=== PATIENT | male | born 2000 | race Caucasian/White ===

== ENCOUNTER 2020-10-18 03:56 | Emergency (ER) | payer MEDICAID, SELFPAY ==
[2020-10-18 04:04] VITALS: BP 142/85; PULSE 93; RESP 16; TEMP 36.4; O2SAT 100
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
--- NOTE | 2020-10-18 04:29 | PC.NURSE ---
Pt seen leaving ED lobby and ambulating unassisted across parking lot.
--- NOTE | 2020-10-18 04:45 | PC.NURSE ---
patient left without receiving d/c instructions or being registered. patient access called patient to register him.
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
== END 2020-10-18 04:48 | disposition home or self-care (01) ==
PROVIDERS: Emergency Provider Emergency Medicine; PCP Family Medicine
DX: L55.0 Sunburn of first degree (principal)
CPT/HCPCS: 99281

== ENCOUNTER 2022-07-18 16:22 | Emergency (ER) | payer OTHER, SELFPAY ==
[2022-07-18 16:41] VITALS: BP 145/82; PULSE 92; RESP 16; TEMP 36.9; O2SAT 99
--- NOTE | 2022-07-18 16:46 | ED.URI ---
HPI - URI/Sore Throat General Chief Complaint: Upper Respiratory Infection Stated Complaint: Cough/Diarrhea/Sinus Time Seen by Provider: 07/18/22 16:46 Source: patient Mode of arrival: ambulatory Limitations: no limitations History of Present Illness HPI Narrative: 22-year-old male presents complaint hoarse voice, nasal congestion, sore throat, cough for approximately 5days. Reports body aches, chills. Today started having diarrhea. Does not seem to be feeling any better. Denies chest pain shortness of breath. Afebrile. Left work early due to feeling sick. all systems reviewed and negative except as noted above. Related Data Allergies Allergy/AdvReac Type Severity Reaction Status Date / Time No Known Allergies Allergy Unverified 07/18/22 16:24 Review of Systems Review of Systems: CONSTITUTIONAL: Denies fever . Reports chills, or sweats. EYES: Denies visual changes, redness, or discharge. ENT: reports rhinorrhea, congestion, sore throat. Denies otalgia. CARDIOVASCULAR: Denies chest pain, palpitations, or edema. RESPIRATORY: reports cough. Denies dyspnea. GASTROINTESTINAL: Denies abdominal pain, nausea, vomiting. Reports diarrhea. GENITOURINARY: Denies dysuria or hematuria. SKIN: Denies rash or itching. MUSCULOSKELETAL: Denies back pain, joint pain, or myalgia. NEUROLOGIC: Denies headache, numbness, or weakness. PSYCHIATRIC: Denies anxiety or depression. All other systems reviewed are negative, except as documented in HPI. PMFSH Social History Social History Gender identity (if verbalized by the patient): Male Comments At time of signature, agree with nursing past medical, surgical, social and family history. There is no relevant family history pertinent to the presenting complaint. Exam Narrative: GENERAL: This is a well-nourished, well-developed patient, in no apparent distress. HEAD: normocephalic, atraumatic. EYES: PERRL. Sclera clear/white. Vision is grossly intact. EARS: External ears normal, auditory canals clear and without drainage, TMs normal without perforation. Hearing grossly intact. NOSE: External nose normal with clear nasal drainage, erythema to throat noted. THROAT: Mucous membranes moist, Erythema to posterior pharynx without swelling or exudates. NECK: Neck supple, non-tender without lymphadenopathy, masses or thyromegaly. CARDIOVASCULAR: Regular rate and rhythm without murmurs, gallops, or rubs. RESPIRATORY: Clear to auscultation. Breath sounds equal bilaterally. No wheezes, rales, or rhonchi. SKIN: warm, Dry, intact with no suspicious lesions or rash, good texture and turgor. NEURO: awake, alert, and oriented to person, place and time. There were no obvious focal neurologic abnormalities. EXTREMITIES: No joint tenderness, effusion, or edema noted. Course Course Level of Care: Express Care Visit Vital Signs Vital signs: Vital Signs Temperature 36.9 C 07/18/22 16:41 Pulse Rate 92 07/18/22 16:41 Respiratory Rate 16 07/18/22 16:41 Blood Pressure 145/82 H 07/18/22 16:41 Pulse Oximetry 99 07/18/22 16:41 Oxygen Delivery Room Air 07/18/22 16:41 Temperature 36.9 C 07/18/22 16:41 Pulse Rate 92 07/18/22 16:41 Respiratory Rate 16 07/18/22 16:41 Blood Pressure 145/82 H 07/18/22 16:41 Pulse Oximetry 99 07/18/22 16:41 Oxygen Delivery Room Air 07/18/22 16:41 Reviewed MDM - URI/Sore Throat MDM Narrative Medical decision making narrative: Patient is aware of diagnosis, understands and agrees to treatment plan. Anticipatory guidance given. Patient agrees to follow-up as directed and is aware of reasons to seek care at the emergency department. Portions of this record may have been created with voice recognition software Differential Diagnosis Differential diagnosis: Likely upper respiratory infection, sinusitis, viral infection and influenza Lab Data Labs: Lab Results 07/18/22 Range/Units 16:54 POC SARS CoV-2 Ag Negative
== END 2022-07-18 17:30 | disposition home or self-care (01) ==
PROVIDERS: Emergency Provider Nurse Practitioner Family; PCP Family Medicine
DX: J06.9 Acute upper respiratory infection, unspecified (principal); Z20.822 Contact with and (suspected) exposure to COVID-19
CPT/HCPCS: 87426; 87804; 99213; C9803; G0463

== ENCOUNTER 2023-06-11 13:37 | Emergency (ER) | payer OTHER, SELFPAY ==
[2023-06-11] VITALS (31 sets, daily range): BP systolic 125–199; BP diastolic 73–96; PULSE 97–138; RESP 11–32; TEMP 37.4; O2SAT 96–100
--- NOTE | ~2023-06-11 | XR_ITS ---
Clinical Indication: Chest pain PA and lateral views of the chest: Comparison: 03/07/2016 Findings: The lungs are clear, without evidence of focal consolidation or pleural effusion. Cardiome diastinal silhouette is within normal limits. Bones and soft tissues are unremarkable. Impression: Normal chest. Reviewed, dictated and finalized at location . MONIA PRINT OPERATOR Impression: Normal chest.
--- NOTE | 2023-06-11 13:39 | ECG_ITS ---
Measurements Intervals [place] Rate: 137 P: 74 PA: 164 QRS: 42 QRSD: 93 T: 46 QT: 330 QTc: 499 Interpretive Statements SINUS TACHYCARDIA POSSIBLE RIGHT VENTRICULAR CONDUCTION DELAY [RSR (QR) IN V1/V2] NONSPECIFIC ST & T-WAVE ABNORMALITY ABNORMAL RHYTHM ECG NO PREVIOUS ECG AVAILABLE FOR COMPARISON Electronically Signed On 06-11-2023 15:51:13 GRIPPER MACHINE OPERATOR by Kalpana Nguyen M.D.
[2023-06-11 14:03] LABS: Basophils Percent Auto 0.1 % (0.2-1.2); Eosinophils Absolute Auto 0.2 K/mm3 (0-0.3); Eosinophils Percent Auto 1.4 % (0-4.4); Hematocrit 43.4 % (42.0-52.0); Hemoglobin 14.7 g/dL (14.0-18.0); Immature Granulocyte Absolute 0.05 K/mm3 (0.00-0.031); Immature Granulocyte Percent A 0.4 % (0-0.5); Lymphocytes Absolute Auto 1.62 K/mm3 (0.9-3.2); Lymphocytes Percent Auto 14.3 % (18.3-44.2); Mean Corpuscular HGB Conc 33.9 g/dl (32-36); Mean Corpuscular Hemoglobin 29.3 pg (26-34); Mean Corpuscular Volume 86.5 fl (80-100); Mean Platelet Volume 9.9 fl (7.4-10.4); Monocytes Absolute Auto 0.8 K/mm3 (0.1-0.6); Monocytes Percent Auto 7.1 % (2.6-8.5); Neutrophils Absolute Auto 8.7 K/mm3 (1.3-6.7); Neutrophils Percent Auto 76.7 % (45.5-73.1); Platelet Count Result 241 k/mm3 (150-375); Red Blood Count 5.02 M/mm3 (4.6-6.20); White Blood Count 11.3 K/mm3 (4.5-10.0)
[2023-06-11 14:14] LABS: Prothrombin Time 13.7 Seconds (11.1-14.7)
[2023-06-11 14:15] LABS: Alanine Aminotransferase 30 U/L (6-50); Albumin Level 4.9 g/dL (3.5-5.1); Alkaline Phosphatase 72 U/L (38-126); Anion Gap 11 mmol/L (8-16); Aspartate Amino Transferase 48 U/L (17-59); Bilirubin,Total 0.5 mg/dL (0.2-1.3); Blood Urea Nitrogen 23 mg/dL (9-20); Calcium 9.6 mg/dL (8.4-10.2); Carbon Dioxide 26 mmol/L (22-30); Chloride 102 mmol/L (98-107); Estimated CRCL calculation 164 ml/min; Estimated Glomerular Filt Rate > 60; Glucose 134 mg/dL (65-110); Lipase 56 U/L (23-300); Partial Thromboplastin Time 24.8 SECONDS (22.3-36.8); Potassium 3.2 mmol/L (3.4-5.0); Sodium 139 mmol/L (137-145)
[2023-06-11 14:29] LABS: Troponin I < 0.012 ng/mL (0.000-0.034)
--- NOTE | 2023-06-11 15:25 | ED.CHESTPAIN ---
HPI - Chest Pain General Chief Complaint: Chest Pain Stated Complaint: chest discomfort x 40 mins Time Seen by Provider: 06/11/23 15:16 Source: patient and family ( [place]) Mode of arrival: EMS Limitations: no limitations History of Present Illness HPI narrative: 23-year-old male presents with chest pain that started approximately 40 minutes prior to EMS arrival. He notes he was at work and started feeling heaviness his chest that was radiating to his left arm which also felt numb. This has been occurring intermittently since. he called his who recommended he go to the emergency department and he did start to drive himself but he began to feel more anxious and felt his symptoms were getting worse so he pulled off to the side of the road and called 911 and EMS transported him. He notes that he did have some relief with the aspirin that they provided but he is still having some symptoms. This has never happened before and he has no cardiac history/does not follow with a spiral winder. He did have a large cup/to go mug of coffee and then a C4 energy drink. He does state that at baseline he drinks several energy drinks a day so caffeine intake is not unusual but doesn't always have coffee. He called his who recommended he come to the ED. Started to drive himself but felt he was getting more anxious and symptoms were getting worse so pulled off to side of road and called 911 to be transported by EMS. EMS gave him aspirin which provided some relief but symptoms still present. He does perform a lot of heavy lifting at work but had not started that part of his job yet today. No shortness of breath. He does feel hyper-aware of his heart beat/rate. Had been in baseline state of health before this. No preceding cough, fevers. PCP through [facility] in [facility]. Related Data Allergies Allergy/AdvReac Type Severity Reaction Status Date / Time No Known Allergies Allergy Verified 06/11/23 14:22 [facility] Social History Social History Other substance usage details: Caffeine (multiple energy drinks daily, occasional coffee) Living arrangements: with family Additional living arrangements comments: [place] Occupation/Education: occupation Gender identity (if verbalized by the patient): Male Exam Narrative: GENERAL: Well-appearing, well-nourished, and in no acute distress. HEAD: Normocephalic, atraumatic. EYES: Non injected, non icteric ENT: Nares clear, no rhinorrhea or epistaxis. NECK: Supple. CHEST: Clear to auscultation. No respiratory distress. speaking complete sentences. No rhonchi, wheezes, stridor, rales. HEART: Tachycardic rate and rhythm. . ABDOMEN: Soft, nondistended. EXTREMITIES: Normal range of motion. No edema. SKIN: Warm, dry, no rash. NEURO: No focal deficits. Alert and oriented x3. PSYCH: Normal mood and affect. Course Vital Signs Vital signs: Vital Signs Temperature 99.3 F 06/11/23 13:49 Pulse Rate 138 H 06/11/23 13:49 Respiratory Rate 16 06/11/23 13:49 Blood Pressure 199/93 H 06/11/23 13:49 Pulse Oximetry 100 06/11/23 13:49 Temperature 99.3 F 06/11/23 13:49 Pulse Rate 104 H 06/11/23 18:01 Respiratory Rate 18 06/11/23 18:01 Blood Pressure 166/78 H 06/11/23 18:01 Pulse Oximetry 98 06/11/23 18:01 Oxygen Delivery Room Air 06/11/23 14:20 MDM - Chest Pain MDM Narrative Medical decision making narrative: patient presents with report of acute onset chest heaviness with radiation to left while at work. No associated shortness of breath. Patient presented an elevated heart rate in the 130s has persistently been tachycardic in the 120s and 130s throughout the initiated with his workup and even upon my examination of him the as well thus will add TSH and D-dimer and give IV fluids. Workup shows mild hypokalemia which is repleted. HEART SCORE History 2 highly suspicious 1
[2023-06-11] MEDS: SODIUM CHLORIDE 0.9% IV 1,000 ML 999 ML IV CONT (15:34)
[2023-06-11 15:44] LABS: D Dimer < 0.27 ug/mL (<0.48)
--- NOTE | 2023-06-11 16:36 | ECG_ITS ---
Measurements Intervals [place] Rate: 114 P: FL: 0 QRS: 46 QRSD: 94 T: 29 QT: 321 QTc: 443 Interpretive Statements SINUS TACHYCARDIA POSSIBLE RIGHT VENTRICULAR CONDUCTION DELAY [RSR (QR) IN V1/V2] SEPTAL MYOCARDIAL INFARCTION , PROBABLY OLD [40+ ms Q WAVE IN V1/V2] NONSPECIFIC ST AND T WAVE ABNORMALITY COMPARED TO ECG 06/11/2023 13:46:54 NO SIGNIFICANT CHANGES Electronically Signed On 06-12-2023 15:56:59 SCOOP FILLER by Kalpana Nguyen M.D.
[2023-06-11 17:15] LABS: Troponin I < 0.012 ng/mL (0.000-0.034)
[2023-06-11] MEDS: ACETAMINOPHEN 500 MG TABLET 1000 MG PO (18:10)
[2023-06-11] MEDS: POTASSIUM PHOS/SODIUM PHOS 250 MG TABLET PO (18:10)
== END 2023-06-11 18:22 | disposition home or self-care (01) ==
PROVIDERS: Family Medicine; Emergency Provider Student in an Organized Health Care Education/Training Program; PCP Family Medicine
DX: R07.9 Chest pain, unspecified (principal); E87.6 Hypokalemia; R79.89 Other specified abnormal findings of blood chemistry; R00.0 Tachycardia, unspecified; I10 Essential (primary) hypertension; R94.31 Abnormal electrocardiogram [ECG] [EKG]
CPT/HCPCS: 36415; 71046; 80053; 83690; 84443; 84484; 85025; 85380; 85610; 85730; 93005; 96360; 99284; A9270; J7030

== ENCOUNTER 2023-07-11 09:10 | Emergency (ER) | payer OTHER, SELFPAY ==
--- NOTE | 2023-07-11 09:24 | ECG_ITS ---
Measurements Intervals [place] Rate: 108 P: 73 NM: 160 QRS: 60 QRSD: 94 T: 20 QT: 320 QTc: 430 Interpretive Statements SINUS TACHYCARDIA POSSIBLE LEFT ATRIAL ENLARGEMENT INCOMPLETE RIGHT BUNDLE BRANCH BLOCK NONSPECIFIC ST-T WAVE ABNORMALITY- ANTEROLAT/INF LEADS BASELINE ARTIFACT- AVL ABNORMAL ECG ABNORMAL RHYTHM ECG COMPARED TO ECG 06/11/2023 16:41:15 NO SIGNIFICANT CHANGES Electronically Signed On 07-11-2023 9:58:15 CDT by Ajith Vasquez D.O.
--- NOTE | 2023-07-11 09:24 | ED.GENADULT ---
HPI - General Adult General Chief complaint: Chest Pain Stated complaint: chest discomfort Time Seen by Provider: 07/11/23 09:24 Source: patient, RN notes reviewed and old records reviewed Mode of arrival: ambulatory Limitations: no limitations History of Present Illness HPI narrative: 23-year-old male to express care for complaints of intermittent chest discomfort since June 11. Patient endorses that he saw his primary care provider yesterday and was diagnosed with anxiety and given a new prescription that he started yesterday. patient states that his discomfort that became acutely worse overnight and into this morning. Patient states that yesterday his primary care provider discussed hypertension due to recent high blood pressure readings. Medications not started by PCP yesterday wants to follow up in 1 month patient. Patient also hypertensive in clinic today. Patient anxious upon arrival. Respirations even and nonlabored. No signs of acute distress. Related Data Home Medications Medication Instructions Recorded Confirmed escitalopram oxalate 10 mg tablet mg 07/11/23 07/11/23 Allergies Allergy/AdvReac Type Severity Reaction Status Date / Time No Known Allergies Allergy Verified 07/11/23 09:30 Review of Systems Review of Systems: All systems reviewed & are unremarkable except as noted in HPI and below Constitutional: Constitutional: Reports no additional constitutional complaints Eyes: Eyes: Reports no additional eye complaints ENT: Reports system reviewed and no additional complaints, except as documented Cardiovascular: Cardiovascular: Reports as per HPI, Reports chest pain, Reports chest pain at rest, Reports chest pain with activity, Reports rapid heart rate and Denies dyspnea Respiratory: Respiratory: Reports no additional respiratory complaints, Denies cough and Denies dyspnea Musculoskeletal: Musculoskeletal: Reports no additional musculoskeletal complaints Neurologic: Reports system reviewed and no additional complaints, except as documented Psychiatric: Psychiatric: Reports no additional psychiatric complaints PMFSH Social History Social History Other substance usage details: Caffeine (multiple energy drinks daily, occasional coffee) Living arrangements: with family Additional living arrangements comments: , [place] Occupation/Education: occupation Gender identity (if verbalized by the patient): Male Comments At the time of my signature, I reviewed and agree with the nursing past medical, surgical, social, and family history. There is no relevant family history pertinent to the patient complaint. Exam Const: General: cooperative, healthy appearing, comfortable, no acute distress, alert and well nourished Nutritional Appearance: well nourished Orientation/consciousness: patient oriented x3 Limitations: no limitations HENMT: Head: normal to inspection Ears: external ears normal Face/Nose/Sinus: Normal external nose present, Normal nares present, normal facial exam, No erythema and No edema Face and sinus: normal facial exam, no erythema and no edema Mouth: Yes Normal oral and palatal mucosa present Eyes: General: appearance normal, both eyes and all related structures Neck: Neck: normal visual inspection, full ROM and no meningeal signs Lymphatic: no lymphadenopathy noted and no lymphedema noted Chest: Chest palpation & inspection: normal inspection of the chest Resp: Effort & Inspection: normal respiratory effort and able to speak in complete sentences Auscultation: clear to auscultation bilaterally Cardio: Jugular venous distension: no JVD Rate: regular rate and tachycardic Rhythm: regular rhythm Back/Spine/Pelvis: Cervical Spine: cervical ROM normal Skin: General skin exam: normal color, no rashes or lesions noted and turgor normal Neuro: General: patient oriented x3, gait normal, moves all extrem
[2023-07-11 09:25] VITALS: BP 172/89; PULSE 84; RESP 18; TEMP 37; O2SAT 100
[2023-07-11 10:06] VITALS: BP 142/70; PULSE 97; RESP 16; O2SAT 100
== END 2023-07-11 10:19 | disposition home or self-care (01) ==
PROVIDERS: Emergency Provider Nurse Practitioner Family
DX: F41.9 Anxiety disorder, unspecified (principal); I20.9 Angina pectoris, unspecified; R03.0 Elevated blood-pressure reading, without diagnosis of hypertension; I45.10 Unspecified right bundle-branch block
CPT/HCPCS: 93005; 99213; G0463

== ENCOUNTER 2023-07-29 08:33 | Outpatient (CLI) | payer OTHER, SELFPAY ==
--- NOTE | 2023-08-01 14:24 | WPDHOLTEREM ---
Holter/Event Monitor Holter/Event Monitor Date of procedure: 08/01/23 Holter/Event Procedure: 48 Hr Holter Monitor Diagnosis: Palpitations Indications: Palpitations Image/Tracing Quality: Adequate. Findin. Predominant rhythm is sinus rhythm. The average heart rate is 81 beats per minute. The minimum heart rate is 52 beats per minute. The maximum heart rate is 125 beats per minute. 2. No evidence of atrial fibrillation, SVT, pauses, heart block, or ventricular tachycardia. 3. PAC burden of <0.01%. 4. PVC burden of <0.01%. 5. No patient reported symptoms. Conclusion: Unremarkable Holter monitor
== END 2023-07-29 08:34 | disposition home or self-care (01) ==
LOC: ANHCARD 08:35
PROVIDERS: PCP Nurse Practitioner Family; Visit Provider Nurse Practitioner Family
DX: R00.2 Palpitations (principal)
CPT/HCPCS: 93225; 93226

== ENCOUNTER 2023-08-01 10:11 | Emergency (ER) | payer OTHER, SELFPAY ==
[2023-08-01 10:20] VITALS: BP 156/100; PULSE 114; RESP 18; TEMP 37.1; O2SAT 100
--- NOTE | 2023-08-01 10:25 | ED.ARRPALP ---
HPI - Arrhythmia/Palpitations General Chief Complaint: Arrhythmia/Palpitations Stated Complaint: Fast Heartbeat Time Seen by Provider: 08/01/23 10:25 Source: patient Mode of arrival: ambulatory Limitations: no limitations History of Present Illness HPI narrative: Jabari is a 23-year-old male patient presenting to the clinic today with complaints of fast heartbeat. He reports that he feels as though his heart was beating fast while at work. States he has cut out caffeine. Had a protein shake and apples this morning. Had a Holter monitor removed yesterday and is scheduled to see Cardiology on Saturday. He denies any chest pain or shortness of breath associated with the fast his heart rate. Heart rate at the time of evaluation was 114. EKG heart rate shows 105 sinus tachycardia. Blood pressure is elevated 156/100-patient took his lisinopril this morning. Reports to nurse that his job is very stressful and causes him panic attacks. Patient has discontinued cigarettes but is now vaping. Has tried cutting out all caffeine. Related Data Home Medications Medication Instructions Recorded Confirmed escitalopram oxalate 10 mg tablet 10 mg PO AC 07/11/23 08/01/23 lisinopril 10 mg tablet 20 mg PO AC 08/01/23 08/01/23 Allergies Allergy/AdvReac Type Severity Reaction Status Date / Time No Known Allergies Allergy Verified 08/01/23 10:40 Review of Systems Review of Systems: Pertinent positives per HPI. Patient denies any fever, chills, rash, headache, visual changes, dizziness, cough, runny nose, sore throat, shortness of breath, chest pain, palpitations, nausea, vomiting, diarrhea, constipation, abdominal pain, or any urinary issues. PMFSH Social History Social History Other substance usage details: Caffeine (multiple energy drinks daily, occasional coffee) Living arrangements: with family Additional living arrangements comments: , [place] Occupation/Education: occupation Gender identity (if verbalized by the patient): Male Comments At the time of my signature, I reviewed and agree with the nursing past medical, surgical, social, and family history. There is no relevant family history pertinent to the patient complaint. Exam Narrative: General: Well-developed, well nourished, in no apparent distress Head: Normocephalic, atraumatic. Cardio: Sinus tach-Regular rate and rhythm, s1 and s2 normal, no murmur appreciated. Resp: Clear to auscultation bilaterally, no rhonchi, rales, wheezing or rubs. Extremities: No deformity, no edema, no cyanosis, capillary refill less than 2 seconds, peripheral pulses palpable and strong. Integumentary: [place], warm, and dry, intact without lesion, no rashes. Course Course Emergency Course: Portions of this record may have been created with voice recognition software. Level of Care: Express Care Visit Vital Signs Vital signs: Vital signs reviewed MDM - Arrhythmia/Palpitations MDM Narrative Medical decision making narrative: At the time of visit patient is resting comfortably on the exam table. Patient appears to be nontoxic. EKG: Shows sinus tachycardia with heart rate of 107 beats per minute. Possible atrial enlargement with incomplete right bundle-branch block. No ST elevation or depression noted-no changes from previous EKG on 07/10 Plan: Patient's heart rate down to 95 and blood pressure was rechecked and is 148/68. Patient reports his symptoms have improved since he has been in the clinic. 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 Will give him a work note for today. Supportive measures were discussed with the patient and they voiced understanding discharge instructions and agrees to treatment plan. Return precautions reviewed Differential Diagnosis Differential diagnosis: Likely palpitations, anxiety, sinus tachycardia, artial fibrillation, artial flutter, ventricular premature be
--- NOTE | 2023-08-01 10:26 | ECG_ITS ---
Measurements Intervals [place] Rate: 107 P: 77 [place]: 146 QRS: 58 QRSD: 97 T: 40 QT: 304 QTc: 367 Interpretive Statements SINUS TACHYCARDIA LEFT ATRIAL ENLARGEMENT [-0.15mV P WAVE IN V1/V2] POSSIBLE RIGHT VENTRICULAR CONDUCTION DELAY [RSR (QR) IN V1/V2] NONSPECIFIC T-WAVE ABNORMALITY ABNORMAL ECG SEE SCANNED COPY FOR SIGNATURE MTDD
[2023-08-01 10:42] VITALS: BP 148/68; PULSE 95
[2023-08-01 10:48] VITALS: PULSE 90
--- NOTE | 2023-08-01 14:17 | WPDHOLTEREM ---
Holter/Event Monitor Holter/Event Monitor Date of procedure: 08/01/23 Holter/Event Procedure: 48 Hr Holter Monitor Diagnosis: Palpitations Indications: Palpitations Image/Tracing Quality: Adequate. Total analysis time of 47 hours and 59 minutes. Findin. Predominant rhythm is sinus rhythm. The average heart rate is 81 beats per minute. The minimum heart rate is 52 beats per minute. The maximum heart rate is 125 beats per minute. 2. No evidence of atrial fibrillation, SVT, pauses, heart block, or ventricular tachycardia. 3. PAC burden of <0.01%. 4. PVC burden of <0.01%. 5. No patient reported symptoms. Conclusion: Unremarkable Holter monitor.
== END 2023-08-01 10:48 | disposition home or self-care (01) ==
PROVIDERS: Emergency Provider Nurse Practitioner Family; PCP Nurse Practitioner Family
DX: R00.2 Palpitations (principal); I10 Essential (primary) hypertension; F17.290 Nicotine dependence, other tobacco product, uncomplicated; F41.9 Anxiety disorder, unspecified
CPT/HCPCS: 93005; 99213; G0463

== ENCOUNTER 2023-12-21 19:51 | Emergency (ER) | payer OTHER, SELFPAY ==
--- NOTE | ~2023-12-21 | XR_ITS ---
EXAMINATION: XR chest 1V portable DATE: 12/21/2023 20:25 INDICATION: Palpitations TECHNIQUE: frontal view of the chest was obtained. COMPARISON: Chest radiograph dated 06/11/2023 FINDINGS: The lungs remain clear with no focal airspace opacities, pulmonary edema, pleural effusion or pneumot horax. The cardiomediastinal silhouette is normal. Mild lower thoracic levocurvature. IMPRESSION: 1. No acute cardiopulmonary disease. Reviewed, dictated and finalized at location A.
--- NOTE | 2023-12-21 19:57 | ECG_ITS ---
Test Date: 2023-12-21 19:59:50 Measurements Intervals [place] Rate: 133 P: 64 [place]: 160 QRS: 49 QRSD: 96 T: 46 QT: 379 QTc: 564 Interpretive Statements SINUS TACHYCARDIA NONSPECIFIC ST & T-WAVE ABNORMALITY- ANTEROLAT/INF LEADS BASELINE WANDER- I, II, III, AVL, AVF ABNORMAL ECG No previous ECG available for comparison Electronically Signed On 12-22-2023 07:25:44 CDT by Ajith Vasquez D.O.
[2023-12-21 19:58] VITALS: BP 140/75; PULSE 148; RESP 13; TEMP 36.7; O2SAT 100
[2023-12-21 20:10] VITALS: PULSE 140
[2023-12-21] MEDS: diazePAM INJ (*CRX) 10 MG/2 ML SYRINGE 5 MG IV PUSH (20:20)
[2023-12-21 20:27] LABS: Basophils Percent Auto 0.5 % (0.2-1.2); Eosinophils Absolute Auto 0.2 K/mm3 (0-0.3); Eosinophils Percent Auto 3.2 % (0-4.4); Hematocrit 39.3 % (42.0-52.0); Hemoglobin 13.7 g/dL (14.0-18.0); Immature Granulocyte Absolute 0.02 K/mm3 (0.00-0.031); Immature Granulocyte Percent A 0.4 % (0-0.5); Lymphocytes Absolute Auto 1.71 K/mm3 (0.9-3.2); Lymphocytes Percent Auto 30.1 % (18.3-44.2); Mean Corpuscular HGB Conc 34.9 g/dl (32-36); Mean Corpuscular Hemoglobin 30.2 pg (26-34); Mean Corpuscular Volume 86.6 fl (80-100); Mean Platelet Volume 9.6 fl (7.4-10.4); Monocytes Absolute Auto 0.7 K/mm3 (0.1-0.6); Monocytes Percent Auto 11.4 % (2.6-8.5); Neutrophils Absolute Auto 3.1 K/mm3 (1.3-6.7); Neutrophils Percent Auto 54.4 % (45.5-73.1); Platelet Count Result 204 k/mm3 (150-375); Red Blood Count 4.54 M/mm3 (4.6-6.20); Red Cell Distribution Width 12.7 % (11.5-14.5); White Blood Count 5.7 K/mm3 (4.5-10.0)
--- NOTE | 2023-12-21 20:29 | ED.GENADULT ---
HPI - General Adult General Chief complaint: Arrhythmia/Palpitations Stated complaint: palpitations Time Seen by Provider: 12/21/23 20:05 History of Present Illness HPI narrative: This is a 23-year-old male with a history of anxiety and palpitations presenting with palpitations. Patient has been started on hydroxyzine as well as lisinopril. Patient had a drink any saw there was potassium in the drink and he was concerned that that would interact with his lisinopril. His heart then started to race, he got a very dry mouth had the sensation that something was seriously wrong. This is associated with some chest heaviness. Patient has a history of panic attacks. Patient has worn a Holter monitor in the past several months that was unremarkable. Patient follows with a basket maker. Patient had been on escitalopram in the past but did not like how it him feel. Related Data Home Medications Medication Instructions Recorded Confirmed escitalopram oxalate 10 mg tablet 10 mg PO AC 07/11/23 08/01/23 lisinopril 10 mg tablet 20 mg PO AC 08/01/23 08/01/23 Allergies Allergy/AdvReac Type Severity Reaction Status Date / Time No Known Allergies Allergy Verified 08/01/23 10:40 [facility] Social History Social History Other substance usage details: Caffeine (multiple energy drinks daily, occasional coffee) Living arrangements: with family Additional living arrangements comments: , [place] Occupation/Education: occupation Gender identity (if verbalized by the patient): Male Exam Narrative: APPEARANCE: anxious appearing Head: atraumatic. EYES: EOMI, NOSE: Atraumatic NECK: Trachea midline RESPIRATORY: No increased rate of breathing clear to auscultation CARDIOVASCULAR: RRR, no peripheral edema. ABDOMINAL: Non-distended soft nontender MUSCULOSKELETAl: No obvious deformities NEURO: Alert. Moving 4/4 extremities SKIN:: Warm, dry. Normal color PSYCHIATRIC: Normal affect Course Vital Signs Vital signs: Vital Signs Temperature 98.1 F 12/21/23 19:58 Pulse Rate 148 H 12/21/23 19:58 Respiratory Rate 13 12/21/23 19:58 Blood Pressure 140/75 12/21/23 19:58 Pulse Oximetry 100 12/21/23 19:58 Oxygen Delivery Room Air 12/21/23 19:58 Temperature 98.1 F 12/21/23 19:58 Pulse Rate 140 H 12/21/23 20:10 Respiratory Rate 13 12/21/23 19:58 Blood Pressure 140/75 12/21/23 19:58 Pulse Oximetry 100 12/21/23 19:58 Oxygen Delivery Room Air 12/21/23 19:58 Medical Decision Making MDM Narrative Medical decision making narrative: -Course: 23-year-old male with history of anxiety and panic attacks presenting with anxiety. EKG showed sinus tach nonspecific ST changes. Chest x-ray unremarkable. Patient was treated with Valium with significant improvements in his symptoms. I discussed the patient's anxiety and panic attacks with him at length. Patient follow-up primary care -DDX includes but is not limited to: Panic disorder, anxiety, ACS, pneumothorax, caffeine overdose -Co-morbidities complicating care: Anxiety with panic attacks -External Chart Review: Review of 3 previous ER and urgent care visits for similar presentation/ Review of Holter monitor report. -Hx from independent Sources: bedside -Independent interpretation of studies: Chest x-ray normal. Independent EKG interpretation: Rhythm [sinus], Rate [133], [place] -[normal], [place] -[normal], QRS [narrow], QTC [normal], ST Segments - [Negative for concerning elevations] Final interpretations: Sinus tach with nonspecific T-wave inversions -unchanged from previous -Interventions:Valium -Shared decision making / Disposition: Discharged Vital Signs Vital Signs: Vital Signs Temperature 98.1 F 12/21/23 19:58 Pulse Rate 148 H 12/21/23 19:58 Respiratory Rate 13 12/21/23 19:58 Blood Pressure 140/75 12/21/23 19:58 Pulse Oximetry 100 12/21/23 19:58 Oxygen De
[2023-12-21 20:37] LABS: Alanine Aminotransferase 32 U/L (6-50); Albumin Level 4.5 g/dL (3.5-5.1); Alkaline Phosphatase 69 U/L (38-126); Anion Gap 9 mmol/L (4-12); Aspartate Amino Transferase 38 U/L (17-59); Bilirubin,Total 0.2 mg/dL (0.2-1.3); Blood Urea Nitrogen 19 mg/dL (9-20); Calcium 8.9 mg/dL (8.4-10.2); Carbon Dioxide 28 mmol/L (22-30); Chloride 98 mmol/L (98-107); Estimated CRCL calculation 141 ml/min; Estimated Glomerular Filt Rate > 60; Glucose 109 mg/dL (65-110); Potassium 3.7 mmol/L (3.4-5.0); Sodium 135 mmol/L (137-145)
== END 2023-12-21 21:16 | disposition home or self-care (01) ==
LOC: ANHED 21:13
PROVIDERS: Emergency Provider Emergency Medicine; PCP Nurse Practitioner Family
DX: R00.2 Palpitations (principal); F41.9 Anxiety disorder, unspecified
CPT/HCPCS: 36415; 71045; 80053; 85025; 93005; 96374; 99284; J3360

== ENCOUNTER 2024-02-18 10:09 | Emergency (ER) | payer OTHER, SELFPAY ==
[2024-02-18 10:24] VITALS: BP 141/69; PULSE 87; RESP 16; TEMP 36.8; O2SAT 100
--- NOTE | 2024-02-18 10:36 | ED.ANXIETY ---
HPI - Anxiety General Chief Complaint: Anxiety Stated Complaint: panic attack and chest pain Time Seen by Provider: 02/18/24 11:11 Source: patient Mode of arrival: ambulatory Limitations: no limitations History of Present Illness HPI narrative: 23-year-old male presents with concern for anxiety. Reports history of anxiety and panic attacks. Reports today at work he felt a pain in his chest that felt tight and left arm soreness. He reports a feeling of fear. He is requesting an EKG. He does see a aeronautical test engineer based on prior panic attack symptoms. He has recently seen his aeronautical test engineer. He takes hydroxyzine daily. MD complaint: anxiety Related Data Home Medications Medication Instructions Recorded Confirmed lisinopril 10 mg tablet 30 mg PO AC 08/01/23 02/18/24 hydroxyzine HCl 25 mg tablet 25 mg PO TID PRN Anxiety 02/18/24 02/18/24 Allergies Allergy/AdvReac Type Severity Reaction Status Date / Time No Known Allergies Allergy Verified 02/18/24 10:39 Review of Systems Review of Systems: CONSTITUTIONAL: Denies malaise, chills, sweats, or fever. CARDIOVASCULAR: Reports chest pain tightness. Denies palpitations or edema. RESPIRATORY: Denies cough or dyspnea. MUSCULOSKELETAL: Reports left arm soreness PSYCHIATRIC: Reports anxiety All systems reviewed & are unremarkable except as noted in HPI and below PMFSH Social History Social History Other substance usage details: Caffeine (multiple energy drinks daily, occasional coffee) Living arrangements: with family Additional living arrangements comments: , [place] Occupation/Education: occupation Gender identity (if verbalized by the patient): Male Comments At time of signature, agree with nursing past medical, surgical, social and family history. There is no relevant family history pertinent to the presenting complaint Exam Narrative: GENERAL: Well-appearing, well-nourished, and in no acute distress. HEAD: Normocephalic, atraumatic. EYES: PERRLA, sclera clear, and EOMI ENT: Nares clear. Mucous membranes moist. NECK: Supple. CHEST: No respiratory distress. Clear to auscultation. No bony deformities, no asymmetry. Speaks in full sentences. HEART: Regular rate and rhythm. No murmur heard. Normal peripheral pulses. EXTREMITIES: Normal range of motion. No edema. Normal strength and sensation. SKIN: Warm, dry, no visible rash. NEURO: Alert and oriented x3. PSYCH: Normal mood and affect Course Course Emergency Course: Patient is aware of diagnosis, understands and agrees to treatment plan. Anticipatory guidance given. Patient agrees to follow-up as directed and is aware of reasons to seek care at the emergency department. Portions of this record may have been created with voice recognition software Level of Care: [facility] Visit Vital Signs Vital signs: Vital Signs Temperature 98.3 F 02/18/24 10:24 Pulse Rate 87 02/18/24 10:24 Respiratory Rate 16 02/18/24 10:24 Blood Pressure 141/69 H 02/18/24 10:24 Pulse Oximetry 100 02/18/24 10:24 Oxygen Delivery Room Air 02/18/24 10:24 Temperature 98.3 F 02/18/24 10:24 Pulse Rate 87 02/18/24 10:24 Respiratory Rate 16 02/18/24 10:24 Blood Pressure 141/69 H 02/18/24 10:24 Pulse Oximetry 100 02/18/24 10:24 Oxygen Delivery Room Air 02/18/24 10:24 Reviewed. MDM - Anxiety MDM Narrative Medical decision making narrative: I evaluated this patient in the [facility]. History is obtained from patient who is an independent historian and physical exam was performed.? Available medical records were reviewed. ? Exam findings and relevant testing show no acute concerns or changes; patient is non-toxic appearing and is in no distress. ? Differential diagnosis and treatment plan were discussed with the patient. Patient agrees with discussion and after shared medical decision making agrees with plan of care. All questions were answered to the patient's satisfaction. Patient is appropriate for outpatient treatment and follow-up. ECG Data EKG #1: Attestation: I personally reviewed and interpreted this ECG as follows: ECG completion date: 02/18/24 ECG completion time: 11:20 Prior ECG tracings: available for review Interpretation: Rate 99, KS interval 130, QRS duration 90. Possible left atrial enlargement, nonspecific ST T and T-wave abnormality, unchanged from previous EKGs EKG Interpretation: normal rate and sinus rhythm Critical Care Time Critical Care Time Critical Care Time: No Discharge Plan Discharge Clinical Impression: Acute anxiety Patient Disposition: Home, Self-Care Condition: Stable Instructions: Anxiety (ED) Additional Instructions: 1) Please follow-up with your primary care doctor in the next 1-2 days. 2) If you have any worsening of symptoms or any other urgent concerns please go to the ER. 3) Please continue taking your home medications as usual. 4) Please read and follow information included in discharge instructions. Prescriptions: No Action lisinopril 10 mg tablet 30 mg PO AC hydroxyzine HCl 25 mg tablet 25 mg PO TID PRN (Reason: Anxiety) Follow-up/Referrals: UNKNOWN,DOCTOR [Primary Care Provider] - Time of Disposition: 11:18
--- NOTE | 2024-02-18 10:53 | ECG_ITS ---
Test Date: 2024-02-18 11:06:17 Measurements Intervals [place] Rate: 99 P: 67 VT: 130 QRS: 75 QRSD: 90 T: 62 QT: 288 QTc: 371 Interpretive Statements SINUS RHYTHM POSSIBLE LEFT ATRIAL ENLARGEMENT [-0.1mV P WAVE IN V1/V2] NONSPECIFIC ST & T-WAVE ABNORMALITY Compared to ECG 12/21/2023 19:59:50 Sinus tachycardia no longer present Electronically Signed On 02-18-2024 13:58:55 CDT by Kalpana Nguyen M.D.
== END 2024-02-18 11:20 | disposition home or self-care (01) ==
PROVIDERS: Emergency Provider Nurse Practitioner
DX: F41.9 Anxiety disorder, unspecified (principal); I10 Essential (primary) hypertension
CPT/HCPCS: 93005; 99213; G0463

== ENCOUNTER 2024-02-18 12:10 | Emergency (ER) | payer OTHER, SELFPAY ==
--- NOTE | ~2024-02-18 | XR_ITS ---
EXAMINATION: XR chest 2V DATE: 02/18/2024 15:45 INDICATION: Chest pain. TECHNIQUE: Frontal and lateral views of the chest were obtained. COMPARISON: Chest single view 12/21/2023 FINDINGS: There is no pneumonia, pleural effusion, or pneumothorax. The heart size is normal. IMPRESSION: 1. No acute cardiopulmonary disease. Reviewed, dictated and finalized at location B.
[2024-02-18 12:22] VITALS: BP 135/90; PULSE 99; RESP 18; TEMP 36.7; O2SAT 100
--- NOTE | 2024-02-18 14:52 | ECG_ITS ---
Test Date: 2024-02-18 15:11:45 Measurements Intervals [place] Rate: 83 P: 68 MD: 144 QRS: 60 QRSD: 89 T: 38 QT: 349 QTc: 411 Interpretive Statements SINUS RHYTHM NONSPECIFIC ST & T-WAVE ABNORMALITY Compared to ECG 02/18/2024 11:06:17 No significant changes Electronically Signed On 02-19-2024 14:23:58 CDT by Kalpana Nguyen M.D.
--- NOTE | 2024-02-18 14:53 | ED.ANXIETY ---
HPI - Anxiety General Chief Complaint: Anxiety <Kanchan Dupont APRN - Last Filed: 02/18/24 14:55> Stated Complaint: panic attack <Kanchan Dupont APRN - Last Filed: 02/18/24 14:55> Time Seen by Provider: 02/18/24 14:40 <Kanchan Dupont APRN - Last Filed: 02/18/24 14:55> Focused HPI: Patient is a 23-year-old male who presents to the ER with chest pressure. He reports he went to urgent care earlier today and has an abnormal EKG. Patient reports he was at work this morning started having a panic attack. He reports no medical history pertinent to this ER visit. Patient does endorse increased stress lately. He denies any signs/symptoms of illness or urinary symptoms. GENERAL: Well-appearing, well-nourished, and in no acute distress. HEAD: Normocephalic, atraumatic. CHEST: Clear to auscultation. ?No respiratory distress. HEART: Regular rate and rhythm.? NEURO: ?Alert and oriented x3. Patient screened in triage and initial orders placed.? ?Additional care and disposition to be based upon?diagnostic testing and treatment. <Kanchan Dupont APRN - Last Filed: 02/18/24 14:55> Related Data Home Medications: Home Medications Medication Instructions Recorded Confirmed lisinopril 10 mg tablet 30 mg PO AC 08/01/23 02/18/24 hydroxyzine HCl 25 mg tablet 25 mg PO TID PRN Anxiety 02/18/24 02/18/24 <Kanchan Dupont APRN - Last Filed: 02/18/24 14:55> Allergies/Adverse Reactions: Allergies Allergy/AdvReac Type Severity Reaction Status Date / Time No Known Allergies Allergy Verified 02/18/24 10:39 <Kanchan Dupont APRN - Last Filed: 02/18/24 14:55> Review of Systems Review of Systems: CONSTITUTIONAL: Denies fever CARDIOVASCULAR: Reports chest pain RESPIRATORY: Denies dyspnea. PSYCHIATRIC: Reports anxiety <Vicky Perez PA-C - Last Filed: 02/18/24 18:37> All systems reviewed & are unremarkable except as noted in HPI and below <Vicky Perez PA-C - Last Filed: 02/18/24 18:37> PMFSH Past Medical History Medical History: Medical History (Updated 02/18/24 @ 18:34 by Vicky Perez PA-C) History of anxiety <Kanchan Dupont APRN - Last Filed: 02/18/24 14:55> Social History Social History: Social History Other substance usage details: Caffeine (multiple energy drinks daily, occasional coffee) Living arrangements: with family Additional living arrangements comments: , [place] Occupation/Education: occupation Gender identity (if verbalized by the patient): Male <Kanchan Dupont APRN - Last Filed: 02/18/24 14:55> Exam Narrative: GENERAL: Well-appearing, well-nourished, and in no acute distress. HEAD: Normocephalic, atraumatic. EYES: EOMI. CHEST: Clear to auscultation. No respiratory distress. No wheezes rales or rhonchi HEART: Regular rate and rhythm. No murmur heard. Normal peripheral pulses. EXTREMITIES: Normal range of motion. No edema. SKIN: Warm, dry, no rash. NEURO: No focal deficits. Alert and oriented x3. PSYCH: Normal mood and affect <Vicky Perez PA-C - Last Filed: 02/18/24 18:37> Course Course Emergency Course: Patient updated on his workup and agrees with plan of care. Chest pain resolved after Xanax <Vicky Perez PA-C - Last Filed: 02/18/24 18:37> Vital Signs Vital signs: Vital Signs Temperature 98.0 F 02/18/24 12:22 Pulse Rate 99 02/18/24 12:22 Respiratory Rate 18 02/18/24 12:22 Blood Pressure 135/90 02/18/24 12:22 Pulse Oximetry 100 02/18/24 12:22 Oxygen Delivery Room Air 02/18/24 12:22 Temperature 98.0 F 02/18/24 12:22 Pulse Rate 84 02/18/24 17:45 Respiratory Rate 18 02/18/24 17:45 Blood Pressure 139/71 02/18/24 17:45 Pulse Oximetry 100 02/18/24 17:45 Oxygen Delivery Room Air 02/18/24 12:22 <Kanchan Dupont APRN - Last Filed: 02/18/24 14:55> Vital Signs Temperature 98.0 F 02/18/24 12:22 Pulse Rate 99 02/18/24 12:22 Respiratory Rate 18 02/18/24 12:22 Blood Pressure 135/90 02/18/24 12:22 Pulse Oximetry 100 02/18/24 12:22 Oxygen Delivery Room Air 02/18/24 12:22 Temperature 98.0 F 02/18/24 12:22 Pulse Rate 84 02/18/24 17:45 Respiratory Rate 18 02/18/24 17:45 Blood Pressure 139/71 02/18/24 17:45 Pulse Oximetry 100 02/18/24 17:45 Oxygen Delivery Room Air 02/18/24 12:22 <Vicky Perez PA-C - Last Filed: 02/18/24 18:37> MDM - Anxiety MDM Narrative Medical decision making narrative: Patient presents to the ER for panic attack. Reporting chest discomfort. His vitals are stable. CBC and metabolic panel without concerning findings. Urine without evidence of infection. Chest x-ray without acute cardiopulmonary abnormality. EKG without acute ST changes compared to his previous EKG and his baseline troponin is negative. D-dimer is not elevated. Patient updated on his workup and agrees with plan of care. Reports relief in his discomfort after Xanax. He is to follow up with his primary provider. He was given warnings to return to the ER <Vicky Perez PA-C - Last Filed: 02/18/24 18:37> Differential Diagnosis Differential diagnosis: Likely acute anxiety and other (pneumonia, pneumothorax, PE) <Vicky Perez PA-C - Last Filed: 02/18/24 18:37> Lab Data Attestation: I reviewed the patient's lab results. <Vicky Perez PA-C - Last Filed: 02/18/24 18:37> Result diagrams: 02/18/24 15:20 02/18/24 15:20 <Kanchan Dupont APRN - Last Filed: 02/18/24 14:55> Labs: Lab Results 02/18/24 02/18/24 Range/Units 15:20 15:29 WBC 7.1 (4.5-10.0) K/mm3 RBC 5.26 (4.6-6.20) M/mm3 Hgb 15.3 (14.0-18.0) g/dL Hct 44.5 (42.0-52.0) % MCV 84.6 (80-100) fl MCH 29.1 (26-34) pg MCHC 34.4 (32-36) g/dl RDW 12.2 (11.5-14.5) % Plt Count 232 (150-375) k/mm3 MPV 9.3 (7.4-10.4) fl Immature Gran % (Auto) 0.1 (0-0.5) % Neut % (Auto) 80.0 H (45.5-73.1) % Lymph % (Auto) 12.9 L (18.3-44.2) % [place]ie % (Auto) 6.6 (2.6-8.5) % Eos % (Auto) 0.1 (0-4.4) % Baso % (Auto) 0.3 (0.2-1.2) % Lymph # (Auto) 0.92 (0.9-3.2) K/mm3 [place] # (Auto) 0.5 (0.1-0.6) K/mm3 Eos # (Auto) 0.0 (0-0.3) K/mm3 Baso # (Auto) 0.0 (0.0-0.1) K/mm3 Abs Immat Gran (auto) 0.01 (0.00-0.031) K/mm3 Absolute Neuts (auto) 5.7 (1.3-6.7) K/mm3 Absolute Nucleated RBC 0.000 (0.0-0.012) K/mm3 Nucleated RBC % 0.0 (0.0-0.2) % PT 14.6 (11.1-14.7) Seconds INR 1.1 APTT 32.9 (22.3-36.8) Seconds D-Dimer 0.34 (<0.48) ug/mL Sodium 140 (137-145) mmol/L Potassium 4.2 (3.4-5.0) mmol/L Chloride 99 (98-107) mmol/L Carbon Dioxide 27 (22-30) mmol/L Anion Gap 14 H (4-12) mmol/L BUN 13 D (9-20) mg/dL Creatinine 0.80 (0.7-1.3) mg/dL Estim Creat Clear Calc 145 ml/min Estimated GFR > 60 (59 - ) Glucose 96 (65-110) mg/dL Calcium 9.8 (8.4-10.2) mg/dL Total Bilirubin 0.7 (0.2-1.3) mg/dL AST 28 (17-59) U/L ALT 20 (6-50) U/L Alkaline Phosphatase 72 (38-126) U/L Troponin I < 0.012 (0.000-0.034) ng/mL Total Protein 9.0 H (6.3-8.2) g/dL Albumin 5.2 H (3.5-5.1) g/dL Urine Color Yellow (Yellow) Urine Appearance Clear (Clear) Urine pH 6.5 (5.0-9.0) Ur Specific [place] 1.018 (1.001-1.035) Urine Protein Negative (Negative) mg/dL Urine Glucose (UA) Negative (Negative) mg/dL Urine Ketones Negative (Negative) mg/dL Ur Blood (Man) Negative (Negative) Urine Nitrate Negative (Negative) Urine Bilirubin Negative (Negative) Urine Urobilinogen 1.0 (<2.0) mg/dL Leukocyte Esterase Rfl Negative (Negative) NATALI/UL <Kanchan Dupont, PROCESS SAFETY MANAGEMENT ENGINEER - Last Filed: 02/18/24 14:55> Lab Results 02/18/24 02/18/24 Range/Units 15:20 15:29 WBC 7.1 (4.5-10.0) K/mm3 RBC 5.26 (4.6-6.20) M/mm3 Hgb 15.3 (14.0-18.0) g/dL Hct 44.5 (42.0-52.0) % MCV 84.6 (80-100) fl MCH 29.1 (26-34) pg MCHC 34.4 (32-36) g/dl RDW 12.2 (11.5-14.5) % Plt Count 232 (150-375) k/mm3 MPV 9.3 (7.4-10.4) fl Immature Gran % (Auto) 0.1 (0-0.5) % Neut % (Auto) 80.0 H (45.5-73.1) % Lymph % (Auto) 12.9 L (18.3-44.2) % [place] % (Auto) 6.6 (2.6-8.5) % Eos % (Auto) 0.1 (0-4.4) % Baso % (Auto) 0.3 (0.2-1.2) % Lymph # (Auto) 0.92 (0.9-3.2) K/mm3 [place] # (Auto) 0.5 (0.1-0.6) K/mm3 Eos # (Auto) 0.0 (0-0.3) K/mm3 Baso # (Auto) 0.0 (0.0-0.1) K/mm3 Abs Immat Gran (auto) 0.01 (0.00-0.031) K/mm3 Absolute Neuts (auto) 5.7 (1.3-6.7) K/mm3 Absolute Nucleated RBC 0.000 (0.0-0.012) K/mm3 Nucleated RBC % 0.0 (0.0-0.2) % PT 14.6 (11.1-14.7) Seconds INR 1.1 APTT 32.9 (22.3-36.8) Seconds D-Dimer 0.34 (<0.48) ug/mL Sodium 140 (137-145) mmol/L Potassium 4.2 (3.4-5.0) mmol/L Chloride 99 (98-107) mmol/L Carbon Dioxide 27 (22-30) mmol/L Anion Gap 14 H (4-12) mmol/L BUN 13 D (9-20) mg/dL Creatinine 0.80 (0.7-1.3) mg/dL Estim Creat Clear Calc 145 ml/min Estimated GFR > 60 (59 - ) Glucose 96 (65-110) mg/dL Calcium 9.8 (8.4-10.2) mg/dL Total Bilirubin 0.7 (0.2-1.3) mg/dL AST 28 (17-59) U/L ALT 20 (6-50) U/L Alkaline Phosphatase 72 (38-126) U/L Troponin I < 0.012 (0.000-0.034) ng/mL Total Protein 9.0 H (6.3-8.2) g/dL Albumin 5.2 H (3.5-5.1) g/dL Urine Color Yellow (Yellow) Urine Appearance Clear (Clear) Urine pH 6.5 (5.0-9.0) Ur Specific [place] 1.018 (1.001-1.035) Urine Protein Negative (Negative) mg/dL Urine Glucose (UA) Negative (Negative) mg/dL Urine Ketones Negative (Negative) mg/dL Ur Blood (Man) Negative (Negative) Urine Nitrate Negative (Negative) Urine Bilirubin Negative (Negative) Urine Urobilinogen 1.0 (<2.0) mg/dL Leukocyte Esterase Rfl Negative (Negative) NATALI/UL <Vicky Perez PA-C - Last Filed: 02/18/24 18:37> Imaging Data Radiologist's impression: ITS Impressions Chest X-Ray 02/18/24 15:48 IMPRESSION: 1. No acute cardiopulmonary disease. <Vicky Perez PA-C - Last Filed: 02/18/24 18:37> ECG Data EKG #1: ECG completion date: 02/18/24 <FAROOQ Chiu Last Filed: 02/18/24 18:37> EKG Interpretation: normal rate, sinus rhythm, no ST changes and normal QT <FAROOQ Chiu Last Filed: 02/18/24 18:37> Critical Care Time Critical Care Time Critical Care Time: No <FAROOQ Chiu Last Filed: 02/18/24 18:37> Discharge Plan Discharge Clinical Impression: Acute anxiety <Kanchan Dupont APRN - Last Filed: 02/18/24 14:55> Patient Disposition: Home, Self-Care <Kanchan Dupont APRN - Last Filed: 02/18/24 14:55> Condition: Improved <Kanchan Dupont APRN - Last Filed: 02/18/24 14:55> Instructions: Chest Pain (ED), Anxiety (ED) <aKnchan Dupont APRN - Last Filed: 02/18/24 14:55> Additional Instructions: Return to the emergency department if you experience fever, chest pain, shortness of breath, abdominal pain with nausea and vomiting, weakness, numbness, or any other symptoms that are concerning to you. Take your home medications as prescribed Follow up with your primary care doctor <Kanchan Dupont APRN - Last Filed: 02/18/24 14:55> Prescriptions: No Action lisinopril 10 mg tablet 30 mg PO AC hydroxyzine HCl 25 mg tablet 25 mg PO TID PRN (Reason: Anxiety) <Kanchan Dupont APRN - Last Filed: 02/18/24 14:55> Follow-up/Referrals: UNKNOWN,DOCTOR [Primary Care Provider] - <Kanchan Dupont APRN - Last Filed: 02/18/24 14:55> Quality HEART score for chest pain patients History: slightly suspicious <Vicky Perez PA-C - Last Filed: 02/18/24 18:37> ECG: non specific repolarization disturbance/LBTB/PM <Vicky Perez PA-C - Last Filed: 02/18/24 18:37> Age: < or = to 45 years <Vicky Perez PA-C - Last Filed: 02/18/24 18:37> Risk factors: 1 or 2 risk factors <Vicky Perez PA-C - Last Filed: 02/18/24 18:37> Troponin: < or = to 1x normal limit <Vicky Perez PA-C - Last Filed: 02/18/24 18:37> Heart score: 2 <Vicky Perez PA-C - Last Filed: 02/18/24 18:37>
[2024-02-18 15:15] VITALS: BP 124/77; PULSE 86; RESP 15; O2SAT 98
[2024-02-18 15:30] LABS: Basophils Percent Auto 0.3 % (0.2-1.2); Eosinophils Percent Auto 0.1 % (0-4.4); Hematocrit 44.5 % (42.0-52.0); Hemoglobin 15.3 g/dL (14.0-18.0); Immature Granulocyte Absolute 0.01 K/mm3 (0.00-0.031); Immature Granulocyte Percent A 0.1 % (0-0.5); Lymphocytes Absolute Auto 0.92 K/mm3 (0.9-3.2); Lymphocytes Percent Auto 12.9 % (18.3-44.2); Mean Corpuscular HGB Conc 34.4 g/dl (32-36); Mean Corpuscular Hemoglobin 29.1 pg (26-34); Mean Corpuscular Volume 84.6 fl (80-100); Mean Platelet Volume 9.3 fl (7.4-10.4); Monocytes Absolute Auto 0.5 K/mm3 (0.1-0.6); Monocytes Percent Auto 6.6 % (2.6-8.5); Neutrophils Absolute Auto 5.7 K/mm3 (1.3-6.7); Platelet Count Result 232 k/mm3 (150-375); Red Blood Count 5.26 M/mm3 (4.6-6.20); Red Cell Distribution Width 12.2 % (11.5-14.5); White Blood Count 7.1 K/mm3 (4.5-10.0)
[2024-02-18 15:39] LABS: Add Urine Microscopic? NO; Appearance Urine Clear (Clear); Bilirubin Urine Negative (Negative); Blood Urine Negative (Negative); Color Urine Yellow (Yellow); Glucose Urine UA Negative (Negative); Ketones Urine Negative (Negative); Leukocyte Esterase Ur Negative LEU/UL (Negative); Nitrate Urine Negative (Negative); Protein Urine Negative (Negative); Specific Grav Ur 1.018 (1.001-1.035); pH Urine 6.5 (5.0-9.0)
[2024-02-18 15:51] LABS: Alanine Aminotransferase 20 U/L (6-50); Albumin Level 5.2 g/dL (3.5-5.1); Alkaline Phosphatase 72 U/L (38-126); Anion Gap 14 mmol/L (4-12); Aspartate Amino Transferase 28 U/L (17-59); Bilirubin,Total 0.7 mg/dL (0.2-1.3); Blood Urea Nitrogen 13 mg/dL (9-20); Calcium 9.8 mg/dL (8.4-10.2); Carbon Dioxide 27 mmol/L (22-30); Chloride 99 mmol/L (98-107); Estimated CRCL calculation 145 ml/min; Estimated Glomerular Filt Rate > 60; Glucose 96 mg/dL (65-110); Potassium 4.2 mmol/L (3.4-5.0); Sodium 140 mmol/L (137-145)
[2024-02-18 16:01] LABS: Troponin I < 0.012 ng/mL (0.000-0.034)
[2024-02-18 16:09] LABS: INR 1.1; Prothrombin Time 14.6 Seconds (11.1-14.7)
[2024-02-18 16:10] LABS: Partial Thromboplastin Time 32.9 Seconds (22.3-36.8)
[2024-02-18 16:16] LABS: D Dimer 0.34 ug/mL (<0.48)
[2024-02-18] MEDS: ASPIRIN 81 MG CHEWABLE TABLET 324 MG PO (17:38)
[2024-02-18] MEDS: ALPRAZolam (*CRX) 0.5 MG TABLET PO (17:38)
[2024-02-18 17:45] VITALS: BP 139/71; PULSE 84; RESP 18; O2SAT 100
[2024-02-18 18:35] VITALS: BP 111/60; PULSE 79; RESP 16; TEMP 36.6; O2SAT 98
== END 2024-02-18 18:35 | disposition home or self-care (01) ==
PROVIDERS: Registered Nurse; Emergency Provider Physician Assistant
DX: F41.9 Anxiety disorder, unspecified (principal); R94.31 Abnormal electrocardiogram [ECG] [EKG]
CPT/HCPCS: 36415; 71046; 80053; 81003; 84484; 85025; 85380; 85610; 85730; 93005; 99284; A9270

== ENCOUNTER 2024-03-15 12:56 | Emergency (ER) | payer OTHER, SELFPAY ==
[2024-03-15 12:59] VITALS: BP 132/96; PULSE 89; RESP 18; TEMP 37; O2SAT 100
--- NOTE | 2024-03-15 13:17 | ED.GENADULT ---
HPI - General Adult General Chief complaint: Anxiety Stated complaint: anxiety Time Seen by Provider: 03/15/24 13:01 History of Present Illness HPI narrative: Patient is a 24-year-old male who presents ER with concerns of allergic reaction to medication. Recently started on propanolol for anxiety. Has been taking it for 1 week. 45 minutes after he takes a medication he begins to feel swollen in the under part of his neck and has discomfort with swallowing but no difficulty breathing. He is able to tolerate oral secretions. He symptoms last for 3 hours and go away. No known aggravating factors outside of medication. Related Data Home Medications Medication Instructions Recorded Confirmed lisinopril 10 mg tablet 30 mg PO AC 08/01/23 02/18/24 hydroxyzine HCl 25 mg tablet 25 mg PO TID PRN Anxiety 02/18/24 02/18/24 Allergies Allergy/AdvReac Type Severity Reaction Status Date / Time No Known Allergies Allergy Verified 02/18/24 10:39 Review of Systems Review of Systems: All systems reviewed & are unremarkable except as noted in HPI and below Constitutional: Constitutional: Reports no additional constitutional complaints ENT: Reports system reviewed and no additional complaints, except as documented Cardiovascular: Cardiovascular: Reports no additional cardiovascular complaints Respiratory: Respiratory: Reports no additional respiratory complaints Allergic/Immunologic: Allergic/Immunologic: Denies lip swelling, Reports throat swelling and Denies tongue swelling PMFSH Past Medical History Medical History (Updated 03/15/24 @ 14:05 by Estiven Mendez MD) History of anxiety Social History Social History Substance use type: does not use Other substance usage details: Caffeine (multiple energy drinks daily, occasional coffee) Living arrangements: with family Additional living arrangements comments: , [place] Occupation/Education: occupation Gender identity (if verbalized by the patient): Male Exam Narrative: GENERAL: Well-appearing, well-nourished, and in no acute distress. HEAD: Normocephalic, atraumatic. ENT: Mucous membranes moist. Normal appearing posterior oropharynx. NECK: Supple. CHEST: Clear to auscultation. No respiratory distress. HEART: Regular rate and rhythm. Normal peripheral pulses. EXTREMITIES: Normal range of motion. No edema. SKIN: Warm, dry, no rash. NEURO: Alert and oriented x3. PSYCH: Normal mood and affect. Course Course Emergency Course: Labs unremarkable. Recommend discontinuation of propanolol. Vital Signs Vital signs: Vital Signs Temperature 98.6 F 03/15/24 12:59 Pulse Rate 89 03/15/24 12:59 Respiratory Rate 18 03/15/24 12:59 Blood Pressure 132/96 H 03/15/24 12:59 Pulse Oximetry 100 03/15/24 12:59 Oxygen Delivery Room Air 03/15/24 12:59 Temperature 98.6 F 03/15/24 12:59 Pulse Rate 89 03/15/24 12:59 Respiratory Rate 18 03/15/24 12:59 Blood Pressure 132/96 H 03/15/24 12:59 Pulse Oximetry 100 03/15/24 12:59 Oxygen Delivery Room Air 03/15/24 12:59 Medical Decision Making Vital Signs Vital Signs: Vital Signs Temperature 98.6 F 03/15/24 12:59 Pulse Rate 89 03/15/24 12:59 Respiratory Rate 18 03/15/24 12:59 Blood Pressure 132/96 H 03/15/24 12:59 Pulse Oximetry 100 03/15/24 12:59 Oxygen Delivery Room Air 03/15/24 12:59 Temperature 98.6 F 03/15/24 12:59 Pulse Rate 89 03/15/24 12:59 Respiratory Rate 18 03/15/24 12:59 Blood Pressure 132/96 H 03/15/24 12:59 Pulse Oximetry 100 03/15/24 12:59 Oxygen Delivery Room Air 03/15/24 12:59 Lab Data 03/15/24 13:34 03/15/24 13:34 Labs: Lab Results 03/15/24 Range/Units 13:34 WBC 8.3 (4.5-10.0) K/mm3 RBC 4.63 (4.6-6.20) M/mm3 Hgb 13.8 L (14.0-18.0) g/dL Hct 39.5 L (42.0-52.0) % MCV 85.3 (80-100) fl MCH 29.8 (26-34) pg MCHC 34.9 (32-36) g/dl RDW 13.2 (11.5-14.5) % Plt Count 184 (150-375) k/mm3 MPV 9.2 (7.4-10.4) fl Immature Gran % (Auto) 0.2 (0-0.5) % Neut % (Auto) 81.3 H (45.5-73.1) % Lymph % (Auto) 9.2 L (18.3-44.2) % [place] % (Auto) 8.2 (2.6-8.5) % Eos % (Auto) 1.0 (0-4.4) % Baso % (Auto) 0.1 L (0.2-1.2) % Lymph # (Auto) 0.76 L (0.9-3.2) K/mm3 [place] # (Auto) 0.7 H (0.1-0.6) K/mm3 Eos # (Auto) 0.1 (0-0.3) K/mm3 Baso # (Auto) 0.0 (0.0-0.1) K/mm3 Abs Immat Gran (auto) 0.02 (0.00-0.031) K/mm3 Absolute Neuts (auto) 6.7 (1.3-6.7) K/mm3 Absolute Nucleated RBC 0.000 (0.0-0.012) K/mm3 Nucleated RBC % 0.0 (0.0-0.2) % Sodium 139 (137-145) mmol/L Potassium 4.1 (3.4-5.0) mmol/L Chloride 102 (98-107) mmol/L Carbon Dioxide 29 (22-30) mmol/L Anion Gap 8 (4-12) mmol/L BUN 13 (9-20) mg/dL Creatinine 0.70 (0.7-1.3) mg/dL Estim Creat Clear Calc 163 ml/min Estimated GFR > 60 (59 - ) Glucose 97 (65-110) mg/dL Calcium 9.5 (8.4-10.2) mg/dL Total Bilirubin 0.7 (0.2-1.3) mg/dL AST 24 (17-59) U/L ALT 20 (6-50) U/L Alkaline Phosphatase 62 (38-126) U/L Total Protein 8.0 (6.3-8.2) g/dL Albumin 4.5 (3.5-5.1) g/dL Discharge Plan Discharge Clinical Impression: Drug allergy Patient Disposition: Home, Self-Care Condition: Stable Instructions: General Allergic Reaction (ED) Additional Instructions: Discontinue use of your propanolol and follow-up with your primary care doctor. Return the ER if you cannot breathe, you cannot swallow, have additional concerns. Prescriptions: No Action lisinopril 10 mg tablet 30 mg PO AC hydroxyzine HCl 25 mg tablet 25 mg PO TID PRN (Reason: Anxiety) Follow-up/Referrals: UNKNOWN,DOCTOR [Non-Staff] - 1 Week
[2024-03-15 13:40] LABS: Basophils Percent Auto 0.1 % (0.2-1.2); Eosinophils Absolute Auto 0.1 K/mm3 (0-0.3); Hematocrit 39.5 % (42.0-52.0); Hemoglobin 13.8 g/dL (14.0-18.0); Immature Granulocyte Absolute 0.02 K/mm3 (0.00-0.031); Immature Granulocyte Percent A 0.2 % (0-0.5); Lymphocytes Absolute Auto 0.76 K/mm3 (0.9-3.2); Lymphocytes Percent Auto 9.2 % (18.3-44.2); Mean Corpuscular HGB Conc 34.9 g/dl (32-36); Mean Corpuscular Hemoglobin 29.8 pg (26-34); Mean Corpuscular Volume 85.3 fl (80-100); Mean Platelet Volume 9.2 fl (7.4-10.4); Monocytes Absolute Auto 0.7 K/mm3 (0.1-0.6); Monocytes Percent Auto 8.2 % (2.6-8.5); Neutrophils Absolute Auto 6.7 K/mm3 (1.3-6.7); Neutrophils Percent Auto 81.3 % (45.5-73.1); Platelet Count Result 184 k/mm3 (150-375); Red Blood Count 4.63 M/mm3 (4.6-6.20); Red Cell Distribution Width 13.2 % (11.5-14.5); White Blood Count 8.3 K/mm3 (4.5-10.0)
[2024-03-15 13:54] LABS: Alanine Aminotransferase 20 U/L (6-50); Albumin Level 4.5 g/dL (3.5-5.1); Alkaline Phosphatase 62 U/L (38-126); Anion Gap 8 mmol/L (4-12); Aspartate Amino Transferase 24 U/L (17-59); Bilirubin,Total 0.7 mg/dL (0.2-1.3); Blood Urea Nitrogen 13 mg/dL (9-20); Calcium 9.5 mg/dL (8.4-10.2); Carbon Dioxide 29 mmol/L (22-30); Chloride 102 mmol/L (98-107); Estimated CRCL calculation 163 ml/min; Estimated Glomerular Filt Rate > 60; Glucose 97 mg/dL (65-110); Potassium 4.1 mmol/L (3.4-5.0); Sodium 139 mmol/L (137-145)
[2024-03-15 14:14] VITALS: BP 112/64; PULSE 67; RESP 18; TEMP 37; O2SAT 98
== END 2024-03-15 14:16 | disposition home or self-care (01) ==
PROVIDERS: Emergency Provider Emergency Medicine; PCP Nurse Practitioner Family
DX: R22.1 Localized swelling, mass and lump, neck (principal); T44.7X5A Adverse effect of beta-adrenoreceptor antagonists, initial encounter; I10 Essential (primary) hypertension; F41.9 Anxiety disorder, unspecified; Z79.899 Other long term (current) drug therapy
CPT/HCPCS: 36415; 80053; 85025; 99283

== ENCOUNTER 2024-03-17 17:29 | Emergency (ER) | payer OTHER, SELFPAY ==
[2024-03-17 17:37] VITALS: BP 157/98; PULSE 105; RESP 16; TEMP 36.7; O2SAT 100
[2024-03-17 18:40] VITALS: BP 138/77; PULSE 98; RESP 18; TEMP 36.6; O2SAT 98
--- NOTE | 2024-03-17 20:58 | ECG_ITS ---
Test Date: 2024-03-17 21:30:55 Measurements Intervals [place] Rate: 73 P: 42 AR: 149 QRS: 43 QRSD: 96 T: 15 QT: 355 QTc: 392 Interpretive Statements SINUS RHYTHM NONSPECIFIC ST-T WAVE ABNORMALITY- INF/LAT LEADS BASELINE ARTIFACT- I, II, III, AVR, AVL, V3-V6 BORDERLINE ECG Compared to ECG 02/18/2024 15:11:45 No significant changes Electronically Signed On 03-18-2024 06:11:33 BRASS CHASER by Ajith Vasquez D.O.
--- NOTE | 2024-03-17 21:32 | ED_ITS ---
HPI - General Adult General Chief complaint: Recheck/Abnormal Lab/Rx Stated complaint: bilateral arm numbness, HTN Time Seen by Provider: 03/17/24 20:41 History of Present Illness HPI narrative: patient is a 24-year-old male who presents ER with concerns for elevated blood pressure. Reports that he became anxious and then developed chest pressure and fast breathing. He then developed tingling and numbness in his hands and arms. He got home he took his blood pressure is elevated in the 160 systolic so he opted to come here. Patient recently discontinued his propanolol after having concern for allergic reaction. He states he quit for several days but then started taking it again it was not having the side effects. He has not been taking the hydroxyzine. He thinks occasionally he will have his heart skip a beat. He has follow-up with his psychiatrist on 03/30/2024. Related Data Home Medications Medication Instructions Recorded Confirmed lisinopril 10 mg tablet 30 mg PO AC 08/01/23 02/18/24 hydroxyzine HCl 25 mg tablet 25 mg PO TID PRN Anxiety 02/18/24 02/18/24 Allergies Allergy/AdvReac Type Severity Reaction Status Date / Time No Known Allergies Allergy Verified 02/18/24 10:39 Review of Systems Review of Systems: All systems reviewed & are unremarkable except as noted in HPI and below Constitutional: Constitutional: Reports no additional constitutional complaints Cardiovascular: Cardiovascular: Denies chest pain, Denies rapid heart rate and Denies radiating jaw, neck or arm pain Comments: Palpitations Respiratory: Respiratory: Reports no additional respiratory complaints and Reports dyspnea Psychiatric: Psychiatric: Reports anxiety, Denies homicidal ideation and Denies suicidal ideation [facility] Past Medical History Medical History (Updated 03/17/24 @ 21:37 by Estiven Mendez MD) History of anxiety Social History Social History Substance use type: does not use Other substance usage details: Caffeine (multiple energy drinks daily, occasional coffee) Living arrangements: with family Additional living arrangements comments: , [place] Occupation/Education: occupation Gender identity (if verbalized by the patient): Male Exam Narrative: GENERAL: Well-appearing, well-nourished, and in no acute distress. HEAD: Normocephalic, atraumatic. ENT: Mucous membranes moist. CHEST: Clear to auscultation. No respiratory distress. HEART: Regular rate and rhythm. Normal peripheral pulses. EXTREMITIES: Normal range of motion. No edema. NEURO: Alert and oriented x3. PSYCH: Normal mood and affect. Course Course Emergency Course: EKG normal. Patient given reassurance. Discharge. Vital Signs Vital signs: Vital Signs Temperature 98.1 F 03/17/24 17:37 Pulse Rate 105 H 03/17/24 17:37 Respiratory Rate 16 03/17/24 17:37 Blood Pressure 157/98 H 03/17/24 17:37 Pulse Oximetry 100 03/17/24 17:37 Temperature 97.9 F 03/17/24 18:40 Pulse Rate 98 03/17/24 18:40 Respiratory Rate 18 03/17/24 18:40 Blood Pressure 138/77 03/17/24 18:40 Pulse Oximetry 98 03/17/24 18:40 Medical Decision Making Vital Signs Vital Signs: Vital Signs Temperature 98.1 F 03/17/24 17:37 Pulse Rate 105 H 03/17/24 17:37 Respiratory Rate 16 03/17/24 17:37 Blood Pressure 157/98 H 03/17/24 17:37 Pulse Oximetry 100 03/17/24 17:37 Temperature 97.9 F 03/17/24 18:40 Pulse Rate 98 03/17/24 18:40 Respiratory Rate 18 03/17/24 18:40 Blood Pressure 138/77 03/17/24 18:40 Pulse Oximetry 98 03/17/24 18:40 ECG Data EKG #1: ECG completion date: 03/17/24 ECG completion time: 21:30 EKG Interpretation: normal rate (73), sinus rhythm, non-specific ST changes, normal QRS, normal QT and NL axis Discharge Plan Discharge Clinical Impression: Anxiety Patient Disposition: Home, Self-Care Condition: Stable Instructions: Anxiety (ED) Additional Instructions: Return ER if you have chest pain with shortness of breath, you cannot keep down food water, you lose consciousness, or have additional concerns. Prescriptions: No Action lisinopril 10 mg tablet 30 mg PO AC hydroxyzine HCl 25 mg tablet 25 mg PO TID PRN (Reason: Anxiety) Follow-up/Referrals: Damien,Traci Weber NP [Primary Care Provider] - 1 Week
[2024-03-17 21:46] VITALS: BP 137/65; PULSE 91; RESP 18; O2SAT 97
== END 2024-03-17 21:47 | disposition home or self-care (01) ==
PROVIDERS: Emergency Provider Emergency Medicine; PCP Nurse Practitioner Family
DX: F41.9 Anxiety disorder, unspecified (principal); I10 Essential (primary) hypertension; Z79.899 Other long term (current) drug therapy; R94.31 Abnormal electrocardiogram [ECG] [EKG]
CPT/HCPCS: 93005; 99283

== ENCOUNTER 2024-03-22 17:45 | Emergency (ER) | payer OTHER, SELFPAY ==
[2024-03-22] VITALS (15 sets, daily range): BP systolic 133–186; BP diastolic 58–99; PULSE 98–158; RESP 10–20; TEMP 36.3; O2SAT 97–100
--- NOTE | ~2024-03-22 | XR_ITS ---
EXAMINATION: XR chest 1V portable Exam Date/Time: 03/22/2024 18:45 JIGGER MACHINE OPERATOR HISTORY: CP WITH TACHYCARDIA Comparison: 02/18/2024. RESULT: Lines, tubes, and devices: None. Lungs and pleura: Clear. Cardiomediastinal silhouette: Stable. Other: No acute osseous or upper abdominal finding. IMPRESSION: No acute cardiopulmonary process. Reviewed, dictated and finalized at location K. ER MACHINE OPERATOR
--- NOTE | 2024-03-22 17:49 | ECG_ITS ---
Test Date: 2024-03-22 18:01:08 Measurements Intervals [place] Rate: 145 P: 0 CT: 0 QRS: 52 QRSD: 100 T: 49 QT: 341 QTc: 531 Interpretive Statements ATRIAL FLUTTER/TACHYCARDIA WITH RAPID VENTRICULAR RESPONSE POSSIBLE RIGHT VENTRICULAR CONDUCTION DELAY [RSR (QR) IN V1/V2] ST DEVIATION AND MODERATE T-WAVE ABNORMALITY, CONSIDER INFERIOR ISCHEMIA [-0.1+ mV T WAVE IN II/aVF] ABNORMAL ECG Electronically Signed On 03-23-2024 08:59:34 WAX BALL MOLDER by Eros Alejandra M.D.
[2024-03-22 18:20] LABS: Basophils Percent Auto 0.1 % (0.2-1.2); Eosinophils Absolute Auto 0.2 K/mm3 (0-0.3); Eosinophils Percent Auto 1.6 % (0-4.4); Hematocrit 41.8 % (42.0-52.0); Hemoglobin 14.5 g/dL (14.0-18.0); Immature Granulocyte Absolute 0.01 K/mm3 (0.00-0.031); Immature Granulocyte Percent A 0.1 % (0-0.5); Lymphocytes Absolute Auto 1.86 K/mm3 (0.9-3.2); Lymphocytes Percent Auto 20.4 % (18.3-44.2); Mean Corpuscular HGB Conc 34.7 g/dl (32-36); Mean Corpuscular Hemoglobin 29.8 pg (26-34); Mean Platelet Volume 9.7 fl (7.4-10.4); Monocytes Absolute Auto 0.9 K/mm3 (0.1-0.6); Monocytes Percent Auto 10.1 % (2.6-8.5); Neutrophils Absolute Auto 6.2 K/mm3 (1.3-6.7); Neutrophils Percent Auto 67.7 % (45.5-73.1); Platelet Count Result 221 k/mm3 (150-375); Red Blood Count 4.86 M/mm3 (4.6-6.20); Red Cell Distribution Width 13.2 % (11.5-14.5); White Blood Count 9.1 K/mm3 (4.5-10.0)
[2024-03-22] MEDS: ASPIRIN 81 MG CHEWABLE TABLET 324 MG PO (18:28)
[2024-03-22 18:31] LABS: Alanine Aminotransferase 23 U/L (6-50); Albumin Level 4.9 g/dL (3.5-5.1); Alkaline Phosphatase 75 U/L (38-126); Anion Gap 10 mmol/L (4-12); Aspartate Amino Transferase 25 U/L (17-59); Bilirubin,Total 0.4 mg/dL (0.2-1.3); Blood Urea Nitrogen 17 mg/dL (9-20); Calcium 9.2 mg/dL (8.4-10.2); Carbon Dioxide 25 mmol/L (22-30); Chloride 107 mmol/L (98-107); Estimated CRCL calculation 129 ml/min; Estimated Glomerular Filt Rate > 60; Glucose 156 mg/dL (65-110); Lipase 79 U/L (23-300); Potassium 3.4 mmol/L (3.4-5.0); Sodium 142 mmol/L (137-145)
[2024-03-22 18:32] LABS: INR 1.1; Prothrombin Time 14.2 Seconds (11.1-14.7)
[2024-03-22 18:33] LABS: Partial Thromboplastin Time 24.3 Seconds (22.3-36.8)
--- NOTE | 2024-03-22 18:41 | ECG_ITS ---
Test Date: 2024-03-22 18:38:22 Measurements Intervals [place] Rate: 134 P: 73 SC: 174 QRS: 55 QRSD: 82 T: 44 QT: 331 QTc: 496 Interpretive Statements SINUS TACHYCARDIA NONSPECIFIC ST & T-WAVE ABNORMALITY ABNORMAL ECG Electronically Signed On 03-23-2024 09:00:03 KEY OPERATOR by Eros Alejandra M.D.
[2024-03-22 18:43] LABS: Troponin I < 0.012 ng/mL (0.000-0.034)
[2024-03-22 18:53] LABS: Ethanol < 10 mg/dL (<10)
[2024-03-22] MEDS: diazePAM INJ (*CRX) 10 MG/2 ML SYRINGE 5 MG IV PUSH ×2 (18:55→21:09)
[2024-03-22] MEDS: SODIUM CHLORIDE 0.9% IV 1,000 ML 999 ML IV CONT ×2 (19:08→21:09)
--- NOTE | 2024-03-22 19:24 | ED.GENADULT ---
HPI - General Adult General Chief complaint: Arrhythmia/Palpitations Stated complaint: palpitations Time Seen by Provider: 03/22/24 18:46 History of Present Illness HPI narrative: This is a 24-year-old male with severe anxiety and panic attacks presenting with palpitations. Patient says that he was having sex with his when he noticed his heart rate was racing. He then checked it and it was 120 and this caused him to have a panic attack. He then called an ambulance and was brought to the hospital for evaluation. Patient had been on propanolol for his panic attacks, however he stopped taking it on because it made him tired and lightheaded made it difficult for him to work. He is taking Wellbutrin but he is unsure house useful it is. At the moment the patient says he feels slightly lightheaded. He denies chest pain difficulty breathing abdominal pain nausea vomiting. Denies use of any drugs or alcohol. Related Data Home Medications Medication Instructions Recorded Confirmed lisinopril 10 mg tablet 30 mg PO AC 08/01/23 02/18/24 hydroxyzine HCl 25 mg tablet 25 mg PO TID PRN Anxiety 02/18/24 02/18/24 Allergies Allergy/AdvReac Type Severity Reaction Status Date / Time No Known Allergies Allergy Verified 02/18/24 10:39 [facility] Past Medical History Medical History History of anxiety Social History Social History Substance use type: does not use Other substance usage details: Caffeine (multiple energy drinks daily, occasional coffee) Living arrangements: with family Additional living arrangements comments: [place] Occupation/Education: occupation Gender identity (if verbalized by the patient): Male Exam Narrative: APPEARANCE: Anxious appearing Head: atraumatic. EYES: EOMI, NOSE: Atraumatic NECK: Trachea midline RESPIRATORY: No increased rate of breathing clear to auscultation CARDIOVASCULAR: Tachycardic, no peripheral edema ABDOMINAL: Non-distended soft nontender MUSCULOSKELETAl: No obvious deformities NEURO: Alert. Moving 4/4 extremities SKIN:: Warm, dry. Normal color PSYCHIATRIC: Anxious Course Vital Signs Vital signs: Vital Signs Temperature 97.4 F L 03/22/24 17:46 Pulse Rate 140 H 03/22/24 17:46 Respiratory Rate 20 03/22/24 17:46 Blood Pressure 175/99 H 03/22/24 17:46 Pulse Oximetry 100 03/22/24 17:46 Oxygen Delivery Room Air 03/22/24 17:46 Temperature 97.4 F L 03/22/24 17:46 Pulse Rate 121 H 03/22/24 18:57 Respiratory Rate 15 03/22/24 18:57 Blood Pressure 151/93 H 03/22/24 18:57 Pulse Oximetry 98 03/22/24 18:57 Oxygen Delivery Room Air 03/22/24 18:12 Medical Decision Making MDM Narrative Medical decision making narrative: -Course: This is a 24-year-old male with severe anxiety panic attacks presenting with palpitations. Heart rate was in the 140s on arrival. He received Valium and normal saline with improvement. He is now feeling more relaxed but is still slightly tachycardic. Patient be given another L of fluids and 5 more mg of Valium. Laboratory studies, EKG and chest x-ray were unremarkable. Patient be discharged. He has psychiatry follow-up on March 30 and has been encouraged to attend to help treat his anxiety with panic disorder. Given return precautions. -DDX includes but is not limited to: Anxiety, SVT, AFib with RVR -Co-morbidities complicating care: Anxiety with panic attacks -Independent interpretation of studies: Labs and imaging reviewed Independent EKG interpretation: Rhythm [sinus], Rate [145], [place] -[normal], [place] -[normal], QRS [narrow], QTC [normal], T waves -[negative for concerning inversions], ST Segments - [Negative for concerning elevations] Final interpretations: Atrial tachycardia -Interventions:5 mg vailum x2, 2L ns -Shared decision making / Disposition: discharged Vital Signs Vital Signs: Vital Signs Temperature 97.4 F L 03/22/24 17:46 Pulse Rate 140 H 03/22/24 17:46 Respiratory Rate 20 03/22/24 17:46 Blood Pressure 175/99 H 03/22/24 17:46 Pulse Oximetry 100 03/22/24 17:46 Oxygen Delivery Room Air 03/22/24 17:46 Temperature 97.4 F L 03/22/24 17:46 Pulse Rate 121 H 03/22/24 18:57 Respiratory Rate 15 03/22/24 18:57 Blood Pressure 151/93 H 03/22/24 18:57 Pulse Oximetry 98 03/22/24 18:57 Oxygen Delivery Room Air 03/22/24 18:12 Lab Data 03/22/24 18:14 03/22/24 18:14 Labs: Lab Results 03/22/24 Range/Units 18:14 WBC 9.1 (4.5-10.0) K/mm3 RBC 4.86 (4.6-6.20) M/mm3 Hgb 14.5 (14.0-18.0) g/dL Hct 41.8 L (42.0-52.0) % MCV 86.0 (80-100) fl MCH 29.8 (26-34) pg MCHC 34.7 (32-36) g/dl RDW 13.2 (11.5-14.5) % Plt Count 221 (150-375) k/mm3 MPV 9.7 (7.4-10.4) fl Immature Gran % (Auto) 0.1 (0-0.5) % Neut % (Auto) 67.7 (45.5-73.1) % Lymph % (Auto) 20.4 (18.3-44.2) % [place] % (Auto) 10.1 H (2.6-8.5) % Eos % (Auto) 1.6 (0-4.4) % Baso % (Auto) 0.1 L (0.2-1.2) % Lymph # (Auto) 1.86 (0.9-3.2) K/mm3 [place] # (Auto) 0.9 H (0.1-0.6) K/mm3 Eos # (Auto) 0.2 (0-0.3) K/mm3 Baso # (Auto) 0.0 (0.0-0.1) K/mm3 Abs Immat Gran (auto) 0.01 (0.00-0.031) K/mm3 Absolute Neuts (auto) 6.2 (1.3-6.7) K/mm3 Absolute Nucleated RBC 0.000 (0.0-0.012) K/mm3 Nucleated RBC % 0.0 (0.0-0.2) % PT 14.2 (11.1-14.7) Seconds INR 1.1 APTT 24.3 (22.3-36.8) Seconds Sodium 142 (137-145) mmol/L Potassium 3.4 (3.4-5.0) mmol/L Chloride 107 (98-107) mmol/L Carbon Dioxide 25 (22-30) mmol/L Anion Gap 10 (4-12) mmol/L BUN 17 (9-20) mg/dL Creatinine 0.90 (0.7-1.3) mg/dL Estim Creat Clear Calc 129 ml/min Estimated GFR > 60 (59 - ) Glucose 156 H (65-110) mg/dL Calcium 9.2 (8.4-10.2) mg/dL Total Bilirubin 0.4 (0.2-1.3) mg/dL AST 25 (17-59) U/L ALT 23 (6-50) U/L Alkaline Phosphatase 75 (38-126) U/L Troponin I < 0.012 (0.000-0.034) ng/mL Total Protein 8.0 (6.3-8.2) g/dL Albumin 4.9 (3.5-5.1) g/dL Lipase 79 (23-300) U/L Ethyl Alcohol < 10 (<10) mg/dL Discharge Plan Discharge Clinical Impression: Anxiety, Tachycardia Patient Disposition: Home, Self-Care Condition: Stable Instructions: Antibiotic Form, Anxiety (ED) Additional Instructions: Please continue taking your anti-anxiety medication. Please follow-up with her psychiatrist. You can return to the ED at any time if you develop panic attacks, chest pain, tachycardia or would like re-evaluation. Prescriptions: No Action lisinopril 10 mg tablet 30 mg PO AC hydroxyzine HCl 25 mg tablet 25 mg PO TID PRN (Reason: Anxiety) Follow-up/Referrals: Shreyas,Traci Weber NP [Primary Care Provider] -
--- NOTE | 2024-03-22 19:58 | PC.NURSE ---
this rn assumed care of patient. this rn took patient report from ZANE Mejía.
[2024-03-22 20:30] LABS: Amphetamine Screen Urine Negative (Negative); Barbiturate Screen Urine Negative (Negative); Benzodiazepines Screen Urine Negative (Negative); Cannabinoid Screen Urine Negative (Negative); Cocaine Screen Urine Negative (Negative); Methadone Screen Urine Negative (Negative); Opiate Screen Urine Negative (Negative); Phencyclidine Screen Urine Negative (Negative)
== END 2024-03-22 22:22 | disposition home or self-care (01) ==
PROVIDERS: Emergency Provider Emergency Medicine; PCP Nurse Practitioner Family
DX: F41.0 Panic disorder [episodic paroxysmal anxiety] (principal); R00.0 Tachycardia, unspecified; Z79.899 Other long term (current) drug therapy; R94.31 Abnormal electrocardiogram [ECG] [EKG]
CPT/HCPCS: 36415; 71045; 80053; 80307; 82077; 83690; 84484; 85025; 85610; 85730; 93005; 96361; 96374; 96375; 99284; A9270; J0153; J3360; J7030

== ENCOUNTER 2024-03-23 22:46 | Emergency (ER) | payer OTHER, SELFPAY ==
[2024-03-23 22:47] VITALS: BP 152/91; PULSE 115; RESP 13; TEMP 36.6; O2SAT 100
--- NOTE | 2024-03-23 22:49 | ECG_ITS ---
Test Date: 2024-03-23 22:54:02 Measurements Intervals [place] Rate: 92 P: 66 [place]: 159 QRS: 30 QRSD: 109 T: 13 QT: 329 QTc: 409 Interpretive Statements SINUS RHYTHM WITH SINUS ARRHYTHMIA NONSPECIFIC ST AND T-WAVE ABNORMALITY Compared to ECG 03/22/2024 18:38:22 Sinus tachycardia no longer present Electronically Signed On 03-24-2024 15:14:16 ANIMAL CARETAKER SUPERVISOR by Kalpana Nguyen M.D.
--- NOTE | 2024-03-23 23:28 | PC.NURSE ---
Pt's came to desk and stated pt is feeling lightheaded. Pt brought back to triage bay in a wheelchair and vitals were retaken, all WNL.
[2024-03-23 23:29] VITALS: BP 143/84; PULSE 97; RESP 15; O2SAT 100
[2024-03-24 00:34] VITALS: PULSE 86
[2024-03-24 00:35] VITALS: BP 126/76; PULSE 84; RESP 19; TEMP 36.6; O2SAT 100
[2024-03-24 01:10] VITALS: BP 117/70; PULSE 85; RESP 13; TEMP 36.6; O2SAT 100
[2024-03-24 01:31] LABS: Basophils Percent Auto 0.2 % (0.2-1.2); Eosinophils Absolute Auto 0.1 K/mm3 (0-0.3); Eosinophils Percent Auto 0.8 % (0-4.4); Hematocrit 38.1 % (42.0-52.0); Immature Granulocyte Absolute 0.01 K/mm3 (0.00-0.031); Immature Granulocyte Percent A 0.2 % (0-0.5); Lymphocytes Absolute Auto 0.61 K/mm3 (0.9-3.2); Lymphocytes Percent Auto 9.4 % (18.3-44.2); Mean Corpuscular HGB Conc 34.1 g/dl (32-36); Mean Corpuscular Hemoglobin 29.5 pg (26-34); Mean Corpuscular Volume 86.6 fl (80-100); Mean Platelet Volume 9.8 fl (7.4-10.4); Monocytes Absolute Auto 0.7 K/mm3 (0.1-0.6); Neutrophils Absolute Auto 5.2 K/mm3 (1.3-6.7); Neutrophils Percent Auto 79.4 % (45.5-73.1); Platelet Count Result 149 k/mm3 (150-375); Red Cell Distribution Width 13.2 % (11.5-14.5); White Blood Count 6.5 K/mm3 (4.5-10.0)
[2024-03-24 01:47] LABS: Alanine Aminotransferase 20 U/L (6-50); Albumin Level 4.3 g/dL (3.5-5.1); Alkaline Phosphatase 70 U/L (38-126); Anion Gap 5 mmol/L (4-12); Aspartate Amino Transferase 21 U/L (17-59); Bilirubin,Total 0.4 mg/dL (0.2-1.3); Blood Urea Nitrogen 14 mg/dL (9-20); Carbon Dioxide 27 mmol/L (22-30); Chloride 106 mmol/L (98-107); Estimated CRCL calculation 163 ml/min; Estimated Glomerular Filt Rate > 60; Glucose 94 mg/dL (65-110); Magnesium 1.8 mg/dL (1.6-2.3); Sodium 138 mmol/L (137-145)
--- NOTE | 2024-03-24 01:54 | ED_ITS ---
HPI - General Adult General Chief complaint: Arrhythmia/Palpitations Stated complaint: Irregular HR; heart racing; skipping a beat Time Seen by Provider: 03/24/24 01:03 History of Present Illness HPI narrative: patient 24-year-old gentleman presents emergency department chief complaint palpitations. Patient reports that he had an episode of SVT yesterday and was seen in the emergency department. The patient reports that today he felt some palpitations as though his heart was skipping a beat. Patient reports that he has had no chest pain reports no syncope Related Data Home Medications Medication Instructions Recorded Confirmed lisinopril 10 mg tablet 30 mg PO AC 08/01/23 02/18/24 hydroxyzine HCl 25 mg tablet 25 mg PO TID PRN Anxiety 02/18/24 02/18/24 Allergies Allergy/AdvReac Type Severity Reaction Status Date / Time No Known Allergies Allergy Verified 03/23/24 22:56 Review of Systems Review of Systems: A 10 system review of systems was completed on the patient and is negative except for what is stated in the HPI. Nursing and ancillary documentation was reviewed. [facility] Past Medical History Medical History History of anxiety Social History Social History Substance use type: does not use Other substance usage details: Caffeine (multiple energy drinks daily, occasional coffee) Living arrangements: with family Additional living arrangements comments: , [place] Occupation/Education: occupation Gender identity (if verbalized by the patient): Male Exam Narrative: GENERAL: Well-appearing, well-nourished, and in no acute distress. HEAD: Normocephalic, atraumatic. EYES: PERRLA and EOMI. ENT: Nares clear, no rhinorrhea or epistaxis. Mucous membranes moist. NECK: Supple. CHEST: Clear to auscultation. No respiratory distress. HEART: Regular rate and rhythm. No murmur heard. Normal peripheral pulses. ABDOMEN: Soft, nontender, nondistended, normal active bowel sounds. EXTREMITIES: Normal range of motion. No edema. SKIN: Warm, dry, no rash. NEURO: No focal deficits. Alert and oriented x3. PSYCH: Normal mood and affect. Course Vital Signs Vital signs: Vital Signs Temperature 36.6 C 03/23/24 22:47 Pulse Rate 115 H 03/23/24 22:47 Respiratory Rate 13 03/23/24 22:47 Blood Pressure 152/91 H 03/23/24 22:47 Pulse Oximetry 100 03/23/24 22:47 Oxygen Delivery Room Air 03/23/24 22:47 Temperature 36.6 C 03/24/24 01:10 Pulse Rate 85 03/24/24 01:10 Respiratory Rate 13 03/24/24 01:10 Blood Pressure 117/70 03/24/24 01:10 Pulse Oximetry 100 03/24/24 01:10 Oxygen Delivery Room Air 03/24/24 00:35 Medical Decision Making MDM Narrative Medical decision making narrative: differential diagnosis includes dysrhythmia, electrolyte abnormality EKG showed no acute ischemic changes and no dysrhythmia the patient is observed on the monitor without significant dysrhythmia electrolytes showed a potassium of 4.0 magnesium was 1.8 Vital Signs Vital Signs: Vital Signs Temperature 36.6 C 03/23/24 22:47 Pulse Rate 115 H 03/23/24 22:47 Respiratory Rate 13 03/23/24 22:47 Blood Pressure 152/91 H 03/23/24 22:47 Pulse Oximetry 100 03/23/24 22:47 Oxygen Delivery Room Air 03/23/24 22:47 Temperature 36.6 C 03/24/24 01:10 Pulse Rate 85 03/24/24 01:10 Respiratory Rate 13 03/24/24 01:10 Blood Pressure 117/70 03/24/24 01:10 Pulse Oximetry 100 03/24/24 01:10 Oxygen Delivery Room Air 03/24/24 00:35 Lab Data 03/24/24 01:25 03/24/24 01:25 Labs: Lab Results 03/24/24 Range/Units 01:25 WBC 6.5 (4.5-10.0) K/mm3 RBC 4.40 L (4.6-6.20) M/mm3 Hgb 13.0 L (14.0-18.0) g/dL Hct 38.1 L (42.0-52.0) % MCV 86.6 (80-100) fl MCH 29.5 (26-34) pg MCHC 34.1 (32-36) g/dl RDW 13.2 (11.5-14.5) % Plt Count 149 L (150-375) k/mm3 MPV 9.8 (7.4-10.4) fl Immature Gran % (Auto) 0.2 (0-0.5) % Neut % (Auto) 79.4 H (45.5-73.1) % Lymph % (Auto) 9.4 L (18.3-44.2) % [place] % (Auto) 10.0 H (2.6-8.5) % Eos % (Auto) 0.8 (0-4.4) % Baso % (Auto) 0.2 (0.2-1.2) % Lymph # (Auto) 0.61 L (0.9-3.2) K/mm3 [place] # (Auto) 0.7 H (0.1-0.6) K/mm3 Eos # (Auto) 0.1 (0-0.3) K/mm3 Baso # (Auto) 0.0 (0.0-0.1) K/mm3 Abs Immat Gran (auto) 0.01 (0.00-0.031) K/mm3 Absolute Neuts (auto) 5.2 (1.3-6.7) K/mm3 Absolute Nucleated RBC 0.000 (0.0-0.012) K/mm3 Nucleated RBC % 0.0 (0.0-0.2) % Sodium 138 (137-145) mmol/L Potassium 4.0 (3.4-5.0) mmol/L Chloride 106 (98-107) mmol/L Carbon Dioxide 27 (22-30) mmol/L Anion Gap 5 (4-12) mmol/L BUN 14 (9-20) mg/dL Creatinine 0.70 (0.7-1.3) mg/dL Estim Creat Clear Calc 163 ml/min Estimated GFR > 60 (59 - ) Glucose 94 (65-110) mg/dL Calcium 9.0 (8.4-10.2) mg/dL Magnesium 1.8 (1.6-2.3) mg/dL Total Bilirubin 0.4 (0.2-1.3) mg/dL AST 21 (17-59) U/L ALT 20 (6-50) U/L Alkaline Phosphatase 70 (38-126) U/L Total Protein 7.0 (6.3-8.2) g/dL Albumin 4.3 (3.5-5.1) g/dL Discharge Plan Discharge Clinical Impression: Palpitations Patient Disposition: Home, Self-Care Condition: Stable Instructions: Antibiotic Form, Heart Palpitations (ED) Prescriptions: No Action lisinopril 10 mg tablet 30 mg PO AC hydroxyzine HCl 25 mg tablet 25 mg PO TID PRN (Reason: Anxiety) Follow-up/Referrals: Shreyas,Traci Weber NP [Primary Care Provider] - Time of Disposition: 01:55
== END 2024-03-24 02:10 | disposition home or self-care (01) ==
PROVIDERS: Emergency Provider Emergency Medicine; PCP Nurse Practitioner Family
DX: R00.2 Palpitations (principal); F41.9 Anxiety disorder, unspecified
CPT/HCPCS: 36415; 80053; 83735; 85025; 93005; 99284

== ENCOUNTER 2024-04-01 15:59 | Emergency (ER) | payer OTHER, SELFPAY ==
--- NOTE | ~2024-04-01 | XR_ITS ---
EXAMINATION: XR chest 2V DATE: 04/01/2024 17:56 INDICATION: Palpitations. TECHNIQUE: Frontal and lateral views of the chest were obtained. COMPARISON: Chest single view 03/22/2024 FINDINGS: There is no pneumonia, pleural effusion, or pneumothorax. The heart size is normal. IMPRESSION: 1. No acute cardiopulmonary disease. Reviewed, dictated and finalized at location [facility]. [facility]
[2024-04-01 16:00] VITALS: BP 144/88; PULSE 108; RESP 14; O2SAT 98
[2024-04-01 16:04] VITALS: BP 154/83; PULSE 116; RESP 16; TEMP 36.8; O2SAT 98
--- NOTE | 2024-04-01 16:40 | ECG_ITS ---
Test Date: 2024-04-01 16:50:52 Measurements Intervals [place] Rate: 96 P: 60 [place]: 164 QRS: 30 QRSD: 94 T: 28 QT: 328 QTc: 415 Interpretive Statements SINUS RHYTHM Compared to ECG 03/23/2024 22:54:02 Sinus arrhythmia no longer present T-wave abnormality no longer present Electronically Signed On 04-01-2024 19:03:17 BARREL BUILDER by Dorothy Quiñones
[2024-04-01 17:00] VITALS: BP 134/79; PULSE 104; RESP 16; O2SAT 100
[2024-04-01 18:00] VITALS: BP 153/85; PULSE 100; RESP 16; O2SAT 100
[2024-04-01] MEDS: SODIUM CHLORIDE 0.9% IV 1,000 ML 999 ML IV CONT (18:11)
[2024-04-01 18:24] LABS: Basophils Percent Auto 0.1 % (0.2-1.2); Eosinophils Percent Auto 0.3 % (0-4.4); Hematocrit 41.6 % (42.0-52.0); Hemoglobin 14.5 g/dL (14.0-18.0); Immature Granulocyte Absolute 0.06 K/mm3 (0.00-0.031); Immature Granulocyte Percent A 0.6 % (0-0.5); Lymphocytes Absolute Auto 1.24 K/mm3 (0.9-3.2); Lymphocytes Percent Auto 13.1 % (18.3-44.2); Mean Corpuscular HGB Conc 34.9 g/dl (32-36); Mean Corpuscular Hemoglobin 29.7 pg (26-34); Mean Corpuscular Volume 85.1 fl (80-100); Mean Platelet Volume 9.9 fl (7.4-10.4); Monocytes Absolute Auto 0.5 K/mm3 (0.1-0.6); Monocytes Percent Auto 5.7 % (2.6-8.5); Neutrophils Absolute Auto 7.6 K/mm3 (1.3-6.7); Neutrophils Percent Auto 80.2 % (45.5-73.1); Platelet Count Result 202 k/mm3 (150-375); Red Blood Count 4.89 M/mm3 (4.6-6.20); Red Cell Distribution Width 12.8 % (11.5-14.5); White Blood Count 9.5 K/mm3 (4.5-10.0)
[2024-04-01 18:33] LABS: Alanine Aminotransferase 32 U/L (6-50); Albumin Level 4.8 g/dL (3.5-5.1); Alkaline Phosphatase 81 U/L (38-126); Anion Gap 4 mmol/L (4-12); Aspartate Amino Transferase 29 U/L (17-59); Bilirubin,Total 0.5 mg/dL (0.2-1.3); Blood Urea Nitrogen 17 mg/dL (9-20); Calcium 9.6 mg/dL (8.4-10.2); Carbon Dioxide 30 mmol/L (22-30); Chloride 103 mmol/L (98-107); Estimated CRCL calculation 154 ml/min; Estimated Glomerular Filt Rate > 60; Glucose 92 mg/dL (65-110); Magnesium 1.7 mg/dL (1.6-2.3); Potassium 4.3 mmol/L (3.4-5.0); Sodium 137 mmol/L (137-145)
[2024-04-01 18:40] LABS: Prothrombin Time 13.9 Seconds (11.1-14.7)
[2024-04-01 18:44] LABS: D Dimer < 0.27 ug/mL (<0.48); Troponin I < 0.012 ng/mL (0.000-0.034)
--- NOTE | 2024-04-01 19:17 | ECG_ITS ---
Test Date: 2024-04-01 19:37:04 Measurements Intervals [place] Rate: 86 P: 57 MI: 167 QRS: 25 QRSD: 93 T: 20 QT: 353 QTc: 424 Interpretive Statements SINUS RHYTHM WITH MARKED SINUS ARRHYTHMIA Compared to ECG 04/01/2024 16:50:52 No significant changes Electronically Signed On 04-02-2024 15:35:44 HIM CLERK by Dorothy Quiñones
--- NOTE | 2024-04-01 19:48 | ED_ITS ---
HPI - Arrhythmia/Palpitations General Chief Complaint: Arrhythmia/Palpitations Stated Complaint: tachycardia Time Seen by Provider: 04/01/24 17:03 History of Present Illness HPI narrative: 24-year-old male with history of anxiety presents to the emergency department for palpitations. Patient states today around noon he was on a treadmill for about 5 minutes running when he fell his heart rate was beating very quickly. He went to [place] emergency department and had an evaluation and was told he had ?tachycardia?. States he performed a Valsalva maneuver while in the ED with improvement in his symptoms and discharged home. He presents with paperwork today which confirms a diagnosis of sinus tachycardia, no diagnosis of SVT. He was driving home when he felt like his heart was beating quickly again so came to our emergency department. Upon my evaluation his only complaint is some lightheadedness. He denies chest pain, shortness of breath lower extremity edema, cough, hemoptysis, history of VTE. He has a cardiology appointment scheduled tomorrow and believes they are working on providing a Holter monitor for the patient for further evaluation of his frequent palpitations. He also notes that his palpitations increased after he discontinued his propranolol on . Stop his propranolol because he felt like it was making him lightheaded. He was taking propanolol for anxiety. Related Data Home Medications ?Medication ?Instructions ?Recorded ?Confirmed ?Last Taken ?Type lisinopril 10 mg tablet 30 mg PO AC 08/01/23 02/18/24 02/18/24 History hydroxyzine HCl 25 mg tablet 25 mg PO TID PRN Anxiety 02/18/24 02/18/24 02/18/24 History Allergies Allergy/AdvReac Type Severity Reaction Status Date / Time No Known Allergies Allergy Verified 03/23/24 22:56 Review of Systems 2 Review of Systems: All systems reviewed & are unremarkable except as noted in HPI and below PMFSH Past Medical History Medical History History of anxiety Social History Social History Substance use type: does not use Other substance usage details: Caffeine (multiple energy drinks daily, occasional coffee) Living arrangements: with family Additional living arrangements comments: , [place] Occupation/Education: occupation Gender identity (if verbalized by the patient): Male Exam 2 Narrative: GENERAL: Well-appearing, well-nourished, and in no acute distress. HEAD: Normocephalic, atraumatic. EYES: PERRLA and EOMI. ENT: Nares clear, no rhinorrhea or epistaxis. Mucous membranes moist. NECK: Supple. CHEST: Clear to auscultation. No respiratory distress. HEART: Regular rate and rhythm. No murmur heard. Normal peripheral pulses. ABDOMEN: Soft, nontender, nondistended, normal active bowel sounds. EXTREMITIES: Normal range of motion. No edema. Negative Homans bilaterally SKIN: Warm, dry, no rash. NEURO: No focal deficits. Alert and oriented x3 Course Vital Signs Vital signs: Vital Signs Pulse Rate 108 H 04/01/24 16:00 Respiratory Rate 14 04/01/24 16:00 Blood Pressure 144/88 H 04/01/24 16:00 Pulse Oximetry 98 04/01/24 16:00 Temperature 98.2 F 04/01/24 16:04 Pulse Rate 100 04/01/24 18:00 Respiratory Rate 16 04/01/24 18:00 Blood Pressure 153/85 H 04/01/24 18:00 Pulse Oximetry 100 04/01/24 18:00 MDM - Arrhythmia/Palpitations MDM Narrative Medical decision making narrative: 24-year-old male with history of anxiety and palpitations presents to emergency department for palpitations. See HPI for further history. Vitals are stable. Patient's heart rate has ranged from these to 120 on the monitor. Upon my evaluation his heart rate was 90 ppm normal sinus rhythm. He is resting comfortably in exam bed. EKG shows sinus rhythm with a rate of 96, normal [place] interval, normal QRS duration, normal QTC, no ischemic changes, no delta wave. Troponin is undetectable. Lab work shows no leukocytosis, no electrolyte derangements. Normal magnesium. TSH is normal. D-dimer within normal limits, wells score is low risk. Chest x-ray shows no acute cardiopulmonary findings. He was updated on workup. Patient did have some sporadic PACs on the shelter monitor which may be contributing to his sense of palpitations. He received IV fluids in his rate is no 80s bpm. Overall I feel he is safe to be discharged. He has an appointment with his pharmaceutical representative tomorrow morning which I strongly encouraged him to attend. Discussed possible need for outpatient holter monitor. I discussed strict ED return precautions. He is agreeable with the plan verbalized understanding. Discharged in stable condition. Lab Data 04/01/24 18:15 04/01/24 18:15 Labs: Lab Results 04/01/24 04/01/24 04/01/24 Range/Units 18:13 18:14 18:15 WBC 9.5 (4.5-10.0) K/mm3 RBC 4.89 (4.6-6.20) M/mm3 Hgb 14.5 (14.0-18.0) g/dL Hct 41.6 L (42.0-52.0) % MCV 85.1 (80-100) fl MCH 29.7 (26-34) pg MCHC 34.9 (32-36) g/dl RDW 12.8 (11.5-14.5) % Plt Count 202 (150-375) k/mm3 MPV 9.9 (7.4-10.4) fl Immature Gran % (Auto) 0.6 H (0-0.5) % Neut % (Auto) 80.2 H (45.5-73.1) % Lymph % (Auto) 13.1 L (18.3-44.2) % [place] % (Auto) 5.7 (2.6-8.5) % Eos % (Auto) 0.3 (0-4.4) % Baso % (Auto) 0.1 L (0.2-1.2) % Lymph # (Auto) 1.24 (0.9-3.2) K/mm3 [place] # (Auto) 0.5 (0.1-0.6) K/mm3 Eos # (Auto) 0.0 (0-0.3) K/mm3 Baso # (Auto) 0.0 (0.0-0.1) K/mm3 Abs Immat Gran (auto) 0.06 H (0.00-0.031) K/mm3 Absolute Neuts (auto) 7.6 H (1.3-6.7) K/mm3 Absolute Nucleated RBC 0.000 (0.0-0.012) K/mm3 Nucleated RBC % 0.0 (0.0-0.2) % PT Cancelled 13.9 INR Cancelled 1.0 APTT Cancelled 25.0 D-Dimer < 0.27 (<0.48) ug/mL Sodium 137 (137-145) mmol/L Potassium 4.3 (3.4-5.0) mmol/L Chloride 103 (98-107) mmol/L Carbon Dioxide 30 (22-30) mmol/L Anion Gap 4 (4-12) mmol/L BUN 17 (9-20) mg/dL Creatinine 0.70 (0.7-1.3) mg/dL Estim Creat Clear Calc 154 ml/min Estimated GFR > 60 (59 - ) Glucose 92 (65-110) mg/dL Calcium 9.6 (8.4-10.2) mg/dL Magnesium 1.7 (1.6-2.3) mg/dL Total Bilirubin 0.5 (0.2-1.3) mg/dL AST 29 (17-59) U/L ALT 32 (6-50) U/L Alkaline Phosphatase 81 (38-126) U/L Troponin I < 0.012 (0.000-0.034) ng/mL Total Protein 7.0 (6.3-8.2) g/dL Albumin 4.8 (3.5-5.1) g/dL TSH (Reflex) 1.970 (0.465-4.68) uIU/mL Discharge Plan Discharge Clinical Impression: Palpitations, PAC (premature atrial contraction) Patient Disposition: Home, Self-Care Condition: Stable Instructions: Antibiotic Form, Heart Palpitations (DC), Premature Atrial Contractions (ED) Additional Instructions: Your evaluated in the emergency department for palpitations. Your workup here is reassuring. Does shows some spontaneous premature contractions as discussed. This is a normal variant. Please follow-up with the pharmaceutical representative I your appointment tomorrow. Return to the emergency department if you develop chest pain, shortness of breath, LOC or other concerning symptoms. Patient Language: Malay Prescriptions: No Action lisinopril 10 mg tablet 30 mg PO AC hydroxyzine HCl 25 mg tablet 25 mg PO TID PRN (Reason: Anxiety) Follow-up/Referrals: Shreyas,Traci Weber NP [Primary Care Provider] -
[2024-04-01 20:00] VITALS: BP 146/77; PULSE 98; RESP 20; TEMP 36.8; O2SAT 98
== END 2024-04-01 20:09 | disposition home or self-care (01) ==
PROVIDERS: Emergency Provider Physician Assistant; PCP Nurse Practitioner Family
DX: R00.2 Palpitations (principal); I49.1 Atrial premature depolarization; F41.9 Anxiety disorder, unspecified; Z79.899 Other long term (current) drug therapy
CPT/HCPCS: 36415; 71046; 80053; 83735; 84443; 84484; 85025; 85380; 85610; 85730; 93005; 96360; 99284; J7030

== ENCOUNTER 2024-04-07 14:43 | Emergency (ER) | payer OTHER, SELFPAY ==
[2024-04-07 15:05] VITALS: BP 148/87; PULSE 74; RESP 17; TEMP 36.9; O2SAT 99
--- NOTE | 2024-04-07 15:11 | ED_ITS ---
HPI - Ear Problem General Chief complaint: Upper Respiratory Infection Stated complaint: Dizzy /congestion / LT Ear Pain Source: patient Mode of arrival: ambulatory Limitations: no limitations History of Present Illness HPI Narrative: 24-year-old male presented for complaint of left ear pain, onset today. Reports dizziness x2 days. Also reports nasal congestion and sinus pressure for about 3 weeks. Pt started taking propranolol about 3 weeks ago for anxiety, and is concerned the dizziness is related to the medication. 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 Dizziness is described as room spinning. Denies cough, sob, palpitations, n/v/d/f/c. Not taking anything for nasal congestion. MD Complaint: ear pain Related Data Home Medications ?Medication ?Instructions ?Recorded ?Confirmed ?Last Taken ?Type fluoxetine 20 mg capsule mg 04/07/24 Unknown History propranolol 10 mg tablet mg 04/07/24 Unknown History Allergies Allergy/AdvReac Type Severity Reaction Status Date / Time No Known Allergies Allergy Verified 04/07/24 15:07 Review of Systems Review of Systems: CONSTITUTIONAL: Denies malaise, chills, or fever. EYES: Denies visual changes, redness, or discharge. ENT: Reports ear pain rhinorrhea, congestion, sinus pain CARDIOVASCULAR: Denies chest pain, palpitations, or edema. RESPIRATORY: Denies cough or dyspnea. GASTROINTESTINAL: Denies abdominal pain, nausea, vomiting, diarrhea MUSCULOSKELETAL: Denies myalgia. NEUROLOGIC: Denies headache. All systems reviewed & are unremarkable except as noted in HPI and below PMFSH Past Medical History Medical History History of anxiety Social History Social History Substance use type: does not use Other substance usage details: Caffeine (multiple energy drinks daily, occasional coffee) Living arrangements: with family Additional living arrangements comments: , [place] Occupation/Education: occupation Gender identity (if verbalized by the patient): Male Comments At time of signature, agree with nursing past medical, surgical, social and family history. There is no relevant family history pertinent to the presenting complaint Exam Narrative: GENERAL: Well-appearing EYES: PERRLA, EOMI conjunctivae clear ENT: Nares clear. Mucous membranes moist. Nasal congestion. TMs pearly freedman with dull light reflex bilaterally; no tragal tenderness. no drooling, no hoarseness, no trismus, uvula midline. NECK: Supple. No lymphadenopathy CHEST: Clear to auscultation, breath sounds equal. No wheezing, rhonchi, rales, or stridor. No respiratory distress, speaks in full sentences. HEART: Regular rate and rhythm. No murmur heard. SKIN: Warm, dry NEURO: Alert and oriented x3. PSYCH: Normal mood and affect Course Course Emergency Course: Patient is aware of diagnosis, understands and agrees to treatment plan. Anticipatory guidance given. Patient agrees to follow-up as directed and is aware of reasons to seek care at the emergency department. Portions of this record may have been created with voice recognition software Level of Care: Express Care Visit Vital Signs Vital signs: Vital Signs Temperature 98.5 F 04/07/24 15:05 Pulse Rate 74 04/07/24 15:05 Respiratory Rate 17 04/07/24 15:05 Blood Pressure 148/87 H 04/07/24 15:05 Pulse Oximetry 99 04/07/24 15:05 Oxygen Delivery Room Air 04/07/24 15:05 Temperature 98.5 F 04/07/24 15:05 Pulse Rate 74 04/07/24 15:05 Respiratory Rate 17 04/07/24 15:05 Blood Pressure 148/87 H 04/07/24 15:05 Pulse Oximetry 99 04/07/24 15:05 Oxygen Delivery Room Air 04/07/24 15:05 Reviewed Medical Decision Making MDM Narrative Medical decision making narrative: Discussed physical exam findings consistent with sinusitis. He will follow-up with cardiology regarding possible medication side effects. Advised supportive measures and signs/symptoms to go to the ER. Patient is appropriate for outpatient treatment and follow-up. Differential Diagnosis Differential Diagnosis: Coronavirus, strep pharyngitis, allergic rhinitis, upper respiratory tract infection, sinusitis, rhinosinusitis, nasopharyngitis, viral pharyngitis, otitis media, otitis externa, eustachian tube dysfunction, foreign body, cerumen impaction. Vital Signs Vital Signs: Vital Signs Temperature 98.5 F 04/07/24 15:05 Pulse Rate 74 04/07/24 15:05 Respiratory Rate 17 04/07/24 15:05 Blood Pressure 148/87 H 04/07/24 15:05 Pulse Oximetry 99 04/07/24 15:05 Oxygen Delivery Room Air 04/07/24 15:05 Temperature 98.5 F 04/07/24 15:05 Pulse Rate 74 04/07/24 15:05 Respiratory Rate 17 04/07/24 15:05 Blood Pressure 148/87 H 04/07/24 15:05 Pulse Oximetry 99 04/07/24 15:05 Oxygen Delivery Room Air 04/07/24 15:05 Discharge Plan Discharge Clinical Impression: Sinusitis, Dizziness Patient Disposition: Home, Self-Care Condition: Stable Instructions: Antibiotic Form, Sinusitis (ED), Dizziness (ED) Additional Instructions: Sinus: Take antibiotic as directed Recommendations: Flonase spray and Zyrtec (or Claritin/Joanne) Tylenol 1000mg every 8 hours as needed for pain Symptomatic treatment includes: rest, fluids, and increase humidity of the air at home. Dizzy: Change positions slowly Sit down immediately if you feel dizzy or lightheaded Increase water intake, stay hydrated No stairs/ladders/climbing etc if you are dizzy. Watch for worsening symptoms (headache, vision changes, dizziness that does not go away, chest pain, heart racing, sweating) Go to the ER for these symptoms or any other concerns. 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
== END 2024-04-07 15:29 | disposition home or self-care (01) ==
PROVIDERS: Emergency Provider Nurse Practitioner Family; PCP Nurse Practitioner Family
DX: J32.9 Chronic sinusitis, unspecified (principal); R42 Dizziness and giddiness; F41.9 Anxiety disorder, unspecified
CPT/HCPCS: 99213; G0463

== ENCOUNTER 2024-04-18 13:15 | Emergency (ER) | payer OTHER, SELFPAY ==
--- NOTE | ~2024-04-18 | CT_ITS ---
CT brain wo con Ordering provider: Rambo Pool PA-C History: 24 years Male with . new onset headache, vision changes . Comparison: None. Technique: CT of the head without contrast. Radiation reduction technique utilized. The dose-length product was 605.33 mGy-cm. FINDINGS: BRAIN PARENCHYMA AND CSF SPACES: No midline shift, mass effect or hemorrhage. The brain parenchyma a nd CSF spaces are otherwise normal. VISUALIZED PARANASAL SINUSES: Well aerated. MASTOIDS: Well aerated. BONES: The bones appear intact. SOFT TISSUES: Visualized nasopharynx is normal. Superficial soft tissues are normal. IMPRESSION: No acute intracranial findings. Reviewed, dictated and finalized at location A. SCHOOL SUSPENSION COORDINATOR
[2024-04-18 13:15] VITALS: BP 147/92; PULSE 73; RESP 16; TEMP 36.6; O2SAT 100
[2024-04-18 14:53] VITALS: BP 138/90; PULSE 75; RESP 15; TEMP 36.4; O2SAT 100
--- NOTE | 2024-04-18 16:11 | ED_ITS ---
HPI - Eye Problem General Chief complaint: Eye Problems Stated complaint: blurry vision Time Seen by Provider: 04/18/24 15:45 Source: patient Mode of arrival: ambulatory Limitations: no limitations History of Present Illness HPI Narrative: This is a 24-year-old male with PMH of GERD, anxiety disorder, panic disorder who presents to the ED for chief complaint of intermittent episodes of dizziness and blurred vision over the past several weeks. Reports these episodes are associated with a bilateral frontal headache. States that has been difficult to focus and he is having these episodes while he is at work. States that over the course of the last year he has been having increasing anxiety attacks and has just started seeing Psychiatry. He has been on propranolol for anxiety and was recently started on Prozac as well. States Tylenol is not helping the headaches. Endorses diffuse extremity tingling with these episodes happen. Denies focal numbness, weakness, neck pain or stiffness, fevers, chills, coagulopathy history. Related Data Home Medications ?Medication ?Instructions ?Recorded ?Confirmed ?Last Taken ?Type fluoxetine 20 mg capsule mg 04/07/24 04/16/24 Unknown History propranolol 10 mg tablet mg PO PRN 04/16/24 04/16/24 Unknown History Allergies Allergy/AdvReac Type Severity Reaction Status Date / Time No Known Allergies Allergy Verified 04/16/24 09:14 Review of Systems Review of Systems: All systems as dictated in [facility] Past Medical History Medical History (Updated 04/18/24 @ 16:30 by Rambo Pool PA-C) GERD (gastroesophageal reflux disease) History of anxiety Family History Family History (Updated 04/16/24 @ 09:21 by Merly Ramirez CMA) Mother Depression Heart problem Colon cancer Asthma Father Hypertension Depression Anxiety Sibling Depression Anxiety Grandparent Depression Anxiety Grandparent Liver cancer Grandparent Lung cancer Grandparent Hypertension Social History Social History (Updated 04/16/24 @ 09:22 by Merly Ramirez CMA) Smoking status: Former smoker Substance use type: does not use Other substance usage details: Caffeine (multiple energy drinks daily, occ asional coffee) Do You Feel Safe in your Home?: Yes Lack of Transportation: No Lack of Food: Never True Current Housing: I Have Housing Concerned About Future Housing: No Difficulty Paying Gas/Electric Bills: No Difficulty Paying for Meds: No Currently Unemployed: No Education: High School Diploma/GED Difficulty w/ Childcare or Family Care: No Living arrangements: with family Additional living arrangements comments: , [place] Occupation/Education: occupation Gender identity (if verbalized by the patient): Male Exam Narrative: GENERAL: Well-appearing, well-nourished, and in no acute distress. HEAD: Normocephalic, atraumatic. EYES: PERRLA and EOMI. ENT: Nares clear, no rhinorrhea or epistaxis. Mucous membranes moist. Oropharynx without tonsillar hypertrophy exudate or other lesions. NECK: Supple. No adenopathy or masses. CHEST: No respiratory distress. Clear to auscultation. No wheezes rales or rhonchi HEART: Regular rate and rhythm. No murmur heard. Normal peripheral pulses. ABDOMEN: Soft, nontender, nondistended, normal active bowel sounds. MSK: Normal range of motion. No edema. SKIN: Warm, dry, no rash. NEURO: Alert and oriented x4. No focal deficits. PSYCH: Normal mood and affect. Course Vital Signs Vital signs: Vital Signs Temperature 97.8 F 04/18/24 13:15 Pulse Rate 73 04/18/24 13:15 Respiratory Rate 16 04/18/24 13:15 Blood Pressure 147/92 H 04/18/24 13:15 Pulse Oximetry 100 04/18/24 13:15 Temperature 98.0 F 04/18/24 18:19 Pulse Rate 76 04/18/24 18:19 Respiratory Rate 16 04/18/24 18:19 Blood Pressure 118/68 04/18/24 18:19 Pulse Oximetry 98 04/18/24 18:19 MDM - Eye Problem MDM Narrative Medical decision making narrative: This is a 24-year-old male who presents to the ED for acute on chronic anxiety. Vitals are normal. Exam is benign. No neurologic deficits with complaint of headache. CT brain is negative for any acute findings. Patient was given headache cocktail with good relief symptoms. Patient will be discharged in stable condition. Supportive measures discussed and return precautions given. Patient is understanding and agreeable with plan for discharge with PCP follow-up. Discharge Plan Discharge Clinical Impression: Headache, Acute anxiety Patient Disposition: Home, Self-Care Condition: Stable Instructions: Antibiotic Form Additional Instructions: Your your exam and imaging today are reassuring. Please continue following up with your regular doctors on this issue. This is probably a manifestation of anxiety which should be managed with psychiatry. Take both ibuprofen and Tylenol whenever you feel a headache come on. If you have any new or worsening symptoms please return to the ER for further evaluation. Patient Language: Citizen [place] Prescriptions: No Action fluoxetine 20 mg capsule propranolol 10 mg tablet PO PRN meclizine 12.5 mg tablet 12.5 mg PO TID PRN (Reason: dizziness) Qty: 20 0RF Follow-up/Referrals: Bebeto Yusuf DO [Primary Care Provider] - Time of Disposition: 17:53
[2024-04-18] MEDS: diphenhydrAMINE HCl INJ 50 MG/ML VIAL 25 MG IV PUSH (16:51)
[2024-04-18] MEDS: KETOROLAC 15 MG/ML VIAL (*BKC) IV PUSH (16:51)
[2024-04-18] MEDS: PROCHLORPERAZINE EDISYLATE 10 MG/2 ML VIAL IV PUSH (16:51)
[2024-04-18] MEDS: SODIUM CHLORIDE 0.9% IV 1,000 ML 999 ML IV CONT (16:51)
[2024-04-18 16:52] VITALS: BP 135/82; PULSE 80; RESP 16; TEMP 36.6; O2SAT 100
[2024-04-18 18:19] VITALS: BP 118/68; PULSE 76; RESP 16; TEMP 36.7; O2SAT 98
--- OUTSIDE RECORDS SUMMARY | 2024-04-25 20:54 | XMS_ITS | Clinical Summary ---
Author Organization [facility] Address [address] [place] [address] Care Team Providers Care Manager Fraud Name Role Phone Triny Randhawa MD Primary Care Provider [phone] Source Comments [facility],non-owned Affiliates and Associated Physician Practices is amultiple site organization consisting of ambulatory clinics and hospital sitesin [place], [place], [place] and [place]. This disclosure is being madepursuant to the Care Everywhere program and may not contain all information available regarding this patient. Last updated 18.[facility] Allergies No known active allergies Medications Be aware that medications may not be up to date on this document. Always verify current medications with the patient. No known medications Active Problems Problem Noted Date Diagnosed Date Right clavicle fracture 11/27/2013 Immunizations Name Administration Dates Next Due DTaP VACCINE IM (6wk-6yrs) 11/26/2005,,2000,2000,05/09 HEP B VACCINE, PED/ADOL 2000,2000, HIB BOOSTER 07/09/2001,2000,2000 ,2000 Influenza Nasal 03/13/2010 MMR 11/26/2005,03/18/2001 PNEUMOCOCCAL CONJ, PEDS 2000,2000, POLIO IPV 11/26/2005, 2,2000,2000,05/09 VARICELLA 03/18/2001 Family History Medical History Relation Name Comments Thyroid Disease Maternal Grandmother Asthma Mother Relation Name Status Comments Maternal Grandmother Mother Social History Tobacco Use Types Packs/Day Years Used Date Smoking Tobacco: Passive Smo ke Exposure - Never Smoker Comments:Mom smokes outside Alcohol Use Standard Drinks/Week Comments Not Asked 0 (1 standard drink = 0.6 oz pur e alcohol) Sex and Gender Information Value Date Recorded Sex Assigned at Not on file Gender Identity Not on file Sexual Orientation Not on file Last Filed Vital Signs Vital Sign Reading Time Taken Comments Blood Pressure 114/60 03/13/2010 4:06 PM BILLING CONTROL CLERK Pulse 84 03/13/2010 4:06 PM BILLING CONTROL CLERK Temperature 36.6 ??C (97.8 ??F) 01/21/2014 1:32 PM CD T Respiratory Rate - - Oxygen Saturation - - Inhaled Oxygen Concentration - - Weight 73.1 kg (161 lb 4 oz) 01/21/2014 1:32 PM CDT Height 174 cm (5' 8.5 ) 01/21/2014 1:32 PM CDT Body Mass Index 24.16 01/21/2014 1:32 PM CDT Plan of Treatment Health Maintenance Due Date Last Done Comments DTAP/TDAP/TD VACCINES (6 - Tdap) 2011 11/26/2005, 09/08/2001, 2000, Additional history exists HIV SCREENING 2015 HPV VACCINE (1 - Male 3-dose series) 2015 HEPATITIS C SCREENING 03/04/2018 DEPRESSION SCREENING 04/22/2023 COVID-19 VACCINE ( - season) 2023 INFLUENZA VACCINE (#1) 2023 03/13/2010 ZOSTER VACCINE (1 of 2) 2050 HEPATITIS B VACCINE Completed 2000, 2000, 2000 PNEUMOCOCCAL VACCINE Aged Out 2000, 2000, 2000 No longer eligible based on patient's age to complete this topic HIB VACCINE Completed 07/09/2001, 08/21, 2000, Additional history exists MENINGOCOCCAL VACCINE Aged Out No rickey yoly eligible based on patient's age to complete this topic Care Teams Manager Fraud Relationship Specialty Start Date End Date Triny Randhawa MD [address] [place] [address] [place] [id number] PCP - General Family Medicine 10/26/13
--- OUTSIDE RECORDS SUMMARY | 2024-04-25 20:54 | XMS_ITS | CONTINUITY OF CARE DOCUMENT ---
Author Name larry juarez Address Unknown Organization [facility] Address [address] [place] [address] [address] [place] [address] Phone [phone] Care Team Providers Care Undraped Artist Model Name Role Phone Max FOUNTAIN, Marlene Unavailable [phone] Marlene Santana MD Unavailable [phone] INSURANCE PROVIDERS Payer name Policy type / Coverage type Sejal red constitution party ID [facility] Indexing [id number]
--- OUTSIDE RECORDS SUMMARY | 2024-04-25 20:54 | XMS_ITS | Referral Summary ---
Author Organization [facility] [employer] [facility] [employer] Address [address] [place] [address] Care Team Providers Care Order Filler Name Role Phone Triny Randhawa MD Primary Care Provider Source Comments [facility] [employer],non-owned Affiliates and Associated Physician Practices is amultiple site organization consisting of ambulatory clinics and hospital sitesin [place], [place], [place] and [place]. This disclosure is being madepursuant to the Care Everywhere program and may not contain all information available regarding this patient. Last updated 18.[facility] [employer] [facility] [employer] Allergies No known active allergies Medications Be [...] 2000,2000, POLIO IPV 11/26/2005, 2,2000,2000,05/09 VARICELLA 03/18/2001 Social History Tobacco Use Types Packs/Day Years [...] Comments Blood Pressure 114/60 03/13/2010 4:06 PM DATE PITTER Pulse 84 03/13/2010 4:06 PM DATE PITTER Temperature 36.6 ??C (97.8 ??F) 01/21/2014 1:32 PM CD T Respiratory Rate - - Oxygen Saturation - - Inhaled Oxygen Concentration - - Weight 73.1 kg (161 lb 4 oz) 01/21/2014 1:32 PM CDT Height 174 cm (5' 8.5 ) 01/21/2014 1:32 PM CDT Body Mass Index 24.16 01/21/2014 1:32 PM CDT Plan of Treatment Not on file Care Teams Order Filler Relationship Specialty Start Date End Date Triny Randhawa MD [address] [place] [address] [place] [id number] PCP - General Family Medicine 10/26/13
--- OUTSIDE RECORDS SUMMARY | 2024-04-25 20:54 | XMS_ITS | Encounter Summary ---
Author Organization [facility] Address [address] [place] [address] Care Team Providers Care Magnetometer Operator Name Role Phone Triny Randhawa MD Primary Care Provider [phone] Reason for Visit * Reason Comments Follow-up right clavicle fx Encounter Details Date Type Department Care Team (Latest Contact Info) Description 01/21/2014 1:15 PM CDT - 01/21/2014 11:59 PM CDT Hospital Encounter [facility] Pediatrics - Orthopedics [address] [place] [address] Roseanne العلي MD [address] [place] [address] Discharge Disposition: Home or Self Care Social History Tobacco Use Types Packs/Day Years Used Date Smoking Tobacco: Passive Smo ke Exposure - Never Smoker Comments:Mom smokes outside Alcohol Use Standard Drinks/Week Comments Not Asked 0 (1 standard drink = 0.6 oz pur e alcohol) Sex and Gender Information Value Date Recorded Sex Assigned at Not on file Gender Identity Not on file Sexual Orientation Not on file documented as of this encounter Last Filed Vital Signs Vital Sign Reading Time Taken Comments Blood Pressure - - Pulse - - Temperature 36.6 ??C (97.8 ??F) 01/21/2014 1:32 PM CD T Respiratory Rate - - Oxygen Saturation - - Inhaled Oxygen Concentration - - Weight 73.1 kg (161 lb 4 oz) 01/21/2014 1:32 PM CDT Height 174 cm (5' 8.5 ) 01/21/2014 1:32 PM CDT Body Mass Index 24.16 01/21/2014 1:32 PM CDT Body Mass Index Percentile 91.39% 01/21/2014 1:3 2 PM CDT Growth Chart: [facility] (Boys, 2-2 0 Years) documented in this encounter Discharge Instructions * Patient Instructions* Roseanne العلي MD - 01/21/2014 1:22 PM CDT ORTHOPAEDIC CLINIC DISCHARGE INSTRUCTIONS SHEET DIAGNOSIS: Right clavicle fracture, with routine healing, subsequent encounter Follow Up: No return appointment is needed, but call for return appointment if you have concerns oryour child has new symptoms or problems.. If you cannot keep an appointment, please call and [phone] In [place] clinic - No X-Rays next visit- No - none Activity Restrictions/Excuses: none Excused from School on 01/21/2014 Medications prescribed: Over the counter medication may be used per instructions. Physicians orders: none. Physical therapy - No To make an appointment, please call . To schedule the surgery discussed with the doctor during your child's office visit, call Tish at [phone], ext. [phone]. If you have a question for the orthopaedic nurse, call [phone], ext. [phone]. After visit summary completed by Roseanne العلي MD. documented in this encounter Progress Notes * Roseanne العلي MD - 01/21/2014 1:20 PM CDT PEDIATRIC ORTHOPAEDIC CLINIC NOTE NAME: Oliverio Castaneda DATE OF SERVICE: (Not on file) DATE: 2000 PCP: Triny Randhawa No chief complaint on file. HISTORY: Oliverio Castaneda is a 13 y.o. 10 m.o. male who presents 3 month(s) status post a right clavicle fracture. Oliverio Castaneda has been treated with a sling and presents today for follow up evaluation. The patient rates his pain as a 0 out of 10. The patient denies new onset of numbness in his upper extremities. MEDICATIONS: No current outpatient prescriptions on file. ALLERGIES: Review of patient's allergies indicates no known allergies. REVIEW OF SYSTEMS: History obtained from mother and the patient. A 12 point ROS was obtained and all others were negative except what is listed in the HPI. PHYSICAL EXAMINATION: General appearance: alert, cooperative, no distress, oriented to person, place, and time, well appearing. He has good head control. No rashes or abnormal dyspigmentation Extremities: The uninjured left upper extremity was examined and demonstrated normal skin, normal range of motion and alignment of all joint, normal motor, sensory and vascular examination, and was without pain. It was used for comparison when examining the injured right upper extremity. General appearance: no acute distress, alert/oriented x3, appropriate mood and affect and looks stated age The examination was performed out of splint/cast Skin: normal Swelling: none Tenderness: none, located over the fracture site. Deformity: Yes, located over the fracture, still some bump present from remodeling ROM: normal, full and equal bilaterally Strength: normal and equal bilaterally Gait: normal Neurological Exam: normal Vascular Exam: normal RADIOLOGY: not taken ASSESSMENT: 1. Right clavicle fracture, with routine healing, subsequent encounter PLAN: We recommend the patient discontinue the sling at this time. The patient can resume weight bearing on the affected upper extremity. The patient may resume PE/sports as tolerated at this time. The patient will follow up on an as needed basis. They will call in the interim with questions or concerns. documented in this encounter Plan of Treatment Not on file documented as of this encounter Visit Diagnoses Diagnosis Right clavicle fracture, with routine healing, subsequent encounter- Primary documented in this encounter Care Teams Magnetometer Operator Relationship Specialty Start Date End Date Triny Randhawa MD [address] [place] [address] [place] [address] PCP - General Family Medicine 10/26/13 documented as of this encounter
--- OUTSIDE RECORDS SUMMARY | 2024-04-25 20:54 | XMS_ITS | Patient Health Summary ---
Author Organization [facility] Address [address] [place] [address] Care Team Providers Care Heating And Ventilating Drafter Name Role Phone Triny Randhawa MD Primary Care Provider [phone] Note from [facility],non-owned Affiliates and Associated Physician Practices is amultiple site organization consisting of ambulatory clinics and hospital sitesin [place], [place], [place] and [place]. This disclosure is being madepursuant to the Care Everywhere program and may not contain all information available regarding this patient. Last updated 18.[facility] Allergies No known active allergies Medications Be aware that medications may not be up to date on this document. Always verify current medications with the patient. No known medications Active Problems Problem Noted Date Diagnosed Date Right clavicle fracture 11/27/2013 Immunizations * DTaP VACCINE IM (6wk-6yrs)(Given 11/26/2005, 09/08/2001, 2000, 2000, 2000) * HEP B VACCINE, PED/ADOL(Given 2000, 2000, 2000) * HIB BOOSTER(Given 07/09/2001, 2000, 2000, 2000) * Influenza Nasal(Given 03/13/2010) * MMR(Given 11/26/2005, 03/18/2001) * PNEUMOCOCCAL CONJ, PEDS(Given 2000, 2000, 2000) * POLIO IPV(Given 11/26/2005, 09/08/2001, 2000, 2000, 2000) * VARICELLA(Given 03/18/2001) Social History Tobacco Use Types Packs/Day Years [...] Comments Blood Pressure 114/60 03/13/2010 4:06 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 Pulse 84 03/13/2010 4:06 PM FINISH 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 Temperature 36.6 ??C (97.8 ??F) 01/21/2014 1:32 PM CD T Respiratory Rate - - Oxygen Saturation - - Inhaled Oxygen Concentration - - Weight 73.1 kg (161 lb 4 oz) 01/21/2014 1:32 PM CDT Height 174 cm (5' 8.5 ) 01/21/2014 1:32 PM CDT Body Mass Index 24.16 01/21/2014 1:32 PM CDT Procedures * XR CLAVICLE RIGHT 2VW(Performed 11/27/2013) Performed for Right clavicle fracture, closed, initial encounter Results * XR CLAVICLE RIGHT 2 VIEWS (11/27/2013 3:36 PM CDT) Anatomical Region Laterality Modality Upper Extremity, Chest Radiograp hic Imaging 11/27/2013 3:56 PM CDT Impressions 11/27/2013 3:59 PM CDT Healing right mid clavicle fracture with foreshortening and inferior displacement of the distal fracture fragment. Narrative 11/27/2013 3:59 PM CDT EXAMINATION: ??Right clavicle 2 views HISTORY: Right clavicle fracture. COMPARISON: None available. FINDINGS: 2 view examination of the right clavicle is submitted for interpretation. A displaced fracture through the mid shaft of the right clavicle is present. There is callus formation about the fracture site. The distal fracture fragment is inferiorly displaced by one shaft width and the clavicle is foreshortened by 2.6 cm. Procedure Note Carolee Edouard MD - 11/27/2013 EXAMINATION: Right clavicle 2 views HISTORY: Right clavicle fracture. COMPARISON: None available. FINDINGS: 2 view examination of the right clavicle is submitted for interpretation. A displaced fracture through the mid shaft of the right clavicle is present. There is callus formation about the fracture site. The distal fracture fragment is inferiorly displaced by one shaft width and the clavicle is foreshortened by 2.6 cm. IMPRESSION Healing right mid clavicle fracture with foreshortening and inferior displacement of the distal fracture fragment. Maxwell Cobos PA-C DIAGNOSTIC IMAGING [facility] Care Teams Heating And Ventilating Drafter Relationship Specialty Start Date End Date Triny Randhawa MD [address] [place] [address] [place] [address] PCP - General Family Medicine 10/26/13
--- OUTSIDE RECORDS SUMMARY | 2024-04-25 20:55 | XMS_ITS | Data Portability ---
Author Organization MD - [facility] OFFICE Address [address] [place] [address] Care Team Providers Care Dairy Chemist Name Role Phone MARY ELLEN LAWRENCE Primary Care Provider Assessment Encounter Date Assessment Date Assessment LastModified by Organization Details LastModified Time 09/17/2023 09/17/2023 Patient Examined by NÉSTOR [place], Also Documentation reviewed and approved by supervising physician leticia Not available 09/17/2023 10:01:40 Plan of Treatment Reminders Order Date Submit Date Provider Last Modified By Organization Details Last Modified Time Details Appointments ESTABLISH ED PATIENT DETAILED 2024 04:00P M Prosper Fernandez i, MD Not available Not available Not available Lab None recorded. Referral None recorded. Procedures None recorded. Surgeries None recorded. Imaging electroca rdiogram 2023 024 [email or web address] Not available 08/22/2023 09:26:53 Medication Orders None recorded. Patient TargetsNo targets recorded. Patient Instructions Encounter Date Encounter Id Patient Instructions Last Modified By Organization Details Last Modified Time 09/17/2023 [id number] Low cholesterol diet advised Low sodium diet advised. [email or web address] Not available 09/17/2023 10:03:29 Reason for Referral None Reported. Results Created Date Observation Date Name Description Value Unit Range Abnormal Flag Note LastModifiedBy Organization Detail LastModifiedTime 08/07/1908/06/2023 elect nerissa vickersgr am No observ ation record ed. [email or web address] Not Available 2023 13:55:18 09/25/19 24 09/10/2023 exerc istiara friedman s echoc ardio gram No observ ation record ed. [email or web address] Not Available 2023 12:52:33 02/22/2002/18/2024 elect rocar diogr am No observ ation record ed. [email or web address] Not Available 2023 09:25:46 02/22/2002/20/2024 elect rocar diogr am No observ ation record ed. [email or web address] Not Available 2023 09:28:04 04/02/20 24 03/22/2024 elect rocar diogr am No observ ation record ed. [email or web address] Not Available 2023 13:09:18 04/02/20 24 03/22/2024 elect rocar diogr am No observ ation record ed. [email or web address] Not Available 2023 13:11:44 04/02/20 24 03/22/2024 elect rocar diogr am No observ ation record ed. [email or web address] Not Available 2023 13:16:11 04/02/20 24 03/22/2024 elect rocar diogr am No observ ation record ed. [email or web address] Not Available 2023 13:16:43 04/02/20 24 03/22/2024 XR, chest , 1 view No observ ation record ed. [email or web address] Not Available 2023 13:19:42 04/02/20 24 03/23/2024 elect rocar diogr am No observ ation record ed. [email or web address] Not Available 2023 13:22:51 04/04/20 24 04/02/2024 [facility] rocar diogr am No observ ation record ed. [email or web address] Not Available 2023 11:06:37 Result Notes Documentation Provider Name and Address Organization Details Recorded Time Lipid Panel, Blood : 08/13/23:Na 139,K 4.2,CL 103,CO2 30,GLU 95,BUN 15,Cr 0.70. 08/13/23:TC 155,TG 44,HDL 53,LDL 93. Say waggoner, [place] - [facility] 09/27/2023 06:44:53 Problems Name Problem SNOMED Code Status Onset Date Resolution Date Notes Provider Name and Address Organization Details Recorded Time Essential hypertension 69296363 Active 2023 Say Doan [place], [place] - [facility] 17:11:50 Palpitations 15752909 Active 2023 Say Wesleyto [place], [place] - [facility] 17:12:03 Atypical chest pain 187283207 Active 2023 Dealalvin Doan [place], [place] - [facility] 17:12:12 Mitral valve prolapse 205951787 Active 2023 Say Wesleyto [place] - [facility] 17:12:22 Dyslipidemia 268565775 Active 2023 Deal Mesto null, [place] - [facility] 17:12:32 Problem Notes None recorded. Procedures Surgical History Date Name Laterality Status Provider Name and Address Organization Details Recorded Time 04/23/19 13 tonsillectomy and adenoidectomy completed Melyssa Burrows [facility] 08/06/2023 15:50:53 Imaging Results Imaging Date Name Status LastModified by Organization Details LastModified Time 08/06/2023 electrocardiogram completed Informa tion not available 08/07/2023 13:55:18 09/10/2023 exercise stress echocardiogram completed Information not available 09/25/2023 12:52:33 02/18/2024 electrocardiogram completed Informa tion not available 02/22/2024 09:25:46 02/20/2024 electrocardiogram completed Informa tion not available 02/22/2024 09:28:04 03/22/2024 electrocardiogram completed Informa tion not available 04/02/2024 13:09:18 03/22/2024 electrocardiogram completed Informa tion not available 04/02/2024 13:11:44 03/22/2024 electrocardiogram completed Informa tion not available 04/02/2024 13:16:11 03/22/2024 electrocardiogram completed Informa tion not available 04/02/2024 13:16:43 03/22/2024 XR, chest, 1 view completed Informa tion not available 04/02/2024 13:19:42 03/23/2024 electrocardiogram completed Informa tion not available 04/02/2024 13:22:51 04/02/2024 electrocardiogram completed Informa tion not available 04/04/2024 11:06:37 Procedure Notes None recorded. Medical Equipment None Reported. Allergies No known drug allergies Medications Name Sig Start Date Stop Date Status Note LastModified by Organization Details LastModified Time bupropion HCl SR 150 mg tablet,12 hr sustained-r elease TAKE 1 TABLET BY MOUTH TWICE DAILY DIRECTED active Not Available Not Available No t Available nicotine 14 mg/24 hr daily transdermal patch 08/05 completed Not Available Not Available Not Available hydroxyzine pamoate 50 mg capsule TAKE 1 CAPSULE BY MOUTH THREE TIMES DAILY NEEDED active Not Available Not Available No t Available propranolol 10 mg tablet TAKE 2 TABLETS BY MOUTH THREE TIMES DAILY NEEDED FOR PANIC ATTACKS active Not Available Not Available No t Available lisinopril 10 mg tablet TAKE 3 TABLETS BY MOUTH EVERY DAY active Not Available Not Available No t Available hydroxyzine HCl 25 mg tablet TAKE 1 TABLET BY MOUTH THREE TIMES DAILY NEEDED active Not Available Not Available No t Available fluoxetine 20 mg capsule TAKE 1 CAPSULE BY MOUTH EVERY DAY DIRECTED active Not Available Not Available No t Available sertraline 50 mg tablet TAKE 1 TABLET BY MOUTH EVERY DAY DIRECTED active Not Available Not Available No t Available amoxicillin 875 mg-potassiu m clavulanate 125 mg tablet TAKE 1 TABLET BY MOUTH EVERY 12 HOURS FOR 7 DAYS active Not Available Not Available No t Available escitalopra m 10 mg tablet TAKE 1 TABLET BY MOUTH EVERY DAY 02/19 completed Not Available Not Available Not Available Vitals Date Recorded Body height Body mass index (BMI) Body weight Heart rate Oxygen saturation Oxygen saturation in Arterial blood by Pulse oximetry Systolic blood pressure Diastolic blood pressure Provider Name and Address Organization Details Last Updated DateTime 4 187.96 cm 26.7 kg/m2 75491.2 1 g 85 /min 98 % 98 % 132 mm[Hg] 72 mm[Hg] Melyssa Burrows [facility] 4 15:57:06 Date Recorded Body height Body mass index (BMI) Body weight Heart rate Oxygen saturation Oxygen saturation in Arterial blood by Pulse oximetry Systolic blood pressure Diastolic blood pressure Provider Name and Address Organization Details Last Updated DateTime 4 187.96 cm 28 kg/m2 69352.4 2 g 99 /min 100 % 100 % 112 mm[Hg] 72 mm[Hg] Melyssa Burrows [facility] 4 09:48:00 Date Recorded Body height Body mass index (BMI) Body weight Heart rate Oxygen saturation Oxygen saturation in Arterial blood by Pulse oximetry Systolic blood pressure Diastolic blood pressure Provider Name and Address Organization Details Last Updated DateTime 4 187.96 cm 28 kg/m2 61163.1 4 g 111 /min 98 % 98 % 152 mm[Hg] 80 mm[Hg] Laura Dillon [facility] 4 19:50:24 Date Recorded Body height Body mass index (BMI) Body weight Heart rate Respiratory rate Oxygen saturation Oxygen saturation in Arterial blood by Pulse oximetry Systolic blood pressure Diastolic blood pressure Provider Name and Address Organization Details Last Updated DateTime 4 187.96 cm 27.1 kg/m2 87464.9 9 g 90 /min 18 /min 99 % 99 % 124 mm[Hg] 82 mm[Hg] Iman Rios [facility] 4 19:51:49 Social History Question Answer Notes LastModified by Organizat ion Details LastModified Time What Is Your Level Of Alcohol Consumption? Occasional [email or web address] Information not available 08/06/2023 What Is Your Level Of Caffeine Consumption? None Information not available 08/06/2023 How Many Children Do You Have? 1 [email or web address] Information not available 08/06/2023 What Is Your Relationship Status? Information not available 08/06/2023 Sex: Unknown Functional Status None recorded. Mental Status None recorded. Family History Relationship Description Onset Age of this Age Resolved Age Notes LastModified by Organization Details LastModified Time Father Hypertensive disorder [email or web address] Not available 2023 15:48:02 Medical History Condition Response Hypertension Y Past Encounters Encounter ID Performer Location Encounter Start Date Encounter Closed Date Diagnosis/Indication Diagnosis SNOMED-CT Code Diagnosis ICD10 Code [id number] Prosper Keane MD [address] [address] 08/06/2023 15:30:06 08/06/2023 16:16:57 Essential hypertension 93129059 I10 Palpitations 85843166 R0 0.2 Atypical chest pain 1025 58791 R07.89 Mitral valve prolapse 40 0141177 I34.1 Dyslipidemia 259976626 E 78.5 [id number] BYRON CARVAJALSHAYLA [facility] [address] [place] [address] 09/17/2023 09:32:22 09/17/2023 10:04:50 Essential hypertension 72974241 I10 Palpitations 89115949 R0 0.2 Atypical chest pain 1025 91449 R07.89 Mitral valve prolapse 40 5793051 I34.1 Dyslipidemia 983580085 E 78.5 [id number] Prosper Keane MD [facility] [address] [place] [address] 02/20/2024 19:47:19 02/20/2024 20:08:52 Essential hypertension 84315564 I10 Palpitations 47296336 R0 0.2 Atypical chest pain 1025 83385 R07.89 Mitral valve prolapse 40 2237157 I34.1 Dyslipidemia 073008045 E 78.5 [id number] Prosper Keaen MD [facility] [place] [address] 04/02/2024 19:09:15 04/02/2024 20:46:11 Essential hypertension 26718082 I10 Palpitations 99926075 R0 0.2 Atypical chest pain 1025 78219 R07.89 Mitral valve prolapse 40 4374337 I34.1 Dyslipidemia 489294284 E 78.5 Health Concerns Section Related Observation LastModified by Organization Detai ls LastModified Time None Recorded Concern Status LastModified by Organization Details LastModified Time None Recorded Advance Directives Directive None Recorded Payers Encounter Date Sequence Insurance Name Policy Number Policy Dewitt Covered Member ID Dewitt Member ID Guarantor Name 08/06/2023 1 [place] - [place] PRIOR TO 2024 - [employer] - [employer] ( - PPO) Oliverio Wood [id number] Oliverio Wood 09/17/2023 1 [place] - [place] PRIOR TO 2024 - [employer] - [place] ( - PPO) Oliverio Wood [id number] Oliverio Wood 02/20/2024 1 [place] - [place] PRIOR TO 2024 - [employer] - [place] ( - PPO) Oliverio Wood [id number] Oliverio Wood 04/02/2024 1 [place] - [place] PRIOR TO 2024 - [employer] - [employer] ( - PPO) Oliverio Wood [id number] Oliverio Wood Notes Date Note Type Note Provider Name and Address Organization Details Recorded Time 08/06/2023 text/html 08/06/23CC: carol naomy WOOD is a 23 years-old Male with h/o was referred for cardiac evaluation, he was in ER Today reports: CC: pt states concerns with having more anxiety episodes.Denies chest pain. pt admits occasional heaviness in chestDenies shortness of breath at rest. Has mild dyspnea on exertion.No orthopnea. No PNDs.pt admits occasional heart palpitations.Denies dizziness. Denies syncope or near syncope.No ankle or leg edema.No major bleeding events.pt states having headaches (hx) as a side effects from medications. Taking medications as prescribed with no missed doses.Denies snoring, daytime somnolence and AM headache.*Last LDL was done on .Pt takes. Prosper Keane MD [address] [place], [address], [facility] 08/06/2023 16:06:50 09/17/2023 text/html 09/17/23CC : Car dia follow up chest pain.Oliverio WOOD is a 23 years-old Male with h/o Hypertension , Hyperlipidemia and anxiety is here for follow up with labs results. He was last seen in the clinic on 08/06/23, since then he is doing well . He denied chest pain or dyspnea on exertion. *Last LDL was 93 done on 08/12/23.Pt dose not takes any satins. He denies ER visits and hospitalizations since he was last seen. Today reports: CC: pt states no concerns at this timeDenies chest pain.Denies shortness of breath at rest. Has mild dyspnea on exertion.No orthopnea. No PNDs.Denies heart palpitations.Denies dizziness. Denies syncope or near syncope.No ankle or leg edema.No major bleeding events.No reported side effects from medications. Taking medications as prescribed with no missed doses.Denies snoring, daytime somnolence and AM headache.*Last LDL was 93 done on 08/12/23.Pt dose not takes any satins. 08/13/23:Na 139,K 4.2,CL 103,CO2 30,GLU 95,BUN 15,Cr 0.70.08/13/23:TC 155,TG 44,HDL 53,LDL 93. BYRON waggoner, [facility] 09/17/2023 10:03:33 02/20/2024 text/html 09/17/23CC : Cardiac follow up.Oliverio WOOD is a 23 years-old Male with h/o Hypertension , Hyperlipidemia and anxiety is here for follow up. He was last seen in the clinic on 09/17/23, since then he has Palpitation, and had anxiety attackHe denies ER visits and hospitalizations since he was last seen. Today reports:Denies chest pain.Denies shortness of breath at rest. Has mild dyspnea on exertion.No orthopnea. No PNDs.Denies heart palpitations.Denies dizziness. Denies syncope or near syncope.No ankle or leg edema.No major bleeding events.No reported side effects from medications. Taking medications as prescribed with no missed doses.Denies snoring, daytime somnolence and AM headache.*Last LDL was 93 done on 08/12/23.Pt dose not takes any statins. Previously:08/13/23:Na 139,K 4.2,CL 103,CO2 30,GLU 95,BUN 15,Cr 0.70.08/13/23:TC 155,TG 44,HDL 53,LDL 93. Prosper Keane MD [address] [place], [address], [facility] 02/20/2024 20:03:37 04/02/2024 text/html *fasting /12/24CC : Hospital follow up.Oliverio WOOD is a 24 years-old Male with h/o Hypertension , Hyperlipidemia and anxiety is here for hospital follow up. He was last seen in the clinic on 02/20/24, since then he was in the [facility] because of palpitation and Tachycardia. Denies chest pain.Denies shortness of breath at rest. Has mild dyspnea on exertion.No orthopnea. No PNDs.Denies heart palpitations.Denies dizziness. Denies syncope or near syncope.No ankle or leg edema.No major bleeding events.No reported side effects from medications. Taking medications as prescribed with no missed doses.Denies snoring, daytime somnolence and AM headache.*Last LDL was 93 done on 08/12/23.Pt dose not takes any statins. Previously:EKG 02/20/24: Sinus bradycardia, P; normal, QRS; normal, ST-T; mid and left-precordial changes, consider ischemia or LV overload, negative T in V4 V5 V6, with small negative T in V3, inferior ST-T changes, consider ischemia or LV overload, negative T in aVF, with negative T in ll lll. conclusion: abnormal ECG. 08/13/23:Na 139,K 4.2,CL 103,CO2 30,GLU 95,BUN 15,Cr 0.70.08/13/23:TC 155,TG 44,HDL 53,LDL 93. Prosper Keane MD [address] [place], [address], [facility] - [facility] 04/02/2024 20:41:30
--- OUTSIDE RECORDS SUMMARY | 2024-04-25 20:55 | XMS_ITS | Encounter Summary ---
Author Organization [facility] Address [facility] [place] [address] Care Team Providers Care Production Coordinator Name Role Phone Triny Randhawa MD Primary Care Provider [phone] Reason for Visit * Reason Comments Follow-up Encounter Details Date Type Department Care Team (Latest Contact Info) Description 11/27/2013 3:15 PM CDT - 11/27/2013 3:32 PM CDT Hospital Encounter [facility] - Orthopedics [address] [place] [id number] Vicky Rai PA [facility] [place] [address] Discharge Disposition: Home or Self Care Social [...] on file documented as of this encounter Discharge Instructions * Patient Instructions* Vicky Rai PA - 11/27/2013 3:51 PM CDT ORTHOPAEDIC CLINIC DISCHARGE INSTRUCTIONS SHEET Follow Up: Please make a return appointment for 1.5- 2 month(s) - if follow up at [facility], have x-rays done at [facility]. Limit strenuous activity--no running, jumping, playground equipment, physical education activities,sports activities until released. May discontinue sling. Tylenol (over the counter medication) may be used per instructions. If you have any questions or concerns in the interim, or if you need to schedule surgery for your child, you may contact our orthopedic office at . If you need to make a clinic appointment, please call . documented in this encounter Progress Notes * Vicky Rai PA - 11/27/2013 3:59 PM CDT PEDIATRIC ORTHOPAEDIC CLINIC NOTE NAME: Oliverio Castaneda DATE OF SERVICE: 11/27/2013 DATE: 2000 PCP: Triny Randhawa Chief Complaint Patient presents with ??? Follow-up HISTORY: Oliverio Castaneda is a 13 y.o. 8 m.o. male who presents 1 month(s) status post a right clavicle fracture. Oliverio Castaneda has been treated with a sling and presents today for follow up evaluation. The patient rates his pain as a 0 out of 10. The patient denies new onset of numbness in his upper extremities. MEDICATIONS: none. ALLERGIES: Allergies as of 11/27/2013 ??? (No Known Allergies) IMMUNIZATIONS: Immunization status: stated as current, but no records available. PHYSICAL EXAMINATION: General appearance: alert, cooperative, no distress. He has good head control. No rashes or abnormal dyspigmentation Extremities: The uninjured left upper extremity was examined and demonstrated normal skin, normal range of motion and alignment of all joint, normal motor, sensory and vascular examination, and was without pain. It was used for comparison when examining the injured right upper extremity. General appearance: no acute distress The examination was performed out of splint/cast Skin: normal Swelling: none Tenderness: mild, located mid clavicle. Deformity: visible deformity present at mid clavicle ROM: normal Strength: normal Gait: normal Neurological Exam: normal Vascular Exam: normal RADIOGRAPHS: AP and lateral xrays of the right clavicle were taken and assessed today. -Radiographic Assessment: They show healing mid clavicle fracture. ASSESSMENT: 1. Right clavicle fracture, with routine healing, subsequent encounter PLAN: We recommend the patient discontinue the sling at this time. The patient can resume weight bearing on the affected upper extremity. The patient should refrain from PE/sports until further notice. The patient will follow up in 2 month(s) and get two views of the right clavicle. We anticipate releasing him for activities at that time. They will call in the interim with questions or concerns. documented in this encounter Plan of Treatment Not on file documented as of this encounter Visit Diagnoses Diagnosis Right clavicle fracture, with routine healing, subsequent encounter- Primary documented in this encounter Care Teams Production Coordinator Relationship Specialty Start Date End Date Triny Randhawa MD [address] [place] [address] [place] [address] PCP - General Family Medicine 10/26/13 documented as of this encounter
--- OUTSIDE RECORDS SUMMARY | 2024-04-25 20:55 | XMS_ITS | Clinical Summary ---
Author Organization [facility] Address [address] [place] [address]. 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 Gender Identity Not on file Sexual Orientation Not on file Plan of Treatment Upcoming Encounters Date Type Department Care Team (Late st Contact Info) Description 05/18/2024 11:45 AM GRAIN INSPECTOR Office Visit [facility] [address] [place] [address] Charles Anderson MD [facility] [address] [place], [place] [id number] Health Maintenance Due Date Last Done Comments Annual Physical 2003 HPV Vaccines (1 - Male 3-dos e series) 2015 Hepatitis C 2018 DTaP, Tdap and Td Vaccines ( 1 - Tdap) 2019 Hepatitis B Vaccines (1 of 3 - 19+ 3-dose series) 2019 COVID-19 Vaccine ( - 2023-2 5 season) 2023 Influenza Adult (#1) 2024 Meningococcal Vaccine Aged Out No rickey yoly eligible based on patient's age to complete this topic Pneumococcal Vaccine: Pediat rics (0 to 5 Years) and At-Risk Patients (6 to 64 Years) Aged Out No longer eligible b ased on patient's age to complete this topic RSV Immunizations Under 20 Months Aged Out No longer eligible based on patient's age to complete this topic Insurance
--- OUTSIDE RECORDS SUMMARY | 2024-04-25 20:55 | XMS_ITS | Encounter Summary ---
Author Organization [facility] Address [facility] [facility] [place] [address] Care Team Providers Care Direct Marketing Specialist Name Role Phone Unavailable Primary Care Provider Unavailabl e Reason for Visit * Reason Comments URI stuffy nose, cough x 1 week Encounter Details Date Type Department Care Team (Late st Contact Info) Description 03/13/2010 3:40 PM HAND [employer]OVEN [employer] M[employer]ER Office Visit [facility] Medical [facility] - Pediatrics [address] [place] [address] [address] [place] [address] Eliza Pruett MD [address] [place] [address] URI (upper respiratory infection) (Primary Dx); Need for prophylactic vaccination and inoculation against influenza Social History Tobacco Use Types Packs/Day Years [...] Comments Blood Pressure 114/60 03/13/2010 4:06 PM HAND [employer] Pulse 84 03/13/2010 4:06 PM HAND [employer] M[employer] Temperature 37.1 ??C (98.8 ??F) 03/13/2010 4:06 PM CS T Respiratory Rate - - Oxygen Saturation - - Inhaled Oxygen Concentration - - Weight 45.9 kg (101 lb 3.2 oz) 03/13/2010 4:06 P M HAND [employer] Height 144.1 cm (4' 8.75 ) 03/13/2010 4:06 PM CS T Body Mass Index 22.09 03/13/2010 4:06 PM HAND [employer]ER Body Mass Index Percentile 94.94% 03/13/2010 4:0 6 PM HAND W[employer]EN [employer] M[employer]ER Growth Chart: [facility] (Boys, 2-2 0 Years) documented in this encounter Progress Notes * Eliza Pruett MD - 03/13/2010 4:46 PM CSTAddended by: ELIZA PRUETT on: 03/13/2010 Modules accepted: Level of Service WOVEN [employer] M[employer]ER * Eliza Pruett MD - 03/13/2010 4:15 PM CST SUBJECTIVE: Chance X White is a 10 y.o. male brought by mother with complaints of congestion and dry cough for 7 days . Mom feels that sx are improved. Sore Throat :No Fever: No normal activity, mood and playfulness, normal appetite and normal fluid intake. OBJECTIVE: BP 114/60 Pulse 84 Temp(Src) 98.8 ??F (Temporal artery) Wt 101 lb 3.2 oz (45.904 kg) General appearance: alert, well appearing, and in no distress. Ears: bilateral TM's and external ear canals normal Nose: normal and patent, no erythema, discharge or polyps Oropharynx: mucous membranes moist, pharynx normal without lesions Neck: supple, no significant adenopathy Lungs: clear to auscultation, no wheezes, rales or rhonchi, symmetric air entry Heart - regular rate and rhythm, normal S1 and S2, no murmurs ASSESSMENT: viral upper respiratory illness PLAN: See orders for this visit as documented in the electronic medical record Symptomatic therapy suggested: push fluids, rest and return office visit prn if symptoms persist orworsen. W[employer]EN [employer]ER documented in this encounter Plan of Treatment Not on file documented as of this encounter Visit Diagnoses Diagnosis URI (upper respiratory infection)- Primary Acute upper respiratory infections of unspecified site Need for prophylactic vaccination and inoculation against influenza documented in this encounter
--- OUTSIDE RECORDS SUMMARY | 2024-04-25 20:55 | XMS_ITS | Continuity of Care Document ---
Author Organization [place] - [facility] OFFICE Address [address] [place] [address] Care Team Providers Care Mosaic Technician Name Role Phone HOWARD MARY ELLEN Primary Care Provider Assessment No assessment recorded. Plan of Treatment Reminders Order Date Submit Date Provider Last Modified By Organization Details Last Modified Time Details Appointments ESTABLISH ED PATIENT DETAILED 2024 04:00P M Prosper Fernandez i, MD Not available Not available Not available Lab None recorded. Referral None recorded. Procedures None recorded. Surgeries None recorded. Imaging None recorded. Medication Orders None recorded. Patient TargetsNo targets recorded. Patient InstructionsNo instructions recorded. Reason for Referral None Reported. Results Created Date Observation Date Name Description Value Unit Range Abnormal Flag Note LastModifiedBy Organization Detail LastModifiedTime 04/02/20 24 03/22/2024 elect rocar diogr am [...] Not Available 2023 13:19:42 04/02/20 24 03/23/2024 perry gonzalez am No observ ation record ed. [email or web address] Not Available 2023 13:22:51 04/04/20 24 04/02/2024 perry gonzalez am No observ ation record ed. [email or web address] Not Available 2023 11:06:37 Result Notes None recorded. Problems Name Problem SNOMED Code Status Onset Date Resolution Date Notes Provider Name and Address Organization Details Recorded Time Essential hypertension 96326122 Active 2023 Deal Mesto null, [facility] 4 17:11:50 Palpitations 73282436 Active 2023 Deal Mesto null, [facility] 4 17:12:03 Atypical chest pain 696203509 Active 2023 Deal Mesto null, [facility] 4 17:12:12 Mitral valve prolapse 893332098 Active 2023 Deal Mesto null, [facility] 4 17:12:22 Dyslipidemia 963948795 Active 2023 Deal Mesto null, [facility] 4 17:12:32 Problem Notes None recorded. Procedures Surgical History Date Name Laterality Status Provider Name and Address Organization Details Recorded Time 04/23/19 13 tonsillectomy and adenoidectomy completed Melyssa Burrows [facility] 08/06/2023 15:50:53 Imaging Results None recorded. Procedure Notes None recorded. Medical Equipment None [...] Updated DateTime 4 187.96 cm 27.1 kg/m2 73728.9 9 g 90 /min 18 /min 99 % 99 % 124 mm[Hg] 82 mm[Hg] Iman Rios [place] - [facility] 4 19:51:49 Social History Question Answer Notes LastModified by [employer] ion Details LastModified Time What Is Your Level Of Alcohol Consumption? Occasional [email or web address] Information not available 08/06/2023 What Is Your Level Of Caffeine Consumption? None [email or web address] Information not available 08/06/2023 How Many Children Do You Have? 1 [email or web address] Information not available 08/06/2023 What Is Your Relationship Status? [email or web address] Information not available 08/06/2023 Sex: Unknown Functional Status None recorded. Mental Status None recorded. Family History Relationship Description Onset Age of this Age Resolved Age Notes LastModified by Organization Details LastModified Time Father Hypertensive disorder [email or web address] Not available 2023 15:48:02 Medical History Condition Response Hypertension Y Past Encounters Encounter ID Performer Location Encounter Start Date Encounter Closed Date Diagnosis/Indication Diagnosis SNOMED-CT Code Diagnosis ICD10 Code [id number] Prosper Keane MD [place] OFFICE [address] [place] [address] 04/02/2024 19:09:15 04/02/2024 20:46:11 Essential hypertension 60767193 I10 Palpitations 97415581 R0 0.2 Atypical chest pain 1025 67974 R07.89 Mitral valve prolapse 40 5254399 I34.1 Dyslipidemia 076897114 E 78.5 Health Concerns Section Related Observation LastModified by Organization Detai ls LastModified Time None Recorded Concern Status LastModified by Organization Details LastModified Time None Recorded Payers Encounter Date Sequence Insurance Name Policy Number Policy Dewitt Covered Member ID Dewitt Member ID Guarantor Name 04/02/2024 1 [employer] - DOS PRIOR TO 2024 - [employer] - SELECT ( - PPO) Oliverio Wood [id number] Oliverio Wood Notes Date Note Type Note Provider Name and Address Organization Details Recorded Time 04/02/2024 text/html *fasting /12/24CC : Hospital follow up.Oliverio WOOD is a 24 years-old Male with h/o Hypertension , Hyperlipidemia and anxiety is here for hospital follow up. He was last seen in the clinic on 02/20/24, since then he was in the [facility] because of palpitation and Tachycardia. Denies chest [...] 155,TG 44,HDL 53,LDL 93. Prosper Keane MD [address] [place], [address], [facility] - [facility] 04/02/2024 20:41:30
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
--- OUTSIDE RECORDS SUMMARY | 2024-04-25 20:55 | XMS_ITS | Encounter Summary ---
Author Organization [facility] Address [address] [place] [address] [place] [address] Care Team Providers Care Farmworkers Name Role Phone Unavailable Primary Care Provider Unavailabl e Reason for Visit * Reason Comments Eye Problem Encounter Details Date Type Department Care Team (Latest Contact Info) Description 07/24/2010 11:00 AM CDT Office Visit [facility] - Pediatrics [address] [place] [address] Eliza Stevens MD [address] [place] [phone] Allergic Conjunctivitis (Primary Dx); Allergic rhinitis Social History Tobacco Use Types Packs/Day Years [...] Pressure - - Pulse - - Temperature - - Respiratory Rate - - Oxygen Saturation - - Inhaled Oxygen Concentration - - Weight 52.3 kg (115 lb 6.4 oz) 07/24/2010 11:37 AM CDT Height - - Body Mass Index - - documented in this encounter Progress Notes * Eliza [place] MD - 07/24/2010 11:37 AM CDT SUBJECTIVE:Oliverio Castaneda is a 10 y.o. male Bilateral eyes crusty. Sclerae pink Watery drainage. No itching. Pt woke up today with crusty eyes.They have continued to drain a clear drainage. There is no c/o pain, itching, photophobia or headaches. Pt has history of seasonal allergies. OBJECTIVE: There were no vitals taken for this visit. General appearance: alert, well appearing, and in no distress. Ears: bilateral TM's and external ear canals normal Nose: normal and patent, no erythema, discharge or polyps Oropharynx: mucous membranes moist, Enlarged tonsils. Neck: supple, no significant adenopathy Lungs: clear to auscultation, no wheezes, rales or rhonchi, symmetric air entry Heart - regular rate and rhythm, normal S1 and S2, no murmurs ASSESSMENT: Allergic rhinitis and Allergic conjunctivitis. PLAN: See orders for this visit as documented in the electronic medical record Symptomatic therapy suggested: push fluids and return office visit prn if symptoms persist or worsen. documented in this encounter Plan of Treatment Not on file documented as of this encounter Visit Diagnoses Diagnosis Allergic Conjunctivitis- Primary Other chronic allergic conjunctivitis Allergic rhinitis Allergic rhinitis, cause unspecified documented in this encounter
--- OUTSIDE RECORDS SUMMARY | 2024-04-25 20:55 | XMS_ITS | Encounter Summary ---
Author Organization [facility] Address [address] [place] [address] Care Team Providers Care Radio Commentator Name Role Phone Triny Randhawa MD Primary Care Provider [phone] Encounter Details Date Type Department Care Team (Latest Contact Info) Description 11/27/2013 3:33 PM CDT - 11/27/2013 11:59 PM CDT Hospital Encounter [facility] Pediatrics - Radiology [address] [place] [address] Vicky Rai PA [address] [place] [phone] Discharge Disposition: Home or Self Care Social [...] on file documented as of this encounter Plan of Treatment Not on file documented as of this encounter Procedures Procedure Name Priority Date/Time Associated Diagnosis Comments XR CLAVICLE RIGHT 2VW Routine 11/27/2013 3:36 PM CDT Right clavicle fracture, closed, initial encounter documented in this encounter Results * XR CLAVICLE RIGHT [...] Diagnoses Diagnosis Right clavicle fracture, closed, initial encounter documented in this encounter Care Teams Radio Commentator Relationship Specialty Start Date End Date Triny Randhawa MD [address] [place] [address] [place] [phone] PCP - General Family Medicine 10/26/13 documented as of this encounter
--- OUTSIDE RECORDS SUMMARY | 2024-04-25 20:55 | XMS_ITS | Continuity of Care Document ---
Author Organization [place] - [facility] OFFICE Address [address] [place] [address] Care Team Providers Care Scientific Database Curator Name Role Phone NITISH LAWRENCEA Primary Care Provider Assessment No assessment recorded. [...] Abnormal Flag Note LastModifiedBy Organization Detail LastModifiedTime 02/22/2002/18/2024 elect rocar diogr am No observ ation record ed. [email or web address] Not Available 2023 09:25:46 02/22/20 24 02/20/2024 elect rocar diogr am No observ ation [...] Not Available 2023 13:22:51 04/04/20 24 04/02/2024 elect rocar diogr am No observ ation record ed. [email or web address] Not Available 2023 11:06:37 Result Notes None recorded. Problems Name Problem SNOMED Code Status Onset Date Resolution Date Notes Provider Name and Address Organization Details Recorded Time Essential hypertension 55784491 Active 2023 Deal [facility], [facility] 4 17:11:50 Palpitations 53315631 Active 2023 Say Wesleyto [facility], [facility] 4 17:12:03 Atypical chest pain 609588268 Active 2023 Deal Mesto [facility], [facility] 4 17:12:12 Mitral valve prolapse 257244991 Active [address] [facility], [facility] 4 17:12:22 Dyslipidemia 738789381 Active 2023 Deal [facility], [facility] 4 17:12:32 Problem Notes None recorded. Procedures Surgical History Date Name Laterality Status Provider Name and Address Organization Details Recorded Time 04/23/19 13 tonsillectomy and adenoidectomy completed Melyssa Burrows [facility] 08/06/2023 15:50:53 Imaging Results None recorded. Procedure [...] Updated DateTime 4 187.96 cm 28 kg/m2 71620.1 4 g 111 /min 98 % 98 % 152 mm[Hg] 80 mm[Hg] Laura Dillon [place] - [facility] 4 19:50:24 Social History Question Answer Notes LastModified by Organizat ion Details LastModified Time What Is Your Level Of Alcohol Consumption? Occasional [email or web address] Information not available 08/06/2023 What Is Your Level Of Caffeine Consumption? None [email or web address] Information not available 08/06/2023 How Many Children Do You Have? 1 [email or web address] Information not available 08/06/2023 What Is Your Relationship Status? [email or web address] Information not available 08/06/2023 Sex: Unknown Functional Status None recorded. Mental Status None recorded. Family History Relationship Description Onset Age of this Age Resolved Age Notes LastModified by Organization Details LastModified Time Father Hypertensive disorder Not available 2023 15:48:02 Medical History Condition Response Hypertension Y Past Encounters Encounter ID Performer Location Encounter Start Date Encounter Closed Date Diagnosis/Indication Diagnosis SNOMED-CT Code Diagnosis ICD10 Code [id number] Prosper Keane MD [place] OFFICE [address] [place] [address] 02/20/2024 19:47:19 02/20/2024 20:08:52 Essential hypertension 87356581 I10 Palpitations 24303982 R0 0.2 Atypical chest pain 1025 46234 R07.89 Mitral valve prolapse 40 9602795 I34.1 Dyslipidemia 015002765 E 78.5 Health Concerns Section Related Observation LastModified by Organization Detai ls LastModified Time None Recorded Concern Status LastModified by Organization Details LastModified Time None Recorded Payers Encounter Date Sequence Insurance Name Policy Number Policy Dewitt Covered Member ID Dewitt Member ID Guarantor Name 02/20/2024 1 [employer] - DOS PRIOR TO 2024 - [employer] - SELECT ( - PPO) Oliverio Wood [id number] Oliverio Wood Notes Date Note Type Note Provider Name and Address Organization Details Recorded Time 02/20/2024 text/html 09/17/23CC : Cardiac follow up.Oliverio [...] 155,TG 44,HDL 53,LDL 93. Prosper Keane MD [address] [place], [address], [facility] 02/20/2024 20:03:37
--- OUTSIDE RECORDS SUMMARY | 2024-04-25 20:55 | XMS_ITS | Continuity of Care Document ---
Author Organization [place] - [facility] [employer] [facility], [facility] [place] Address [address] [place] [address] Assessment No assessment recorded. Plan of Treatment Reminders Order Date Submit Date Provider Last Modified By Organization Details Last Modified Time Details Appointments Follow Up 20 2024 10:40A M Yissel Martins NP Not available Not available Not available Follow Up 15 2024 03:00P Mary Jane Atwood APRN Not available Not available Not available Lab CBC w/ auto diff [address] Out[facility] Lab, [address] [place], [address], 03/04/2024 09:59:22 CMP, serum or plasma [address] Out[facility] Lab, [address] [place], [address], 03/04/2024 09:59:41 lipid panel, serum [address] (Lab), [address] [place], [address], 03/04/2024 09:59:03 TSH + free T4, serum [address] Out[facility] Lab, [address] [place], [address], 03/04/2024 10:00:00 HbA1c (hemoglob in A1c), blood [address] - Outpatient Lab, [address] [place], [address], 03/04/2024 09:58:39 hepatitis C virus Ab, serum [address] (Lab), [address] [place], [address], 03/04/2024 09:58:02 Referral None recorded. Procedures None recorded. Surgeries None recorded. Imaging None recorded. Medication Orders sertralin e 50 mg tablet 2023 [id number], [address] [place], [place], [id number], 03/04/2024 09:35:02 propranol ol 10 mg tablet 2023 024 [facility][id number], [address] [place], [place], [id number], 03/04/2024 09:35:02 Patient TargetsNo targets recorded. Patient Instructions Encounter Date Encounter Id Patient Instructions Last Modified By Organization Details Last Modified Time 03/04/2024 [id number] Follow up in 3 month and as needed Prescriptions sent to pharmacy Obtain labs Tests: Referral: Recommend: [email or web address] Not available 03/04/2024 09:35:20 Reason for Referral None Reported. Results Created Date Observation Date Name Description Value Unit Range Abnormal Flag Note LastModifiedBy Organization Detail LastModifiedTime 03/23/2003/22/2024 XR, chest , 2 view No observ ation record ed. [email or web address] [facility] [address], [place], [address], 03/23/2024 10:03:20 04/02/20 24 04/01/2024 XR, chest , 2 view No observ ation record ed. [email or web address] [facility] [address] [facility] [address], [place], [address], 04/02/2024 10:01:37 Result Notes None recorded. Problems Name Problem SNOMED Code Status Onset Date Resolution Date Notes Provider Name and Address Organization Details Recorded Time Rib pain 798810748 Active Not Available [facility] 3 09:19:17 Fracture of clavicle 52872575 Active Not Available [facility] 3 09:19:17 Weight gain 9891770 Active 2022 LUIS Franklin [address], [place], [address] , [employer] 3 09:16:13 Nicotine dependence 01709975 Active 2022 Sandi Atwood APRN [address], [address], [place], [address] , [employer] 4 10:33:42 Cobalamin deficiency 221109536 Active 2022 Sandi Atwood APRN [address], [address], [place], [address] , [employer] 4 10:33:31 Vitamin D deficiency 97383589 Active 2022 Sandi Atwood APRN [address], [place], [address] , [employer] 4 10:33:51 Essential hypertensi on 18112365 Completed 202303/04/2024 Sandi Atwood APRN [address], [place], [address] , [employer] 4 09:20:19 Intermitte nt palpitatio ns 191978625 Active 2023 Sandi Atwood APRN [address], [place], [address] , [employer] 4 10:33:40 Anxiety 72477577 Active 2023 Sandi Atwood APRN [address], [place], [address] , [employer] 4 10:33:29 Panic attack 507108707 Active 2023 Sandi Atwood APRN [address] [place] [address], [place], [address] , [facility] [email or web address] [facility] 4 10:33:45 Gastroesop hageal reflux disease 420094282 Active 2023 Sandi Atwood APRN [address], [facility] [address], [place], [address] , [facility] [email or web address] [facility] 4 09:23:45 Problem Notes None recorded. Procedures Surgical History Date Name Laterality Status Provider Name and Address Organization Details Recorded Time Tonsillectomy completed Yamilet Hoover MA [facility] [email or web address] [facility] 03/04/2024 09:14:50 Imaging Results None recorded. Procedure Notes None recorded. Medical Equipment None Reported. Allergies No known drug allergies Medications Name Sig Start Date Stop Date Status Note LastModified by Organization Details LastModified Time amoxicill in 500 mg capsule TAKE 1 CAPSULE BY MOUTH EVERY 8 HOURS 11/17 completed Not Available Not Available Not Available bupropion HCl SR 150 mg tablet,12 hr sustained -release Take 1 tablet twice a day by oral route as directed . 2023 active Not Available Not Available Not Avai lable nicotine 14 mg/24 hr daily transderm al patch Apply 1 patch every day by transder mal route. 03/04 completed Not Available Not Available Not Available benzonata te 200 mg capsule TAKE 1 CAPSULE BY MOUTH THREE TIMES DAILY NEEDED FOR COUGH 07/09 completed Not Available Not Available Not Available hydroxyzi ne HCl 50 mg tablet 1 po qhs prn anxiety active Not Available Not Available No t Available propranol ol 10 mg tablet TAKE 2 TABLETS BY MOUTH THREE TIMES DAILY NEEDED FOR PANIC ATTACKS active Not Available Not Available No t Available buspirone 10 mg tablet Take 1 tablet twice a day by oral route as needed. active Not Available Not Available No t Available lisinopri l 10 mg tablet 1 tablet daily 03/04 completed Was on 30mg daily but BP was running 90/56 and he was having trouble with light headedne ss and feeling like he was gonna pass out. Not Available Not Available Not Available hydroxyzi ne HCl 25 mg tablet TAKE 1 TABLET BY MOUTH THREE TIMES DAILY NEEDED 03/10 completed Not Available Not Available Not Available methylpre dnisolone 4 mg tablets in a dose pack FOLLOW PACKAGE DIRECTIO NS 07/09 completed Not Available Not Available Not Available lisinopri l 40 mg tablet Take 1 tablet every day by oral route for 90 days. 08/26 completed Not Available Not Available Not Available sertralin e 50 mg tablet TAKE 1 TABLET BY MOUTH EVERY DAY DIRECTED active Not Available Not Available No t Available erythromy josiah with ethanol 2 % topical gel APPLY A THIN LAYER TO THE AFFECTED AREA(S) BY TOPICAL ROUTE 2 TIMES PER DAY IN THE MORNING AND EVENING 11/07 completed Not Available Not Available Not Available escitalop idania 10 mg tablet TAKE 1 TABLET BY MOUTH EVERY DAY 08/15 completed Not Available Not Available Not Available tadalafil 20 mg tablet 1/2 to 1 tab po qday prn active Not Available Not Available No t Available erythromy josiah with ethanol 2 % topical solution APPLY EXTERNAL LY TO THE AFFECTED AREA TWICE DAILY 11/16 completed Not Available Not Available Not Available ID NOW COVID-19 Test Kit TEST DIRECTED TODAY 11/17 completed Not Available Not Available Not Available Vitals Date Recorded Body height Body mass index (BMI) Body weight Body temperature Heart rate Oxygen saturation Oxygen saturation in Arterial blood by Pulse oximetry Systolic blood pressure Diastolic blood pressure Provider Name and Address Organization Details Last Updated DateTime 4 187.96 cm 27.5 kg/m2 08799.7 7 g 99.2 [degF] 106 /min 98 % 98 % 140 mm[Hg] 70 mm[Hg] Yamilet Hoover [place] [facility] [place] [employer] 4 09:08:51 Social History Question Answer Notes LastModified by Organizat ion Details LastModified Time Tobacco Smoking Status Former Smoker Not Available [employer] 06/20/2022 09:13:38 What Is Your Level Of Alcohol Consumption? Occasional [id number] Information not available 06/20/2022 What Is Your Level Of Caffeine Consumption? Heavy [id number].[id number] Information not available 06/20/2022 In The 14 Days Before Symptom Onset, Have You Had Close Contact With A Laboratory-confir med COVID-19 While That Case Was Ill? No [id number] Information not available 06/20/2022 In The 14 Days Before Symptom Onset, Have You Had Close Contact With A Person Who Is Under Investigation For COVID-19 While That Person Was Ill? No [id number].[id number] Information not available 06/20/2022 Are You Currently Employed? Yes Information not available 03/04/2024 What Type Of Diet Are You Following? REGULAR [id number].[id number] Information not available 06/20/2022 Do You Or Have You Ever Used E-cigarettes Or Vape? Current User Of Electronic Cigarettes Information not available 03/04/2024 What Is Your Occupation? [employer] Information not available 03/04/2024 Have There Been Any Changes To Your Family Or Social Situation? No Information no t available 03/04/2024 When Did You Quit Smoking? 1-5yearssincel astcigarette Information not available 03/04/2024 Do You Use Insect Repellent Routinely? No Information not available 03/04/2024 Where Do You Live? Condo Information not available 03/04/2024 What Was The Date Of Your Most Recent Tobacco Screening? 03/04/2024 Information not available 03/04/2024 How Many Children Do You Have? 1 Information not available 03/04/2024 Have You Ever Been Counseled For Unhealthy Alcohol Use? No [id number].[id number] Information not available 06/20/2022 Do You Have Any Pets? No Information not available 03/04/2024 What Is Your Relationship Status? Information not available 03/04/2024 Do You Use Your Seat Belt Or Car Seat Routinely? Yes Information not available 03/04/2024 Do You Have Smoke And Carbon Monoxide Detectors In Your Home? Yes Information not available 03/04/2024 At What Age Did You Start Smoking Tobacco? 17 Information not available 03/04/2024 Are You Passively Exposed To Smoke? No Information no t available 03/04/2024 Do You Or Have You Ever Used Smokeless Tobacco? Former Smokeless Tobacco User Information not available 03/04/2024 Are There Any Smokers In Your House? No Information not available 03/04/2024 How Much Tobacco Do You Smoke? 0.5 PPD Information not available 03/04/2024 Do You Feel Stressed (tense, Restless, Nervous, Or Anxious, Or Unable To Sleep At Night)? [id number] Information not available 03/04/2024 Do You Use Any Illicit Or Recreational Drugs? No MIGRATION.200440 1076 Information not available 06/20/2022 Do You Use Sunscreen Routinely? No Information not available 03/04/2024 Has Tobacco Cessation Counseling Been Provided? No MIGRATION.085643 4829 Information not available 06/20/2022 Have You Recently Traveled Abroad? No MIGRATION.202538 3143 Information not available 06/20/2022 Do You Have Any Dietary Restrictions? No MIGRATION.739333 3644 Information not available 06/20/2022 Do You Or Have You Ever Used Any Other Forms Of Tobacco Or Nicotine? Yes Vape MIGRATION.577863 0617 Information not available 06/20/2022 How Many Years Have You Used E-cigarettes Or Vape? 3 Information not available 03/04/2024 Sex: Male Functional Status Question Answer Note LastModified by Organizat ion Details LastModified Time What is your exercise level? Heavy [id number] Information not available 06/20/2022 Mental Status None recorded. Family History Nothing Reported Notes:unknown cancer on meredith rnal side heart disease paternal side Medical History No medical history recorded. Immunizations Vaccine Type Date Status Note Provider Nam e and Address Organization Details Recorded Time Hib, unspecified formulation 1 completed Sandi Atwood APRN [address], [place], [address], [employer] [facility] [employer] 02/29/2024 10:27:40 Hib, unspecified formulation 1 completed Sandi Atwood APRN [address], [place], [address], [facility] [employer] [facility] 02/29/2024 10:27:40 Hib, unspecified formulation 2 completed Sandi Atwood, [employer] [address], [place], [address], [place] [facility] 02/29/2024 10:27:40 Hib-Hep B 2 completed Sandi Atwood, [employer] [address], [place], [address], [place] [facility] 02/29/2024 10:27:40 Hib-Hep B 1 completed Sandi Atwood, [employer]RI[employer]GE[employer] [address], [place], [address], [place] [facility] 02/29/2024 10:27:40 IPV 1 completed Sandi Atwood APRN [address], [place], [address], [place] [facility] 02/29/2024 10:27:40 IPV 1 completed Sandi Atwood APRN [address], [place], [address], [place] [facility] 02/29/2024 10:27:40 IPV 2 completed Sandi Atwood APRN [address], [place], [address], [place] [facility] 02/29/2024 10:27:40 IPV 1 completed Sandi Atwood APRN [address], [place], [address], [place] [facility] 02/29/2024 10:27:40 IPV 6 completed Sandi Atwood APRN [address], [place], [address], [place] [facility] 02/29/2024 10:27:40 MMR 2 completed Sandi Atwood APRN [address], [place], [address], [place] [facility] 02/29/2024 10:27:40 MMR 6 completed Sandi Atwood APRN [address], [place], [address], [place] [facility] 02/29/2024 10:27:40 pneumococcal conjugate PCV 7 1 completed Sandi Atwood APRN [address], [place], [address], [place] [facility] 02/29/2024 10:27:40 pneumococcal conjugate PCV 7 1 completed Sandi Atwood APRN [address], [place], [address], [place] [facility] 02/29/2024 10:27:40 pneumococcal conjugate PCV 7 1 completed Sandi Atwood APRN [address], [place], [address], [place] [facility] 02/29/2024 10:27:40 influenza, unspecified formulation 2 completed Sandi Atwood APRN [address], [place], [address], [facility] 02/29/2024 10:27:40 Tdap 9 completed Sandi Atwood APRN [address], [place], [address], [place] [facility] 02/29/2024 10:27:40 Tdap 2 completed Sandi Atwood APRN [address], [place], [address], [facility] 02/29/2024 10:27:40 Tdap 3 completed Sandi Atwood APRN [address], [place], [address], [facility] 02/29/2024 10:27:40 varicella 1 completed Sandi Atwood APRN [address], [place], [address], [facility] 02/29/2024 10:27:40 influenza, split (incl. purified surface antigen) 0 completed Sandi Atwood APRN [address], [place], [address], [employer] [facility] [email or web address] [facility] 02/29/2024 10:27:40 Hep B, adolescent or pediatric [address] O[address], [place], [address], [employer] [facility] [email or web address] [facility] 02/29/2024 10:27:41 Hep B, adolescent or pediatric 1 completed CANDY Osorio [address], [place], [address], [employer] [facility] [email or web address] [facility] 02/29/2024 10:27:41 Hep B, adolescent or pediatric 0 completed CANDY Osorio [address], [place], [address], [employer] [facility] [email or web address] [facility] 02/29/2024 10:27:41 meningococcal MCV4P 8 completed C[address]Y Osorio [address], [place], [address], [employer] [facility] [email or web address] [facility] 02/29/2024 10:27:41 meningococcal MCV4P 9 completed CANDY Osorio [address], [place], [address], [employer] [facility] [email or web address] [facility] 02/29/2024 10:27:41 DTaP 1 completed CANDY Osorio [address], [place], [address], [employer] [facility] [email or web address] [facility] 02/29/2024 10:27:41 DTaP 1 completed CANDY Osorio [address], [place], [address], [employer] [facility] [email or web address] [facility] 02/29/2024 10:27:41 DTaP 2 completed Sandi Angelic, [employer] [address], [place], [address], [facility] [employer] [facility] 02/29/2024 10:27:41 DTaP 1 completed Sandi Atwood APRN [address], [place], [address], [facility] [employer] [facility] 02/29/2024 10:27:41 Influenza, split virus, quadrivalent, PF 2 completed Sandi Atwood APRN [address], [place], [address], [facility] [employer] [facility] 02/29/2024 10:27:41 Influenza, split virus, quadrivalent, PF 2 completed Sandi Atwood APRN [address], [place], [address], [facility] [employer] [facility] 02/29/2024 10:27:41 Influenza, MDCK, quadrivalent, PF 2 completed Sandi Atwood APRN [address], [place], [address], [facility] [email or web address] [facility] 02/29/2024 10:27:40 COVID-19, mRNA, LNP-S, PF, 30 mcg/0.3 mL dose 2 completed Sandi Atwood APRN [address], [place], [address], [facility] [employer] [facility] 02/29/2024 10:27:40 COVID-19, mRNA, LNP-S, PF, 30 mcg/0.3 mL dose 1 completed Sandi Atwood APRN [address], [place], [address], [facility] [email or web address] [facility] 02/29/2024 10:27:40 Influenza, split virus, quadrivalent, preservative 6 completed Not Available [employer] 06/20/2022 09:25:24 varicella 5 completed Not Available [employer] 06/20/2022 09:25:24 meningococcal MCV4P 5 completed Not Available [facility] 06/20/2022 09:25:24 HPV, quadrivalent 6 completed Sandi Atwood APRN [address] [facility] [address], [place], [address], [facility] [employer] [facility] [employer] [facility] 02/29/2024 10:27:40 HPV, quadrivalent 5 completed Sandi Atwood APRN [address], [facility] [address], [place], [address], [facility] [employer] [facility] 02/29/2024 10:27:41 HPV, quadrivalent 5 completed Sandi Atwood APRN [address], [facility] [address], [place], [address], [facility] [employer] [facility] [employer] [facility] 02/29/2024 10:27:41 Influenza, live, quadrivalent, intranasal 3 completed Not Available [facility] 06/20/2022 09:25:25 Past Encounters Encounter ID Performer Location Encounter Start Date Encounter Closed Date Diagnosis/Indication Diagnosis SNOMED-CT Code Diagnosis ICD10 Code [id number] Sandi Atwood APRN [facility] [address] [place] [address] 03/04/2024 09:00:42 03/04/2024 09:45:42 Anxiety 64113459 F41.9 Hepatitis C screening 41 1576818 Z11.59 Panic attack 701839477 F 41.0 Diabetes m ellitus screening 298693833 Z13.1 Hyperlipid emia screening 099009252 Z13.220 Screening for disorder 084773402 Z13.9 Thyroid di sorder screening 178369029 Z13.29 Health Concerns Section Related Observation LastModified by Organization Detai ls LastModified Time None Recorded Concern Status LastModified by Organization Details LastModified Time None Recorded Payers Encounter Date Sequence Insurance Name Policy Number Policy Dewitt Covered Member ID Dewitt Member ID Guarantor Name 03/04/2024 1 [employer] - DOS PRIOR TO 2024 - [employer] () Oliverio Castaneda [id number] Oliverio Castaneda Notes Date Note Type Note Provider Name and Address Organization Details Recorded Time 03/04/2024 text/html Oliverio presents today to establish care. He states that he is having panic attacks and would like to change his medications. He states that he was having low blood pressures and he decreased his lisinopril to 1 tablet daily. He has not had any elevated blood pressures and has actually had low blood pressures. Advised to stop lisinopril and monitor blood pressures. He also state that he is only on hydroxyzine for his anxiety and panic attacks. He states that it does not work when his anxiety increases. Sandi Atwood, [employer]RI[employer] SERGEANT [address] [facility], [facility] [address], [place], [address], [place] [facility] 03/04/2024 09:35:31
--- OUTSIDE RECORDS SUMMARY | 2024-04-25 20:55 | XMS_ITS | Data Portability ---
Author Organization [facility] [employer], Main Office Address [address] [place] [address] Assessment No assessment recorded. Plan of Treatment Reminders Order Date Submit Date Provider Last Modified By Organization Details Last Modified Time Details Appointments Follow Up 2024 10:40A Mary Jane Martins NP Not available Not available Not available Follow Up 2024 03:00P M Sandi Atwood APRN Not available Not available Not available Lab CBC w/ auto diff [address] Outpatient Lab, [address] [place], [address], 03/04/2024 09:59:22 CMP, serum or plasma [address] Outpatient Lab, [address] [place], [address], 03/04/2024 09:59:41 lipid panel, serum [address] (Lab), [address] [place], [address], 03/04/2024 09:59:03 TSH + free T4, serum [address] Outpatient Lab, [address] [place], [address], 03/04/2024 10:00:00 HbA1c (hemoglob in A1c), blood [address] Outpatient Lab, [address] [place], [address], 03/04/2024 09:58:39 hepatitis C virus Ab, serum 2023 024 [facility] (Lab), [address] [place], [address], 03/04/2024 09:58:02 Referral None recorded. Procedures None recorded. Surgeries None recorded. Imaging None recorded. Medication Orders hydroxyzi ne HCl 25 mg tablet [address] [facility]253, [address] [place], [place], [id number], 03/10/2024 11:11:04 lisinopri l 40 mg tablet 2023 024 [email or web address] [employer] [facility] #38187, [address] [place], [place], [id number], 08/27/2023 17:57:59 hydroxyzi ne HCl 25 mg tablet [address] Store [address]75602, [address] [place], [place], [id number], 03/10/2024 11:11:04 sertralin e 50 mg tablet 2023 024 [facility] [employer] Store #03167, [address] [place], [place], [id number], 03/04/2024 09:35:02 propranol ol 10 mg tablet 2023 024 [facility] [employer] Store #66916, [address] [place], [place], [id number], 03/04/2024 09:35:02 Patient TargetsNo targets recorded. Patient Instructions Encounter Date Encounter Id Patient Instructions Last Modified By Organization Details Last Modified Time 03/04/2024 [id number] Follow up in 3 month and as needed Prescriptions sent to pharmacy Obtain labs Tests: Referral: Recommend: [email or web address] Not available 03/04/2024 09:35:20 Reason for Referral None Reported. Results Created Date Observation Date Name Description Value Unit Range Abnormal Flag Note LastModifiedBy Organization Detail LastModifiedTime 08/08/19 24 07/29/2023 dragan r monit or No observ ation record ed. [email or web address] [facility] ([facility]) [address] [place] [address], [address], 08/16/2023 10:07:04 12/24/19 24 12/21/2023 XR, chest , 1 view No observ ation record ed. [address] [address], [place], [address], 01/02/2024 10:43:12 03/23/20 24 03/22/2024 XR, chest , 2 view No observ ation record ed. [email or web address] [address] [address], [place], [address], 03/23/2024 10:03:20 04/02/20 24 04/01/2024 XR, chest , 2 view No observ ation record ed. [address] [address], [place], [address], 04/02/2024 10:01:37 Result Notes None recorded. Problems Name Problem SNOMED Code Status Onset Date Resolution Date Notes Provider Name and Address Organization Details Recorded Time Rib pain 569952956 Active Not Available [facility] 3 09:19:17 Fracture of clavicle 28034376 Active Not Available [facility] 3 09:19:17 Weight gain 5739473 Active 2022 LUIS Franklin [address], [place], [address] , [facility] [employer] [facility] 3 09:16:13 Nicotine dependence 91594051 Active 2022 Sandi Atwood APRN [address], [place], [address] , [employer] [facility] [employer] [facility] 4 10:33:42 Cobalamin deficiency 402372534 Active 2022 Sandi Atwood APRN [address], [address] [address], [place], [address] , [facility] [employer] [facility] [employer] [facility] 4 10:33:31 Vitamin D deficiency 61681362 Active 2022 Sandi Atwood APRN [address], [address] [address], [place], [address] , [employer] [facility] [employer] 4 10:33:51 Essential hypertensi on 06251539 Completed 202303/04/2024 Sandi Atwood APRN [address], [address] [address], [place], [address] , [employer] [facility] [employer] [facility] 4 09:20:19 Intermitte nt palpitatio ns 313836606 Active 2023 Sandi Atwood APRN [address], [address] [address], [place], [address] , [facility] [employer] [facility] 4 10:33:40 Anxiety 39267554 Active 2023 Sandi Atwood APRN [address], [place] [address], [place], [address] , [facility] [employer] [facility] [employer] [facility] 4 10:33:29 Panic attack 264245405 Active 2023 Sandi Atwood APRN [address], [address] [address], [place], [address] , [employer] [facility] [employer] 4 10:33:45 Gastroesop hageal reflux disease 590907599 Active 2023 Sandi Atwood APRN [address], [address], [place], [address] , [facility] [employer] [facility] [employer] 4 09:23:45 Problem Notes None recorded. Procedures Surgical History Date Name Laterality Status Provider Name and Address Organization Details Recorded Time Tonsillectomy completed Yamilet Hoover MA [facility] 03/04/2024 09:14:50 Imaging Results Imaging Date Name Status LastModified by Organiz ation Details LastModified Time 07/29/2023 holter monitor completed [email or web address] [facility] ([facility]) [address] [place] [address] [place] [address], [address], 08/16/2023 10:07:04 12/21/2023 XR, chest, 1 view completed [address], [address], 01/02/2024 10:43:12 03/22/2024 XR, chest, 2 view completed [address], [address], 03/23/2024 10:03:20 04/01/2024 XR, chest, 2 view completed [address], [address], 04/02/2024 10:01:37 Procedure Notes None recorded. Medical Equipment None [...] Available Not Available Vitals Date Recorded Body weight Body mass index (BMI) Body height Body temperature Heart rate Oxygen saturation Oxygen saturation in Arterial blood by Pulse oximetry Systolic blood pressure Diastolic blood pressure Provider Name and Address Organization Details Last Updated DateTime 4 07117.8 1 g 26.8 kg/m2 187.96 cm 99.9 [degF] 69 /min 99 % 99 % 162 mm[Hg] 90 mm[Hg] Kenia Miller RN [place] [employer] 4 10:01:50 Date Recorded Body height Body mass index (BMI) Body weight Body temperature Heart rate Oxygen saturation Oxygen saturation in Arterial blood by Pulse oximetry Systolic blood pressure Diastolic blood pressure Provider Name and Address Organization Details Last Updated DateTime 4 187.96 cm 27.5 kg/m2 63502.7 7 g 98.7 [degF] 96 /min 97 % 97 % 146 mm[Hg] 88 mm[Hg] Kneia Miller RN [facility] [employer] [facility] 4 10:05:41 Date Recorded Body height Body mass index (BMI) Body weight Body temperature Heart rate Oxygen saturation Oxygen saturation in Arterial blood by Pulse oximetry Systolic blood pressure Diastolic blood pressure Provider Name and Address Organization Details Last Updated DateTime 4 187.96 cm 27.5 kg/m2 86970.7 7 g 99.2 [degF] 106 /min 98 % 98 % 140 mm[Hg] 70 mm[Hg] Yamilet Hoover MA [facility] [employer] [facility] 4 09:08:51 Date Recorded Systolic blood pressure Diastolic blood pressure Provider Name and Address Organization Details Last Updated DateTime 07/30/2023 150 mm[Hg] 96 mm[Hg] Emily Ureña RN [facility] [employer] [facility] 07/30/2023 10:17:57 Date Recorded Systolic blood pressure Diastolic blood pressure Provider Name and Address Organization Details Last Updated DateTime 08/13/2023 146 mm[Hg] 80 mm[Hg] Emily Ureña RN [facility] [employer] [facility] 08/13/2023 10:17:44 Social History Question Answer Notes LastModified by Organizat ion Details LastModified Time Tobacco Smoking Status Former Smoker Not Available [facility] 06/20/2022 09:13:38 What Is Your Level Of Alcohol Consumption? Occasional [id number] Information not available 06/20/2022 What Is Your Level Of Caffeine Consumption? Heavy MIGRATION.[id number] Information not available 06/20/2022 In The 14 Days Before Symptom Onset, Have You Had Close Contact With A Laboratory-confir med COVID-19 While That Case Was Ill? No [id number].[id number] Information not available 06/20/2022 In The 14 Days Before Symptom Onset, Have You Had Close Contact With A Person Who Is Under Investigation For COVID-19 While That Person Was Ill? 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 REGULAR MIGRATION.823015 4721 Information not available 06/20/2022 Do You Or [...] Been Counseled For Unhealthy Alcohol Use? No MIGRATION.320544 3387 Information not available 06/20/2022 Do You Have [...] Anxious, Or Unable To Sleep At Night)? [id number] Information not available 03/04/2024 Do You Use Any Illicit Or Recreational Drugs? No MIGRATION.396232 4656 Information not available 06/20/2022 Do You Use Sunscreen Routinely? No Information not available 03/04/2024 Has Tobacco Cessation Counseling Been Provided? No MIGRATION.520637 1032 Information not available 06/20/2022 Have You Recently Traveled Abroad? No MIGRATION.126949 6266 Information not available 06/20/2022 Do You Have Any Dietary Restrictions? No MIGRATION.011748 7848 Information not available 06/20/2022 Do You Or Have You Ever Used Any Other Forms Of Tobacco Or Nicotine? Yes Vape MIGRATION.163985 6438 Information not available 06/20/2022 How Many Years Have You Used E-cigarettes Or Vape? 3 Information not available 03/04/2024 Sex: Male Functional Status Question Answer Note LastModified by Organizat ion Details LastModified Time What is your exercise level? Heavy [id number].[id number] Information not available 06/20/2022 Mental Status None recorded. Family History Nothing Reported Notes:unknown cancer on meredith rnal side heart disease paternal side Medical History No medical history recorded. Immunizations Vaccine Type Date Status Note Provider Nam e and Address Organization Details Recorded Time Hib, unspecified formulation 1 completed Sandi Atwood APRN [address], [address], [address], [employer] [facility] [employer] 02/29/2024 10:27:40 Hib, unspecified formulation 1 completed Sandi Atwood APRN [address], [address], [place], [address], [employer] 02/29/2024 10:27:40 Hib, unspecified formulation 2 completed Sandi Atwood APRN [address], [address], [place], [address], [employer] [facility] [employer] 02/29/2024 10:27:40 Hib-Hep B 2 completed Sandi Atwood APRN [address], [address], [place], [address], [employer] [facility] 02/29/2024 10:27:40 Hib-Hep B 1 completed Sandi Atwood APRN [address], [address], [place], [address], [place] [facility] 02/29/2024 10:27:40 IPV 1 completed Sandi Atwood APRN [address], [address], [place], [address], [place] [facility] 02/29/2024 10:27:40 IPV 1 completed Sandi Atwood APRN [address], [address], [place], [address], [facility] 02/29/2024 10:27:40 IPV 2 completed Sandi Atwood APRN [address], [address], [place], [address], [facility] 02/29/2024 10:27:40 IPV 1 completed Sandi Atwood APRN [address], [address], [place], [address], [facility] 02/29/2024 10:27:40 IPV 6 completed Sandi Atwood APRN [address], [address], [place], [address], [facility] 02/29/2024 10:27:40 MMR 2 completed Sandi Atwood APRN [address], [address], [place], [address], [facility] 02/29/2024 10:27:40 MMR 6 completed Sandi Atwood APRN [address], [address], [place], [address], [facility] 02/29/2024 10:27:40 pneumococcal conjugate PCV 7 1 completed Sandi Atwood APRN [address], [address], [place], [address], [facility] 02/29/2024 10:27:40 pneumococcal conjugate PCV 7 [address], [place], [address], [employer] [facility] [employer] [facility] 02/29/2024 10:27:40 pneumococcal conjugate PCV 7 1 completed Sandi Atwood APRN [address], [address], [place], [address], [employer] [facility] [employer] [facility] 02/29/2024 10:27:40 influenza, unspecified formulation 2 completed Sandi Atwood APRN [address], [address], [place], [address], [employer] [facility] [employer] [facility] 02/29/2024 10:27:40 Tdap 9 completed [address], [place], [address], [employer] [facility] 02/29/2024 10:27:40 Tdap 2 completed [address], [place], [address], [employer] [facility] 02/29/2024 10:27:40 Tdap 3 completed C[address], [place], [address], [employer] [facility] [employer] [facility] 02/29/2024 10:27:40 varicella 1 completed CANDY O[address], [place], [address], [employer] [facility] [employer] [facility] 02/29/2024 10:27:40 influenza, split (incl. purified surface antigen) 0 completed Sandi Atwood APRN [address], [address], [place], [address], [employer] [facility] [employer] [facility] 02/29/2024 10:27:40 Hep B, adolescent or pediatric 1 completed Sandi Atwood APRN [address], [address], [place], [address], [facility] [employer] [facility] [employer] [facility] 02/29/2024 10:27:41 Hep B, adolescent or pediatric 1 completed Sandi Atwood APRN [address], [place], [address], [facility] [employer] [facility] [employer] [facility] 02/29/2024 10:27:41 Hep B, adolescent or pediatric 0 completed Sandi Atwood APRN [address], [address], [place], [address], [facility] [employer] [facility] [employer] [facility] 02/29/2024 10:27:41 meningococcal MCV4P 8 completed Sandi Atwood APRN [address], [address], [place], [address], [employer] [facility] 02/29/2024 10:27:41 meningococcal MCV4P 9 completed Sandi Atwood APRN [address], [place], [address], [employer] [facility] [employer] [facility] 02/29/2024 10:27:41 DTaP 1 moses Atwood APRN [address], [address], [place], [address], [employer] [facility] [employer] [facility] 02/29/2024 10:27:41 DTaP 1 moses Atwood APRN [address], [address], [place], [address], [employer] [facility] 02/29/2024 10:27:41 DTaP 2 completed Sandi Atwood APRN [address], [place], [address], [employer] [facility] [employer] [facility] 02/29/2024 10:27:41 DTaP 1 moses Atwood APRN [address], [address], [place], [address], [employer] [facility] [employer] [facility] 02/29/2024 10:27:41 Influenza, split virus, quadrivalent, PF 2 completed Sandi Atwood APRN [address], [address], [place], [address], [employer] [facility] [employer] [facility] 02/29/2024 10:27:41 Influenza, split virus, quadrivalent, PF 2 completed Sandi Atwood APRN [address], [address], [place], [address], [employer] [facility] 02/29/2024 10:27:41 Influenza, MDCK, quadrivalent, PF 2 completed Sandi Atwood APRN [address], [place], [address], [employer] [facility] [employer] [facility] 02/29/2024 10:27:40 COVID-19, mRNA, LNP-S, PF, 30 mcg/0.3 mL dose 2 completed Sandi Atwood APRN [address], [place], [address], [employer] [facility] [employer] [facility] 02/29/2024 10:27:40 COVID-19, mRNA, LNP-S, PF, 30 mcg/0.3 mL dose 1 completed Sandi Atwood APRN [address], [place], [address], [employer] [facility] [employer] [facility] 02/29/2024 10:27:40 Influenza, split virus, quadrivalent, preservative 6 completed Not Available [facility] 06/20/2022 09:25:24 varicella 5 completed Not Available [facility] 06/20/2022 09:25:24 meningococcal MCV4P 5 completed Not Available [facility] 06/20/2022 09:25:24 HPV, quadrivalent 6 completed Sandi Atwood APRN [address], [place], [address], [employer] [facility] [employer] [facility] 02/29/2024 10:27:40 HPV, quadrivalent 5 completed Sandi Atwood APRN [address], [address], [place], [address], [place] [facility] [employer] [facility] 02/29/2024 10:27:41 HPV, quadrivalent 5 completed Sandi CANDY Atwood [address], [address], [place], [address], [place] [facility] [employer] [facility] 02/29/2024 10:27:41 Influenza, live, quadrivalent, intranasal 3 completed Not Available [facility] 06/20/2022 09:25:25 Past Encounters Encounter ID Performer Location Encounter Start Date Encounter Closed Date Diagnosis/Indication Diagnosis SNOMED-CT Code Diagnosis ICD10 Code [id number] [facility] [address] [place] [address] 11/17/2021 00:00:00 11/17/2021 09:22:46 [id number] MAUREEN FranklinP-C [facility] [address] [place] [address] 01/18/2023 09:00:53 01/18/2023 14:28:02 Weight gain 8672434 R63.5 Adult heal th examination 756157927 Z00.00 Nicotine dependence 5629 4008 F17.200 Cobalamin deficiency 190 915794 E53.8 Vitamin D deficiency 347 01105 E55.9 [id number] Ivan Bryant TEACHER COUNSELOR-C [facility] [address] [place] [address] 07/10/2023 09:57:12 07/10/2023 10:38:12 Essential hypertension 18407572 I10 Intermitte nt palpitations 188765089 R00.2 Anxiety 58701355 F41.9 [id number] Ivan Bryant TEACHER COUNSELOR-C [facility] [address] [facility] [address] [place] [address] 07/16/2023 09:31:31 07/17/2023 04:12:38 [id number] Ivan Bryant TEACHER COUNSELOR-C [facility] [address] [place] [address] 07/23/2023 09:58:00 07/23/2023 10:29:23 [id number] REBEKA FranklinC [facility] [address] [place] [address] 07/30/2023 10:04:44 08/10/2023 04:02:30 [id number] REBEKA FranklinC [facility] Primary Care [address] [place] [address] 08/13/2023 09:50:51 08/13/2023 14:57:57 [id number] JAYME Franklin-C [facility] [address] [place] [address] 08/16/2023 09:51:09 08/16/2023 10:20:15 Essential hypertension 79483267 I10 Panic attack 709706003 F 41.0 [id number] LUIS Franklin [facility] [address] [place] [address] 08/30/2023 10:00:08 08/30/2023 10:20:45 Essential hypertension 46002185 I10 Panic attack 177862831 F 41.0 [id number] Sandi Atwood APRN [facility] [address] [place] [address] 03/04/2024 09:00:42 03/04/2024 09:45:42 Anxiety 68719025 F41.9 Hepatitis C screening 41 7646647 Z11.59 Panic attack 270030898 F 41.0 Diabetes m ellitus screening 346985050 Z13.1 Hyperlipid emia screening 122586598 Z13.220 Screening for disorder 775870240 Z13.9 Thyroid di sorder screening 454612826 Z13.29 [id number] Yissel Martins NP [facility] [address] [address] 03/30/2024 11:03:42 03/30/2024 15:47:25 Health Concerns Section Related Observation LastModified by Organization Detai ls LastModified Time None Recorded Concern Status LastModified by Organization Details LastModified Time None Recorded Advance Directives Directive None Recorded Payers Encounter Date Sequence Insurance Name Policy Number Policy Dewitt Covered Member ID Dewitt Member ID Guarantor Name 07/30/2023 1 EAST - DOS PRIOR TO 2024 - [employer] () Chance White [id number] Chance X White 08/13/2023 1 [place] - DOS PRIOR TO 2024 - [employer] () Chance White [id number] Chance X White 08/16/2023 1 [place]AST - DOS PRIOR TO 2024 - [employer] () Chance White [id number] Chance X White 08/30/2023 1 [place]AST - DOS PRIOR TO 2024 - [employer] () Chance White [id number] Chance X White 03/04/2024 1 EAST - DOS PRIOR TO 2024 - [employer] () Chance White [id number] Chance X White Notes Date Note Type Note Provider Name and Address Organization Details Recorded Time 08/16/2023 text/html pt is here for b p f/u LUIS Franklin [address], [place], [address], [employer] 08/16/2023 10:21:00 08/30/2023 text/html pt is here for f /u for elevated bp JAYME Franklin-[place] [address], [place], [address], [employer] 08/30/2023 10:19:04 03/04/2024 text/html Oliverio presents today to establish [...] not work when his anxiety increases. Sandi Atwood APRN [address] [facility], [address], [place], [address], [place] [facility] 03/04/2024 09:35:31
--- OUTSIDE RECORDS SUMMARY | 2024-04-25 20:55 | XMS_ITS | Encounter Summary ---
Author Organization [facility] Address [address] [place] [address]. [place] [address] [place] [address] Care Team Providers Care Facing Grinder Name Role Phone Unavailable Primary Care Provider Unavailabl e Reason for Visit * Reason Onset Date Comments Appointment Request 03/27/2024 Encounter Details Date Type Department Care Team (Late Contact Info) Description 03/27/2024 Telephone [facility], [place] [address] [place] [address] Charles Anderson MD [facility], [address] [place] [address] Appointment Request Social History Tobacco Use Types Packs/Day Years Used Date Smoking Tobacco: Never Assessed Sex and Gender Information Value Date Recorded Sex Assigned at Not on file Legal 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 Gender Identity Not on file Sexual Orientation Not on file documented as of this encounter Progress Notes * Hannah López - 03/27/2024 9:58 AM CST Patient called in to schedule New Patient apt- self ref - tachy/palps Scheduled for 05/18/[address] [facility] [place] [address] Anderson NSING SPECIALIST documented in this encounter Plan of Treatment Upcoming Encounters Date Type Department Care Team (Late Contact Info) Description 05/18/2024 11:45 AM LICENSING SPECIALIST Office Visit [facility] [address] [place] [address] Charles Anderson MD [facility], [address] [place] [address] documented as of this encounter Visit Diagnoses Not on filedocumented in this encounter
== END 2024-04-18 18:30 | disposition home or self-care (01) ==
PROVIDERS: Emergency Provider Physician Assistant; PCP Family Medicine
DX: R51.9 Headache, unspecified (principal); F41.9 Anxiety disorder, unspecified; K21.9 Gastro-esophageal reflux disease without esophagitis; Z87.891 Personal history of nicotine dependence
CPT/HCPCS: 70450; 96361; 96374; 96375; 99283; 99284; J0780; J1200; J1885; J7030

== ENCOUNTER 2024-04-20 10:36 | Emergency (ER) | payer OTHER, SELFPAY ==
[2024-04-20 11:20] VITALS: BP 151/93; PULSE 81; RESP 18; TEMP 36.6; O2SAT 100
--- NOTE | 2024-04-20 11:27 | ECG_ITS ---
Test Date: 2024-04-20 11:38:02 Measurements Intervals [place] Rate: 72 P: 42 [place]: 163 QRS: 15 QRSD: 94 T: 16 QT: 350 QTc: 383 Interpretive Statements SINUS RHYTHM Compared to ECG 04/01/2024 19:37:04 SINUS ARRHYTHMIA is no longer seen Electronically Signed On 04-20-2024 18:09:45 SALES EXECUTIVE by Natasha Ramirez M.D.
--- NOTE | 2024-04-20 11:28 | ED_ITS ---
HPI - Chest Pain General Chief Complaint: Dizziness Stated Complaint: chest pain/ dizziness Time Seen by Provider: 04/20/24 11:25 Source: patient Mode of arrival: ambulatory Limitations: no limitations History of Present Illness HPI narrative: Oliverio is a 24-year-old male patient presenting to the clinic today with complaints midsternal chest pain nonradiating and lightheadedness. He reports the chest discomfort is been going on for a few days now however he has had the lightheadedness/dizziness for over a month and a half. Thinks that his left leg may be swollen as well. Has been to the ER for his symptoms. Last ER visit was 2 days ago for LOU with blurry vision. CT scan of head negative at that time. He does see cork floor installer- Dr. Roberts in [place], [place] at [facility]. Has had normal cardiac workup per patient. States that they feel as though this may be anxiety related. He states he does suffer from anxiety and takes medications for this. He is taking propranolol, Prozac, and meclizine. Meclizine was prescribed for the dizziness by his PCP but states that this does not seem to be helping. He denies any headache, visual changes, or shortness of breath at this time. When looking in the primary care providers note says that he may also have anemia however his hemoglobin on 04/16 24 was normal at 16.2. Related Data Home Medications ?Medication ?Instructions ?Recorded ?Confirmed ?Last Taken ?Type fluoxetine 20 mg capsule mg 04/07/24 04/16/24 Unknown History propranolol 10 mg tablet mg PO PRN panic attack(s) 04/16/24 04/16/24 Unknown History Allergies Allergy/AdvReac Type Severity Reaction Status Date / Time No Known Allergies Allergy Verified 04/20/24 11:53 Review of Systems Review of Systems: Pertinent positives per HPI. Patient denies any fever, chills, rash, headache, cough, runny nose, sore throat, shortness of breath, palpitations, nausea, vomiting, diarrhea, constipation, abdominal pain, or any urinary issues. [facility] Past Medical History Medical History (Updated 04/20/24 @ 12:04 by Arturo Lee APRN) GERD (gastroesophageal reflux disease) History of anxiety Family History Family History Mother Depression Heart problem Colon cancer Asthma Father Hypertension Depression Anxiety Sibling Depression Anxiety Grandparent Depression Anxiety Grandparent Liver cancer Grandparent Lung cancer Grandparent Hypertension Social History Social History Smoking status: Former smoker Substance use type: does not use Other substance usage details: Caffeine (multiple energy drinks daily, occasional coffee) Do You Feel Safe in your Home?: Yes Lack of Transportation: No Lack of Food: Never True Current Housing: I Have Housing Concerned About Future Housing: No Difficulty Paying Gas/Electric Bills: No Difficulty Paying for Meds: No Currently Unemployed: No Education: High School Diploma/GED Difficulty w/ Childcare or Family Care: No Living arrangements: with family Additional living arrangements comments: , [place] Occupation/Education: occupation Gender identity (if verbalized by the patient): Male Comments At the time of my signature, I reviewed and agree with the nursing past medical, surgical, social, and family history. There is no relevant family history pertinent to the patient complaint. Exam Narrative: General: Well-developed, well nourished, in no apparent distress Head: Normocephalic, atraumatic. Cardio: Regular rate and rhythm, s1 and s2 normal, no murmur appreciated. Resp: Clear to auscultation bilaterally, no rhonchi, rales, wheezing or rubs. Extremities: No deformity, no edema, no cyanosis, capillary refill less than 2 seconds, peripheral pulses palpable and strong. Integumentary: D'[place], warm, and dry, intact without lesion, no rashes. Neuro: Alert and oriented x4 with normal speech, no focal deficits, cranial nerves I through XII intact, muscle strength 5 out of 5, sensation intact bilaterally. Course Course Emergency Course: Portions of this record may have been created with voice recognition software. Level of Care: Express Care Visit Vital Signs Vital signs: Vital Signs Temperature 36.6 C 04/20/24 11:20 Pulse Rate 81 04/20/24 11:20 Respiratory Rate 18 04/20/24 11:20 Blood Pressure 151/93 H 04/20/24 11:20 Pulse Oximetry 100 04/20/24 11:20 Oxygen Delivery Room Air 04/20/24 11:20 Temperature 36.6 C 04/20/24 11:20 Pulse Rate 81 04/20/24 11:20 Respiratory Rate 18 04/20/24 11:20 Blood Pressure 151/93 H 04/20/24 11:20 Pulse Oximetry 100 04/20/24 11:20 Oxygen Delivery Room Air 04/20/24 11:20 Vital signs reviewed MDM - Chest Pain MDM Narrative Medical decision making narrative: At the time of visit patient is resting comfortably on the exam table. Patient appears to be nontoxic. EKG: EKG shows sinus rhythm with a nonspecific T-wave abnormality. Heart rate 72 beats per minute without ST elevation or depression. No change from previous EKG Plan: I suspect patient's symptoms are likely due to anxiety as he has had a normal cardiac workup and normal labs within the last few days. Discussed patient's case with Dr. Mendez in the emergency room as Dr. Mendez has seen the patient multiple times for similar symptoms. I feel as though patient would be appropriate for outpatient follow-up with his cork floor installer, PCP, and Psychiatry. Vital signs are stable. Supportive measures were discussed with the patient and they voiced understanding discharge instructions and agrees to treatment plan. Return precautions reviewed Differential Diagnosis Differential diagnosis: Likely fracture of rib, pneumothorax, stable angina, unstable angina pectoris, atypical chest pain, st elevation myocardial infarction, costochondritis, chest pain, biliary colic and other (Anxiety) ECG Data EKG #1: Attestation: I personally reviewed and interpreted this ECG as follows: ECG completion date: 04/20/24 ECG completion time: 11:38 Prior ECG tracings: available for review Interpretation: EKG shows sinus rhythm with a nonspecific T-wave abnormality. Heart rate 72 beats per minute. No ST elevation or depression noted. FL interval is 163 milliseconds, QRS durations 94 milliseconds, QT-QTC is 350-374 milliseconds, P-R-T axis 42 15 16 Discharge Plan Discharge Clinical Impression: Chest pain, Anxiety, Lightheadedness Patient Disposition: Home, Self-Care Condition: Stable Instructions: Antibiotic Form, Chest Pain (ED), Lightheadedness (ED), Anxiety (ED) Additional Instructions: Review of recent labs, EKG, and diagnostic testing was performed and all appears within normal limits in the clinic today Increase fluids and stay well hydrated May take your hydroxyzine as needed for anxiousness May stop taking the meclizine if this is not improving your symptoms Follow-up with your cork floor installer as scheduled Follow-up with your primary care doctor as scheduled Patient Language: Greek Prescriptions: No Action fluoxetine 20 mg capsule propranolol 10 mg tablet PO PRN (Reason: panic attack(s)) meclizine 12.5 mg tablet 12.5 mg PO TID PRN (Reason: dizziness) Qty: 20 0RF Follow-up/Referrals: UNKNOWN,DOCTOR [Primary Care Provider] - Time of Disposition: 12:02 Quality NIHSS Nursing Documentation ED NIHSS nursing documentation: reviewed/agree
[2024-04-20 12:11] VITALS: BP 142/85; PULSE 68
== END 2024-04-20 12:11 | disposition home or self-care (01) ==
PROVIDERS: Emergency Provider Nurse Practitioner Family
DX: R07.9 Chest pain, unspecified (principal); F41.9 Anxiety disorder, unspecified; R42 Dizziness and giddiness; Z87.891 Personal history of nicotine dependence; K21.9 Gastro-esophageal reflux disease without esophagitis
CPT/HCPCS: 93005; 99213; G0463

== ENCOUNTER 2024-05-27 13:30 | Emergency (ER) | payer OTHER, SELFPAY ==
[2024-05-27 13:49] VITALS: BP 154/76; PULSE 101; RESP 18; TEMP 36.7; O2SAT 98
--- OUTSIDE RECORDS SUMMARY | 2024-05-27 14:29 | XMS_ITS | CONTINUITY OF CARE DOCUMENT ---
Author Name larry juarez Address Unknown Organization [facility] Address [address] [place] [address] [address] [place] [address] Phone [phone] Care Team Providers Care Geospatial Information Scientist Name Role Phone Max FOUNTAIN, Marlene Unavailable Marlene Santana MD Unavailable INSURANCE PROVIDERS Payer name Policy type / Coverage type Sejal red green party ID [facility] [id number]
--- OUTSIDE RECORDS SUMMARY | 2024-05-27 14:29 | XMS_ITS | Patient Health Summary ---
Author Organization [facility] [employer] Address [address] [place] [address] Care Team Providers Care Clay Dry Press Mixer Operator Name Role Phone Triny Randhawa MD Primary Care Provider [phone] Note from [facility] [employer],non-owned Affiliates and Associated Physician Practices is amultiple site organization consisting of ambulatory clinics and hospital sitesin [place], [place], [place]. This disclosure is being madepursuant to the Care Everywhere program and may not contain all information available regarding this patient. Last updated 18.[facility] [employer] Allergies No known active allergies Medications Be [...] Comments Blood Pressure 114/60 03/13/2010 4:06 PM REPAIR WELDER Pulse 84 03/13/2010 4:06 PM REPAIR WELDER Temperature 36.6 C (97.8 F) 01/21/2014 1:32 PM CDT Respiratory Rate - - Oxygen Saturation - [...] fragment. Narrative 11/27/2013 3:59 PM CDT EXAMINATION: Right clavicle 2 views HISTORY: Right [...] displacement of the distal fracture fragment. [facility] Care Teams Clay Dry Press Mixer Operator Relationship Specialty Start Date End Date Triny Randhawa MD [address] [place] [address] [place] [address] PCP - General Family Medicine 10/26/13
--- OUTSIDE RECORDS SUMMARY | 2024-05-27 14:29 | XMS_ITS | Clinical Summary ---
Author Organization [facility] Address [address] [place] [address] Care Team Providers Care Forensic Photographer Name Role Phone Unavailable Primary Care Provider Unavailabl e Allergies No known active allergies Medications FLUoxetine (PROZAC) 40 MG capsule Take 1 capsule (40 mg total) by mouth daily. 04/23/2024 Active propranolol (INDERAL) 10 MG tablet TAKE 2 TABLETS BY MOUTH THREE TIMES DAILY NEEDED FOR PANIC ATTACKS 03/04/2024 Active Active Problems No known active problems Encounters Date Type Department Care Team Description 05/18/2024 11:45 AM SLIP FILLER Office Visit [facility] [address] [place] [address] Charles Hoang MD Tachycardia (CONSULT) 05/18/2024 Travel 03/27/2024 Telephone [facility] [address] Charles Hoang MD Appointment Request from Last 3 Months Family History Medical History Relation Comments No Known Problems Father No Known Problems Maternal Grandfather No Known Problems Maternal Grandmother No Known Problems Mother No Known Problems Paternal Grandfather No Known Problems Paternal Grandmother Relation Status Comments Father Maternal Grandfather Maternal Grandmother Mother Paternal Grandfather Paternal Grandmother Social History Tobacco Use Types Packs/Day Years Used Date Smoking Tobacco: Every Day Cigarettes 0.3 5.1 Started: 2019 Passive Smoke Exposure: Current Smokeless Tobacco: Never Tobacco Cessation:Ready to Q uit: Not Asked; Counseling Given: Not Answered Alcohol Use Standard Drinks/Week Comments Not Currently 0 (1 standard drink = 0.6 oz pur e alcohol) Sex and Gender Information Value Date Recorded Sex Assigned at Not on file Legal Sex Male 9:43 AM SLIP FILLER Gender Identity Not on file Sexual Orientation Not on file Last Filed Vital Signs Vital Sign Reading Time Taken Comments Blood Pressure 146/98 05/18/2024 11:46 AM SLIP FILLER Pulse 101 05/18/2024 11:46 AM SLIP FILLER Temperature - - Respiratory Rate - - Oxygen Saturation 98% 05/18/2024 11: 46 AM SLIP FILLER Inhaled Oxygen Concentration - - Weight 101.3 kg (223 lb 6.4 oz) 025 11:46 AM SLIP FILLER Height 188 cm (6' 2 ) 05/18/2024 11:46 AM SLIP FILLER Body Mass Index 28.68 05/18/2024 11:46 AM SLIP FILLER Plan of Treatment Health Maintenance Due Date Last Done Comments Annual Physical 2003 Pneumococcal Vaccine: Pediatrics (0 to 5 Years) and At-Risk Patients (6 to 64 Years) (1 of 2 - PCV) 2006 2000, 2000, 2000 Hepatitis C 2018 COVID-19 Vaccine ( season) 2023 04/27/2021, 04/06/2021 Influenza Adult (#1) 2024 01/29/2022, 05/27/2021, 03/07/2016, Additional history exists DTaP, Tdap and Td Vaccines (9 - Td or Tdap) 01/07/2033 01/07/2023, 11/11/2018, 11/30/2011, Additional history exists Hepatitis B Vaccines Completed 09/08/2001, 2000, 2000, Additional history exists HPV Vaccines Completed 05/11/2015, 11/20, 11/04/2014 Meningococcal Vaccine Completed 11/11/2018 , 10/14/2017, 11/04/2014 Meningococcal B Vaccine Aged Out No l onger eligible based on patient's age to complete this topic RSV Immunizations Under 20 Months Aged Out No longer eligible based on patient's age to complete this topic Procedures Procedure Name Priority Date/Time Associated Diagnosis Comments ELECTROCARDIOGRAM (NON MIDMARK ACQUIRED) Routine 05/18/2024 11:54 AM SLIP FILLER Tachycardia from Last 3 Months Results * ELECTROCARDIOGRAM (05/18/2024 11:54 AM SLIP FILLER) 05/18/2024 11:5 4 AM SLIP FILLER Narrative [facility] - 05/25/2024 4:52 PM SLIP FILLER [facility], [place] Test Date: 2024-05-18 Pat Name: OLIVERIO WOOD Department: 150 Room: Gender: M Supervisor Of Officials: : 2000 Requested By: CHARLES HOANG Order Number: [id number] Reading MD: Roel Allison Measurements Intervals [place] Rate: 84 P: 41 AL: 132 QRS: 39 QRSD: 94 T: 23 QT: 338 QTc: 400 Interpretive Statements SINUS RHYTHM FILLER Procedure Note Roel Allison MD - 05/25/2024 [facility] [place] Test Date: 2024-05-18 Pat Name: OLIVERIO WOOD Department: 150 Room: Gender: M Supervisor Of Officials: : 2000 Requested By: CHARLES HOANG Order Number: [id number] Reading MD: Roel Allison Measurements Intervals [place] Rate: 84 P: 41 AL: 132 QRS: 39 QRSD: 94 T: 23 QT: 338 QTc: 400 Interpretive Statements SINUS RHYTHM FILLER us Charles Hoang MD PROCEDURES-ORDERABLE NO C HARGE Final Result [facility] from Last 3 Months Insurance
--- OUTSIDE RECORDS SUMMARY | 2024-05-27 14:29 | XMS_ITS | Referral Summary ---
Author Organization [facility] [employer] Address [address] [facility] [place] [address] Care Team Providers Care Slots Manager Name Role Phone Triny Randhawa MD Primary Care Provider [phone] Source Comments [facility] [employer],non-owned Affiliates and Associated Physician Practices is amultiple site organization consisting of ambulatory clinics and hospital sitesin [place], [place], [place] and [place]. This disclosure is being madepursuant to the Care Everywhere program and may not contain all information available regarding this patient. Last updated 18.[facility] [employer] Allergies No known active allergies Medications Be [...] Comments Blood Pressure 114/60 03/13/2010 4:06 PM GIS ANALYST Pulse 84 03/13/2010 4:06 PM GIS ANALYST Temperature 36.6 C (97.8 F) 01/21/2014 1:32 PM CDT Respiratory Rate - - Oxygen Saturation - - Inhaled Oxygen Concentration - - Weight 73.1 kg (161 lb 4 oz) 01/21/2014 1:32 PM CDT Height 174 cm (5' 8.5 ) 01/21/2014 1:32 PM CDT Body Mass Index 24.16 01/21/2014 1:32 PM CDT Plan of Treatment Not on file Care Teams Slots Manager Relationship Specialty Start Date End Date Triny Randhawa MD [address] [place] [address] [place] [id number] PCP - General Family Medicine 10/26/13
--- OUTSIDE RECORDS SUMMARY | 2024-05-27 14:29 | XMS_ITS | Clinical Summary ---
Author Organization [facility] [employer] Address [address] [facility] [place] [address] Care Team Providers Care Senior Portfolio Manager Name Role Phone Triny Randhawa MD Primary Care Provider [phone] Source Comments [facility] [employer],non-owned Affiliates and Associated Physician Practices is amultiple site organization consisting of ambulatory clinics and hospital sitesin [place], [place], [place] and [place]. This disclosure is being madepursuant to the Care Everywhere program and may not contain all information available regarding this patient. Last updated 18.[employer] Allergies No known active allergies Medications Be [...] Comments Blood Pressure 114/60 03/13/2010 4:06 PM SERVICE UNIT OPERATOR OIL WELL Pulse 84 03/13/2010 4:06 PM SERVICE UNIT OPERATOR OIL WELL Temperature 36.6 C (97.8 F) 01/21/2014 1:32 [...] 3-dose series) 2015 HEPATITIS C SCREENING 03/04/2018 COVID-19 VACCINE (1 - 2023- season) 2023 INFLUENZA VACCINE (#1) 2023 03/13/2010 DEPRESSION SCREENING 04/22/2024 ZOSTER VACCINE (1 of 2) 2050 HEPATITIS B VACCINE Completed 2000, 2000, 2000 PNEUMOCOCCAL VACCINE Aged Out 2000, 2000, 2000 No longer eligible based on patient's age to complete this topic HIB VACCINE Completed 07/09/2001, 08/21, 2000, Additional history exists MENINGOCOCCAL (Group B) VACCINE Aged Out No longer eligible based on patient's age to complete this topic MENINGOCOCCAL VACCINE Aged Out No rickey yoly eligible based on patient's age to complete this topic Care Teams Senior Portfolio Manager Relationship Specialty Start Date End Date Triny Randhawa MD [address] [place] [address] [place] [phone] PCP - General Family Medicine 10/26/13
--- OUTSIDE RECORDS SUMMARY | 2024-05-27 14:31 | XMS_ITS | CONTINUITY OF CARE DOCUMENT ---
Author Name larry juarez Address Unknown Organization [facility] Address [id number] [place] [address] [address] [place] [address] Phone [phone] Care Team Providers Care Gypsum Calciner Name Role Phone Max FOUNTAIN, Marlene Unavailable [phone] Marlene Santana MD Unavailable INSURANCE PROVIDERS Payer name Policy type / Coverage type Sejal red constitution party ID [employer] [id number]
--- OUTSIDE RECORDS SUMMARY | 2024-05-27 14:32 | XMS_ITS | Data Portability ---
Author Organization [facility] [employer], Main Office Address [address] [place] [address] Assessment No assessment recorded. Plan of Treatment Reminders Order Date Submit Date Provider Last Modified By Organization Details Last Modified Time Details Appointments None recorded. Lab CBC w/ auto diff 2023 024 [email or web address] 4 [facility], [address] [place], [address], 09:59:22 CMP, serum or plasma 2023 024 [place] [id number] 4 [facility], [address] [place], [address], 09:59:41 lipid panel, serum 2023 024 [place] [address] 4 [facility] (Lab), [address] [place], [address], 09:59:03 TSH + free T4, serum 2023 024 [place] [address] 4 [facility], [address] [place], [address], 10:00:00 HbA1c (hemoglobin A1c), blood 2023 024 [place] [address] 4 [facility], [address] [place], [address], 09:58:39 hepatitis C virus Ab, serum 2023 024 [email or web address] 4 [facility] [address] [place], [address], 09:58:02 Referral None recorded. Procedures None recorded. Surgeries None recorded. Imaging None recorded. Medication Orders hydroxyzine HCl 25 mg tablet 2023 024 [facility]75221, [address], [place], [id number], 4 11:11:04 lisinopril 40 mg tablet 2023 024 [email or web address] [facility] #29130, [address], [place], [id number], 4 17:57:59 hydroxyzine HCl 25 mg tablet 2023 024 [facility] #88020, [address] [facility], [place], [place], [id number], 4 11:11:04 sertraline 50 mg tablet [address] [facility]25269, [address], [place], [id number], 5 09:37:10 propranolol 10 mg tablet [address] [facility]64150, [address], [place], [id number], 5 09:37:29 Patient TargetsNo targets recorded. Patient Instructions Encounter Date Encounter Id Patient Instructions Last Modified By Organization Details Last Modified Time 03/04/2024 [id number] Follow up in 3 month and as needed Prescriptions sent to pharmacy Obtain labs Tests: Referral: Recommend: pham Not available 03/04/2024 09:35:20 Reason for Referral None Reported. Results Created Date Observation Date Name Description Value Unit Range Abnormal Flag Note LastModifiedBy Organization Detail LastModifiedTime 08/08/19 24 07/29/2023 dragan r monit or No observ ation record ed. [email or web address] [facility] ([facility] [address] [place] [address], [place], [address], 08/16/2023 10:07:04 12/24/19 24 12/21/2023 XR, chest , 1 view No observ ation record ed. [place] [address], [place], [address], 01/02/2024 10:43:12 03/23/20 24 03/22/2024 XR, chest , 2 view No observ ation record ed. [email or web address] [address], [place], [address], 03/23/2024 10:03:20 04/02/20 24 04/01/2024 XR, chest , 2 view No observ ation record ed. [email or web address] [address], [place], [address], 04/02/2024 10:01:37 Result Notes None recorded. Problems Name Problem SNOMED Code Status Onset Date Resolution Date Notes Provider Name and Address Organization Details Recorded Time Rib pain 632186832 Active Not Available [facility] 3 09:19:17 Fracture of clavicle 83605963 Active Not Available [facility] 3 09:19:17 Weight gain 4530606 Active 2022 LUIS Franklin [address], [place], [address] , [employer] [place] [employer] 3 09:16:13 Nicotine dependence 98821865 Active 2022 Sandi Atwood APRN [address], [place], [address] , [employer] [facility] [employer] [place] [employer] 4 10:33:42 Cobalamin deficiency 878303618 Active 2022 Sandi Atwood APRN [address], [place], [address] , [employer] 4 10:33:31 Vitamin D deficiency 16278181 Active 2022 Sandi Atwood APRN [address], [place], [address] , [employer] 4 10:33:51 Essential hypertensi on 59866555 Completed 202303/04/2024 Sandi Atwood APRN [address], [place], [address] , [employer] 4 09:20:19 Intermitte nt palpitatio ns 690966659 Active 2023 Sandi Atwood APRN [address], [place] [address], [place], [address] , [employer] 4 10:33:40 Anxiety 64516631 Active 2023 Sandi Atwood APRN [address], [place] [address], [place], [address] , [employer] 4 10:33:29 Panic attack 615962714 Active 2023 Sandi Atwood APRN [address], [place], [address] , [employer] 4 10:33:45 Gastroesop hageal reflux disease 214857626 Active 2023 Sandi Atwood APRN [address], [place], [address] , [employer] 4 09:23:45 Tachycardi a 5623109 Active Sandi Atwood APRN [address], [place], [address] , [employer] 5 09:34:03 Problem Notes None recorded. Procedures Surgical History Date Name Laterality Status Provider Name and Address Organization Details Recorded Time Tonsillectomy completed Yamilet Hoover MA [employer] 03/04/2024 09:14:50 Imaging Results Imaging Date Name Status LastModified by Organiz ation Details LastModified Time 07/29/2023 holter monitor completed [email or web address] [facility] ([facility]) [address] [place] [address], [address], 08/16/2023 10:07:04 12/21/2023 XR, chest, 1 view completed [facility] [address], [address], 01/02/2024 10:43:12 03/22/2024 XR, chest, 2 view completed [address], [address], 03/23/2024 10:03:20 04/01/2024 XR, chest, 2 view completed [address], [address], 04/02/2024 10:01:37 Procedure Notes None recorded. Medical Equipment None Reported. Allergies Allergen ID Allergen Name Allergen Category Reaction Reaction Severity Criticality Documentation Date Start Date Code Code System Note Provider Name and Address Organization Details Recorded Time [address]165 No known allergy (situatio n) Not available Not available Not available Not available 04/30/2024 [id number] [facility] Sandi Atwood, [employer] [address] [facility], [facility] [address], [place], [address] [facility] [employer] 09:34:09 No known drug allergies Medications Name Sig Start Date Stop Date Status Note LastModified by Organization Details LastModified Time fluoxetine 40 mg capsule TAKE 1 CAPSULE BY MOUTH DAILY active Not Available Not Available No t Available amoxicillin 500 mg capsule TAKE 1 CAPSULE BY MOUTH EVERY 8 HOURS 11/17 completed Not Available Not Available Not Available bupropion HCl SR 150 mg tablet,12 hr sustained-r elease Take 1 tablet twice a day by oral route as directed. 04/30 completed Not Available Not Available Not Available metoclopram kaity 5 mg/mL injection solution 10 mg by injection route. 12/11/ 2024 12/11 /2024 completed Not Available Not Available Not Available nicotine 14 mg/24 hr daily transdermal patch Apply 1 patch every day by transderm al route. 03/04 completed Not Available Not Available Not Available benzonatate 200 mg capsule TAKE 1 CAPSULE BY MOUTH THREE TIMES DAILY NEEDED FOR COUGH 07/09 completed Not Available Not Available Not Available hydroxyzine pamoate 50 mg capsule TAKE 1 CAPSULE BY MOUTH THREE TIMES DAILY NEEDED active Not Available Not Available No t Available meclizine 12.5 mg tablet TAKE 1 TABLET BY MOUTH THREE TIMES DAILY NEEDED FOR DIZZINESS active Not Available Not Available No t Available hydroxyzine HCl 50 mg tablet 1 po qhs prn anxiety active Not Available Not Available No t Available propranolol 10 mg tablet Take 1 tablet by oral route. 04/30 completed Not Available Not Available Not Available buspirone 10 mg tablet Take 1 tablet twice a day by oral route as needed. active Not Available Not Available No t Available lisinopril 10 mg tablet Take 3 tablets by oral route. 04/30 completed Not Available Not Available Not Available hydroxyzine HCl 25 mg tablet TAKE 1 TABLET BY MOUTH THREE TIMES DAILY NEEDED 03/10 completed Not Available Not Available Not Available methylpredn isolone 4 mg tablets in a dose pack FOLLOW PACKAGE DIRECTION S 07/09 completed Not Available Not Available Not Available lisinopril 40 mg tablet Take 1 tablet every day by oral route for 90 days. 08/26 completed Not Available Not Available Not Available fluoxetine 20 mg capsule Take 1 capsule by oral route. 04/30 completed Not Available Not Available Not Available sertraline 50 mg tablet Take 1 tablet by oral route. 04/30 completed Not Available Not Available Not Available amoxicillin 875 mg-potassiu m clavulanate 125 mg tablet TAKE 1 TABLET BY MOUTH EVERY 12 HOURS FOR 7 DAYS active Not Available Not Available No t Available hydroxyzine pamoate 25 mg capsule Take 1 capsule by oral route. 04/30 completed Not Available Not Available Not Available erythromyci n with ethanol 2 % topical gel APPLY A THIN LAYER TO THE AFFECTED AREA(S) BY TOPICAL ROUTE 2 TIMES PER DAY IN THE MORNING AND EVENING 11/07 completed Not Available Not Available Not Available escitalopra m 10 mg tablet TAKE 1 TABLET BY MOUTH EVERY DAY 08/15 completed Not Available Not Available Not Available tadalafil 20 mg tablet 1/2 to 1 tab po qday prn active Not Available Not Available No t Available erythromyci n with ethanol 2 % topical solution APPLY EXTERNALL Y TO THE AFFECTED AREA TWICE DAILY 11/16 [...] Address Organization Details Last Updated DateTime 4 54603.8 1 g 26.8 kg/m2 187.96 cm 99.9 [degF] 69 /min 99 % 99 % 162 mm[Hg] 90 mm[Hg] Kenia Miller RN [facility] [employer] 4 10:01:50 Date Recorded Body height Body mass index (BMI) Body weight Body temperature Heart rate Oxygen saturation Oxygen saturation in Arterial blood by Pulse oximetry Systolic blood pressure Diastolic blood pressure Provider Name and Address Organization Details Last Updated DateTime 4 187.96 cm 27.5 kg/m2 30016.7 7 g 98.7 [degF] 96 /min 97 % 97 % 146 mm[Hg] 88 mm[Hg] Kenia Miller RN [facility] [employer] 4 10:05:41 Date Recorded Body height Body mass index (BMI) Body weight Body temperature Heart rate Oxygen saturation Oxygen saturation in Arterial blood by Pulse oximetry Pain severity - 0-10 verbal numeric rating [Score] - Reported Systolic blood pressure Diastolic blood pressure Provider Name and Address Organization Details Last Updated DateTime 4 187.96 cm 27.5 kg/m2 92857.7 7 g 99.2 [degF] 106 /min 98 % 98 % 0 140 mm[Hg] 70 mm[Hg] Yamilet Hoover MA [facility] [employer] [facility] 4 09:08:51 Date Recorded Systolic blood pressure Diastolic blood pressure Provider Name and Address Organization Details Last Updated DateTime 07/30/2023 150 mm[Hg] 96 mm[Hg] Emily Ureña RN [place] [facility] [employer] 07/30/2023 10:17:57 Date Recorded Systolic blood pressure Diastolic blood pressure Provider Name and Address Organization Details Last Updated DateTime 08/13/2023 146 mm[Hg] 80 mm[Hg] Emily Ureña RN [place] - [place] [employer] 08/13/2023 10:17:44 Social History Question Answer Notes LastModified by Organizat ion Details LastModified Time Tobacco Smoking Status Former Smoker Not Available [facility] 06/20/2022 09:13:38 What Is Your Level Of Alcohol Consumption? Occasional [id number] Information not available 06/20/2022 What Is Your Level Of Caffeine Consumption? Heavy [id number].[id number] Information not available 06/20/2022 In The 14 Days Before Symptom Onset, Have You Had Close Contact With A Laboratory-confir med COVID-19 While That Case Was Ill? No [id number] Information not available 06/20/2022 In The 14 Days Before Symptom Onset, Have You Had Close Contact With A Person Who Is Under Investigation For COVID-19 While That Person Was Ill? No [id number] Information not available 06/20/2022 Are You Currently Employed? Yes Information not available 03/04/2024 What Type Of Diet Are You Following? REGULAR [id number].[id number] 4002 Information not available 06/20/2022 Do You Or [...] Been Counseled For Unhealthy Alcohol Use? No MIGRATION.[id number] [id number] Information not available 06/20/2022 Do You Have [...] Anxious, Or Unable To Sleep At Night)? [id number] Information not available 03/04/2024 Do You Use Any Illicit Or Recreational Drugs? No MIGRATION.464826 1281 Information not available 06/20/2022 Do You Use Sunscreen Routinely? No Information not available 03/04/2024 Has Tobacco Cessation Counseling Been Provided? No MIGRATION.[id number] 8037 Information not available 06/20/2022 Have You Recently Traveled Abroad? No MIGRATION.291865 9188 Information not available 06/20/2022 Do You Have Any Dietary Restrictions? No MIGRATION.242444 3334 Information not available 06/20/2022 Do You Or Have You Ever Used Any Other Forms Of Tobacco Or Nicotine? Yes Vape MIGRATION.334687 4030 Information not available 06/20/2022 How Many Years Have You Used E-cigarettes Or Vape? 3 Information not available 03/04/2024 Sex: Male Functional Status Question Answer Note LastModified by Organizat ion Details LastModified Time What is your exercise level? Heavy [id number] Information not available 06/20/2022 Mental Status None recorded. Family History Nothing Reported Notes:unknown cancer on meredith rnal side heart disease paternal side Medical History No medical history recorded. Immunizations Vaccine Type Date Status Note Provider Nam e and Address Organization Details Recorded Time Hib, unspecified formulation 1 completed Sandi Atwood APRN [address], [place], [address], [employer] 02/29/2024 10:27:40 Hib, unspecified formulation 1 completed Sandi Atwood APRN [address], [place], [address], [employer] 02/29/2024 10:27:40 Hib, unspecified formulation 2 completed C[address]Y Osorio [address], [place], [address], [employer] 02/29/2024 10:27:40 Hib-Hep B 2 completed CANDY Osorio [address], [place], [address], [employer] 02/29/2024 10:27:40 Hib-Hep B 1 completed CANDY Osorio [address], [place], [address], [employer] 02/29/2024 10:27:40 IPV 1 completed Sandi Atwood APRN [address], [place], [address], [employer] 02/29/2024 10:27:40 IPV 1 completed CANDY O[address], [place], [address], [employer] 02/29/2024 10:27:40 IPV 2 completed CANDY Osor[address], [place], [address], [facility] [employer] [facility] 02/29/2024 10:27:40 IPV 1 completed Sandi Atwood APRN [address], [place], [address], [facility] [employer] [facility] 02/29/2024 10:27:40 IPV 6 completed Sandi Atwood APRN [address], [place], [address], [facility] [employer] [facility] 02/29/2024 10:27:40 MMR 2 completed Sandi Atwood APRN [address], [place], [address], [facility] [employer] [facility] 02/29/2024 10:27:40 MMR 6 completed Sandi Atwood APRN [address], [place], [address], [facility] [employer] [facility] 02/29/2024 10:27:40 pneumococcal conjugate PCV 7 1 completed Sandi Atwood APRN [address], [place], [address], [employer] [facility] [employer] [facility] 02/29/2024 10:27:40 pneumococcal conjugate PCV 7 1 completed Sandi Atwood APRN [address], [place], [address], [employer] [facility] 02/29/2024 10:27:40 pneumococcal conjugate PCV 7 1 completed Sandi Atwood APRN [address], [place], [address], [facility] [employer] [facility] [employer] [facility] 02/29/2024 10:27:40 influenza, unspecified formulation 2 completed Sandi Atwood APRN [address], [place], [address], [facility] [employer] [facility] [employer] [facility] 02/29/2024 10:27:40 Tdap 9 completed Sandi Atwood APRN [address], [place], [address], [facility] [employer] [facility] [employer] [facility] 02/29/2024 10:27:40 Tdap 2 completed Sandi Atwood APRN [address], [place], [address], [facility] [employer] [facility] [employer] [facility] 02/29/2024 10:27:40 Tdap 3 completed Sandi Atwood APRN [address], [place], [address], [employer] [facility] [employer] [facility] 02/29/2024 10:27:40 varicella 1 completed CANDY Osorio [address], [place], [address], [employer] [facility] [employer] [facility] 02/29/2024 10:27:40 influenza, split (incl. purified surface antigen) 0 completed CANDY Osorio [address], [place], [address], [employer] [facility] [employer] [facility] 02/29/2024 10:27:40 Hep B, adolescent or pediatric 1 completed CANDY Osorio [address], [place], [address], [employer] [facility] [employer] [facility] 02/29/2024 10:27:41 Hep B, adolescent or pediatric 1 completed CANDY Osorio [address], [place], [address], [employer] [facility] [employer] [facility] 02/29/2024 10:27:41 Hep B, adolescent or pediatric 0 completed CANDY Osorio [address], [place], [address], [employer] [facility] [employer] [facility] 02/29/2024 10:27:41 meningococcal MCV4P 8 completed CANDY Osorio [address], [place], [address], [employer] [facility] [employer] [facility] 02/29/2024 10:27:41 meningococcal MCV4P 9 completed Sandi Atwood APRN [address], [place], [address], [facility] 02/29/2024 10:27:41 DTaP 1 completed Sandi Atwood APRN [address], [place], [address], [facility] [employer] [facility] 02/29/2024 10:27:41 DTaP 1 completed Sandi Atwood APRN [address], [place], [address], [facility] 02/29/2024 10:27:41 DTaP 2 completed Sandi Atwood APRN [address], [place], [address], [facility] 02/29/2024 10:27:41 DTaP 1 completed Sandi Atwood APRN [address], [place], [address], [facility] [employer] [facility] 02/29/2024 10:27:41 Influenza, split virus, quadrivalent, PF 2 completed Sandi Atwood APRN [address], [place], [address], [facility] 02/29/2024 10:27:41 Influenza, split virus, quadrivalent, PF 2 completed Sandi Atwood APRN [address], [place], [address], [facility] 02/29/2024 10:27:41 Influenza, MDCK, quadrivalent, PF 2 completed Sandi Atwood APRN [address], [place], [address], [facility] 02/29/2024 10:27:40 COVID-19, mRNA, LNP-S, PF, 30 mcg/0.3 mL dose 2 completed Sandi Atwood APRN [address], [place], [address], [employer] [facility] [employer] [facility] 02/29/2024 10:27:40 COVID-19, mRNA, LNP-S, PF, 30 mcg/0.3 mL dose 1 completed Sandi Atwood APRN [address], [place], [address], [employer] [facility] [employer] [facility] 02/29/2024 10:27:40 Influenza, split virus, quadrivalent, preservative 6 completed Not Available [facility] 06/20/2022 09:25:24 varicella 5 completed Not Available [facility] 06/20/2022 09:25:24 meningococcal MCV4P 5 completed Not Available [facility] 06/20/2022 09:25:24 HPV, quadrivalent 6 completed Sandi Atwood APRN [address], [place], [address], [employer] [facility] [employer] [facility] 02/29/2024 10:27:40 HPV, quadrivalent 5 completed Sandi Atwood APRN [address], [place], [address], [employer] [facility] [employer] [facility] 02/29/2024 10:27:41 HPV, quadrivalent 5 completed Sandi Atwood APRN [address], [place], [address], [employer] [facility] [employer] [facility] 02/29/2024 10:27:41 Influenza, live, quadrivalent, intranasal 3 completed Not Available [facility] 06/20/2022 09:25:25 Past Encounters Encounter ID Performer Location Encounter Start Date Encounter Closed Date Diagnosis/Indication Diagnosis SNOMED-CT Code Diagnosis ICD10 Code Diagnosis Note [id number] [facility] Primary Care [address] [place] [address] 11/17/2021 00:00:00 11/17/2021 09:22:46 [id number] LUIS Franklin [facility] Primary Care [facility] [address] [facility] [address] [place] [address] 01/18/2023 09:00:53 01/18/2023 14:28:02 Weight gain 7801020 R63.5 weight 175 last year aroundt his timegained 50lbs then lost 28lbs all within a little over a years timehas been watching what he was eating now and has been working out consistent ly Adult heal th examination 916772976 Z00.00 Encouraged fresh fruits and veggies-re ports good intakeIncr ease daily water intake-gal rickey/dayEnc ourage 30 mins of daily exercisede clined flu shot Nicotine dependence 5629 4008 F17.200 vapes nicotine currentlyd iscussed use of nicotine patches-pt agreeswill trial nicotine 14mg patch Cobalamin deficiency 190 400890 E53.8 Vitamin D deficiency 347 25774 E55.9 [id number] LUIS Franklin [facility] Primary Care [facility] [address] [facility] [address] [place] [address] 07/10/2023 09:57:12 07/10/2023 10:38:12 Essential hypertension 36554494 I10 -new diagnosis, untreated- was recently seen in the ER, was given potassium- bp 190/110, 86, occ cp/tightne ss, occ headaches, -occ checks at home, has gotten 140-150's/ 90s-has cut out caffeine since being in the ER-recentl y quit smoking-yokasta johnson obtained-w ill add bp med after review of of bp/holter monitor-pt is in the [employer] and questions whether he can still participat e-leaves july 27. encouraged to f/u for bp on 07/15 (if still high, will start bp med and f/u with this office during the first week of july for a bp). If still high after starting med, will have him hold off on participat ing in his next leave Intermitte nt palpitations 188058123 R00.2 -occ notes palpitatio ns when his anxiety is elevated-h as noted some numbness/t ingling to left hand-dragan r monitor ordered Anxiety 28706429 F41.9 -new issue-pt c/o anxiety/pa estefany attacks, has led to the point of ER visit-he would like a daily med rather than prn-trial escitalopr am 10mg-f/u in 1 month [id number] REBEKA FranklinC [facility] Primary Care [place] [address] [place] [address] 07/16/2023 09:31:31 07/17/2023 04:12:38 [id number] LUIS Franklin [facility] [address] [address] [place] [address] 07/23/2023 09:58:00 07/23/2023 10:29:23 [id number] LUIS Franklin [facility] [address] [place] [address] 07/30/2023 10:04:44 08/10/2023 04:02:30 [id number] LUIS Franklin [facility] Primary Care [place] [address] [place] [address] 08/13/2023 09:50:51 08/13/2023 14:57:57 [id number] LUIS Franklin [facility] Primary Care [place] [address] [place] [address] 08/16/2023 09:51:09 08/16/2023 10:20:15 Essential hypertension [id number] I10 -ch ronic, stable with meds-curre ntly taking 20mg of lisinopril -bp 162/90 no solano cp sob, some solano yesterday- negative holter monitor-tr ial lisinopril 40mg-[place] the -07 of September-f/u with cardiology on 08/05, stress test ordered September 09 07-20-23-ne w diagnosis, untreated- was recently seen in the ER, was given potassium- bp 190/110, 86, occ cp/tightne ss, occ headaches, -occ checks at home, has gotten 140-150's/ 90s-has cut out caffeine since being in the ER-recentl y quit smoking-yokasta johnson obtained-w ill add bp med after review of of bp/holter monitor-pt is in the [employer] and questions whether he can still participat e-leaves july 27. encouraged to f/u for bp on 07/15 (if still high, will start bp med and f/u with this office during the first week of july for a bp). If still high after starting med, will have him hold off on participat ing in his next leave Panic attack [id number] F 41.0 -not able to tolerate maintenanc e medication -he would like an as needed-tri al hydroxyzin e given [id number] LUIS Franklin [facility] Primary Care [facility] [address] [place] [address] 08/30/2023 10:00:08 08/30/2023 10:20:45 Essential hypertension [id number] I10 08-30-23-bp 146/88, no solano/cp/sob- has been taking 30mg lisinopril -has been checking bp at home with electric cuff-refil l already sent -fabiana barnett, stable with meds-elsye ntly taking 20mg of lisinopril -bp 162/90 no solano cp sob, some solano yesterday- negative holter monitor-tr ial lisinopril 40mg-he leaves for the [place] the August-f/u with cardiology on 08/05, stress test ordered September 09 07-20-23-ne w diagnosis, untreated- was recently seen in the ER, was given potassium- bp 190/110, 86, occ cp/tightne ss, occ headaches, -occ checks at home, has gotten 140-150's/ 90s-has cut out caffeine since being in the ER-recentl y quit smoking-yokasta johnson obtained-w ill add bp med after review of of bp/holter monitor-pt is in the [employer] and questions whether he can still participat e-leaves july 27. encouraged to f/u for bp on 07/15 (if still high, will start bp med and f/u with this office during the first week of july for a bp). If still high after starting med, will have him hold off on participat ing in his next leave Panic attack [id number] F 41.0 08-30-23- es hydroxyzin e 3 times/day- declines med changes-re fill given 08-16-23-no t able to tolerate maintenanc e medication -he would like an as needed-tri al hydroxyzin e given [id number] Sandi Atwood APRN [facility] Primary Care [facility] [address] [place] [address] 03/04/2024 09:00:42 03/04/2024 09:45:42 Anxiety 88666470 F41.9 Hepatitis C screening 41 0989315 Z11.59 Panic attack [id number] F 41.0 Diabetes m ellitus screening 668044231 Z13.1 Hyperlipid emia screening 820237364 Z13.220 Screening for disorder 589187746 Z13.9 Thyroid di sorder screening [id number] Z13.29 [id number] Yissel Martins NP [facility] [address] [address] 03/30/2024 11:03:42 03/30/2024 15:47:25 Health Concerns [...] TO 2024 - [employer] () Chance White [id number] Chance X White 08/13/2023 1 EAST - DOS PRIOR TO 2024 - [employer] () Chance White [id number] Chance X White 08/16/2023 1 EAST - DOS PRIOR TO 2024 - [employer] () Chance White [id number] Chance X White 08/30/2023 1 EAST - DOS PRIOR TO 2024 - [employer] () Oliverio Castaneda [id number] Chance X White 03/04/2024 1 EAST - DOS PRIOR TO 2024 - [employer] () Oliverio Castaneda [phone] Oliverio X Leonel Notes Date Note Type Note Provider Name and Address Organization Details Recorded Time 08/16/2023 text/html pt is here for b p f/u LUIS Franklin [address], [place], [address], [employer] 08/16/2023 10:21:00 08/30/2023 text/html pt is here for f /u for elevated bp Ivan LUIS Bryant [address], [place], [address], [employer] 08/30/2023 10:19:04 03/04/2024 text/html Oliverio presents today [...] his anxiety increases. Sandi Atwood APRN [address], [place], [address], [employer] 03/04/2024 09:35:31
--- NOTE | 2024-05-27 14:33 | ED_ITS ---
HPI - Nausea/Vomiting/Diarrhea General Chief complaint: Nausea/Vomiting/Diarrhea Stated complaint: fatigue and nausea History of Present Illness HPI Narrative: 24-year-old male presented for complaint of nasal congestion and sinus pressure, fatigue and headache. Onset 2 days. Has not taken anything for symptoms. Denies cough, shortness of breath, wheezing, nausea, vomiting, diarrhea, fevers or lethargy. Related Data Home Medications ?Medication ?Instructions ?Recorded ?Confirmed ?Last Taken ?Type propranolol 10 mg tablet mg PO PRN panic attack(s) 04/16/24 04/23/24 Unknown History Allergies Allergy/AdvReac Type Severity Reaction Status Date / Time No Known Allergies Allergy Verified 05/27/24 14:15 Review of Systems Review of Systems: Per HPI [facility] Past Medical History Medical History GERD (gastroesophageal reflux disease) History of anxiety Family History Family History Mother Depression Heart problem Colon cancer Asthma Father Hypertension Depression Anxiety Sibling Depression Anxiety Grandparent Depression Anxiety Grandparent Liver cancer Grandparent Lung cancer Grandparent Hypertension Social History Social History Smoking status: Former smoker Substance use type: does not use Other substance usage details: Caffeine (multiple energy drinks daily, occasional coffee) Do You Feel Safe in your Home?: Yes Lack of Transportation: No Lack of Food: Never True Current Housing: I Have Housing Concerned About Future Housing: No Difficulty Paying Gas/Electric Bills: No Difficulty Paying for Meds: No Currently Unemployed: No Education: High School Diploma/GED Difficulty w/ Childcare or Family Care: No Living arrangements: with family Additional living arrangements comments: , [place] Occupation/Education: occupation Gender identity (if verbalized by the patient): Male Exam Narrative: GENERAL: well-appearing, no acute distress. EYES: conjunctivae clear ENT: Mucous membranes moist. TMs pearly freedman with normal light reflex bilaterally; no tragal tenderness. Oropharynx erythematous without lesions. Tonsils enlarged and without exudate. No drooling, no hoarseness, no trismus, uvula midline. No tripod positioning, hot potato voice, or soft palate swelling. NECK: Supple. No lymphadenopathy CHEST: Clear to auscultation, breath sounds equal. No respiratory distress, speaks in full sentences. HEART: Regular rate and rhythm. No murmur heard. SKIN: Warm, dry, no rash. NEURO: Alert and oriented x3. Course Course Emergency Course: Patient is aware of diagnosis, understands and agrees to treatment plan. Ant icipatory guidance given. Patient agrees to follow-up as directed and is aware of reasons to seek care at the emergency department. Portions of this record may have been created with voice recognition software Level of Care: Express Care Visit Vital Signs Vital signs: Vital Signs Temperature 98.1 F 05/27/24 13:49 Pulse Rate 101 H 05/27/24 13:49 Respiratory Rate 18 05/27/24 13:49 Blood Pressure 154/76 H 05/27/24 13:49 Pulse Oximetry 98 05/27/24 13:49 Oxygen Delivery Room Air 05/27/24 13:49 Temperature 98.1 F 05/27/24 13:49 Pulse Rate 101 H 05/27/24 13:49 Respiratory Rate 18 05/27/24 13:49 Blood Pressure 154/76 H 05/27/24 13:49 Pulse Oximetry 98 05/27/24 13:49 Oxygen Delivery Room Air 05/27/24 13:49 MDM - Nausea/Vomiting/Diarrhea MDM Narrative Medical decision making narrative: Negative strep flu and COVID. Discussed physical exam findings. Advised supportive measures and signs/symptoms to go to the ER. Pt is appropriate for outpt treatment and f/u. Differential Diagnosis Differential diagnosis: Likely other (Influenza, covid, sinusitis, OM, strep pharyngitis, URI) Lab Data Labs: Lab Results 05/27/24 Range/Units 14:43 POC Influenza A Ag Negative (Negative) POC Influenza B Ag Negative (Negative) POC SARS CoV-2 Ag Negative (Negative) Discharge Plan Discharge Clinical Impression: Viral infection Patient Disposition: Home, Self-Care Condition: Stable Instructions: Antibiotic Form, Upper Respiratory Infection (ED) Additional Instructions: Flu COVID negative. Next Rapid strep swab was negative today You will be notified in a few days if the culture comes back positive for strep, and appropriate antibiotics will be called in at that time. if symptoms are due to a viral illness, it is not treated with antibiotics. Viral symptoms can be present for up to 10-14 days. Recommendations: Flonase spray and Zyrtec for sinus congestion Cough syrup may cause drowsiness; avoid driving or take it at night time. Tylenol every 8 hours as needed for pain/fever Soft foods, cool liquids, warm tea. Gargle with warm saltwater twice a day. Chloraseptic spray and throat lozenges. Rest and stay hydrated. --Follow up with your PCP --Go to the ER immediately if you cannot swallow your saliva, trouble breathing/wheezing, throat swelling, pain is persistent and severe Patient Language: Tajik Prescriptions: No Action propranolol 10 mg tablet PO PRN (Reason: panic attack(s)) fluoxetine 40 mg capsule 40 mg PO DAILY Qty: 30 2RF Follow-up/Referrals: Bbeeto Yusuf DO [Primary Care Provider] - Time of Disposition: 14:50
[2024-05-27 14:46] LABS: EDCOVIDSCREEN Negative (Negative); EDINFLUASCREEN Negative (Negative); EDINFLUBSCREEN Negative (Negative)
[2024-05-27 14:52] LABS: EDSTREPNEGPOS1 Negative (Negative)
== END 2024-05-27 14:57 | disposition home or self-care (01) ==
PROVIDERS: Emergency Provider Nurse Practitioner Family; PCP Family Medicine
DX: B34.9 Viral infection, unspecified (principal); Z87.891 Personal history of nicotine dependence; Z20.822 Contact with and (suspected) exposure to COVID-19
CPT/HCPCS: 87081; 87426; 87804; 87880; 99213; G0463

== ENCOUNTER 2024-06-29 14:47 | Outpatient (CLI) | payer OTHER, SELFPAY ==
--- NOTE | ~2024-06-29 | US_ITS ---
TESTICULAR ULTRASOUND (Doppler ultrasound interrogation techniques used as needed for this exam.) Ordering provider: Bebeto Yusuf DO History: . N50.89 - Other specified disorders of the male genital or... . Comparison: None. FINDINGS: TESTICLES: Normal in size. The right measures 3.6x 2.6x 2.1 cm and the left measures 3.3x 2.9x 2.2 cm . Normal echogenicity bilaterally without mass lesion. Normal Doppler flow bilaterally. EPIDIDYMIDES: Normal in size. The right measures 0.8 cm and the left 0.8 cm. Normal echogenicity bila terally. Both demonstrate normal Doppler flow. Anechoic areas seen in the left epididymis measuring 0 .4 x 0.4 x 0.3 cm suggestive of a cyst. HYDROCELE: None. VARICOCELE: None. OTHER ABNORMALITY: None seen. IMPRESSION: Left epididymal cyst. Otherwise, normal testicular ultrasound. Reviewed, dictated and finalized at location A.
--- OUTSIDE RECORDS SUMMARY | 2024-06-29 17:22 | XMS_ITS | Referral Summary ---
Author Organization [facility] Address [address] [place] [address] Care Team Providers Care Warehouse Helper Name Role Phone Triny Randhawa MD Primary Care Provider [phone] Source Comments [facility],non-owned Affiliates and Associated Physician Practices is amultiple site organization consisting of ambulatory clinics and hospital sitesin [place], [place], [place] and [place]. This disclosure is being madepursuant to the Care Everywhere program and may not contain all information available regarding this patient. Last updated 18.[facility] Allergies No known active allergies Medications Be [...] Comments Blood Pressure 114/60 03/13/2010 4:06 PM POCKET CREASER Pulse 84 03/13/2010 4:06 PM POCKET CREASER Temperature 36.6 C (97.8 F) 01/21/2014 1:32 PM CDT Respiratory Rate - - Oxygen Saturation - - Inhaled Oxygen Concentration - - Weight 73.1 kg (161 lb 4 oz) 01/21/2014 1:32 PM CDT Height 174 cm (5' 8.5 ) 01/21/2014 1:32 PM CDT Body Mass Index 24.16 01/21/2014 1:32 PM CDT Plan of Treatment Not on file Care Teams Warehouse Helper Relationship Specialty Start Date End Date Triny Randhawa MD [address] [place] [address] [place] [phone] PCP - General Family Medicine 10/26/13
--- OUTSIDE RECORDS SUMMARY | 2024-06-29 17:22 | XMS_ITS | Clinical Summary ---
Author Organization [facility] Address [address] [place] [address] Care Team Providers Care Real Estate Investor Name Role Phone Unavailable Primary Care Provider [...] Department Care Team Description 05/18/2024 11:45 AM VISUAL LEAD Office Visit [facility] [address] [place] [address] Charles Hoang MD Tachycardia (CONSULT) 05/18/2024 Travel from Last 3 Months Family History Medical [...] Date Smoking Tobacco: Every Day Cigarettes 0.3 5.2 Started: 2019 Passive Smoke Exposure: Current Smokeless Tobacco: Never Tobacco Cessation:Ready to Q uit: Not Asked; Counseling Given: Not Answered Alcohol Use Standard Drinks/Week Comments Not Currently 0 (1 standard drink = 0.6 oz pur e alcohol) Sex and Gender Information Value Date Recorded Sex Assigned at Not on file Legal Sex Male 9:43 AM VISUAL LEAD Gender Identity Not on file Sexual Orientation Not on file Last Filed Vital Signs Vital Sign Reading Time Taken Comments Blood Pressure 146/98 05/18/2024 11:46 AM VISUAL LEAD Pulse 101 05/18/2024 11:46 AM VISUAL LEAD Temperature - - Respiratory Rate - - Oxygen Saturation 98% 05/18/2024 11: 46 AM VISUAL LEAD Inhaled Oxygen Concentration - - Weight 101.3 kg (223 lb 6.4 oz) 025 11:46 AM VISUAL LEAD Height 188 cm (6' 2 ) 05/18/2024 11:46 AM VISUAL LEAD Body Mass Index 28.68 05/18/2024 11:46 AM VISUAL LEAD Plan of Treatment Health Maintenance Due Date Last Done Comments Annual Physical 2003 Pneumococcal Vaccine: Pediatrics (0 to 5 Years) and At-Risk Patients (6 to 64 Years) (1 of 2 - PCV) 2006 2000, 2000, 2000 Hepatitis C 2018 COVID-19 Vaccine ( - season) 2023 04/27/2021, 04/06/2021 Influenza Adult (#1) [...] (NON MIDMARK ACQUIRED) Routine 05/18/2024 11:54 AM VISUAL LEAD Tachycardia from Last 3 Months Results * ELECTROCARDIOGRAM (05/18/2024 11:54 AM VISUAL LEAD) 05/18/2024 11:5 4 AM VISUAL LEAD Narrative [facility] - 05/25/2024 4:52 PM VISUAL LEAD [place], [place] Test Date: 2024-05-18 Pat Name: OLIVERIO WOOD Department: 150 Room: Gender: M Lip Of Shank Cutter: : 2000 Requested By: CHARLES HOANG Order Number: [id number] Reading MD: Roel Allison Measurements Intervals [place] Rate: 84 P: 41 WA: 132 QRS: 39 QRSD: 94 T: 23 QT: 338 QTc: 400 Interpretive Statements SINUS RHYTHM AL LEAD Procedure Note Roel Allison MD - 05/25/2024 [place], [place] Test Date: 2024-05-18 Pat Name: OLIVERIO WOOD Department: 150 Room: Gender: M Lip Of Shank Cutter: : 2000 Requested By: CHARLES HOANG Order Number: [id number] Reading MD: Roel Allison Measurements Intervals [place] Rate: 84 P: 41 WA: 132 QRS: 39 QRSD: 94 T: 23 QT: 338 QTc: 400 Interpretive Statements SINUS RHYTHM AL LEAD us Charles Hoang MD PROCEDURES-ORDERABLE NO C HARGE Final Result BINTA ROBERTO from Last 3 Months Insurance
--- OUTSIDE RECORDS SUMMARY | 2024-06-29 17:22 | XMS_ITS | Data Portability ---
Author Organization [facility] [employer], Main Office Address [address] [place] [address] Assessment No assessment recorded. Plan of Treatment Reminders Order Date Submit Date Provider Last Modified By Organization Details Last Modified Time Details Appointments None recorded. Lab CBC w/ auto diff [email or web address] [facility], [address] [place], [address], 09:59:22 CMP, serum or plasma 20[address] [place] [id number] [facility], [address] [place], [address], 09:59:41 lipid panel, serum 2023 024 [place] [id number] 4 [facility] (Lab), [address] [place], [address], 09:59:03 TSH + free T4, serum [address] [place] [id number] [facility], [address] [place], [address], 10:00:00 HbA1c (hemoglobin A1c), blood 2023 [address] [place] [id number] [facility], [address] [place], [address], 09:58:39 hepatitis C virus Ab, serum 2023 024 [email or web address] 4 [facility] ([facility] [address] [place], [address], 09:58:02 Referral None recorded. Procedures None recorded. Surgeries None recorded. Imaging None recorded. Medication Orders sertraline 50 mg tablet 2023 024 [id number], [address] [place], [place], [id number], 5 09:37:10 propranolol 10 mg tablet [address] [facility]12050, [address] [place], [place], [id number], 5 09:37:29 hydroxyzine HCl 25 mg tablet 2023 024 [facility] #49536, [address] [place], [place], [id number], 4 11:11:04 hydroxyzine HCl 25 mg tablet 2023 024 [facility] #94726, [address], [place], [id number], 4 11:11:04 lisinopril 40 mg tablet 2023 024 [email or web address] [facility] #86399, [address], [place], [id number], 4 17:57:59 Patient TargetsNo targets recorded. Patient Instructions Encounter Date Encounter Id Patient Instructions Last Modified By Organization Details Last Modified Time 03/04/2024 [id number] Follow up in 3 month and as needed Prescriptions sent to pharmacy Obtain labs Tests: Referral: Recommend: pham Not available 03/04/2024 09:35:20 Reason for Referral None Reported. Results Created Date Observation Date Name Description Value Unit Range Abnormal Flag Note LastModifiedBy Organization Detail LastModifiedTime 08/08/19 24 07/29/2023 dragan r monit or No observ ation record ed. [email or web address] [facility] ([facility]iology [facility]) [address] [place] [address], [place], [address], 08/16/2023 10:07:04 12/24/19 24 12/21/2023 XR, chest , 1 view No observ ation record ed. [place] [address], [place], [address], 01/02/2024 10:43:12 03/23/20 24 03/22/2024 XR, chest , 2 view No observ ation record ed. [email or web address] [address], [place], [address], 03/23/2024 10:03:20 04/02/20 24 04/01/2024 XR, chest , 2 view No observ ation record ed. [email or web address] [address], [place], [address], 04/02/2024 10:01:37 Result Notes None recorded. Problems Name Problem SNOMED Code Status Onset Date Resolution Date Notes Provider Name and Address Organization Details Recorded Time Rib pain 143533461 Active Not Available [facility] 3 09:19:17 Fracture of clavicle 04912021 Active Not Available [facility] 3 09:19:17 Weight gain 0828911 Active 2022 LUIS Franklin [address], [place], [address] , [employer] 3 09:16:13 Nicotine dependence 36148575 Active 2022 Sandi Atwood APRN [address], [place], [address] , [employer] [facility] [employer] 4 10:33:42 Cobalamin deficiency 345254806 Active 2022 Sandi Atwood APRN [address], [place], [address] , [employer] 4 10:33:31 Vitamin D deficiency 20857798 Active 2022 Sandi Atwood APRN [address], [place], [address] , [employer] 4 10:33:51 Essential hypertensi on 65471641 Completed 202303/04/2024 Sandi Atwood APRN [address], [place], [address] , [employer] 4 09:20:19 Intermitte nt palpitatio ns 187800049 Active 2023 Sandi Atwood APRN [address], [place] [address], [place], [address] , [employer] 4 10:33:40 Anxiety 54858537 Active 2023 Sandi Atwood APRN [address], [place] [address], [place], [address] , [employer] 4 10:33:29 Panic attack 266935896 Active 2023 Sandi Atwood APRN [address], [place], [address] , [employer] 4 10:33:45 Gastroesop hageal reflux disease 441182823 Active 2023 Sandi Atwood APRN [address], [place], [address] , [employer] 4 09:23:45 Tachycardi a 4351587 Active Sandi Atwood APRN [address], [place], [address] , [employer] 5 09:34:03 Problem Notes None recorded. Procedures Surgical History Date Name Laterality Status Provider Name and Address Organization Details Recorded Time Tonsillectomy completed Yamilet Hoover MA [employer] [facility] 03/04/2024 09:14:50 Imaging Results Imaging Date Name Status LastModified by Organiz ation Details LastModified Time 07/29/2023 holter monitor completed [email or web address] [facility] ([facility]) [address] [place] [address], [address], 08/16/2023 10:07:04 12/21/2023 XR, [facility], [facility] [address], [address], 01/02/2024 10:43:12 03/22/2024 XR, chest, 2 view completed [address], [address], 03/23/2024 10:03:20 04/01/2024 XR, chest, 2 view completed [address], [address], 04/02/2024 10:01:37 Procedure Notes None recorded. Medical Equipment None Reported. Allergies Allergen ID Allergen Name Allergen Category Reaction Reaction Severity Criticality Documentation Date Start Date Code Code System Note Provider Name and Address Organization Details Recorded Time 86877 No known allergy (situatio n) Not available Not available Not available Not available 04/30/2024 25095 6003 [facility] Sandi Atwood, [employer] [address] [facility], [facility] [address], [place], [address] [facility] [employer] 09:34:09 No known drug allergies Medications Name [...] Address Organization Details Last Updated DateTime 4 64775.8 1 g 26.8 kg/m2 187.96 cm 99.9 [degF] 69 /min 99 % 99 % 162 mm[Hg] 90 mm[Hg] Kenia Miller RN [facility] [employer] 4 10:01:50 Date Recorded Body height Body mass index (BMI) Body weight Body temperature Heart rate Oxygen saturation Oxygen saturation in Arterial blood by Pulse oximetry Systolic blood pressure Diastolic blood pressure Provider Name and Address Organization Details Last Updated DateTime 4 187.96 cm 27.5 kg/m2 80952.7 7 g 98.7 [degF] 96 /min 97 % 97 % 146 mm[Hg] 88 mm[Hg] Kenia Miller RN [facility] [employer] 4 10:05:41 Date Recorded Body height Body mass index (BMI) Body weight Body temperature Heart rate Oxygen saturation Oxygen saturation in Arterial blood by Pulse oximetry Pain severity - 0-10 verbal numeric rating [Score] - Reported Systolic blood pressure Diastolic blood pressure Provider Name and Address Organization Details Last Updated DateTime 4 187.96 cm 27.5 kg/m2 74617.7 7 g 99.2 [degF] 106 /min 98 % 98 % 0 140 mm[Hg] 70 mm[Hg] Yamilet Hoover MA [facility] 13th Lab [facility] 4 09:08:51 Date Recorded Systolic blood pressure Diastolic blood pressure Provider Name and Address Organization Details Last Updated DateTime 07/30/2023 150 mm[Hg] 96 mm[Hg] Emily Ureña RN [place] [facility] [employer] 07/30/2023 10:17:57 Date Recorded Systolic blood pressure Diastolic blood pressure Provider Name and Address Organization Details Last Updated DateTime 08/13/2023 146 mm[Hg] 80 mm[Hg] Emily Ureña RN [place] [facility] [place] [employer] 08/13/2023 10:17:44 Social History Question Answer Notes LastModified by Organizat ion Details LastModified Time Tobacco Smoking Status Former Smoker Not Available [facility] 06/20/2022 09:13:38 What Is Your Level Of Alcohol Consumption? Occasional [id number] Information not available 06/20/2022 What Is Your Level Of Caffeine Consumption? Heavy MIGRATION.161569 3263 Information not available 06/20/2022 In The 14 Days Before Symptom Onset, Have You Had Close Contact With A Laboratory-confir med COVID-19 While That Case Was Ill? No MIGRATION.448340 4434 Information not available 06/20/2022 In The 14 Days Before Symptom Onset, Have You Had Close Contact With A Person Who Is Under Investigation For COVID-19 While That Person Was Ill? No MIGRATION.103937 4745 Information not available 06/20/2022 Are You Currently Employed? Yes Information not available 03/04/2024 What Type Of Diet Are You Following? REGULAR MIGRATION.464941 1507 Information not available 06/20/2022 Do You Or [...] Been Counseled For Unhealthy Alcohol Use? No MIGRATION.974140 6291 Information not available 06/20/2022 Do You Have [...] Anxious, Or Unable To Sleep At Night)? [id number] Information not available 03/04/2024 Do You Use Any Illicit Or Recreational Drugs? No MIGRATION.644501 0915 Information not available 06/20/2022 Do You Use Sunscreen Routinely? No Information not available 03/04/2024 Has Tobacco Cessation Counseling Been Provided? No MIGRATION.916136 5354 Information not available 06/20/2022 Have You Recently Traveled Abroad? No MIGRATION.169586 5922 Information not available 06/20/2022 Do You Have Any Dietary Restrictions? No MIGRATION.360061 4071 Information not available 06/20/2022 Do You Or Have You Ever Used Any Other Forms Of Tobacco Or Nicotine? Yes Vape MIGRATION.880961 2856 Information not available 06/20/2022 How Many Years Have You Used E-cigarettes Or Vape? 3 Information not available 03/04/2024 Sex: Male Functional Status Question Answer Note LastModified by Organizat ion Details LastModified Time What is your exercise level? Heavy MIGRATION.[id number] Information not available 06/20/2022 Mental Status None recorded. Family History Nothing Reported Notes:unknown cancer on meredith rnal side heart disease paternal side Medical History No medical history recorded. Immunizations Vaccine Type Date Status Note Provider Nam e and Address Organization Details Recorded Time Hib, unspecified formulation 1 completed Sandi Atwood APRN [address], [place], [address], [employer] 02/29/2024 10:27:40 Hib, unspecified formulation 1 completed Sandi Atwood APRN [address], [place], [address], [employer] 02/29/2024 10:27:40 Hib, unspecified formulation 2 completed C[address]Y Osorio [address], [place], [address], [employer] 02/29/2024 10:27:40 Hib-Hep B 2 completed CANDY Osorio [address], [place], [address], [employer] 02/29/2024 10:27:40 Hib-Hep B 1 completed CANDY Osorio [address], [place], [address], [employer] 02/29/2024 10:27:40 IPV 1 completed Sandi Atwood APRN [address], [place], [address], [employer] 02/29/2024 10:27:40 IPV 1 completed CANDY Osorio [address], [place], [address], [employer] 02/29/2024 10:27:40 IPV 2 completed C[address]Y Osorio [address], [place], [address], [facility] [employer] [facility] 02/29/2024 10:27:40 IPV 1 completed Sandi Atwood APRN [address], [place], [address], [facility] [employer] [facility] 02/29/2024 10:27:40 IPV 6 completed Sandi Atwood APRN [address], [place], [address], [facility] [employer] [facility] 02/29/2024 10:27:40 MMR 2 completed Sandi Atwood APRN [address], [place], [address], [facility] [employer] [facility] 02/29/2024 10:27:40 MMR 6 completed Sandi Atwood APRN [address], [place], [address], [facility] [employer] [facility] 02/29/2024 10:27:40 pneumococcal conjugate PCV 7 1 completed Sandi Atwood APRN [address], [place], [address], [employer] [facility] [employer] 02/29/2024 10:27:40 pneumococcal conjugate PCV 7 1 completed Sandi Atwood APRN [address], [place], [address], [employer] [facility] 02/29/2024 10:27:40 pneumococcal conjugate PCV 7 1 completed Sandi Atwood APRN [address], [place], [address], [facility] [employer] [facility] [employer] [facility] 02/29/2024 10:27:40 influenza, unspecified formulation 2 completed Sandi Atwood APRN [address], [place], [address], [facility] [employer] [facility] [employer] [facility] 02/29/2024 10:27:40 Tdap 9 completed Sandi Atwood APRN [address], [place], [address], [facility] [employer] [facility] [employer] [facility] 02/29/2024 10:27:40 Tdap 2 completed Sandi Atwood APRN [address], [place], [address], [facility] [employer] [facility] [employer] [facility] 02/29/2024 10:27:40 Tdap 3 completed Sandi Atwood APRN [address], [place], [address], [employer] [facility] [employer] [facility] 02/29/2024 10:27:40 varicella 1 completed CANDY Osorio [address], [place], [address], [employer] [facility] [employer] [facility] 02/29/2024 10:27:40 influenza, split (incl. purified surface antigen) 0 completed CANDY Osorio [address], [place], [address], [employer] [facility] 13th Lab [facility] 02/29/2024 10:27:40 Hep B, adolescent or pediatric 1 completed CANDY Osorio [address], [place], [address], [employer] [facility] [employer] [facility] 02/29/2024 10:27:41 Hep B, adolescent or pediatric 1 completed CANDY Osorio [address], [place], [address], [employer] [facility] [employer] [facility] 02/29/2024 10:27:41 Hep B, adolescent or pediatric 0 completed CANDY Osorio [address], [place], [address], [employer] [facility] [employer] [facility] 02/29/2024 10:27:41 meningococcal MCV4P 8 completed CANDY Osorio [address], [place], [address], [employer] [facility] [employer] [facility] 02/29/2024 10:27:41 meningococcal MCV4P 9 completed Sandi Atwood APRN [address], [place], [address], [facility] 02/29/2024 10:27:41 DTaP 1 completed Sandi Atwood APRN [address], [place], [address], [facility] [employer] [facility] 02/29/2024 10:27:41 DTaP 1 completed Sandi Atwood APRN [address], [place], [address], [facility] 02/29/2024 10:27:41 DTaP 2 completed Sandi Atwood APRN [address], [place], [address], [facility] 02/29/2024 10:27:41 DTaP 1 completed Sandi Atwood APRN [address], [place], [address], [facility] [employer] [facility] 02/29/2024 10:27:41 Influenza, split virus, quadrivalent, PF 2 completed Sandi Atwood APRN [address], [place], [address], [facility] 02/29/2024 10:27:41 Influenza, split virus, quadrivalent, PF 2 completed Sandi Atwood APRN [address], [place], [address], [facility] 02/29/2024 10:27:41 Influenza, MDCK, quadrivalent, PF 2 completed Sandi Atwood APRN [address], [place], [address], [facility] 02/29/2024 10:27:40 COVID-19, mRNA, LNP-S, PF, 30 mcg/0.3 mL dose 2 completed Sandi Atwood APRN [address], [place], [address], [employer] [facility] 13[facility] Lab [facility] 02/29/2024 10:27:40 COVID-19, mRNA, LNP-S, PF, 30 mcg/0.3 mL dose 1 completed Sandi Atwood APRN [address], [place], [address], [employer] [facility] 13[facility] Lab [facility] 02/29/2024 10:27:40 Influenza, split virus, quadrivalent, preservative 6 completed Not Available [facility] 06/20/2022 09:25:24 varicella 5 completed Not Available [facility] 06/20/2022 09:25:24 meningococcal MCV4P 5 completed Not Available [facility] 06/20/2022 09:25:24 HPV, quadrivalent 6 completed Sandi Atwood APRN [address], [place], [address], [employer] [facility] 13[facility] 02/29/2024 10:27:40 HPV, quadrivalent 5 completed Sandi Atwood APRN [address], [place], [address], [employer] [facility] [employer] [facility] 02/29/2024 10:27:41 HPV, quadrivalent 5 completed Sandi Atwood APRN [address], [place], [address], [employer] [facility] [employer] [facility] 02/29/2024 10:27:41 Influenza, live, quadrivalent, intranasal 3 completed Not Available [facility] 06/20/2022 09:25:25 Past Encounters Encounter ID Performer Location Encounter Start Date Encounter Closed Date Diagnosis/Indication Diagnosis SNOMED-CT Code Diagnosis ICD10 Code Diagnosis Note [id number] [facility] Primary Care [address] [place] [address] 11/17/2021 00:00:00 11/17/2021 09:22:46 [id number] LUIS Franklin [facility] Primary Care [facility] [address] [facility] [address] [place] [address] 01/18/2023 09:00:53 01/18/2023 14:28:02 Weight gain 8246304 R63.5 weight 175 last year aroundt his timegained 50lbs then lost 28lbs all within a little over a years timehas been watching what he was eating now and has been working out consistent ly Adult heal th examination 343620188 Z00.00 Encouraged fresh fruits and veggies-re ports good intakeIncr ease daily water intake-gal rickey/dayEnc ourage 30 mins of daily exercisede clined flu shot Nicotine dependence 5629 4008 F17.200 vapes nicotine currentlyd iscussed use of nicotine patches-pt agreeswill trial nicotine 14mg patch Cobalamin deficiency 190 629015 E53.8 Vitamin D deficiency 347 61312 E55.9 [id number] LUIS Franklin [facility] Primary Care [facility] [address] [facility] [address] [place] [address] 07/10/2023 09:57:12 07/10/2023 10:38:12 Essential hypertension 35582174 I10 -new diagnosis, untreated- was recently seen [...] in his next leave Intermitte nt palpitations 565340702 R00.2 -occ notes palpitatio ns when his anxiety is elevated-h as noted some numbness/t ingling to left hand-dragan r monitor ordered Anxiety 96795808 F41.9 -new issue-pt c/o anxiety/pa estefany attacks, has led to the point of ER visit-he would like a daily med rather than prn-trial escitalopr am 10mg-f/u in 1 month [id number] REBEKA FranklinC [facility] [place] [address] [place] [address] 07/16/2023 09:31:31 07/17/2023 04:12:38 [id number] LUIS Franklin [facility] Primary [facility] [address] [place] [address] 07/23/2023 09:58:00 07/23/2023 10:29:23 [id number] LUIS Franklin [facility] Primary [facility] [address] [place] [address] 07/30/2023 10:04:44 08/10/2023 04:02:30 [id number] LUIS Franklin [facility] [place] [address] [place] [address] 08/13/2023 09:50:51 08/13/2023 14:57:57 [id number] LUIS Franklin [facility] [place] [address] [place] [address] 08/16/2023 09:51:09 08/16/2023 10:20:15 Essential hypertension 62656093 I10 -ch ronic, stable with meds-curre ntly [...] of of bp/holter monitor-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 encouraged to f/u for bp on 07/15 (if still high, will start bp med and f/u with this office during the first week of july for a bp). 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 encouraged to f/u for bp on 07/15 (if still high, will start bp med and f/u with this office during the first week of july for a bp). If still high after starting med, will have him hold off on participat ing in his next leave Panic attack 643522887 F 41.0 08-30-23- es hydroxyzin e 3 times/day- declines med changes-re fill given 08-16-23-no t able to tolerate maintenanc e medication -he would like an as needed-tri al hydroxyzin e given [id number] Sandi Atwood APRN [facility] Primary Care [facility] [address] [facility] [address] [place] [address] 03/04/2024 09:00:42 03/04/2024 09:45:42 Anxiety 16743592 F41.9 Hepatitis C screening 41 0532532 Z11.59 Panic attack 276645156 F 41.0 Diabetes m ellitus screening 820686032 Z13.1 Hyperlipid emia screening 244228641 Z13.220 Screening for disorder 833873615 Z13.9 Thyroid di sorder screening 510581684 Z13.29 [id number] Yissel Martins NP [facility] [address] [address] 03/30/2024 11:03:42 03/30/2024 15:47:25 Health Concerns [...] TO 2024 - [employer] () Chance White [id number] Chance X White 08/13/2023 1 EAST - DOS PRIOR TO 2024 - [employer] () Chance White [id number] Chance X White 08/16/2023 1 EAST - DOS PRIOR TO 2024 - [employer] () Chance White [id number] Chance X White 08/30/2023 1 EAST - DOS PRIOR TO 2024 - [employer] () Chance White [id number] Chance X White 03/04/2024 1 EAST - DOS PRIOR TO 2024 - [employer] () Chance White [id number] Chance X White Notes Date Note Type Note Provider Name and Address Organization Details Recorded Time 08/16/2023 text/html pt is here for b p f/u LUIS Franklin [address], [place], [address], [employer] 08/16/2023 10:21:00 08/30/2023 text/html pt is here for f /u for elevated bp Ivan JAYME Bryant-Elgin [address], [place], [address], [employer] 08/30/2023 10:19:04 03/04/2024 text/html Oliverio presents today [...] his anxiety increases. Sandi Atwood APRN [address], [place], [address], [facility] 03/04/2024 09:35:31
--- OUTSIDE RECORDS SUMMARY | 2024-06-29 17:22 | XMS_ITS | Patient Health Summary ---
Author Organization [facility] Address [address] [place] [address] Care Team Providers Care Car Mechanic Name Role Phone Triny Randhawa MD Primary Care Provider [phone] Note from [facility],non-owned Affiliates and Associated Physician Practices is amultiple site organization consisting of ambulatory clinics and hospital sitesin [place], [place], [place] and [place]. This disclosure is being madepursuant to the Care Everywhere program and may not contain all information available regarding this patient. 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 [facility] Care Teams Car Mechanic Relationship Specialty Start Date End Date Triny Randhawa MD [address] [place] [address] [place] [address] PCP - General Family Medicine 10/26/13
--- OUTSIDE RECORDS SUMMARY | 2024-06-29 17:22 | XMS_ITS | Clinical Summary ---
Author Organization [facility] Address [address] [place] [address] Care Team Providers Care Pneumatic Jacketer Name Role Phone Triny Randhawa MD Primary Care Provider [phone] Source Comments [facility],non-owned Affiliates and Associated Physician Practices is amultiple site organization consisting of ambulatory clinics and hospital sitesin [place], [place], [place] and [place]. This disclosure is being madepursuant to the Care Everywhere program and may not contain all information available regarding this patient. 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 [address] PCP - General Family Medicine 10/26/13
--- OUTSIDE RECORDS SUMMARY | 2024-06-29 17:22 | XMS_ITS | Data Portability ---
Author Organization [place] [facility] Address [address] [place] [address] Care Team Providers Care High Speed Warper Tender Name Role Phone MARY ELLEN LAWRENCE Primary [...] By Organization Details Last Modified Time 09/17/2023 [id number] Low cholesterol diet advised Low sodium diet [...] record ed. [email or web address] Not Available 2023 11:06:37 05/05/1904/13/2024 event monit or No observ ation record ed. [email or web address] Not Available 2024 09:39:18 Result Notes Documentation Provider Name and Address Organization Details Recorded Time Lipid Panel, Blood : 08/13/23:Na 139,K 4.2,CL 103,CO2 30,GLU 95,BUN 15,Cr 0.70. 08/13/23:TC 155,TG 44,HDL 53,LDL 93. [place], [place] - [facility] 09/27/2023 06:44:53 Problems Name Problem SNOMED Code Status Onset Date Resolution Date Notes Provider Name and Address Organization Details Recorded Time Essential hypertension 49564775 Active 2023 Deal [place], [place] - [facility] 17:11:50 Palpitations 83597912 Active 2023 Deal [place] [facility] 17:12:03 Atypical chest pain 072721246 Active 2023 Deal [place], [place] - [facility] 17:12:12 Mitral valve prolapse 012372128 Active 2023 Deal [place] [facility] 17:12:22 Dyslipidemia 464558285 Active 2023 Deal [place] [facility] 17:12:32 Problem Notes None recorded. Procedures Surgical History Date Name Laterality Status Provider Name and Address Organization Details Recorded Time 04/23/19 13 tonsillectomy and adenoidectomy completed Melyssa Burrows [facility] 08/06/2023 15:50:53 Imaging Results [...] completed Informa tion not available 04/04/2024 11:06:37 04/13/2024 event monitor completed Information not available 05/05/2024 09:39:18 Procedure Notes None recorded. Medical Equipment None [...] and Address Organization Details Last Updated DateTime 187.96 cm 26.7 kg/m2 88632.2 1 g 85 /min 98 % 98 % 132 mm[Hg] 72 mm[Hg] Melyssa Burrows [facility] 4 15:57:06 Date Recorded Body height Body mass index (BMI) Body weight Heart rate Oxygen saturation Oxygen saturation in Arterial blood by Pulse oximetry Systolic blood pressure Diastolic blood pressure Provider Name and Address Organization Details Last Updated DateTime 4 187.96 cm 28 kg/m2 25694.4 2 g 99 /min 100 % 100 % 112 mm[Hg] 72 mm[Hg] Melyssa Burrows [facility] 4 09:48:00 Date Recorded Body height Body mass index (BMI) Body weight Heart rate Oxygen saturation Oxygen saturation in Arterial blood by Pulse oximetry Systolic blood pressure Diastolic blood pressure Provider Name and Address Organization Details Last Updated DateTime 4 187.96 cm 28 kg/m2 70440.1 4 g 111 /min 98 % 98 % 152 mm[Hg] 80 mm[Hg] Laura Dillon [facility] 4 19:50:24 Date Recorded Body height Body mass index (BMI) Body weight Heart rate Respiratory rate Oxygen saturation Oxygen saturation in Arterial blood by Pulse oximetry Systolic blood pressure Diastolic blood pressure Provider Name and Address Organization Details Last Updated DateTime 4 187.96 cm 27.1 kg/m2 61995.9 9 g 90 /min 18 /min 99 % 99 % 124 mm[Hg] 82 mm[Hg] Iman Alexisuse [facility] 4 19:51:49 Social History Question Answer Notes LastModified by [email or web address]-[email or web address] ion Details LastModified Time What Is Your Level Of Alcohol Consumption? Occasional [email or web address] Information not available 08/06/2023 What Is Your Level Of Caffeine Consumption? None [email or web address] Information not available 08/06/2023 How Many Children Do You Have? 1 [email or web address] Information not available 08/06/2023 What Is Your Relationship Status? [email or web address] Information not available 08/06/2023 Sex: Unknown Functional Status None recorded. Mental Status None recorded. Family History Relationship Description Onset Age of this Age Resolved Age Notes LastModified by Organization Details LastModified Time Father Hypertensive disorder [email or web address] Not available 2023 15:48:02 Medical History Condition Response Hypertension Y Past Encounters Encounter ID Performer Location Encounter Start Date Encounter Closed Date Diagnosis/Indication Diagnosis SNOMED-CT Code Diagnosis ICD10 Code Diagnosis Note [id number] Prosper Keane MD [place] [facility] [place] [address] 08/06/2023 15:30:06 08/06/2023 16:16:57 Essential hypertension 15400673 I10 Palpitations 17919547 R0 0.2 with tachycardi a, may need Beta jaxon Atypical chest pain 1025 99752 R07.89 Will get exercise stress echo, to look for any structural heart disease, and to look for any ischemia Mitral valve prolapse 40 1565950 I34.1 Dyslipidemia 317341288 E 78.5 Needs to keep LDL less than 70, and HDL more than 40Will get fasting lipids for follow up [id number] BYRON FAY [place] [facility] [place] [address] 09/17/2023 09:32:22 09/17/2023 10:04:50 Essential hypertension 07895508 I10 well controlled today Palpitations 96273403 R0 0.2 with tachycardi a, may need Beta jaxon Atypical chest pain 1025 20373 R07.89 negative stress test 2023 Mitral valve prolapse 40 7727559 I34.1 stable Dyslipidemia 501630403 E 78.5 Needs to keep LDL less than 70, and HDL more than 40Will get fasting lipids for follow upLast LDL was 93 done 07/2023 and he is not taking any medication [id number] Prosper Keane MD [place] [facility] [place] [address] 02/20/2024 19:47:19 02/20/2024 20:08:52 Essential hypertension 84674017 I10 Blood pressure is elevated today, but this is only one reading, will keep close follow up, and consider medication change if blood pressure is still elevated next visit. Palpitations 89781106 R0 0.2 with tachycardi a, may need Beta jxaon Atypical chest pain 1025 03775 R07.89 negative stress test 2023 Mitral valve prolapse 40 6579271 I34.1 stable Dyslipidemia 274201186 E 78.5 Needs to keep LDL less than 70, and HDL more than 40Will get fasting lipids for follow upLast LDL was 93 done 07/2023 and he is not taking any medication [id number] Prosper Keane MD [place] [facility] [address] [place] [address] 04/02/2024 19:09:15 04/02/2024 20:46:11 Essential hypertension 47233366 I10 Blood pressure is elevated today, but this is only one reading, will keep close follow up, and consider medication change if blood pressure is still elevated next visit. Palpitations 19617769 R0 0.2 with tachycardi a, may need Beta blocker7 days event monitor Atypical chest pain 1025 80394 R07.89 negative stress test 2023 Mitral valve prolapse 40 2394924 I34.1 stable Dyslipidemia 513118469 E 78.5 Needs to keep LDL less than 70, and HDL more than 40Will get fasting lipids for follow upLast LDL was 93 done 07/2023 and he is not taking any medication Health Concerns Section Related Observation LastModified by Organization Detai ls LastModified Time None Recorded Concern Status LastModified by Organization Details LastModified Time None Recorded Advance Directives Directive None Recorded Payers Encounter Date Sequence Insurance Name Policy Number Policy Dewitt Covered Member ID Dewitt Member ID Guarantor Name 08/06/2023 1 [place]AST - DOS PRIOR TO 2024 - [employer] - [place] ( - PPO) Chance White [id number] Chance White 09/17/2023 1 [place] - DOS PRIOR TO 2024 - [employer] - [place] ( - PPO) Chance White [id number] Chance White 02/20/2024 1 [place] - DOS PRIOR TO 2024 - [employer] - [place] ( - PPO) Chance White [id number] Chance White 04/02/2024 1 [place]AST - DOS PRIOR TO 2024 - [employer] - [place] ( - PPO) Chance White [id number] Oliverio White Notes Date Note Type Note Provider Name and Address Organization Details Recorded Time 08/06/2023 text/html 08/06/23CC: carol Gamez NINA is a 23 years-old Male with h/o [...] .Pt takes. Prosper Keane MD [address] [place], [address], [facility] 08/06/2023 16:06:50 09/17/2023 text/html 09/17/23CC : Car diac follow up chest pain.Oliverio WOOD is a [...] 15,Cr 0.70.08/13/23:TC 155,TG 44,HDL 53,LDL 93. [facility] 09/17/2023 10:03:33 02/20/2024 text/html 09/17/23CC : Cardiac [...] 155,TG 44,HDL 53,LDL 93. Prosper Keane MD [address] [place], [address], [facility] 02/20/2024 20:03:37 04/02/2024 text/html *fasting [id number] : Hospital follow up.Oliverio WHITE is a 24 years-old Male with h/o Hypertension , Hyperlipidemia and anxiety is here for hospital follow up. He was last seen in the clinic on 02/20/24, since then he was in the [facility] because of palpitation and Tachycardia. Denies chest [...] 155,TG 44,HDL 53,LDL 93. Prosper Keane MD [address] [place], [address], [facility] - [facility] 04/02/2024 20:41:30
--- OUTSIDE RECORDS SUMMARY | 2024-06-29 17:22 | XMS_ITS | CONTINUITY OF CARE DOCUMENT ---
Author Name larry juarze Address Unknown Organization [facility] Address [address] [place] [address] [address] [place] [address] Phone [phone] Care Team Providers Care Leather Parts Matcher Name Role Phone Max FOUNTAIN, Marlene Unavailable Marlene Santana MD Unavailable [phone] INSURANCE PROVIDERS Payer name Policy type / Coverage type Sejal red green party ID [facility] Skysheet [id number]
== END 2024-06-29 14:48 | disposition home or self-care (01) ==
PROVIDERS: PCP Family Medicine; Visit Provider Family Medicine
DX: N50.3 Cyst of epididymis (principal)
CPT/HCPCS: 76870; 93976

== ENCOUNTER 2024-11-23 19:00 | Emergency (ER) | payer OTHER, SELFPAY ==
--- NOTE | ~2024-11-23 | XR_ITS ---
CHEST RADIOGRAPH, PA AND LATERAL CLINICAL HISTORY: chest heaviness . COMPARISON: 04/01/2024 TECHNIQUE: PA and lateral views of the chest. FINDINGS The cardiomediastinal silhouette is unremarkable. The lungs are clear. IMPRESSION: No focal infiltrate or effusion. Reviewed, dictated and finalized at location A.
--- NOTE | ~2024-11-23 | XR_ITS ---
Left foot Technique: AP and lateral views were obtained. Clinical History: Injury Findings: No acute fracture or dislocation is seen. Osseous alignment is anatomic. Joint spaces are p reserved without erosive or degenerative change. Soft tissues are unremarkable. Impression: Unremarkable left foot radiographs. Reviewed, dictated and finalized at [facility]. Impression: Unremarkable left foot radiographs.
--- NOTE | 2024-11-23 19:02 | ECG_ITS ---
Test Date: 2024-11-23 19:52:53 Measurements Intervals [place] Rate: 111 P: 55 [place]: 155 QRS: 6 QRSD: 92 T: 23 QT: 310 QTc: 423 Interpretive Statements SINUS TACHYCARDIA POSSIBLE LEFT ATRIAL ENLARGEMENT INCOMPLETE RIGHT BUNDLE BRANCH BLOCK NONSPECIFIC T-WAVE ABNORMALITY- ANTEROLAT/INF LEADS BASELINE ARTIFACT- I, III, AVR, AVL ABNORMAL ECG Compared to ECG 04/20/2024 11:38:02 HEART RATE HAS INCREASED Electronically Signed On 11-23-2024 20:59:00 CDT by Ajith Vasquez D.O.
--- OUTSIDE RECORDS SUMMARY | 2024-11-23 19:02 | XMS_ITS | Clinical Summary ---
Author Organization [facility] Address [address] [facility] [place] [address] Care Team Providers Care Hand Straightener Name Role Phone Triny Randhawa MD Primary Care Provider [phone] Source Comments [facility],non-owned Affiliates and Associated Physician Practices is amultiple site organization consisting of ambulatory clinics and hospital sitesin [place], [place], [place] and [place]. This disclosure is being madepursuant to the Care Everywhere program and may not contain all information available regarding this patient. Last updated 18.[facility] Allergies No known active allergies Medications * Be aware that medications may not be up to date on this document. Alwaysverify current medications with the patient. 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 Gender Identity Not on file Sexual Orientation Not on file Last Filed Vital Signs Vital Sign Reading Time Taken Comments Blood Pressure 114/60 03/13/2010 4:06 PM FRONT OFFICE ASSISTANT Pulse 84 03/13/2010 4:06 PM FRONT OFFICE ASSISTANT Temperature 36.6 C (97.8 F) 01/21/2014 1:32 PM CDT Respiratory Rate - - Oxygen Saturation - - Inhaled Oxygen Concentration - - Weight 73.1 kg (161 lb 4 oz) 01/21/2014 1:32 PM CDT Height 174 cm (5' 8.5) 01/21/2014 1:32 PM CDT Body Mass Index 24.16 01/21/2014 1:32 PM CDT Plan of Treatment Health Maintenance Due Date Last Done Comments DTAP/TDAP/TD VACCINES (6 - Tdap) 2011 11/26/2005, 09/08/2001, 2000, Additional history exists HIV SCREENING 2015 HPV VACCINE (1 - Male 3-dose series) 2015 HEPATITIS C SCREENING 03/04/2018 COVID-19 VACCINE (1 - season) 2023 DEPRESSION SCREENING 04/22/2024 INFLUENZA VACCINE (#1) 2024 03/13/2010 ZOSTER VACCINE (1 of 2) 2050 HEPATITIS B VACCINE Completed 2000, 2000, 2000 PNEUMOCOCCAL VACCINE Aged Out 2000, 2000, 2000 No longer eligible based on patient's age to complete this topic HIB VACCINE Completed 07/09/2001, 08/21, 2000, Additional history exists MENINGOCOCCAL (Group B) VACCINE SHARED DECISION-MAKING Aged Out No longer eligible based on patient's age to complete this topic MENINGOCOCCAL GROUPS A/C/Y/W VACCINE Aged Out No longer eligible based on patient's age to complete this topic Insurance MEDICAID - [place] Care Teams Hand Straightener Relationship Specialty Start Date End Date Triny Randhawa MD [address] [place] [address] [place] [phone] PCP - General Family Medicine 10/26/13
--- OUTSIDE RECORDS SUMMARY | 2024-11-23 19:02 | XMS_ITS | Clinical Summary ---
Author Organization [facility] Address [address] [place] [address] Care Team Providers Care Systems Design Engineer Name Role Phone Unavailable Primary Care Provider Unavailabl e Allergies No known active allergies Medications FLUoxetine (PROZAC) 40 MG capsule Take 1 capsule (40 mg total) by mouth daily. 04/23/2024 Active propranolol (INDERAL) 10 MG tablet TAKE 2 TABLETS BY MOUTH THREE TIMES DAILY NEEDED FOR PANIC ATTACKS 03/04/2024 Active Active Problems No known active problems Family History Medical History Relation Comments No Known Problems Father No Known Problems Maternal Grandfather No Known Problems Maternal Grandmother No Known Problems Mother No Known Problems Paternal Grandfather No Known Problems Paternal Grandmother Relation Status Comments Father Maternal Grandfather Maternal Grandmother Mother Paternal Grandfather Paternal Grandmother Social History Tobacco Use Types Packs/Day Years Used Date Smoking Tobacco: Every Day Cigarettes 0.3 5.6 Started: 2019 Passive Smoke Exposure: Current Smokeless Tobacco: Never Tobacco Cessation:Ready to Q uit: Not Asked; Counseling Given: Not Answered Alcohol Use Standard Drinks/Week Comments Not Currently 0 (1 standard drink = 0.6 oz pur e alcohol) Sex and Gender Information Value Date Recorded Sex Assigned at Not on file Legal Sex Male 9:43 AM TUBE STATION ATTENDANT Gender Identity Not on file Sexual Orientation Not on file Last Filed Vital Signs Vital Sign Reading Time Taken Comments Blood Pressure 146/98 05/18/2024 11:46 AM TUBE STATION ATTENDANT Pulse 101 05/18/2024 11:46 AM TUBE STATION ATTENDANT Temperature - - Respiratory Rate - - Oxygen Saturation 98% 05/18/2024 11: 46 AM TUBE STATION ATTENDANT Inhaled Oxygen Concentration - - Weight 101.3 kg (223 lb 6.4 oz) 025 11:46 AM TUBE STATION ATTENDANT Height 188 cm (6' 2) 05/18/2024 11:46 AM TUBE STATION ATTENDANT Body Mass Index 28.68 05/18/2024 11:46 AM TUBE STATION ATTENDANT Plan of Treatment Health Maintenance Due Date Last Done Comments Annual Physical 2003 Hepatitis C 2018 Pneumococcal Vaccine: Pediatrics (0 to 5 Years) and At-Risk Patients (6 to 49 Years) (1 of 2 - PCV) 2019 2000, 2000, 2000 COVID-19 Vaccine (3 - season) 2023 04/27/2021, 04/06/2021 DTaP, Tdap and Td Vaccines (9 - [...]
--- OUTSIDE RECORDS SUMMARY | 2024-11-23 19:02 | XMS_ITS | Continuity of Care Document ---
Author Name [facility] Organization [facility] Care Team Providers Care Charge Preparation Technician Name Role Phone [facility] Unavailable Unavailable Medications Combined list of outpatient medications from Department of Defense and Veterans Affairs facilities.Medications provided include 1) outpatient medications from the last 15 months, and 2) patient-reported medications. Medication Details Route Status Patient Instructions Prescription Expires Prescription Number Last Dispense Date Ordering Provider Order Date Order Qty Source ESCITALOPRA M OXALATE (escitalopr am oxalate), 10 MG, TABLET, ORAL, [facility], 100 ea. BOTTLE Cancele d [id number] : 2023 0 Pharmac y Data Transac tion Service Facilit y HYDROXYZINE HCL (hydroxyzin e HCl), 25 MG, TABLET, ORAL, [facility], 1000 ea. BOTTLE Active [id number] 4 2023 45 Pharmac y Data Transac tion Service Facilit y HYDROXYZINE HCL (hydroxyzin e HCl), 25 MG, TABLET, ORAL, [facility], 500 ea. BOTTLE Active [id number] 4 2023 45 Pharmac y Data Transac tion Service Facilit y HYDROXYZINE HCL (hydroxyzin e HCl), 25 MG, TABLET, ORAL, [facility], 500 ea. BOTTLE Active [id number] 4 2023 45 Pharmac y Data Transac tion Service Facilit y LISINOPRIL (lisinopril ), 10 MG, TABLET, ORAL, [facility], 1000 ea. BOTTLE Cancele d [id number] : 2023 0 Pharmac y Data Transac tion Service Facilit y LISINOPRIL (lisinopril ), 10 MG, TABLET, ORAL, [facility], 1000 ea. BOTTLE Active [id number] 4 2023 270 Pharmac y Data Transac tion Service Facilit y Allergies, Adverse Reactions, Alerts Combined list of allergies from Department of Defense and Veterans Affairs facilities. It does not include entries that were removed or entered in error. Substance Category Reaction Severity Reaction type Status Date Reported Comments Source No Known Allergies Drug allergy (disorder) active 05/02/2020 [facility] [place] [facility] [place] Immunizations Combined list of available immunizations from the Department of Defense and Veterans Affairs facilities. 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 Location Location Details Encounter Type Encounter Number Reason For Visit Attending Provider ADM Date DC Date Status Disposition [facility] [place] [id number] Notes Entered by: ESPINOZA CARBAJAL 27 Apr 2020 0702 ------- ------- ------- ------- -- [id number] YARED MCELROY 04/27 Released w/o Limitations [facility] [place] [place] [id number] KEZIA SINHA 04/27 Released w/o Limitations [facility] [place] [facility] [place] [facility] [place]PAT[place] [id number] Notes Entered by: Mary Jane MARTINEZ 28 Apr 2020 0737 ------- ------- ------- ------- -- 009 MELISA MARTINEZ 04/28 Released w/o Limitations [facility] [facility] [facility] [place]) [place] [id number] YANNI RILEY 05/01 Released w/o Limitations [facility] [place] [facility] [place] [facility] [place] [facility] [place] OUTPATIENT [id number] Notes Entered by: BEVERLY GARCES 02 May 2020 0500 ------- ------- ------- ------- -- DAY 3 009 NEHEMIAH GOLDBERG 05/02 Released w/o Limitations [facility] [place] [facility] [place] [facility] [place] [facility] [place] [place] OUTPATIENT [id number] Notes Entered by: Layne MILLER 02 May 2020 0651 ------- ------- ------- ------- -- F/U EXAM FOR ER VISIT [id number] YASMANIERMA GENESIS 05/02 Released w/o Limitations [facility] [place] [facility] [place] [facility] [place] [facility] [place] OUTPATIENT [id number] Notes Entered by: TRACY CASTRO 03 May 2020 0651 ------- ------- ------- ------- -- DAY 3 ALIBI 009 NEHEMIAH GOLDBERG 05/03 Released w/o Limitations [facility] [place] [facility] [place] [facility] [place] [facility] [place] OUTPATIENT [id number] Notes Entered by: MANJULA WU 03 May 2020 1326 ------- ------- ------- ------- -- DAY 3 ALIBI 009 MANJULA WU 05/03 Released w/o Limitations [facility] [place] [facility] [place] Reeder s Initial Entry) [facility] [place] [facility] [place] Initial Entry) OUTPATIENT [id number] Notes Entered by: AMBER PRICE 20 Jun 2020 0511 ------- ------- ------- ------- -- B CO 2-48 [facility] R SINDHU ALFARO 06/20 Released w/o Limitations [facility] [place] [facility] [place] s Initial Entry) [facility] [place] [facility] [place]([facility] Er Module) OUTPATIENT [id number] Notes Entered by: Layne MILLER 20 Jul 2020 0638 ------- ------- ------- ------- -- AUBREY DOUGLAS 07/20 Released with Work/Duty Limitations [facility] [place] [facility] [place](C-TM C Er Module) [facility] [place] [facility] [place]([facility] Er Module) OUTPATIENT [id number] Notes Entered by: Lanye MILLER 26 Jul 2020 0723 ------- ------- ------- ------- -- F/U EXAM FOR AUBREY RIDLEY 07/26 Released with Work/Duty Limitations [facility] [place] [facility] [place](C-TM C Er Module) Procedures Combined list of: 1) Procedures from Department of Veterans Affairs facilities going back up to thelast 18 months, not all VA non-surgical procedures are included; 2) All procedures from the Department of Defense facilities. Procedure Procedure Type Code Date Perfomer Comments Sourc e No data available for this section Ambulato ry Pharmacy THERAPEUTIC, PROPHYLACTIC, OR DIAGNOSTIC INJECTION (SPECIFY SUBSTANCE OR DRUG); SUBCUTANEOUS OR INTRAMUSCULAR 05/03/19 [facility] VARICELLA VIRUS VACCINE (FRANCISCO), LIVE, FOR SUBCUTANEOUS USE 05/03/19 [facility] PSYCHIATRIC DIAGNOSTIC EVALUATION 05/02/19 [facility] AUDIOMETRIC TESTING OF GROUPS 04/28/19 21 [facility] SCREENING TEST OF VISUAL ACUITY, QUANTITATIVE, BILATERAL 04/27/19 [facility] [id number] E DEHYDROGENASE (G6PD); SCREEN 04/27/19 21 [facility] Screening Test Of Visual Acuity, Quantitative, Bilateral Screening Test Of Visual Acuity, Quantitative, Bilateral [id number] KEZIA SINHA [facility] Venipuncture Venipuncture [id number] YARED MCELROY [facility] RBC G6PD Screening RBC G6PD Screening 40784 YARED MCELROY [facility] Audiometry Group Testing Audiometry Group Testing 21523 COMPALIZMELISA [facility] Psychiatric Therapy Preparation of Psychiatric Status Report Psychiatric Therapy Preparation of Psychiatric Status Report [id number] BEA COLEMAN [facility] Tdap Vaccine Tdap Vaccine 77692 NEHEMIAH GOLDBERG [facility] Vaccines Viral Polio, Inactivated (Salk) Vaccines Viral Polio, Inactivated (Salk) 65307 NEHEMIAH GOLDBERG [facility] Supervised Injection Intramuscular Antibiotic Supervised Injection Intramuscular Antibiotic 72625 NEHEMIAH GOLDBERG [facility] Vaccines Adenovirus Type 4 Live, For Oral Use Vaccines Adenovirus Type 4 Live, For Oral Use 64222 ASHLYNNEHEMIAH [facility] Vaccines Adenovirus Type 7 Live, For Oral Use Vaccines Adenovirus Type 7 Live, For Oral Use 98442 NEHEMIAH GOLDBERG [facility] Meningococcal Polysacch Diphtheria Toxoid Conjugate Vaccine Meningococcal Polysacch Diphtheria Toxoid Conjugate Vaccine 41241 NEHEMIAH GOLDBERG SKIP [facility] Immunization Administration One Vaccine Immunization Administration One Vaccine 01451 NEHEMIAH GOLDBERG [facility] Immunization Administration Each Additional Vaccine Immunization Administration Each Additional Vaccine 16715 NEHEMIAH GOLDBERG [facility] Hepatitis A And Hepatitis B (Intramuscular Use) Adult Dosage Hepatitis A And Hepatitis B (Intramuscular Use) Adult Dosage 14059 ASHLYN [facility] Vaccines Viral Varicella (Active) Vaccines Viral Varicella (Active) 24467 NEHEMIAH GOLDBERG [facility] Social History Combined list of available smoking, tobacco, and other social history from Department of Defense and Veterans Affairs facilities. Social History Type Response Date Comment [facility] Sex Representation Male (finding) 07/14/2020 Un known Organization Sexual Orientation Ambula tory Pharmacy Gender identity Ambulator y Pharmacy This section is an empty social history section. [facility] Assessment and Plan Combined list of future care activities from Department of Defense and Veterans Affairs facilities (e.g., assessment and plan notes, appointments, orders, and referrals). Additional future care activities may be listed in the Plan of Care section. Result Assessment and Plan Date Source Assessment and Plan No data available for this section 11/24/2024 Ambulatory Pharmacy Functional Status Combined list of recent functional and cognitive assessments recorded at Department of Defense and Veterans Affairs ([facility]).[facility] Functional [place] Measurement (FIM) Scale: 1 = Total Assistance (Subject = 0% +), 2 = Maximal Assistance (Subject = 25% +), 3 = Moderate Assistance (Subject = 50% +), 4 = Minimal Assistance (Subject = 75% +), 5 = Supervision, 6 = Modified [place] (Device), 7 = Complete [place] (Timely, Safely). Assessment Date/Time Source Assessment Type Assessment Skill Assessment Score Assessment Details No data available for this section
--- OUTSIDE RECORDS SUMMARY | 2024-11-23 19:02 | XMS_ITS | Patient Health Record ---
Author Organization [facility] [employer] Address [address] [facility] [address] [place] [address] Care Team Providers Care Agricultural Engineer Name Role Phone Bebeto Yusuf DO Primary Care Provider Aminata Sanchez Unavailable [phone] Allergies No Known Allergies Results Component Value Reference Range Notes UDT Reviewed date:06/15/2024 10:16:49 AM Interpretation: Performing Lab: Notes/Report: THC NEG 0 - 50 ng/ml Cocaine NEG 0 - 300 ng/ml Amphetamine NEG 0 - 1000 ng/ml Buprenorphine (BUP) NEG 0 - 10 ng/ml Secobarbital (Bar) NEG 0 - 300 ng/ml Oxazepam (BZO) NEG 0 - 300 ng/ml 8-vzcxvvxojd-6,7-fcmebbsf-9,3-diphenylpyrrolidine (LENCHO P) NEG 0 - 300 ng/ml Methamphetamine (MET) NEG 0 - 1000 ng/ml Methylenedioxymethamphetamine (MDMA) NEG 0 - 500 ng/ml Morphine (MOP 300/[id number]) NEG 0 - 300 ng/ml Methadone (MTD) NEG 0 - 300 ng/ml Phencyclidine (PCP) NEG 0 - 25 ng/ml Nortriptyline (TCA) NEG 0 - 1000 ng/ml Oxycodone NEG 0 - 300 ng/ml x NEG 0 - 300 ng/ml Reason For Referral No Information Medications Medication SIG (Take, Route, Frequency, Duration) Notes Start Date End Date Status Propranolol HCl 10 MG 1 tablet on an empty stomach Orally every 12 hrs; Duration: 90 days Active Sertraline HCl 50 MG TAKE 1 TABLET BY MOUTH DAILY; Duration: 30 appointment needed Active Social History Tobacco Use: Social History Observation Description Date Details (start date - stop date) Light tobacco s moker NA - NA Sex Assigned At : Social History Observation Description Sex Assigned At Male Household Question Answer Notes Marital status: Number of adults in household: 2 Number of children in household: 1 son Level of education: not finished college [employer] Sexual History Question Answer Notes Had sex in the past 12 months (vaginal, oral, or anal)? Yes with Women only Tobacco Control (Standard) Question Answer Notes Tobacco use: Light tobacco smoker Additional Findings: Tobacco user e-ciga rette,Light cigarette smoker (1-9 cigs/day) Problems Problem Type SNOMED Code ICD Code Onset Dates Problem Status W/U Status Risk Notes Problem Tobacco use (028977562) Tobacco use (Z72.0) Active confirmed Problem Generalized anxiety disorder (97446627) LATESHA (generalized anxiety disorder) (F41.1) Active confirmed Problem Moderate recurrent major depression (22964016) MDD (major depressive disorder), recurrent episode, moderate (F33.1) Active confirmed Problem Panic disorder (622015387) Panic disorder (F41.0) Active confirmed Vital Signs Heart Rate 75 /min 06/15/2024 Respiratory Rate 17 /min 06/15/2024 Height-cm 187.96 cm 06/15/2024 Blood pressure diastolic 82 mm Hg 06/15/2024 Weight-kg 104.6 kg 06/15/2024 Height 74 in 06/15/2024 Blood pressure systolic 118 mm Hg 06/15/2024 Weight 230.6 lbs 06/15/2024 BMI 29.6 kg/m2 06/15/2024 Encounters Encounter Location Date Provider Diagnosis [facility] [address] [address] 06/15/2024 Aminata Cespedes MDD (major depressive disorder), recurrent episode, moderate F33.1 ; LATESHA (generalized anxiety disorder) F41.1 ; Panic disorder F41.0 and Tobacco use Z72.0 [facility] [address] [facility] [address] [place] [address] 07/06/2024 Aminata Cespedes Assessments Encounter Date Diagnosis (ICD Code) Assessment Notes Treatment Notes Treatment Clinical Notes Section Notes 06/15/2024 LATESHA (generalized anxiety disorder) (ICD-10 - F41.1) Generalized Anxiety Disorder: Care Instructions material was published, Learning About Generalized Anxiety Disorder material was published, Learning About Anxiety Disorders material was published presently on Propranolol 10 mg TID - reported takes daily and if increase anxiety TID 1. depression Discuss and educated on medications Add Zoloft 50 mg daily for depression, anxiety, panic 2.Anxiety Propranolol 10 mg TID - reported takes daily and if increase anxiety TID Monitor B/P 3. Panic Propranolol 10 mg TID - reported takes daily and if increase anxiety TID monitor B/P 4. tobacco use Do not smoke. Nicotine and other chemicals in cigarettes and cigars can cause lung damage. Ask your healthcare provider for information if you currently smoke and need help to quit. E-cigarettes or smokeless tobacco still contain nicotine. Talk to your healthcare provider before you use these products. education on decrease to stopping nicotine products and stop smoking hotline given 822-Quit - Yes [place] Tobacco Quitline Call a Smoking Quitline The [employer] [place] Smoking Quitline, (5-236-48H-QUIT) Smokefree.gov, which connects you with your State's Quitline, (1-792-OFWPTSS) [facility] Smoking Quitline, (5-946-JXTLFFT) appointment's, continue therapy discussion with patient about course of treatment and patient instructions. education on serotonin syndrome Discussed and educated pt regarding benzodiazepines are generally not intended for prolonged use and that use can cause tolerance, dependence, depression, and associated memory issues including dementias (this list is not exhaustive). Benzodiazepine use is generally not recommended concurrently with pain medications and/or other controlled substances educated on all medications, benefits, side effects and risk, and educated on depression, anxiety, and ADHD, mood d/o and educated on compliance of medications, metabolic and movement d/o education appointment is, continue therapy discussion with patient about course of treatment and patient instructions. education on serotonin syndrome SSRI/SNRI side effects discussed including but not limited to, gastric upset, nausea, vomiting, diarrhea and/or constipation, weight changes, sexual side effects including loss of libido, increased suicidal thoughts/behaviors in children and young adults, and serotonin syndrome. Medication Management and Follow-Up - Plan: - Schedule follow-up appointments every 1-3 months to monitor the patient's response to the medication regimen. - Reinforce the importance of avoiding recreational drug use due to potential neurotoxicity and interactions with prescribed medications. 06/15/2024 MDD (major depressive disorder), recurrent episode, moderate (ICD-10 - F33.1) Preventing Depression From Coming Back: Care Instructions material was published, Learning About How to Get Help During a Mental Health Crisis material was published, Learning About Depression Screening material was published, Depression Treatment: Care Instructions material was published, Seasonal Affective Disorder: Care Instructions material was published presently on Propranolol 10 mg TID - reported takes daily and if increase anxiety TID 1. depression Discuss and educated on medications Add Zoloft 50 mg daily for depression, anxiety, panic 2.Anxiety Propranolol 10 mg TID - reported takes daily and if increase anxiety TID Monitor B/P 3. Panic Propranolol 10 mg TID - reported takes daily and if increase anxiety TID monitor B/P 4. tobacco use Do not smoke. Nicotine and other chemicals in cigarettes and cigars can cause lung damage. Ask your healthcare provider for information if you currently smoke and need help to quit. E-cigarettes or smokeless tobacco still contain nicotine. Talk to your healthcare provider before you use these products. education on decrease to stopping nicotine products and stop smoking hotline given 374-Quit - Yes [place] Tobacco Quitline Call a Smoking Quitline The [employer] [place] Smoking Quitline, (5-073-23B-QUIT) Smokefree.gov, which connects you with your State's Quitline, (2-133-RCQORFL) [facility] Smoking Quitline, (9-875-OWTJUHP) appointment's, continue therapy discussion with patient about course of treatment and patient instructions. education on serotonin syndrome Discussed and educated pt regarding benzodiazepines are generally not intended for prolonged use and that use can cause tolerance, dependence, depression, and associated memory issues including dementias (this list is not exhaustive). Benzodiazepine use is generally not recommended concurrently with pain medications and/or other controlled substances educated on all medications, benefits, side effects and risk, and educated on depression, anxiety, and ADHD, mood d/o and educated on compliance of medications, metabolic and movement d/o education appointment is, continue therapy discussion with patient about course of treatment and patient instructions. education on serotonin syndrome SSRI/SNRI side effects discussed including but not limited to, gastric upset, nausea, vomiting, diarrhea and/or constipation, weight changes, sexual side effects including loss of libido, increased suicidal thoughts/behaviors in children and young adults, and serotonin syndrome. Medication Management and Follow-Up - Plan: - Schedule follow-up appointments every 1-3 months to monitor the patient's response to the medication regimen. - Reinforce the importance of avoiding recreational drug use due to potential neurotoxicity and interactions with prescribed medications. 06/15/2024 Panic disorder (ICD-10 - F41.0) Panic Attacks: Care Instructions material was published presently on Propranolol 10 mg TID - reported takes daily and if increase anxiety TID 1. depression Discuss and educated on medications Add Zoloft 50 mg daily for depression, anxiety, panic 2.Anxiety Propranolol 10 mg TID - reported takes daily and if increase anxiety TID Monitor B/P 3. Panic Propranolol 10 mg TID - reported takes daily and if increase anxiety TID monitor B/P 4. tobacco use Do not smoke. Nicotine and other chemicals in cigarettes and cigars can cause lung damage. Ask your healthcare provider for information if you currently smoke and need help to quit. E-cigarettes or smokeless tobacco still contain nicotine. Talk to your healthcare provider before you use these products. education on decrease to stopping nicotine products and stop smoking hotline given 825-Quit - Yes [place] Tobacco Quitline Call a Smoking Quitline The [employer] [place] Smoking Quitline, (5-045-04V-QUIT) Smokefree.gov, which connects you with your State's Quitline, (9-482-ARNNKVH) [facility] Smoking Quitline, (4-096-IICTRLY) appointment's, continue therapy discussion with patient about course of treatment and patient instructions. education on serotonin syndrome Discussed and educated pt regarding benzodiazepines are generally not intended for prolonged use and that use can cause tolerance, dependence, depression, and associated memory issues including dementias (this list is not exhaustive). Benzodiazepine use is generally not recommended concurrently with pain medications and/or other controlled substances educated on all medications, benefits, side effects and risk, and educated on depression, anxiety, and ADHD, mood d/o and educated on compliance of medications, metabolic and movement d/o education appointment is, continue therapy discussion with patient about course of treatment and patient instructions. education on serotonin syndrome SSRI/SNRI side effects discussed including but not limited to, gastric upset, nausea, vomiting, diarrhea and/or constipation, weight changes, sexual side effects including loss of libido, increased suicidal thoughts/behaviors in children and young adults, and serotonin syndrome. Medication Management and Follow-Up - Plan: - Schedule follow-up appointments every 1-3 months to monitor the patient's response to the medication regimen. - Reinforce the importance of avoiding recreational drug use due to potential neurotoxicity and interactions with prescribed medications. 06/15/2024 Tobacco use (ICD-10 - Z72.0) presently on Propranolol 10 mg TID - reported takes daily and if increase anxiety TID 1. depression Discuss and educated on medications Add Zoloft 50 mg daily for depression, anxiety, panic 2.Anxiety Propranolol 10 mg TID - reported takes daily and if increase anxiety TID Monitor B/P 3. Panic Propranolol 10 mg TID - reported takes daily and if increase anxiety TID monitor B/P 4. tobacco use Do not smoke. Nicotine and other chemicals in cigarettes and cigars can cause lung damage. Ask your healthcare provider for information if you currently smoke and need help to quit. E-cigarettes or smokeless tobacco still contain nicotine. Talk to your healthcare provider before you use these products. education on decrease to stopping nicotine products and stop smoking hotline given 902-Quit - Yes [place] Tobacco Quitline Call a Smoking Quitline The [employer] [place] Smoking Quitline, (9-337-09J-QUIT) Smokefree.gov, which connects you with your State's Quitline, (1-757-HYUFDIV) [facility] Smoking Quitline, (0-749-ZYTYTNV) appointment's, continue therapy discussion with patient about course of treatment and patient instructions. education on serotonin syndrome Discussed and educated pt regarding benzodiazepines are generally not intended for prolonged use and that use can cause tolerance, dependence, depression, and associated memory issues including dementias (this list is not exhaustive). Benzodiazepine use is generally not recommended concurrently with pain medications and/or other controlled substances educated on all medications, benefits, side effects and risk, and educated on depression, anxiety, and ADHD, mood d/o and educated on compliance of medications, metabolic and movement d/o education appointment is, continue therapy discussion with patient about course of treatment and patient instructions. education on serotonin syndrome SSRI/SNRI side effects discussed including but not limited to, gastric upset, nausea, vomiting, diarrhea and/or constipation, weight changes, sexual side effects including loss of libido, increased suicidal thoughts/behaviors in children and young adults, and serotonin syndrome. Medication Management and Follow-Up - Plan: - Schedule follow-up appointments every 1-3 months to monitor the patient's response to the medication regimen. - Reinforce the importance of avoiding recreational drug use due to potential neurotoxicity and interactions with prescribed medications. 06/15/2024 Other Learning About Depression Screening material was printed, Sertraline material was published, Propranolol (Cardiovascular ) material was published presently on Propranolol 10 mg TID - reported takes daily and if increase anxiety TID 1. depression Discuss and educated on medications Add Zoloft 50 mg daily for depression, anxiety, panic 2.Anxiety Propranolol 10 mg TID - reported takes daily and if increase anxiety TID Monitor B/P 3. Panic Propranolol 10 mg TID - reported takes daily and if increase anxiety TID monitor B/P 4. tobacco use Do not smoke. Nicotine and other chemicals in cigarettes and cigars can cause lung damage. Ask your healthcare provider for information if you currently smoke and need help to quit. E-cigarettes or smokeless tobacco still contain nicotine. Talk to your healthcare provider before you use these products. education on decrease to stopping nicotine products and stop smoking hotline given 495-Quit - Yes [place] Tobacco Quitline Call a Smoking Quitline The [employer] [place] Smoking Quitline, (0-524-45C-QUIT) Smokefree.gov, which connects you with your State's Quitline, (8-828-JQEKFZT) [facility] Smoking Quitline, (4-105-RWGSYIG) appointment's, continue therapy discussion with patient about course of treatment and patient instructions. education on serotonin syndrome Discussed and educated pt regarding benzodiazepines are generally not intended for prolonged use and that use can cause tolerance, dependence, depression, and associated memory issues including dementias (this list is not exhaustive). Benzodiazepine use is generally not recommended concurrently with pain medications and/or other controlled substances educated on all medications, benefits, side effects and risk, and educated on depression, anxiety, and ADHD, mood d/o and educated on compliance of medications, metabolic and movement d/o education appointment is, continue therapy discussion with patient about course of treatment and patient instructions. education on serotonin syndrome SSRI/SNRI side effects discussed including but not limited to, gastric upset, nausea, vomiting, diarrhea and/or constipation, weight changes, sexual side effects including loss of libido, increased suicidal thoughts/behaviors in children and young adults, and serotonin syndrome. Medication Management and Follow-Up - Plan: - Schedule follow-up appointments every 1-3 months to monitor the patient's response to the medication regimen. - Reinforce the importance of avoiding recreational drug use due to potential neurotoxicity and interactions with prescribed medications. Plan Of Treatment No Information Insurance Providers Payer Name Payer Address Payer Phone Subscriber Number Group Number Insured Name Patient Relationship to Insured Coverage Start Date Coverage End Date [facility] [address] [place] [address] [id number] Oliverio Castaneda Self - patient is the insured Medical (General) History Hospitalization History Reason Date(Month/Year) Panic Attacks hospitalized states 50 - 6 0 in the past year alone
[2024-11-23 20:03] LABS: Hematocrit 43.7 % (42.0-52.0); Hemoglobin 14.8 g/dL (14.0-18.0); Immature Granulocyte Percent A 0.4 % (0-0.5); Lymphocytes Absolute Auto 1.56 K/mm3 (0.9-3.2); Mean Corpuscular HGB Conc 33.9 g/dl (32-36); Mean Corpuscular Hemoglobin 28.7 pg (26-34); Mean Corpuscular Volume 84.9 fl (80-100); Nucleated Red Blood Cells Absolute Auto 0.000 K/mm3 (0.0-0.012); Nucleated Red Blood Cells Perc 0.0 % (0.0-0.2); Platelet Count Result 202 k/mm3 (150-375); Red Blood Count 5.15 M/mm3 (4.6-6.20); White Blood Count 6.9 K/mm3 (4.5-10.0)
[2024-11-23 20:09] VITALS: BP 153/94; PULSE 113; RESP 18; TEMP 36.8; O2SAT 100
[2024-11-23 20:13] LABS: Alanine Aminotransferase 52 U/L (6-50); Albumin Level 4.6 g/dL (3.5-5.1); Alkaline Phosphatase 68 U/L (38-126); Anion Gap 9 mmol/L (4-12); Aspartate Amino Transferase 40 U/L (17-59); Bilirubin,Total 0.3 mg/dL (0.2-1.3); Blood Urea Nitrogen 13 mg/dL (9-20); Calcium 9.6 mg/dL (8.4-10.2); Carbon Dioxide 26 mmol/L (22-30); Chloride 104 mmol/L (98-107); Estimated Glomerular Filt Rate > 60; Glucose 101 mg/dL (65-110); Lipase 48 U/L (23-300); Potassium 3.7 mmol/L (3.4-5.0); Sodium 139 mmol/L (137-145); Total Protein 7.9 g/dL (6.3-8.2)
[2024-11-23 20:23] LABS: INR 1.0; Partial Thromboplastin Time 24.3 Seconds (22.3-36.8); Prothrombin Time 13.1 Seconds (11.1-14.7)
[2024-11-23 20:24] LABS: Troponin I < 0.012 ng/mL (0.000-0.034)
--- NOTE | 2024-11-24 00:31 | ECG_ITS ---
Test Date: 2024-11-24 00:31:23 Measurements Intervals [place] Rate: 106 P: 57 WA: 152 QRS: 11 QRSD: 92 T: 6 QT: 328 QTc: 437 Interpretive Statements SINUS TACHYCARDIA POSSIBLE LEFT ATRIAL ENLARGEMENT BORDERLINE ST-T WAVE ABNORMALITY- ANTEROLAT/INF LEADS BASELINE ARTIFACT- I, III, V3 BORDERLINE ECG Compared to ECG 11/23/2024 19:52:53 NO SIGNIFICANT CHANGE Electronically Signed On 11-24-2024 09:59:49 CDT by Ajith Vasquez D.O.
[2024-11-24 01:16] LABS: Troponin I < 0.012 ng/mL (0.000-0.034)
[2024-11-24 02:19] VITALS: BP 156/82; PULSE 102; RESP 16; O2SAT 97
--- NOTE | 2024-11-24 02:52 | ED.SKABFB ---
HPI - Skin/Abscess/Foreign Bdy General Chief complaint: Skin/Abscess/Foreign Body Stated complaint: swollen L foot with edema & decreased sensation Time Seen by Provider: 11/24/24 02:46 Source: patient Mode of arrival: ambulatory Limitations: no limitations History of Present Illness HPI narrative: Patient presents with concern for a swollen left foot. He accidentally dropped a TV tray on it at approximately 6:00 p.m.. It subsequently developed pitting edema and had slightly decreased sensation initially. He otherwise denies any foot pain. Denies sarah paresthesias at this time. Patient states after the swelling he developed a chest heaviness and became anxious about the degree of foot swelling. He has a history of anxiety and previously had been on SSRIs. Cardiac risk factors HTN: 0 (history of white coat hypertension) HLD: Yes, currently trialing diet and exercise and SSRIs were discontinued (which had caused weight gain) DM: 0 Obese: Yes Smoker: Yes but quitting as of 5-6 days ago (nicotine pouches) Personal history FL/TIA/CVA: 0 Fam Hx FL in first degree relative <65yo:0 Related Data Home Medications ?Medication ?Instructions ?Recorded ?Confirmed ?Last Taken ?Type sertraline 50 mg tablet 50 mg PO DAILY 10/28/24 10/28/24 Unknown History Allergies Allergy/AdvReac Type Severity Reaction Status Date / Time No Known Allergies Allergy Verified 11/23/24 20:16 [facility] Past Medical History Medical History Epididymal cyst Recurrent major depression resistant to treatment Headache GERD (gastroesophageal reflux disease) History of anxiety Family History Family History Mother Depression Heart problem Colon cancer Asthma Father Hypertension Depression Anxiety Sibling Depression Anxiety Grandparent , 67yo Depression Anxiety Liver cancer Lung cancer Hypertension Grandparent History of thyroid surgery Social History Social History Smoking status: Current every day smoker Tobacco type: cigarettes Substance use type: does not use Other substance usage details: Caffeine (multiple energy drinks daily, occasional coffee) Do You Feel Safe in your Home?: Yes Lack of Transportation: No Lack of Food: Never True Current Housing: I Have Housing Concerned About Future Housing: No Difficulty Paying Gas/Electric Bills: No Difficulty Paying for Meds: No Currently Unemployed: No Education: High School Diploma/GED Difficulty w/ Childcare or Family Care: No Living arrangements: with family Additional living arrangements comments: , [place] Occupation/Education: occupation Gender identity (if verbalized by the patient): Male Exam Narrative: GENERAL: Well-appearing, well-nourished, and in no acute distress. HEAD: Normocephalic, atraumatic. EYES: Non injected, non icteric ENT: Nares clear, no rhinorrhea or epistaxis. Gross auditory acuity intact. NECK: Supple. No meningismus. CHEST: Speaking in full sentences. No respiratory distress. HEART: Tachycardic rate and rhythm. . ABDOMEN: Soft, nondistended. No rigidity or guarding. Not peritoneal EXTREMITIES: Normal range of motion. 1-2+ L pedal edema, pitting. Does not extend to ankle or leg.Palpable DP pulse. SKIN: Warm, dry. No ecchymosis over dorsum or plantar aspect of foot. NEURO: No focal deficits. Alert and oriented. Answering questions. Following commands. Normal speech without aphasia or dysarthria. Sensation intact throughout leg and foot PSYCH: Normal mood and affect. Course Vital Signs Vital signs: Vital Signs Temperature 98.3 F 11/23/24 20:09 Pulse Rate 113 H 11/23/24 20:09 Respiratory Rate 18 11/23/24 20:09 Blood Pressure 153/94 H 11/23/24 20:09 Pulse Oximetry 100 11/23/24 20:09 Oxygen Delivery Room Air 11/23/24 20:09 Temperature 98.3 F 11/23/24 20:09 Pulse Rate 102 H 11/24/24 02:19 Respiratory Rate 16 11/24/24 02:19 Blood Pressure 156/82 H 11/24/24 02:19 Pulse Oximetry 97 11/24/24 02:19 Oxygen Delivery Room Air 11/23/24 20:09 MDM - Skin/Abscess/Foreign Bdy MDM Narrative Medical decision making narrative: Patient presents with a swollen left foot after dropping an object on it at approximately 6:00 p.m.. He noticed that it became edematous and this caused him to be worried. He then developed chest heaviness as a result. He notes that he has a history of anxiety. In the emergency department he is afebrile vital signs notable for hypertension and tachycardia. CBC unremarkable. HEART SCORE History 2 highly suspicious 1 moderately suspicious 0 slightly suspicious History score [address] depression/elevation not due to LBBB, LVH, or digoxin [address] depression but LBBB, LVH, nonspecific repolarization changes 0 normal ECG score 1 Age 2 >/= 65 1 45-64 0 <45 Age score 0 Risk factors (HTN, hypercholesterolemia, DM, obesity with BMI >30, current smoker or cessation </=3mo), positive fam hx with parent or sibling with CVD before age 65, atherosclerotic disease (prior FL, PCI/CABG, CVA/TIA, or peripheral arterial disease) 2 >/= 3 risk factors or history of atherosclerotic dz 1 - 1-2 risk factors 0 no known risk factors Risk factor score 2 Initial Troponin 2 >3 times normal limit 1 1-3 times normal limit 0 less than or equal to normal limit Troponin score 0 Total HEART Score 3 Repeat trop normal. Dimer normal. Discharged with prescription for ibuprofen. Advised follow-up with PCP. Otherwise stable for discharge. Differential Diagnosis Differential diagnosis: Likely other (Fracture, dislocation, considered Lisfranc/Maisonneuve; suspect edema is due to localized swelling from tissue trauma more so than acute heart failure/acute spontaneous dVT) Lab Data Attestation: I reviewed the patient's lab results. 11/23/24 19:56 11/23/24 19:56 Labs: Lab Results 11/23/24 11/24/24 Range/Units 19:56 00:34 WBC 6.9 (4.5-10.0) K/mm3 RBC 5.15 (4.6-6.20) M/mm3 Hgb 14.8 (14.0-18.0) g/dL Hct 43.7 (42.0-52.0) % MCV 84.9 (80-100) fl MCH 28.7 (26-34) pg MCHC 33.9 (32-36) g/dl RDW 12.4 (11.5-14.5) % Plt Count 202 (150-375) k/mm3 MPV 9.4 (7.4-10.4) fl Immature Gran % (Auto) 0.4 (0-0.5) % Neut % (Auto) 67.6 (45.5-73.1) % Lymph % (Auto) 22.5 (18.3-44.2) % Imperial % (Auto) 7.5 (2.6-8.5) % Eos % (Auto) 1.7 (0-4.4) % Baso % (Auto) 0.3 (0.2-1.2) % Lymph # (Auto) 1.56 (0.9-3.2) K/mm3 Imperial # (Auto) 0.5 (0.1-0.6) K/mm3 Eos # (Auto) 0.1 (0-0.3) K/mm3 Baso # (Auto) 0.0 (0.0-0.1) K/mm3 Abs Immat Gran (auto) 0.03 (0.00-0.031) K/mm3 Absolute Neuts (auto) 4.7 (1.3-6.7) K/mm3 Absolute Nucleated RBC 0.000 (0.0-0.012) K/mm3 Nucleated RBC % 0.0 (0.0-0.2) % PT 13.1 (11.1-14.7) Seconds INR 1.0 APTT 24.3 (22.3-36.8) Seconds D-Dimer 0.33 (<0.48) ug/mL Sodium 139 (137-145) mmol/L Potassium 3.7 (3.4-5.0) mmol/L Chloride 104 (98-107) mmol/L Carbon Dioxide 26 (22-30) mmol/L Anion Gap 9 (4-12) mmol/L BUN 13 (9-20) mg/dL Creatinine 0.84 (0.7-1.3) mg/dL Estim Creat Clear Calc Not Reportable Estimated GFR > 60 (59 - ) Glucose 101 (65-110) mg/dL Calcium 9.6 (8.4-10.2) mg/dL Total Bilirubin 0.3 (0.2-1.3) mg/dL AST 40 (17-59) U/L ALT 52 H (6-50) U/L Alkaline Phosphatase 68 (38-126) U/L Troponin I < 0.012 < 0.012 (0.000-0.034) ng/mL Total Protein 7.9 (6.3-8.2) g/dL Albumin 4.6 (3.5-5.1) g/dL Lipase 48 (23-300) U/L Imaging Data My impression: Questionable findings at base of 2nd metatarsal though suspect shadowing from adjacent bones Radiologist's impression: XR L Foot stat rad: No acute findings. No evidence of fracture. ECG Data EKG #1: Attestation: I personally reviewed and interpreted this ECG as follows: ECG completion date: 11/23/24 ECG completion time: 19:52 Prior ECG tracings: available for review (04/20/2024) Interpretation: Sinus tachycardia at a rate of 111 beats per minute. CO interval 155. QRS 92. QT/QTC 310/423. Good R-wave progression across the precordial leads. Incomplete RBBB given QRS less [id number]; RSR' M-shaped pattern in V1-V3; though S wave in lateral leads (I, aVL, V5-6) do not appear wide/slurred. Nonspecific T-wave findings, new from prior. Discharge Plan Discharge Clinical Impression: Pedal edema, Chest heaviness Patient Disposition: Home Condition: Stable Instructions: Antibiotic Form, Noncardiac Chest Pain (ED), Edema (ED) Additional Instructions: As we discussed, it is not uncommon to get edema when there is trauma due to the inflammation. It is safe to take with NSAIDs (ibuprofen/Motrin) for pain relief. In particular, the NSAIDs work on inflammation. The swelling should improve with time but you can assist with this by using compression (Anastacio wrap), ice, and keeping it elevated above the level of the heart. Follow-up with primary care physician as needed. Return to the emergency department any new or worsening symptoms. Your cardiac workup was reassuring and no fractures in the foot on xray. Patient Language: Samoan Prescriptions: New ibuprofen 600 mg tablet 600 mg PO TID PRN (Reason: pain) Qty: 20 0RF No Action hydroxyzine HCl 25 mg tablet 25 mg PO TID PRN (Reason: Anxiety) Qty: 60 0RF sertraline 50 mg tablet 50 mg PO DAILY Follow-up/Referrals: Bebeto Yusuf DO [Primary Care Provider] - Stand Alone Forms: Work/School Release IP Time of Disposition: 04:52
--- OUTSIDE RECORDS SUMMARY | 2024-11-24 03:18 | XMS_ITS | Clinical Summary ---
Author Organization [facility] [employer] Address [address] [place] [address] Care Team Providers Care Trim Carpenter Name Role Phone Triny Randhawa MD Primary Care Provider [phone] Source Comments [facility] [employer],non-owned Affiliates and Associated Physician Practices is amultiple site organization consisting of ambulatory clinics and hospital sitesin [place], [place], [place] and [place]. This disclosure is being madepursuant to the Care Everywhere program and may not contain all information available regarding this patient. 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 [id number] PCP - General Family Medicine 10/26/13
--- OUTSIDE RECORDS SUMMARY | 2024-11-24 03:18 | XMS_ITS | Continuity of Care Document ---
Author Name [facility] Organization [facility] Care Team Providers Care City Bus Driver Name Role Phone [facility] Unavailable Unavailable Medications Combined list of outpatient [...] [facility], 100 ea. BOTTLE Cancele d [id number] : 2023 0 Pharmac y Data Transac tion Service Facilit y HYDROXYZINE HCL (hydroxyzin e HCl), 25 MG, TABLET, ORAL, RISING PHARM, 1000 ea. BOTTLE Active [id number] 2023 45 Pharmac y Data Transac tion Service Facilit y HYDROXYZINE HCL (hydroxyzin e HCl), 25 MG, TABLET, ORAL, RISING PHARM, 500 ea. BOTTLE Active [id number] 4 2023 45 Pharmac y Data Transac tion Service Facilit y HYDROXYZINE HCL (hydroxyzin e HCl), 25 MG, TABLET, ORAL, RISING PHARM, 500 ea. BOTTLE Active [id number] 4 2023 45 Pharmac y Data Transac tion Service Facilit y LISINOPRIL (lisinopril ), 10 MG, TABLET, ORAL, LUPIN PHARMACEU, 1000 ea. BOTTLE Cancele d [id number] : 2023 0 Pharmac y Data Transac tion Service Facilit y LISINOPRIL (lisinopril ), 10 MG, TABLET, ORAL, LUPIN PHARMACEU, 1000 ea. BOTTLE Active [id number] 4 2023 270 Pharmac y Data Transac tion Service Facilit y Allergies, Adverse Reactions, Alerts Combined list of allergies from Department of Defense and Veterans Affairs facilities. It does not include entries that were removed or entered in error. Substance Category Reaction Severity Reaction type Status Date Reported Comments Source No Known Allergies Drug allergy (disorder) active 05/02/2020 [facility] [place] Immunizations Combined list of available immunizations from the Department of Defense and Veterans Affairs facilities. Immunization Series Date Given Administered By Site Reaction Lot Number CVX Code Drug Manager Facility Status Comments Source measles, mumps and rubella [...] ADM Date DC Date Status [facility] [place] [facility] OUTPATIENT [id number] Notes Entered by: ESPINOZA CARBAJAL 27 Apr 2020 0702 ------- ------- ------- ------- -- [id number] 009 YARED MCELROY 04/27 Released w/o Limitations [facility] [place] [place] [facility] [place]PAT[place] [id number] KEZIA SINHA 04/27 Released w/o Limitations [facility] [place] [place] [place] Conserv[place] OUTPATIENT [id number] Notes Entered by: Mary Jane MARTINEZ 28 Apr 2020 0737 ------- ------- ------- ------- -- 009 MELISA MARTINEZ 04/28 [facility]ased w/o Limitations [facility] [place] [place] [facility] [place]) [place] [id number] YANNI RILEY 05/01 Released w/o Limitations [facility] [place]) [facility] [place] Initial [place] OUTPATIENT [id number] Notes Entered by: BEVERLY GARCES 02 May 2020 0500 ------- ------- ------- ------- -- DAY 3 009 NEHEMIAH GOLDBERG 05/02 Released w/o Limitations [facility] [place] Initial Entry) [facility] [place]C-[facility] Er Module[place] OUTPATIENT [id number] Notes Entered by: Layne MILLER 02 May 2020 0651 ------- ------- ------- ------- -- F/U EXAM FOR ER VISIT [id number] YASMANIERMA GENESIS 05/02 Released w/o Limitations [facility] [place]C-TM C [place] Module[place] [facility] [place] Initial [place] OUTPATIENT [id number] Notes Entered by: TRACY CASTRO 03 May 2020 0651 ------- ------- ------- ------- -- DAY 3 ALIBI 009 NEHEMIAH GOLDBERG 05/03 Released w/o Limitations [facility] [place] Initial Entry) [facility] [place] Initial [place] OUTPATIENT [id number] Notes Entered by: MANJULA WU 03 May 2020 1326 ------- ------- ------- ------- -- DAY 3 ALIBI 009 MANJULA WU 05/03 Released w/o Limitations [facility] [place](IE[place] s Initial Entry) [facility] [place] Initial Entry) OUTPATIENT [id number] Notes Entered by: AMBER PRICE 20 Jun 2020 0511 ------- ------- ------- ------- -- B CO 2-48 [facility] R SINDHU ALFARO 06/20 Released w/o Limitations [facility] [place](IEP [place] Initial Entry) [facility] [place]([facility] Er Module) OUTPATIENT [id number] Notes Entered by: Layne MILLER 20 Jul 2020 0638 ------- ------- ------- ------- -- AUBREY DOUGLAS 07/20 Released with Work/Duty Limitations [facility] [place](C[facility] Er Module[facility] [place] OUTPATIENT [id number] Notes Entered by: Layne MILLER 26 Jul 2020 0723 ------- ------- ------- ------- -- F/U EXAM FOR AUBREY RIDLEY 07/26 Released with Work/Duty Limitations [facility] [place](C-TM C Er Module) Procedures Combined list of: 1) Procedures from Department of Veterans Affairs facilities going back up to thelast 18 months, not all VA non-surgical procedures are included; 2) All procedures from the Department of Defense facilities. Procedure Procedure Type Code Date Perfomer Comments Sour e THERAPEUTIC, PROPHYLACTIC, OR DIAGNOSTIC INJECTION (SPECIFY SUBSTANCE OR DRUG); SUBCUTANEOUS OR INTRAMUSCULAR 05/03/19 [facility] VARICELLA VIRUS VACCINE (FRANCISCO), LIVE, FOR SUBCUTANEOUS USE 05/03/19 [facility] PSYCHIATRIC DIAGNOSTIC EVALUATION 05/02/19 [facility] AUDIOMETRIC TESTING OF GROUPS 04/28/19 21 [facility] SCREENING TEST OF VISUAL ACUITY, QUANTITATIVE, BILATERAL 04/27/19 21 [facility] JXTCOEG-2-NHIITOFP E DEHYDROGENASE (G6PD); SCREEN 04/27/19 21 [facility] Screening Test Of Visual Acuity, Quantitative, Bilateral Screening Test Of Visual Acuity, Quantitative, Bilateral [id number] KEZIA SINHA [facility] Venipuncture Venipuncture [id number] YARED MCELROY [facility] RBC G6PD Screening RBC G6PD Screening 40555 YARED MCELROY [facility] Audiometry Group Testing Audiometry Group Testing 79134 MICHELLE MELISA DykesZhane [facility] Psychiatric Therapy Preparation of Psychiatric Status Report Psychiatric Therapy Preparation of Psychiatric Status Report [id number] BEA COLEMAN [facility] Tdap Vaccine Tdap Vaccine 73165 [facility] Vaccines Viral Polio, Inactivated (Salk) Vaccines Viral Polio, Inactivated (Salk) 06481 [facility] Supervised Injection Intramuscular Antibiotic Supervised Injection Intramuscular Antibiotic 19840 [facility] Vaccines Adenovirus Type 4 Live, For Oral Use Vaccines Adenovirus Type 4 Live, For Oral Use 68493 [facility] Vaccines Adenovirus Type 7 Live, For Oral Use Vaccines Adenovirus Type 7 Live, For Oral Use 86997 [facility] Meningococcal Polysacch Diphtheria Toxoid Conjugate Vaccine Meningococcal Polysacch Diphtheria Toxoid Conjugate Vaccine 61351 [facility] Immunization Administration One Vaccine Immunization Administration One Vaccine 66156 [facility] Immunization Administration Each Additional Vaccine Immunization Administration Each Additional Vaccine 57481 [facility] Hepatitis A And Hepatitis B (Intramuscular Use) Adult Dosage Hepatitis A And Hepatitis B (Intramuscular Use) Adult Dosage 47352 [facility] Vaccines Viral Varicella (Active) Vaccines Viral Varicella (Active) 82860 [facility] No data available for this section Ambulato ry Pharmacy Social History Combined list of available smoking, tobacco, and other social history from Department of Defense and Veterans Affairs facilities. Social History Type Response Date Comment [facility] e Sex Representation Male (finding) 07/14/2020 Un known Organization This section is an empty social history section. DoD Sexual Orientation Ambula tory Pharmacy Gender identity Ambulator y Pharmacy Assessment and Plan Combined list of future [...] of Defense and Veterans Affairs (VA).VA Functional [place] Measurement (FIM) Scale: 1 = Total Assistance (Subject = 0% +), 2 = Maximal Assistance (Subject = 25% +), 3 = Moderate Assistance (Subject = 50% +), 4 = Minimal Assistance (Subject = 75% +), 5 = Supervision, 6 = Modified [place] (Device), 7 = Complete [place] (Timely, Safely). Assessment Date/Time Source Assessment Type Assessment Skill Assessment Score Assessment Details No data available for this section
--- OUTSIDE RECORDS SUMMARY | 2024-11-24 03:18 | XMS_ITS | Patient Health Record ---
Author Organization [facility] [employer] Address [address] [facility] [address] [place] [address] Care Team Providers Care It Audit Manager Name Role Phone Bebeto Yusuf DO Primary Care Provider Aminata Sanchez Unavailable [phone] Allergies No Known Allergies Results Component Value Reference Range Notes UDT Reviewed date:06/15/2024 10:16:49 AM Interpretation: Performing Lab: Notes/Report: THC NEG 0 - 50 ng/ml Cocaine NEG 0 - 300 ng/ml Amphetamine NEG 0 - 1000 ng/ml Buprenorphine (BUP) NEG 0 - 10 ng/ml Secobarbital (Bar) NEG 0 - 300 ng/ml Oxazepam (BZO) NEG 0 - 300 ng/ml 7-flrltyckgc-9,3-jhumseqf-7,3-diphenylpyrrolidine (LENCHO P) NEG 0 - 300 ng/ml Methamphetamine (MET) NEG 0 - 1000 ng/ml Methylenedioxymethamphetamine (MDMA) NEG 0 - 500 ng/ml Morphine (MOP 300/[id number]) NEG 0 - 300 ng/ml Methadone (MTD) [...] son Level of education: not finished college [employer] Sexual History Question Answer Notes Had sex in the past 12 months (vaginal, oral, or anal)? Yes with Women only Tobacco Control (Standard) Question Answer Notes Tobacco use: Light tobacco smoker Additional Findings: Tobacco user e-ciga rette,Light cigarette smoker (1-9 cigs/day) Problems Problem Type SNOMED Code ICD Code Onset Dates Problem Status W/U Status Risk Notes Problem Tobacco use (566766587) Tobacco use (Z72.0) Active confirmed Problem Generalized anxiety disorder (15891920) LATESHA (generalized anxiety disorder) (F41.1) Active confirmed Problem Moderate recurrent major depression (65513765) MDD (major depressive disorder), recurrent episode, moderate (F33.1) Active confirmed Problem Panic disorder (206772317) Panic disorder (F41.0) Active confirmed Vital Signs Heart Rate 75 /min 06/15/2024 Respiratory Rate 17 /min 06/15/2024 Height-cm 187.96 cm 06/15/2024 Blood pressure diastolic 82 mm Hg 06/15/2024 Weight-kg 104.6 kg 06/15/2024 Height 74 in 06/15/2024 Blood pressure systolic 118 mm Hg 06/15/2024 Weight 230.6 lbs 06/15/2024 BMI 29.6 kg/m2 06/15/2024 Encounters Encounter Location Date Provider Diagnosis [facility] [address] [address] 06/15/2024 Aminata Cespedes MDD (major depressive disorder), recurrent episode, moderate F33.1 ; LATESHA (generalized anxiety disorder) F41.1 ; Panic disorder F41.0 and Tobacco use Z72.0 [facility] [facility] [address] [place] [address] 07/06/2024 Aminata Cespeeds Assessments Encounter Date Diagnosis (ICD Code) Assessment [...] nicotine products and stop smoking hotline given 988-Quit - Yes [place] Tobacco Quitline Call a Smoking Quitline [facility] [place]'s Smoking Quitline, (6-488-09E-QUIT) Smokefree.gov, which connects you with your State's Quitline, (3-387-LSXSIQJ) [facility] Smoking Quitline, (0-177-GITHVKL) appointment's, continue therapy discussion with patient about [...] nicotine products and stop smoking hotline given 581-Quit - Yes [place] Tobacco Quitline Call a Smoking Quitline [facility] [place]'s Smoking Quitline, (7-724-79L-QUIT) Smokefree.gov, which connects you with your State's Quitline, (9-891-TXRYSFX) [facility] Smoking Quitline, (6-918-HKBKKDR) appointment's, continue therapy discussion with patient about [...] nicotine products and stop smoking hotline given 523-Quit - Yes [place] Tobacco Quitline Call a Smoking Quitline [facility] [place]'s Smoking Quitline, (9-519-71O-QUIT) Smokefree.gov, which connects you with your State's Quitline, (6-267-TBKRFHK) [facility] Smoking Quitline, (6-801-DEZWARB) appointment's, continue therapy discussion with patient about [...] nicotine products and stop smoking hotline given 471-Quit - Yes [place] Tobacco Quitline Call a Smoking Quitline [facility] [place]'s Smoking Quitline, (8-409-07Y-QUIT) Smokefree.gov, which connects you with your State's Quitline, (9-233-YUZJXCX) [facility] Smoking Quitline, (1-230-PSGTDKG) appointment's, continue therapy discussion with patient about [...] nicotine products and stop smoking hotline given 167-Quit - Yes [place] Tobacco Quitline Call a Smoking Quitline [facility] [place] Smoking Quitline, (6-074-21Q-QUIT) Smokefree.gov, which connects you with your State's Quitline, (7-340-MAWECJJ) [facility] Smoking Quitline, (5-604-NAMMZFY) appointment's, continue therapy discussion with patient about [...] Insured Coverage Start Date Coverage End Date [facility] [address] [place] [address] [id number] Oliverio Castaneda Self - patient is the insured Medical (General) History Hospitalization History Reason Date(Month/Year) Panic Attacks hospitalized states 50 - 6 0 in the past year alone
--- OUTSIDE RECORDS SUMMARY | 2024-11-24 03:18 | XMS_ITS | Clinical Summary ---
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
== END 2024-11-24 05:02 | disposition home or self-care (01) ==
PROVIDERS: Emergency Medicine; Emergency Provider Student in an Organized Health Care Education/Training Program; PCP Family Medicine
DX: R60.0 Localized edema (principal); R07.89 Other chest pain; R00.0 Tachycardia, unspecified; F17.210 Nicotine dependence, cigarettes, uncomplicated; K21.9 Gastro-esophageal reflux disease without esophagitis; F41.9 Anxiety disorder, unspecified; F32.A Depression, unspecified
CPT/HCPCS: 36415; 71046; 73620; 80053; 83690; 84484; 85025; 85380; 85610; 85730; 93005; 99284

== ENCOUNTER 2024-11-28 18:49 | Emergency (ER) | payer OTHER, SELFPAY ==
--- OUTSIDE RECORDS SUMMARY | 2024-11-28 18:51 | XMS_ITS | Continuity of Care Document ---
Author Name [facility] Organization [facility] Care Team Providers Care Associate Professor Of Communication Name Role Phone [facility] Unavailable Unavailable Medications Combined list of outpatient [...] [facility], 100 ea. BOTTLE Cancele d [id number] : 2023 0 Pharmac y Data Transac tion Service Facilit y HYDROXYZINE HCL (hydroxyzin e HCl), 25 MG, TABLET, ORAL, RISING PHARM, 1000 ea. BOTTLE Active [id number] 4 2023 45 Pharmac y Data Transac tion Service Facilit y HYDROXYZINE HCL (hydroxyzin e HCl), 25 MG, TABLET, ORAL, RISING PHARM, 500 ea. BOTTLE Active [id number] 4 2023 45 Pharmac y Data Transac tion Service Facilit y HYDROXYZINE HCL (hydroxyzin e HCl), 25 MG, TABLET, ORAL, RISING PHARM, 500 ea. BOTTLE Active [id number] 4 2023 45 Pharmac y Data Transac tion Service Facilit y Allergies, Adverse Reactions, Alerts Combined list of allergies from Department of Defense and Veterans Affairs facilities. It does not include entries that were removed or entered in error. Substance Category Reaction Severity Reaction type Status Date Reported Comments Source No Known Allergies Drug allergy (disorder) [facility] [place] [place] Immunizations Combined list of available immunizations from the Department of Defense and Veterans Affairs facilities. Immunization Series Date Given Administered By Site Reaction Lot Number CVX Code Drug Produce Production Team Member Status Comments Source measles, mumps and rubella [...] ADM Date DC Date Status Disposition Source [facility] [place] [facility] OUTPATIENT [id number] Notes Entered by: ESPINOZA CARBAJAL 27 Apr 2020 0702 ------- ------- ------- ------- -- [id number] 009 YARED MCELROY 04/27 Released w/o Limitations [facility]) [facility] OUTPATIENT [id number] KEZIA SINHA 04/27 Released w/o Limitations [facility] [facility] Hearing Conservat ion Exam) OUTPATIENT [id number] Notes Entered by: Mary Jane MARTINEZ 28 Apr 2020 0737 ------- ------- ------- ------- -- 009 MELISA MARTINEZ 04/28 Released w/o Limitations [facility] Conserv ation Exam) [facility]) [place]IENT [id number] YANNI RILEY 05/01 Released w/o Limitations [facility] OUTPATIENT [id number] Notes Entered by: BEVERLY GARCES 02 May 2020 0500 ------- ------- ------- ------- -- [id number] DAY 3 009 NEHEMIAH GOLDBERG 05/02 Released w/o Limitations [facility] [place] Initial Entry) [facility] [place]C-[facility] Er Module) OUTPATIENT [id number] Notes Entered by: Layne MILLER 02 May 2020 0651 ------- ------- ------- ------- -- F/U EXAM FOR ER VISIT [id number] ERMA GRUBER GENESIS 05/02 Released w/o Limitations [facility] [place]C-TM C [place] Module) [facility] Dean [facility] [place] Initial [place]) OUTPATIENT [id number] Notes Entered by: TRACY CASTRO 03 May 2020 0651 ------- ------- ------- ------- -- DAY 3 ALIBI 009 NEHEMIAH GOLDBERG SKIP 05/03 Released w/o Limitations [facility] [place] Initial Entry) [facility] Dean [facility] [place] Initial [place]) OUTPATIENT [id number] 1 Notes Entered by: MANJULA WU 03 May 2020 1326 ------- ------- ------- ------- -- DAY 3 ALIBI 009 MANJULA WU 05/03 Released w/o Limitations [facility] [place] Initial Entry) [facility] Jermaine [facility] [place] Initial [place] OUTPATIENT [id number] Notes Entered by: AMBER PRICE 20 Jun 2020 0511 ------- ------- ------- ------- -- B CO 2-48 TWIN/[place] R SINDUH ALFARO 06/20 Released w/o Limitations [facility] Tico Dean [facility] BELEM Jones([place] Initial Entry) [facility] Tico Dean [facility] BELEM Jones(C-[facility] Er Module) OUTPATIENT [id number] Notes Entered by: Layne MILLER 20 Jul 2020 0638 ------- ------- ------- ------- -- MSK AND AUBREY BONLILA 07/20 Released with Work/Duty Limitations [facility] Tico Dean [facility] BELEM Jones(C-TM C Er Module) [facility] BELEM Jones(C-[facility] Er Module) OUTPATIENT [id number] Notes Entered by: Layne MILLER 26 Jul 2020 0723 ------- ------- ------- ------- -- F/U EXAM FOR KIRSTIE AUBREY EDWARDS 07/26 Released with Work/Duty Limitations [facility] Dean [facility] BELEM Jones(C-TM C Er Module) Procedures Combined [...] SUBSTANCE OR DRUG); SUBCUTANEOUS OR INTRAMUSCULAR 05/03/19 [facility] VARICELLA VIRUS VACCINE (FRANCISCO), LIVE, FOR SUBCUTANEOUS USE 05/03/19 [facility] PSYCHIATRIC DIAGNOSTIC EVALUATION 05/02/19 [facility] AUDIOMETRIC TESTING OF GROUPS 04/28/19 [facility] SCREENING TEST OF VISUAL ACUITY, QUANTITATIVE, BILATERAL 04/27/19 [facility] [id number]-7-RQMCKBIF E DEHYDROGENASE (G6PD); SCREEN 04/27/19 [facility] Screening Test Of Visual Acuity, Quantitative, Bilateral Screening Test Of Visual Acuity, Quantitative, Bilateral [id number] KEZIA SINHA [facility] Venipuncture Venipuncture 76656 YARED MCELROY [facility] RBC G6PD Screening RBC G6PD Screening 67994 YARED MCELROY [facility] Audiometry Group Testing Audiometry Group Testing 77133 COMPALIZ MELISA DykesZhane [facility] Psychiatric Therapy Preparation of Psychiatric Status Report Psychiatric Therapy Preparation of Psychiatric Status Report 84232 BEA COLEMAN [facility] Tdap Vaccine Tdap Vaccine 76897 [facility] Vaccines Viral Polio, Inactivated (Salk) Vaccines Viral Polio, Inactivated (Salk) 83855 [facility] Supervised Injection Intramuscular Antibiotic Supervised Injection Intramuscular Antibiotic 60376 [facility] Vaccines Adenovirus Type 4 Live, For Oral Use Vaccines Adenovirus Type 4 Live, For Oral Use 66412 [place] FURNACE [facility] Vaccines Adenovirus Type 7 Live, For Oral Use Vaccines Adenovirus Type 7 Live, For Oral Use 20329 [facility] Meningococcal Polysacch Diphtheria Toxoid Conjugate Vaccine Meningococcal Polysacch Diphtheria Toxoid Conjugate Vaccine 24341 [facility] Immunization Administration One Vaccine Immunization Administration One Vaccine 21434 [facility] Immunization Administration Each Additional Vaccine Immunization Administration Each Additional Vaccine 18425 [facility] Hepatitis A And Hepatitis B (Intramuscular Use) Adult Dosage Hepatitis A And Hepatitis B (Intramuscular Use) Adult Dosage 03976 [facility] Vaccines Viral Varicella (Active) Vaccines Viral Varicella (Active) 67163 [facility] Social History Combined list of available smoking, tobacco, and other social history from Department of Defense and Veterans Affairs facilities. Social History Type Response Date Comment Sour e Sex Representation Male (finding) 07/14/2020 Un known Organization Sexual Orientation Ambula tory Pharmacy Gender identity Ambulator y Pharmacy This section is an empty social history section. [facility] Assessment and Plan Combined list of future care activities from Department of Defense and Veterans Affairs facilities (e.g., assessment and plan notes, appointments, orders, and referrals). Additional future care activities may be listed in the Plan of Care section. Result Assessment and Plan Date Source Assessment and Plan No data available for this section 11/28/2024 [facility]ulatory [facility] Functional Status Combined list of recent functional and cognitive assessments recorded at Department of Defense and Veterans Affairs (VA).VA Functional [place] Measurement (FIM) Scale: 1 = Total Assistance (Subject = 0% +), 2 = Maximal Assistance (Subject = 25% +), 3 = Moderate Assistance (Subject = 50% +), 4 = Minimal Assistance (Subject = 75% +), 5 = Supervision, 6 = Modified Whitley (Device), 7 = Complete Whitley (Timely, Safely). Assessment Date/Time Source Assessment Type Assessment Skill Assessment Score Assessment Details No data available for this section
--- OUTSIDE RECORDS SUMMARY | 2024-11-28 18:51 | XMS_ITS | Clinical Summary ---
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
--- OUTSIDE RECORDS SUMMARY | 2024-11-28 18:51 | XMS_ITS | Clinical Summary ---
Author Organization [facility] [employer] Address [address] [place] [address] Care Team Providers Care Heat Treat Supervisor Name Role Phone Triny Randhawa MD Primary Care Provider [phone] Source Comments [facility] [employer],non-owned Affiliates and Associated Physician Practices is amultiple site organization consisting of ambulatory clinics and hospital sitesin [place], [place], [place] and [place]. This disclosure is being madepursuant to the Care Everywhere program and may not contain all information available regarding this patient. Last updated 18.[employer] Allergies No known active allergies Medications * [...] on file Legal Sex Male 9:35 AM MEDICAL REIMBURSEMENT MANAGER Gender Identity Not on file Sexual Orientation Not on file Last Filed Vital Signs Vital Sign Reading Time Taken Comments Blood Pressure 114/60 03/13/2010 4:06 PM MEDICAL REIMBURSEMENT MANAGER Pulse 84 03/13/2010 4:06 PM MEDICAL REIMBURSEMENT MANAGER Temperature 36.6 C (97.8 F) 01/21/2014 1:32 [...] topic Insurance MEDICAID - [place] Care Teams Heat Treat Supervisor Relationship Specialty Start Date End Date Triny Randhawa MD [address] [place] [address] [place] [id number] PCP - General Family Medicine 10/26/13
--- OUTSIDE RECORDS SUMMARY | 2024-11-28 18:52 | XMS_ITS | Patient Health Record ---
Author Organization [facility] [email or web address] Address [address] [facility] [address] [place] [address] Care Team Providers Care Oven Technician Name Role Phone Bebeto Yusuf DO Primary Care Provider Aminata Sanchez Unavailable [phone] Allergies No Known Allergies Results Component Value Reference Range Notes UDT Reviewed date:06/15/2024 10:16:49 AM Interpretation: Performing Lab: Notes/Report: THC NEG 0 - 50 ng/ml Cocaine NEG 0 - 300 ng/ml Amphetamine NEG 0 - 1000 ng/ml Buprenorphine (BUP) NEG 0 - 10 ng/ml Secobarbital (Bar) NEG 0 - 300 ng/ml Oxazepam (BZO) NEG 0 - 300 ng/ml 8-lxzrwcnhnq-7,0-zfjuycgd-6,3-diphenylpyrrolidine (LENCHO P) NEG 0 - 300 ng/ml Methamphetamine (MET) NEG 0 - 1000 ng/ml Methylenedioxymethamphetamine (MDMA) NEG 0 - 500 ng/ml Morphine (MOP 300/RFR0208) NEG 0 - 300 ng/ml Methadone (MTD) [...] son Level of education: not finished college [employer] Re serve Sexual History Question Answer Notes Had sex in the past 12 months (vaginal, oral, or anal)? Yes with Women only Tobacco Control (Standard) Question Answer Notes Tobacco use: Light tobacco smoker Additional Findings: Tobacco user e-ciga rette,Light cigarette smoker (1-9 cigs/day) Problems Problem Type SNOMED Code ICD Code Onset Dates Problem Status W/U Status Risk Notes Problem Tobacco use (431327265) Tobacco use (Z72.0) Active confirmed Problem Generalized anxiety disorder (46064382) LATESHA (generalized anxiety disorder) (F41.1) Active confirmed Problem Moderate recurrent major depression (97403486) MDD (major depressive disorder), recurrent episode, moderate (F33.1) Active confirmed Problem Panic disorder (440407262) Panic disorder (F41.0) Active confirmed Vital Signs Heart Rate 75 /min 06/15/2024 Respiratory Rate 17 /min 06/15/2024 Height-cm 187.96 cm 06/15/2024 Blood pressure diastolic 82 mm Hg 06/15/2024 Weight-kg 104.6 kg 06/15/2024 Height 74 in 06/15/2024 Blood pressure systolic 118 mm Hg 06/15/2024 Weight 230.6 lbs 06/15/2024 BMI 29.6 kg/m2 06/15/2024 Encounters Encounter Location Date Provider Diagnosis [facility] [address] [address] 06/15/2024 Aminata Cespedes MDD (major depressive disorder), recurrent episode, moderate F33.1 ; LATESHA (generalized anxiety disorder) F41.1 ; Panic disorder F41.0 and Tobacco use Z72.0 [facility] [employer] [facility] [address] [facility] [address] [place] [address] 07/06/2024 Aminata Cespedes Assessments Encounter Date Diagnosis [...] nicotine products and stop smoking hotline given 212-Quit - Yes [place] Tobacco Quitline Call a Smoking Quitline [facility] [place] Smoking Quitline, (6-113-57G-QUIT) Smokefree.gov, which connects you with your State's Quitline, (5-980-KTUVLXG) [facility] Smoking Quitline, (7-600-TJNUQXP) appointment's, continue therapy discussion with patient about [...] nicotine products and stop smoking hotline given 679-Quit - Yes [place] Tobacco Quitline Call a Smoking Quitline [facility] [place] Smoking Quitline, (6-304-03E-QUIT) Smokefree.gov, which connects you with your State's Quitline, (0-902-GJPJEBO) [facility] Smoking Quitline, (1-429-MMUERRX) appointment's, continue therapy discussion with patient about [...] nicotine products and stop smoking hotline given 635-Quit - Yes [place] Tobacco Quitline Call a Smoking Quitline [facility] [place] Smoking Quitline, (5-658-91G-QUIT) Smokefree.gov, which connects you with your State's Quitline, (5-067-ORAQUAU) [facility] Smoking Quitline, (6-641-RPQFNIZ) appointment's, continue therapy discussion with patient about [...] nicotine products and stop smoking hotline given 676-Quit - Yes [place] Tobacco Quitline Call a Smoking Quitline [facility] [place] Smoking Quitline, (0-813-40D-QUIT) Smokefree.gov, which connects you with your State's Quitline, (5-710-OBXOJHQ) [facility] Smoking Quitline, (7-374-ELIXKQC) appointment's, continue therapy discussion with patient about [...] nicotine products and stop smoking hotline given 514-Quit - Yes [place] Tobacco Quitline Call a Smoking Quitline [facility] [place] Smoking Quitline, (2-098-87W-QUIT) Smokefree.gov, which connects you with your State's Quitline, (8-078-GSABDZC) [facility] Smoking Quitline, (8-091-IGCYPPZ) appointment's, continue therapy discussion with patient about [...] Insured Coverage Start Date Coverage End Date [facility] [address] [place] [address] [id number] Oliverio Castaneda Self - patient is the insured Medical (General) History Hospitalization History Reason Date(Month/Year) Panic Attacks hospitalized states 50 - 6 0 in the past year alone
--- NOTE | 2024-11-28 18:55 | ED.ARRPALP ---
HPI - Arrhythmia/Palpitations General Chief Complaint: Arrhythmia/Palpitations Stated Complaint: Heart fluttering Time Seen by Provider: 11/28/24 18:57 Source: patient Mode of arrival: ambulatory Limitations: no limitations History of Present Illness HPI narrative: 24 y/o male with hx anxiety presented for c/o palpitations today. States he has a pulse ox which showed a brief heart rate of 40bpm. Says he does not know if it was functioning correctly. Admits to increased caffeine intake today. denies chest pain, sob, dizziness, n/v/d/f/c. Pt had been taking sertraline which he has stopped in the past few weeks due to weight gain. Takes hydroxyzine occasionally. In the process of quitting smoking, now using nicotine pouches. States he wants to see if he has PACs. Pt also endorses sore throat. Says son has HFMD. Related Data Home Medications ?Medication ?Instructions ?Recorded ?Confirmed ?Last Taken ?Type sertraline 50 mg tablet 50 mg PO DAILY 10/28/24 11/28/24 Unknown History Allergies Allergy/AdvReac Type Severity Reaction Status Date / Time No Known Allergies Allergy Verified 11/28/24 18:50 Review of Systems Review of Systems: CONSTITUTIONAL: Denies body aches, fever, chills, or sweats. EYES: Denies visual changes, redness, or discharge. ENT: Denies rhinorrhea, congestion, reports sore throat CARDIOVASCULAR: Reports palpitations Denies chest pain, or edema. RESPIRATORY: Denies cough or dyspnea. GASTROINTESTINAL: Denies abdominal pain, nausea, vomiting, or diarrhea. GENITOURINARY: Denies dysuria or hematuria. SKIN: Denies rash MUSCULOSKELETAL: Denies back pain, joint pain, or myalgia. NEUROLOGIC: Denies headache, numbness, tingling, or weakness. PSYCH: Reports anxiety. All systems reviewed & are unremarkable except as noted in HPI and below PMFSH Past Medical History Medical History Epididymal cyst Recurrent major depression resistant to treatment Headache GERD (gastroesophageal reflux disease) History of anxiety Family History Family History Mother Depression Heart problem Colon cancer Asthma Father Hypertension Depression Anxiety Sibling Depression Anxiety Grandparent , 67yo Depression Anxiety Liver cancer Lung cancer Hypertension Grandparent History of thyroid surgery Social History Social History Smoking status: Current every day smoker Tobacco type: cigarettes Substance use type: does not use Other substance usage details: Caffeine (multiple energy drinks daily, occasional coffee) Do You Feel Safe in your Home?: Yes Lack of Transportation: No Lack of Food: Never True Current Housing: I Have Housing Concerned About Future Housing: No Difficulty Paying Gas/Electric Bills: No Difficulty Paying for Meds: No Currently Unemployed: No Education: High School Diploma/GED Difficulty w/ Childcare or Family Care: No Living arrangements: with family Additional living arrangements comments: , [place] Occupation/Education: occupation Gender identity (if verbalized by the patient): Male Comments At time of signature, I have reviewed and agree with nursing past medical, surgical, social and family history unless otherwise noted. Please see nursing chart for further information. There is no relevant family history pertinent to the presenting complaint Exam Narrative: GENERAL: Well-appearing, and in no acute distress. HEAD: Normocephalic, atraumatic. EYES: EOMI. No redness or drainage. Conjunctivae normal. ENT: Mucous membranes pink and moist. No rhinorrhea. TMs normal bilaterally. Thirty erythematous, tonsils enlarged 1+ without exudate. Uvula midline. NECK: Normal AROM. Supple. No lymphadenopathy. CHEST: No respiratory distress. Clear to auscultation. HEART: Tachycardic and regular No murmur appreciated. Normal peripheral pulses. EXTREMITIES: Normal range of motion. No edema. SKIN: Warm, dry, no rash. Capillary refill normal. Normal skin turgor. NEURO: No focal deficits. Alert and oriented x3. Gait steady. PSYCH: Appears anxious Course Course Emergency Course: Patient is aware of diagnosis, understands and agrees to treatment plan. Anticipatory guidance given. Patient agrees to follow-up as directed and is aware of reasons to seek care at the emergency department. Portions of this record may have been created with voice recognition software Level of Care: Express Care Visit Vital Signs Vital signs: Vital Signs Temperature 97.6 F 11/28/24 19:00 Pulse Rate 88 11/28/24 19:00 Respiratory Rate 18 11/28/24 19:00 Blood Pressure 139/101 H 11/28/24 19:00 Pulse Oximetry 100 11/28/24 19:00 Oxygen Delivery Room Air 11/28/24 19:00 Temperature 97.6 F 11/28/24 19:00 Pulse Rate 88 11/28/24 19:00 Respiratory Rate 18 11/28/24 19:00 Blood Pressure 139/101 H 11/28/24 19:00 Pulse Oximetry 100 11/28/24 19:00 Oxygen Delivery Room Air 11/28/24 19:00 MDM - Arrhythmia/Palpitations MDM Narrative Medical decision making narrative: Pt had EKG in ER 4 days ago. Reviewed today's EKG with pt. Pt declines further evaluation in ER. Pt was taking sertraline and hydroxyzine, but has stopped the sertraline for a few weeks due to weight gain. and has been advised to establish with psychiatry per pcp. Result of strep test reviewed with pt. Discussed physical exam findings. Advised supportive measures and signs/symptoms to go to the ER. Pt is appropriate for outpt treatment and f/u. Pt is scheduled with pcp in 3 days. Differential Diagnosis Differential diagnosis: Likely palpitations, anxiety, sinus tachycardia, artial fibrillation, artial flutter, ventricular premature beats and supraventricular tachycardia Lab Data Labs: Lab Results 11/28/24 Range/Units 19:26 POC Grp A Strep Screen Negative (Negative) ECG Data EKG #1: Attestation: I personally reviewed and interpreted this ECG as follows: (ST rate 103, LA 147, QRS 95, QT/QTC 319/379) ECG completion date: 11/28/24 ECG completion time: 19:10 Prior ECG tracings: available for review EKG Interpretation: tachycardia and sinus rhythm Discharge Plan Discharge Clinical Impression: Palpitations Patient Disposition: Home Condition: Stable Instructions: Antibiotic Form, Heart Palpitations (ED) Additional Instructions: Recommend follow up with your PCP, call on Saturday Avoid caffeinated beverages, marijuna, or other drugs/alcohol Recommend increasing water, healthy diet, get good rest and exercise. Go to the ER for any worsening symptoms or concerns Rapid strep swab was negative today You will be notified in a few days if the culture comes back positive for strep, and appropriate antibiotics will be called in at that time. if symptoms are due to a viral illness, it is not treated with antibiotics. Viral symptoms can be present for up to 10-14 days. Recommendations: Tylenol every 8 hours as needed for pain/fever Soft foods, cool liquids, warm tea. Gargle with warm saltwater twice a day. Chloraseptic spray and throat lozenges. Rest and stay hydrated. Patient Language: Bengali Prescriptions: No Action hydroxyzine HCl 25 mg tablet 25 mg PO TID PRN (Reason: Anxiety) Qty: 60 0RF sertraline 50 mg tablet 50 mg PO DAILY ibuprofen 600 mg tablet 600 mg PO TID PRN (Reason: pain) Qty: 20 0RF Follow-up/Referrals: Van Matthews MD [Physician] - Bebeto Yusuf DO [Primary Care Provider] - Time of Disposition: 19:33
--- OUTSIDE RECORDS SUMMARY | 2024-11-28 18:55 | XMS_ITS | Continuity of Care Document ---
Author Name [facility] Organization [facility] Care Team Providers Care Medical Insurance Biller Name Role Phone [facility] Unavailable Unavailable Medications Combined list of outpatient [...] [facility], 100 ea. BOTTLE Cancele d [id number] : 2023 0 Pharmac y Data Transac tion Service Facilit y HYDROXYZINE HCL (hydroxyzin e HCl), 25 MG, TABLET, ORAL, [facility], 1000 ea. BOTTLE Active [id number] 2023 45 Pharmac y Data Transac tion Service Facilit y HYDROXYZINE HCL (hydroxyzin e HCl), 25 MG, TABLET, ORAL, RISING PHARM, 500 ea. BOTTLE Active [id number] 4 2023 45 Pharmac y Data Transac tion Service Facilit y HYDROXYZINE HCL (hydroxyzin e HCl), 25 MG, TABLET, ORAL, RISING PHARM, 500 ea. BOTTLE Active [id number] 4 2023 45 Pharmac y Data Transac tion Service Facilit y Allergies, Adverse Reactions, Alerts Combined list of allergies from Department of Defense and Veterans Affairs facilities. It does not include entries that were removed or entered in error. Substance Category Reaction Severity Reaction type Status Date Reported Comments Source No Known Allergies Drug allergy (disorder) [facility] [place] [place] Immunizations Combined list of available immunizations from the Department of Defense and Veterans Affairs facilities. Immunization Series Date Given Administered By Site Reaction Lot Number CVX Code Drug Mold Laminator Status Comments Source measles, mumps and rubella [...] ADM Date DC Date Status Disposition Source [facility] [place] [facility] OUTPATIENT [id number] Notes Entered by: ESPINOZA CARBAJAL 27 Apr 2020 0702 ------- ------- ------- ------- -- [id number] 009 YARED MCELROY 04/27 Released w/o Limitations [facility] [place] [facility] [facility]) [facility] [place] [facility] OUTPATIENT [id number] KEZIA SINHA 04/27 [facility]ased w/o Limitations [facility] [place] [place] Conserv[place] Exam[place] OUTPATIENT [id number] Notes Entered by: Mary Jane MARTINEZ 28 Apr 2020 0737 ------- ------- ------- ------- -- 009 MELISA MARTINEZ 04/28 [facility]ased w/o Limitations [facility] [place] [facility] [place]) [place] [id number] YANNI RILEY 05/01 [facility]ased w/o Limitations [facility] [place] [place] OUTPATIENT [id number] Notes Entered by: BEVERLY GARCES 02 May 2020 0500 ------- ------- ------- ------- -- [id number] DAY 3 009 NEHEMIAH GOLDBERG 05/02 Released w/o Limitations [facility] [place] Enders s Initial Entry) [facility] [place](C-[facility] Er Module) OUTPATIENT [id number] Notes Entered by: Layne MILLER 02 May 2020 0651 ------- ------- ------- ------- -- F/U EXAM FOR ER VISIT [id number] ERMA GRUBER GENESIS 05/02 Released w/o Limitations [facility] [place]C-TM C Er Module) [facility] Dean [facility] [place] Initial Entry[place] OUTPATIENT [id number] Notes Entered by: TRACY CASTRO 03 May 2020 0651 ------- ------- ------- ------- -- DAY 3 ALIBI 009 NEHEMIAH GOLDBERG SKIP 05/03 Released w/o Limitations [facility] [place] Enders s Initial Entry) [facility] Dean [facility] [place] Initial Entry[place] OUTPATIENT [id number] Notes Entered by: MANJULA WU 03 May 2020 1326 ------- ------- ------- ------- -- DAY 3 ALIBI 009 MANJULA WU 05/03 Released w/o Limitations [facility] [place] Enders s Initial Entry) [facility] Jermaine [facility] [place] Sold[place] Initial Entry[place] OUTPATIENT [id number] Notes Entered by: AMBER PRICE 20 Jun 2020 0511 ------- ------- ------- ------- -- B CO 2-48 TWIN/VA R SINDHU ALFARO 06/20 Released w/o Limitations [facility] Dean [facility] BELE[place] Jones(IEP Enders s Initial Entry) [facility] Dean [facility] [place] Jones([facility] Er Module) OUTPATIENT [id number] Notes Entered by: Layne MILLER 20 Jul 2020 0638 ------- ------- ------- ------- -- MSK AND AUBREY BONILLA 07/20 Released with Work/Duty Limitations [facility] Dean [facility] [place]LE[place] Jones(C-TM C Er Module) [facility] BELEM Jones([facility] Er Module) OUTPATIENT [id number] Notes Entered by: Layne MILLER 26 Jul 2020 0723 ------- ------- ------- ------- -- F/U EXAM FOR KIRSTIE AUBREY EDWARDS 07/26 Released with Work/Duty Limitations [facility] Dean [facility] BELEM Jones(C-TM C Er Module) Procedures Combined [...] SUBSTANCE OR DRUG); SUBCUTANEOUS OR INTRAMUSCULAR 05/03/19 [facility] VARICELLA VIRUS VACCINE (FRANCISCO), LIVE, FOR SUBCUTANEOUS USE 05/03/19 [facility] PSYCHIATRIC DIAGNOSTIC EVALUATION 05/02/19 [facility] AUDIOMETRIC TESTING OF GROUPS 04/28/19 [facility] SCREENING TEST OF VISUAL ACUITY, QUANTITATIVE, BILATERAL 04/27/19 [facility] XIPOIEC-2-RBFSFJJI E DEHYDROGENASE (G6PD); SCREEN 04/27/19 [facility] Screening Test Of Visual Acuity, Quantitative, Bilateral Screening Test Of Visual Acuity, Quantitative, Bilateral [id number] KEZIA SINHA [facility] Venipuncture Venipuncture 47334 YARED MCELROY [facility] RBC G6PD Screening RBC G6PD Screening 04657 YARED MCELROY [facility] Audiometry Group Testing Audiometry Group Testing 97508 COMPALIZ MELISA DykesZhane [facility] Psychiatric Therapy Preparation of Psychiatric Status Report Psychiatric Therapy Preparation of Psychiatric Status Report [id number] BEA COLEMAN [facility] Tdap Vaccine Tdap Vaccine 24479 [facility]N [facility] Vaccines Viral Polio, Inactivated (Salk) Vaccines Viral Polio, Inactivated (Salk) 01895 [facility]N [facility] Supervised Injection Intramuscular Antibiotic Supervised Injection Intramuscular Antibiotic 61712 ASHLYN [facility] Vaccines Adenovirus Type 4 Live, For Oral Use Vaccines Adenovirus Type 4 Live, For Oral Use 36249 [place] [facility] Vaccines Adenovirus Type 7 Live, For Oral Use Vaccines Adenovirus Type 7 Live, For Oral Use 82863 [facility] Meningococcal Polysacch Diphtheria Toxoid Conjugate Vaccine Meningococcal Polysacch Diphtheria Toxoid Conjugate Vaccine 80194 [facility] Immunization Administration One Vaccine Immunization Administration One Vaccine 11033 [facility] Immunization Administration Each Additional Vaccine Immunization Administration Each Additional Vaccine 95400 [facility] Hepatitis A And Hepatitis B (Intramuscular Use) Adult Dosage Hepatitis A And Hepatitis B (Intramuscular Use) Adult Dosage 01270 [facility] Vaccines Viral Varicella (Active) Vaccines Viral Varicella (Active) 87852 [facility] Social History Combined list of available smoking, tobacco, and other social history from Department of Defense and Veterans Affairs facilities. Social History Type Response Date Comment Sour e Sex Representation Male (finding) 07/14/2020 Un known Organization Sexual Orientation [facility] Gender identity [facility] This section is an empty social history section. [facility] Assessment and Plan Combined list of future [...] of Defense and Veterans Affairs (VA).VA Functional Laurel Measurement (FIM) Scale: 1 = Total Assistance (Subject = 0% +), 2 = Maximal Assistance (Subject = 25% +), 3 = Moderate Assistance (Subject = 50% +), 4 = Minimal Assistance (Subject = 75% +), 5 = Supervision, 6 = Modified Laurel (Device), 7 = Complete Laurel (Timely, Safely). Assessment Date/Time Source Assessment Type Assessment Skill Assessment Score Assessment Details No data available for this section
--- NOTE | 2024-11-28 18:59 | ECG_ITS ---
Test Date: 2024-11-28 19:07:46 Measurements Intervals [place] Rate: 92 P: 0 MO: 0 QRS: 2 QRSD: 97 T: 12 QT: 338 QTc: 418 Interpretive Statements SINUS RHYTHM NONSPECIFIC T-WAVE ABNORMALITY- ANTEROLAT/INF LEADS BASELINE ARTIFACT- I, III, AVR, AVL, AVF BORDERLINE ECG Compared to ECG 11/24/2024 00:31:23 HEART RATE HAS DECREASED Electronically Signed On 11-28-2024 20:27:41 CDT by Ajith Vasquez D.O.
[2024-11-28 19:00] VITALS: BP 139/101; PULSE 88; RESP 18; TEMP 36.4; O2SAT 100
[2024-11-28 19:27] LABS: EDSTREPNEGPOS1 Negative (Negative)
== END 2024-11-28 19:34 | disposition home or self-care (01) ==
PROVIDERS: Emergency Provider Nurse Practitioner Family; PCP Family Medicine
DX: R00.2 Palpitations (principal); F17.210 Nicotine dependence, cigarettes, uncomplicated; K21.9 Gastro-esophageal reflux disease without esophagitis; F41.9 Anxiety disorder, unspecified
CPT/HCPCS: 87081; 87880; 93005; 99213; G0463

== ENCOUNTER 2024-12-24 21:01 | Emergency (ER) | payer OTHER, SELFPAY ==
--- NOTE | ~2024-12-24 | CT_ITS ---
EXAM: CT brain wo con - 12/24/2024 23:08 CDT History: 24 years old Male with altered mental status COMPARISON: 04/18/2024 PROCEDURE: CT of the head without contrast. Axial, sagittal and coronal reformatted planes were evaluated. Automatic exposure control was used for this study. FINDINGS: BRAIN PARENCHYMA: No acute hemorrhage. No mass effect or herniation. Zelaya-white matter differentiation is maintained. Normal appearance of cortex. VENTRICLES/ EXTRA-AXIAL SPACES: No hydrocephalus or extra-axial fluid collection. EXTRACRANIAL STRUCTURES: No calvarial fracture. IMPRESSION: No evidence for acute intracranial hemorrhage or calvarial fracture. Reviewed, dictated and finalized at location N.
--- NOTE | ~2024-12-24 | XR_ITS ---
EXAM/PROCEDURE: XR chest 2V - 12/24/2024 23:15 CDT HISTORY: 24 years old Male with intermittent shortness of breath TECHNIQUE: Two view(s) of the chest. COMPARISON: None available. FINDINGS: LUNGS/ PLEURA: No focal consolidation. No appreciable pneumothorax or large pleural effusion. HEART/ MEDIASTINUM: Heart appears normal in size. BONES: No acute osseous abnormality. OTHER: Visualized upper abdomen is unremarkable. IMPRESSION: No acute process. Reviewed, dictated and finalized at location N. IMPRESSION: No acute process.
--- OUTSIDE RECORDS SUMMARY | 2024-12-24 21:03 | XMS_ITS | Clinical Summary ---
Author Organization [facility] Address [address] [place] [address] Care Team Providers Care Agricultural Technical Officer Name Role Phone Triny Randhawa MD Primary Care Provider [phone] Source Comments [facility],non-owned Affiliates and Associated Physician Practices is amultiple site organization consisting of ambulatory clinics and hospital sitesin [place], [place], [place] and [place]. This disclosure is being madepursuant to the Care Everywhere program and may not contain all information available regarding this patient. 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 [phone] PCP - General Family Medicine 10/26/13
--- OUTSIDE RECORDS SUMMARY | 2024-12-24 21:04 | XMS_ITS | Patient Health Record ---
Author Organization [facility] Address [address] [facility] [address] [place] [address] Care Team Providers Care Fiberline Supervisor Name Role Phone Bebeto Yusuf DO Primary Care Provider Aminata Sanchez Unavailable [phone] Allergies No Known Allergies Results Component Value Reference Range Notes UDT Reviewed date:06/15/2024 10:16:49 AM Interpretation: Performing Lab: Notes/Report: THC NEG 0 - 50 ng/ml Cocaine NEG 0 - 300 ng/ml Amphetamine NEG 0 - 1000 ng/ml Buprenorphine (BUP) NEG 0 - 10 ng/ml Secobarbital (Bar) NEG 0 - 300 ng/ml Oxazepam (BZO) NEG 0 - 300 ng/ml 9-vkgoltkfnn-1,4-rfsciqjp-1,3-diphenylpyrrolidine (LENCHO P) NEG 0 - 300 ng/ml Methamphetamine (MET) NEG 0 - 1000 ng/ml Methylenedioxymethamphetamine (MDMA) NEG 0 - 500 ng/ml Morphine (MOP 300/[id number]) NEG 0 - 300 ng/ml Methadone (MTD) NEG 0 - 300 ng/ml Phencyclidine (PCP) NEG 0 - 25 ng/ml Nortriptyline (TCA) NEG 0 - 1000 ng/ml Oxycodone NEG 0 - 300 ng/ml x NEG 0 - 300 ng/ml Reason For Referral No Information Medications Medication SIG (Take, Route, Frequency, Duration) Notes Start Date End Date Status Propranolol HCl 10 MG Tablet 1 tablet on an empty stomach Orally every 12 hrs; Duration: 90 days Active Sertraline HCl 50 MG Tablet TAKE 1 TABLET BY MOUTH DAILY; Duration: 30 appointment needed Active Social History Tobacco Use: Social History Observation Description Date Details (start date - stop date) Light tobacco s moker NA - NA Sex Assigned At : Social History Observation Description Sex Assigned At Male Social History Sexual History: Social Info Question Answer Notes Sexual History Had sex in the past 12 months (vaginal, oral, or anal)? Yes with Women only Household: Social Info Question Answer Notes Household Marital status: Number of adults in household: 2 Number of children in household: 1 son Level of education: not finished college [employer] Marital status of the child's parents: With whom does the child live? with both parents Any household tobacco use? Yes Any household pets? Yes dog Drug/Alcohol: Social Info Question Answer Notes Drugs Have you used drugs other than those for medical reasons in the past 12 months? No Caffeine Intake: 1-2 cups per day Tobacco Use: Social Info Question Answer Notes Tobacco Control (Standard) Tobacco use: Light tobacco smoker Additional Findings: Tobacco user e-ciga rette,Light cigarette smoker (1-9 cigs/day) Additional Details Category Social Info Options Details Drug/Alcohol: Do you smoke marijuana? Den ies Do you drink alcohol? No Problems Problem Type SNOMED Code ICD Code Onset Dates Problem Status W/U Status Risk Notes Problem Tobacco use (817740927) Tobacco use (Z72.0) Active confirmed Problem Generalized anxiety disorder (98119958) LATESHA (generalized anxiety disorder) (F41.1) Active confirmed Problem Moderate recurrent major depression (05922269) MDD (major depressive disorder), recurrent episode, moderate (F33.1) Active confirmed Problem Panic disorder (469361560) Panic disorder (F41.0) Active confirmed Vital Signs Heart Rate 75 /min 06/15/2024 Respiratory Rate 17 /min 06/15/2024 Height-cm 187.96 cm 06/15/2024 Blood pressure diastolic 82 mm Hg 06/15/2024 Weight-kg 104.6 kg 06/15/2024 Height 74 in 06/15/2024 Blood pressure systolic 118 mm Hg 06/15/2024 Weight 230.6 lbs 06/15/2024 BMI 29.6 kg/m2 06/15/2024 Encounters Encounter Location Date Provider Diagnosis [facility] [address] [facility] [address] [place] [address] 06/15/2024 Aminata Cespedes MDD (major depressive disorder), recurrent episode, moderate F33.1 ; LATESHA (generalized anxiety disorder) F41.1 ; Panic disorder F41.0 and Tobacco use Z72.0 [facility] [address] [facility] [address] [place] [address] 07/06/2024 Aminata Cespedes Assessments Encounter Date Diagnosis [...] nicotine products and stop smoking hotline given 1-Quit - Yes [place] Tobacco Quitline Call a Smoking Quitline The [employer] Smoking Quitline, (3-597-45X-QUIT) Smokefree.gov, which connects you with your [facility]'s Quitline, (7-347-IABEQVE) [facility] Smoking Quitline, (7-374-UVYTZSP) appointment's, continue therapy discussion with patient about [...] nicotine products and stop smoking hotline given 75-Quit - Yes [place] Tobacco Quitline Call a Smoking Quitline The [employer] Smoking Quitline, (0-237-39A-QUIT) Smokefree.gov, which connects you with your State's Quitline, (8-826-JLUSHAI) [facility] Smoking Quitline, (4-253-VLYKSAW) appointment's, continue therapy discussion with patient about [...] nicotine products and stop smoking hotline given 17-Quit - Yes [place] Tobacco Quitline Call a Smoking Quitline The [employer] Smoking Quitline, (9-092-62P-QUIT) Smokefree.gov, which connects you with your State's Quitline, (4-944-RGMTOZC) [facility] Smoking Quitline, (4-277-UUWUSEP) appointment's, continue therapy discussion with patient about [...] nicotine products and stop smoking hotline given -Quit - Yes [place] Tobacco Quitline Call a Smoking Quitline The [employer] Smoking Quitline, (1-744-95C-QUIT) Smokefree.gov, which connects you with your State's Quitline, (5-693-OWYBIFD) [facility] Smoking Quitline, (8-506-WFGAISU) appointment's, continue therapy discussion with patient about [...] nicotine products and stop smoking hotline given Quit - Yes [place] Tobacco Quitline Call a Smoking Quitline The [employer] Smoking Quitline, (1-119-75H-QUIT) Smokefree.gov, which connects you with your State's Quitline, (4-254-WGPCXLH) [facility] Smoking Quitline, (2-825-FIZHUQR) appointment's, continue therapy discussion with patient about [...] Insured Coverage Start Date Coverage End Date [facility] [address] [place] [address] [id number] Oliverio Castaneda Self - patient is the insured Medical (General) History Hospitalization History Reason Date(Month/Year) Panic Attacks hospitalized states 50 - 6 0 in the past year alone
[2024-12-24 21:14] VITALS: BP 167/96; PULSE 108; RESP 16; TEMP 37.1; O2SAT 100
[2024-12-24 22:57] VITALS: BP 157/97; PULSE 82; RESP 17; O2SAT 99
--- NOTE | 2024-12-24 22:58 | ECG_ITS ---
Test Date: 2024-12-24 23:48:28 Measurements Intervals [place] Rate: 83 P: 53 [place]: 141 QRS: 26 QRSD: 96 T: 27 QT: 343 QTc: 405 Interpretive Statements SINUS RHYTHM NONSPECIFIC T-WAVE ABNORMALITY Compared to ECG 11/28/2024 19:07:46 NO SIGNIFICANT CHANGES Electronically Signed On 12-25-2024 12:34:07 CDT by Juarez Lopez M.D.
--- NOTE | 2024-12-24 23:00 | ED.HA ---
HPI - Headache General Chief Complaint: Headache Stated Complaint: migraine-eye pressure-making me confused Time Seen by Provider: 12/24/24 22:24 History of Present Illness HPI Narrative: Patient is a 24-year-old male who presents to the ER with multiple medical complaints. He endorses nausea, disorientation, visual changes, trouble focusing, lightheadedness, fatigue, bilateral numbness and tingling, rapid weight gain, and GERD. Patient reports some of the symptoms have been going on for the past year. He reports he seen his primary care provider for evaluation, along with Cardiology. Patient reports ?they can never find anything wrong. He endorses a history taking SSRIs but they did not work so I stopped them.Patient denies any other medical history relevant to this ER visit. Related Data Allergies Allergy/AdvReac Type Severity Reaction Status Date / Time No Known Allergies Allergy Verified 12/24/24 21:17 Review of Systems Review of Systems: All systems reviewed & are unremarkable except as noted in HPI and below PMFSH Past Medical History Medical History Epididymal cyst Recurrent major depression resistant to treatment Headache GERD (gastroesophageal reflux disease) History of anxiety Family History Family History Mother Depression Heart problem Colon cancer Asthma Father Hypertension Depression Anxiety Sibling Depression Anxiety Grandparent , 67yo Depression Anxiety Liver cancer Lung cancer Hypertension Grandparent History of thyroid surgery Social History Social History Smoking status: Current every day smoker Tobacco type: cigarettes Substance use type: does not use Other substance usage details: Caffeine (multiple energy drinks daily, occasional coffee) Do You Feel Safe in your Home?: Yes Lack of Transportation: No Lack of Food: Never True Current Housing: I Have Housing Concerned About Future Housing: No Difficulty Paying Gas/Electric Bills: No Difficulty Paying for Meds: No Currently Unemployed: No Education: High School Diploma/GED Difficulty w/ Childcare or Family Care: No Living arrangements: with family Additional living arrangements comments: , [place] Occupation/Education: occupation Gender identity (if verbalized by the patient): Male Exam Narrative: GENERAL: Well appearing, well-nourished, non-toxic, in no acute distress. HEAD: Normocephalic, atraumatic. NECK: Supple. No adenopathy, no masses. RESPIRATORY: Airway patent, respirations nonlabored. Clear to auscultation bilaterally, no rales, rhonchi, wheezing. CARDIOVASCULAR: Regular rate and rhythm without murmurs, rubs, or gallops. Peripheral pulses 2+ and equal bilaterally. ABDOMINAL: Soft, nontender, nondistended, no hepatosplenomegaly. Normoactive BS. MUSCULOSKELETAL: Moves all extremities. Strength/ROM intact without gross deformities. SKIN: Warm, dry, normal color. No rashes. NEURO: A&O X3. Speech clear. Cranial nerves II-XII intact. No ataxic movements. PSYCHIATRIC: Appropriate mood and affect. Normal interaction. Course Vital Signs Vital signs: Vital Signs Temperature 37.1 C 12/24/24 21:14 Pulse Rate 108 H 12/24/24 21:14 Respiratory Rate 16 12/24/24 21:14 Blood Pressure 167/96 H 12/24/24 21:14 Pulse Oximetry 100 12/24/24 21:14 Oxygen Delivery Room Air 12/24/24 21:14 Temperature 37.1 C 12/24/24 21:14 Pulse Rate 82 12/24/24 22:57 Respiratory Rate 17 12/24/24 22:57 Blood Pressure 157/97 H 12/24/24 22:57 Pulse Oximetry 99 12/24/24 22:57 Oxygen Delivery Room Air 12/24/24 21:14 MDM - Headache MDM Narrative Medical decision making narrative: Patient is a 24-year-old male who presents to the ER with multiple medical complaints. He endorses nausea, disorientation, visual changes, trouble focusing, lightheadedness, fatigue, bilateral numbness and tingling, rapid weight gain, and GERD. Patient reports some of the symptoms have been going on for the past year. He reports he seen his primary care provider for evaluation, along with Cardiology. Patient reports ?they can never find anything wrong. He endorses a history taking SSRIs but they did not work so I stopped them.Patient denies any other medical history relevant to this ER visit. Labs Ordered: CBC, CMP, mono test, COVID/flu/RSV, TSH, troponin, UDS, UA Imaging Ordered: Chest x-ray, CT brain Medications Ordered: 1 L normal saline IV bolus Results: Patient's head CT scan indicates no acute intracranial abnormality Diagnosis: Atypical chest pain, dizziness Risks: HEART score: low risk HEART Score for Major Cardiac Events from [employer] on 12/25/2024 All calculations should be rechecked by clinician prior to use RESULT SUMMARY: 2 points Low Score (0-3 points) Risk of MACE of 0.9-1.7%. INPUTS: History ?> 1 = Moderately suspicious EKG ?> 0 = Normal Age ?> 0 = <45 Risk factors ?> 1 = 1-2 risk factors Initial troponin ?> 0 = <Normal limit Patient Education/Shared MDM: Results of lab work and imaging shared with patient. Patient strongly advised to maintain hydration status upon discharge and follow-up with his PCP as soon as possible. He will not be discharged home with any new prescriptions. Strict return precautions provided. Patient verbalized understanding and is in agreement with plan. Vital signs stable at time of discharge. All questions answered. Differential Diagnosis Differential diagnosis: Likely migraine, tension headache, headache and other (Palpitations, dizziness, anxiety) Lab Data Attestation: I reviewed the patient's lab results. 12/24/24 23:35 12/24/24 23:35 Labs: Lab Results 12/24/24 12/24/24 Range/Units 23:02 23:35 WBC 7.2 (4.5-10.0) K/mm3 RBC 5.26 (4.6-6.20) M/mm3 Hgb 14.9 (14.0-18.0) g/dL Hct 44.3 (42.0-52.0) % MCV 84.2 (80-100) fl MCH 28.3 (26-34) pg MCHC 33.6 (32-36) g/dl RDW 12.7 (11.5-14.5) % Plt Count 208 (150-375) k/mm3 MPV 9.6 (7.4-10.4) fl Immature Gran % (Auto) 1.1 H (0-0.5) % Neut % (Auto) 73.7 H (45.5-73.1) % Lymph % (Auto) 16.7 L (18.3-44.2) % [place] % (Auto) 7.2 (2.6-8.5) % Eos % (Auto) 1.0 (0-4.4) % Baso % (Auto) 0.3 (0.2-1.2) % Lymph # (Auto) 1.20 (0.9-3.2) K/mm3 [place] # (Auto) 0.5 (0.1-0.6) K/mm3 Eos # (Auto) 0.1 (0-0.3) K/mm3 Baso # (Auto) 0.0 (0.0-0.1) K/mm3 Abs Immat Gran (auto) 0.08 H (0.00-0.031) K/mm3 Absolute Neuts (auto) 5.3 (1.3-6.7) K/mm3 Absolute Nucleated RBC 0.000 (0.0-0.012) K/mm3 Nucleated RBC % 0.0 (0.0-0.2) % Sodium 139 (137-145) mmol/L Potassium 4.1 (3.4-5.0) mmol/L Chloride 102 (98-107) mmol/L Carbon Dioxide 28 (22-30) mmol/L Anion Gap 9 (4-12) mmol/L BUN 12 (9-20) mg/dL Creatinine 0.72 (0.7-1.3) mg/dL Estim Creat Clear Calc 159 ml/min Estimated GFR > 60 (59 - ) Glucose 91 (65-110) mg/dL Calcium 9.7 (8.4-10.2) mg/dL Total Bilirubin 0.5 (0.2-1.3) mg/dL AST 41 (17-59) U/L ALT 53 H (6-50) U/L Alkaline Phosphatase 72 (38-126) U/L Troponin I < 0.012 (0.000-0.034) ng/mL Total Protein 8.2 (6.3-8.2) g/dL Albumin 4.8 (3.5-5.1) g/dL TSH 1.730 (0.465-4.680) uIU/mL Urine Color Yellow (Yellow) Urine Appearance Clear (Clear) Urine pH 7.0 (5.0-9.0) Ur Specific [place] 1.014 (1.001-1.035) Urine Protein Negative (Negative) mg/dL Urine Glucose (UA) Negative (Negative) mg/dL Urine Ketones Negative (Negative) mg/dL Ur Blood (Man) Negative (Negative) Urine Nitrate Negative (Negative) Urine Bilirubin Negative (Negative) Urine Urobilinogen 0.2 (<2.0) mg/dL Leukocyte Esterase Rfl Negative (Negative) NATALI/UL Urine Opiates Screen Negative (Negative) Urine Methadone Screen Negative (Negative) Ur Barbiturates Screen Negative (Negative) Ur Phencyclidine Scrn Negative (Negative) Ur Amphetamine Screen Negative (Negative) U Benzodiazepines Scrn Negative (Negative) Urine Cocaine Screen Negative (Negative) U Cannabinoids Screen Negative (Negative) Monoscreen Negative (Negative) Influenza A (RT-PCR) Negative (Negative) Influenza B (RT-PCR) Negative (Negative) RSV (RT-PCR) Negative (Negative) SARS-CoV-2 RNA (RT-PCR) Negative (Negative) Imaging Data Attestation: I personally reviewed and interpreted this imaging study as follows: Radiologist's impression: Patient's CT scan indicates no acute abnormalities. Discharge Plan Discharge Clinical Impression: Atypical chest pain, Dizziness Patient Disposition: Home Condition: Stable Instructions: Antibiotic Form, Noncardiac Chest Pain (ED) Additional Instructions: Please return to the ER with any worsening symptoms. Follow-up with ER primary care provider as soon as possible. Take all medications as prescribed, including regularly scheduled medications. Patient Language: Filipino Prescriptions: No Action hydroxyzine HCl 25 mg tablet 25 mg PO TID PRN (Reason: Anxiety) Qty: 60 0RF ibuprofen 600 mg tablet 600 mg PO TID PRN (Reason: pain) Qty: 20 0RF Follow-up/Referrals: Bebeto Yusuf DO [Primary Care Provider, Family Practice] Stand Alone Forms: Work/School Release IP Time of Disposition: 01:37
[2024-12-24 23:10] LABS: Add Urine Microscopic? NO; Appearance Urine Clear (Clear); Glucose Urine UA Negative (Negative); Leukocyte Esterase Ur Negative LEU/UL (Negative); Nitrate Urine Negative (Negative); Specific Grav Ur 1.014 (1.001-1.035)
--- OUTSIDE RECORDS SUMMARY | 2024-12-24 23:11 | XMS_ITS | Clinical Summary ---
Author Organization [facility] Address [address] [facility] [place] [address] Care Team Providers Care Setter Machine Name Role Phone Triny Randhawa MD Primary Care Provider [phone] Source Comments [facility],non-owned Affiliates and Associated Physician Practices is amultiple site organization consisting of ambulatory clinics and hospital sitesin [place], [place], [place] and [place]. This disclosure is being madepursuant to the Care Everywhere program and may not contain all information available regarding this patient. Last updated 18.[employer] [facility] Allergies No known active allergies Medications * [...] on file Legal Sex Male 9:35 AM DISPLAY MAKER Gender Identity Not on file Sexual Orientation Not on file Last Filed Vital Signs Vital Sign Reading Time Taken Comments Blood Pressure 114/60 03/13/2010 4:06 PM DISPLAY MAKER Pulse 84 03/13/2010 4:06 PM DISPLAY MAKER Temperature 36.6 C (97.8 F) 01/21/2014 1:32 [...] topic Insurance MEDICAID - [place] Care Teams Setter Machine Relationship Specialty Start Date End Date Triny Randhawa MD [address] [place] [address] [place] [id number] PCP - General Family Medicine 10/26/13
--- OUTSIDE RECORDS SUMMARY | 2024-12-24 23:11 | XMS_ITS | Clinical Summary ---
Author Organization [facility] Address [address] [place] [address] Care Team Providers Care Public Relations Assistant Name Role Phone Unavailable Primary Care Provider [...] Date Smoking Tobacco: Every Day Cigarettes 0.3 5.7 Started: 2019 Passive Smoke Exposure: Current Smokeless Tobacco: Never Tobacco Cessation:Ready to Q uit: Not Asked; Counseling Given: Not Answered Alcohol Use Standard Drinks/Week Comments Not Currently 0 (1 standard drink = 0.6 oz pur e alcohol) Sex and Gender Information Value Date Recorded Sex Assigned at Not on file Legal Sex Male 9:43 AM RADIO FREQUENCY DESIGN ENGINEER Gender Identity Not on file Sexual Orientation Not on file Last Filed Vital Signs Vital Sign Reading Time Taken Comments Blood Pressure 146/98 05/18/2024 11:46 AM RADIO FREQUENCY DESIGN ENGINEER Pulse 101 05/18/2024 11:46 AM RADIO FREQUENCY DESIGN ENGINEER Temperature - - Respiratory Rate - - Oxygen Saturation 98% 05/18/2024 11: 46 AM RADIO FREQUENCY DESIGN ENGINEER Inhaled Oxygen Concentration - - Weight 101.3 kg (223 lb 6.4 oz) 025 11:46 AM RADIO FREQUENCY DESIGN ENGINEER Height 188 cm (6' 2) 05/18/2024 11:46 AM RADIO FREQUENCY DESIGN ENGINEER Body Mass Index 28.68 05/18/2024 11:46 AM RADIO FREQUENCY DESIGN ENGINEER Plan of Treatment Health Maintenance Due Date [...]
[2024-12-24] MEDS: SODIUM CHLORIDE 0.9% IV 1,000 ML 999 ML IV CONT (23:45)
[2024-12-24 23:46] LABS: Hematocrit 44.3 % (42.0-52.0); Hemoglobin 14.9 g/dL (14.0-18.0); Immature Granulocyte Percent A 1.1 % (0-0.5); Lymphocytes Absolute Auto 1.20 K/mm3 (0.9-3.2); Mean Corpuscular HGB Conc 33.6 g/dl (32-36); Mean Corpuscular Hemoglobin 28.3 pg (26-34); Mean Corpuscular Volume 84.2 fl (80-100); Nucleated Red Blood Cells Absolute Auto 0.000 K/mm3 (0.0-0.012); Nucleated Red Blood Cells Perc 0.0 % (0.0-0.2); Platelet Count Result 208 k/mm3 (150-375); Red Blood Count 5.26 M/mm3 (4.6-6.20); White Blood Count 7.2 K/mm3 (4.5-10.0)
[2024-12-24 23:48] LABS: Cannabinoid Screen Urine Negative (Negative)
[2024-12-24 23:53] LABS: Negative Monotest Control Negative (Negative); Positive Monotest Control Positive (Positive)
[2024-12-24 23:58] LABS: Alanine Aminotransferase 53 U/L (6-50); Albumin Level 4.8 g/dL (3.5-5.1); Alkaline Phosphatase 72 U/L (38-126); Anion Gap 9 mmol/L (4-12); Aspartate Amino Transferase 41 U/L (17-59); Bilirubin,Total 0.5 mg/dL (0.2-1.3); Blood Urea Nitrogen 12 mg/dL (9-20); Calcium 9.7 mg/dL (8.4-10.2); Carbon Dioxide 28 mmol/L (22-30); Chloride 102 mmol/L (98-107); Estimated CRCL calculation 159 ml/min; Estimated Glomerular Filt Rate > 60; Glucose 91 mg/dL (65-110); Potassium 4.1 mmol/L (3.4-5.0); Sodium 139 mmol/L (137-145); Total Protein 8.2 g/dL (6.3-8.2)
[2024-12-25 00:09] LABS: Troponin I < 0.012 ng/mL (0.000-0.034)
[2024-12-25 00:19] LABS: Influenza A QL RT-PCR Negative (Negative); Influenza B QL RT-PCR Negative (Negative); RSV RNA, RT-PCR Negative (Negative); SARS-CoV-2 RNA PCR Negative (Negative)
[2024-12-25 00:27] LABS: Thyroid Stimulating Hormone 1.730 uIU/mL (0.465-4.680)
== END 2024-12-25 02:05 | disposition home or self-care (01) ==
PROVIDERS: Emergency Provider Registered Nurse; PCP Family Medicine
DX: R42 Dizziness and giddiness (principal); R07.89 Other chest pain; Z20.822 Contact with and (suspected) exposure to COVID-19; K21.9 Gastro-esophageal reflux disease without esophagitis; F41.9 Anxiety disorder, unspecified; F17.210 Nicotine dependence, cigarettes, uncomplicated; R94.31 Abnormal electrocardiogram [ECG] [EKG]
CPT/HCPCS: 36415; 70450; 71046; 80053; 80307; 81003; 84443; 84484; 85025; 86308; 87637; 93005; 96360; 99284; J7030

== ENCOUNTER 2025-01-20 08:05 | Emergency (ER) | payer OTHER, SELFPAY ==
--- OUTSIDE RECORDS SUMMARY | 2025-01-20 08:15 | XMS_ITS | Clinical Summary ---
Author Organization [facility] Address [address] [place] [address] Care Team Providers Care Mold Checker Name Role Phone Triny Randhawa MD Primary Care Provider [phone] Source Comments [facility],non-owned Affiliates and Associated Physician Practices is amultiple site organization consisting of ambulatory clinics and hospital sitesin [place], [place], [place] and [place]. This disclosure is being madepursuant to the Care Everywhere program and may not contain all information available regarding this patient. 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 [phone] PCP - General Family Medicine 10/26/13
--- OUTSIDE RECORDS SUMMARY | 2025-01-20 08:15 | XMS_ITS | Clinical Summary ---
Author Organization [facility] Address [address] [place] [address] Care Team Providers Care Infrastructure Developer Name Role Phone Unavailable Primary Care Provider [...] file Legal Sex Male 9:43 AM DIRECTOR MEDICAL SURGICAL Gender Identity Not on file Sexual Orientation Not on file Last Filed Vital Signs Vital Sign Reading Time Taken Comments Blood Pressure 146/98 05/18/2024 11:46 AM DIRECTOR MEDICAL SURGICAL Pulse 101 05/18/2024 11:46 AM DIRECTOR MEDICAL SURGICAL Temperature - - Respiratory Rate - - Oxygen Saturation 98% 05/18/2024 11: 46 AM DIRECTOR MEDICAL SURGICAL Inhaled Oxygen Concentration - - Weight 101.3 kg (223 lb 6.4 oz) 025 11:46 AM DIRECTOR MEDICAL SURGICAL Height 188 cm (6' 2) 05/18/2024 11:46 AM DIRECTOR MEDICAL SURGICAL Body Mass Index 28.68 05/18/2024 11:46 AM DIRECTOR MEDICAL SURGICAL Plan of Treatment Health Maintenance Due Date Last Done Comments Annual Physical 2003 Hepatitis C 2018 Pneumococcal Vaccine: Pediatrics (0 to 5 Years) and At-Risk Patients (6 to 49 Years) (1 of 2 - PCV) 2019 2000, 2000, 2000 COVID-19 Vaccine (3 - season) 2024 04/27/2021, 04/06/2021 DTaP, Tdap and Td Vaccines [...]
--- OUTSIDE RECORDS SUMMARY | 2025-01-20 08:15 | XMS_ITS | Patient Health Record ---
Author Organization [facility] [employer] Address [address] [facility] [address] [place] [address] Care Team Providers Care Television Reporter Name Role Phone Bebeto Yusuf DO Primary Care Provider Aminata Sanchez Unavailable [phone] Allergies No Known Allergies Results Component Value Reference Range Notes UDT Reviewed date:06/15/2024 10:16:49 AM Interpretation: Performing Lab: Notes/Report: THC NEG 0 - 50 ng/ml Cocaine NEG 0 - 300 ng/ml Amphetamine NEG 0 - 1000 ng/ml Buprenorphine (BUP) NEG 0 - 10 ng/ml Secobarbital (Bar) NEG 0 - 300 ng/ml Oxazepam (BZO) NEG 0 - 300 ng/ml 8-dazjgnvmkv-7,3-cgdytitd-0,3-diphenylpyrrolidine (LENCHO P) NEG 0 - 300 ng/ml Methamphetamine (MET) NEG 0 - 1000 ng/ml Methylenedioxymethamphetamine (MDMA) NEG 0 - 500 ng/ml Morphine (MOP 300/[id number]) NEG 0 - 300 ng/ml Methadone (MTD) [...] son Level of education: not finished college [employer] Marital status of the child's parents: With [...] W/U Status Risk Notes Problem Tobacco use (685781040) Tobacco use (Z72.0) Active confirmed Problem Generalized anxiety disorder (25333647) LATESHA (generalized anxiety disorder) (F41.1) Active confirmed Problem Moderate recurrent major depression (92128206) MDD (major depressive disorder), recurrent episode, moderate (F33.1) Active confirmed Problem Panic disorder (676029029) Panic disorder (F41.0) Active confirmed Vital Signs Heart Rate 75 /min 06/15/2024 Respiratory Rate 17 /min 06/15/2024 Height-cm 187.96 cm 06/15/2024 Blood pressure diastolic 82 mm Hg 06/15/2024 Weight-kg 104.6 kg 06/15/2024 Height 74 in 06/15/2024 Blood pressure systolic 118 mm Hg 06/15/2024 Weight 230.6 lbs 06/15/2024 BMI 29.6 kg/m2 06/15/2024 Encounters Encounter Location Date Provider Diagnosis [facility] [address] [facility] [address] [place] [address] 06/15/2024 Aminata Cespedes MDD (major depressive disorder), recurrent episode, moderate F33.1 ; LATESHA (generalized anxiety disorder) F41.1 ; Panic disorder F41.0 and Tobacco use Z72.0 [facility] [address] [facility] [address] [place] [address] 07/06/2024 Aminata Cespedes Assessments Encounter Date Diagnosis [...] nicotine products and stop smoking hotline given 3-Quit - Yes [place] Tobacco Quitline Call a Smoking Quitline [facility] [place] Smoking Quitline, (9-693-34Z-QUIT) Smokefree.gov, which connects you with your [facility]'s Quitline, (3-269-ZSRSVKM) [facility] Smoking Quitline, (7-344-YDKRYKL) appointment's, continue therapy discussion with patient about [...] stop smoking hotline given 17-Quit - Yes [place] Tobacco Quitline Call a Smoking Quitline [facility] [place] Smoking Quitline, (4-559-51Q-QUIT) Smokefree.gov, which connects you with your State's Quitline, (7-022-VVRIKNA) [facility] Smoking Quitline, (0-289-WQCCEBJ) appointment's, continue therapy discussion with patient about [...] nicotine products and stop smoking hotline given 24-Quit - Yes [place] Tobacco Quitline Call a Smoking Quitline [facility] [place] Smoking Quitline, (0-868-57U-QUIT) Smokefree.gov, which connects you with your State's Quitline, (6-374-RRAOOCG) [facility] Smoking Quitline, (7-742-JPNUCFV) appointment's, continue therapy discussion with patient about [...] stop smoking hotline given -Quit - Yes [place] Tobacco Quitline Call a Smoking Quitline [facility] [place] Smoking Quitline, (7-174-76S-QUIT) Smokefree.gov, which connects you with your State's Quitline, (2-028-GLESQBY) [facility] Smoking Quitline, (7-809-BHKPBIW) appointment's, continue therapy discussion with patient about [...] stop smoking hotline given Quit - Yes [place] Tobacco Quitline Call a Smoking Quitline [facility] [place] Smoking Quitline, (8-425-34O-QUIT) Smokefree.gov, which connects you with your State's Quitline, (7-517-QKQHWTH) [facility] Smoking Quitline, (6-890-VEIVNQB) appointment's, continue therapy discussion with patient about [...] Insured Coverage Start Date Coverage End Date Merged with [facility] [address] [place] [address] [id number] Oliverio Castaneda Self - patient is the insured Medical (General) History Hospitalization History Reason Date(Month/Year) Panic Attacks hospitalized states 50 - 6 0 in the past year alone
[2025-01-20 08:22] VITALS: BP 136/74; PULSE 95; RESP 18; TEMP 36.9; O2SAT 99
[2025-01-20 08:53] LABS: EDSTREPNEGPOS1 Negative (Negative)
--- NOTE | 2025-01-20 09:05 | ED_ITS ---
HPI - URI/Sore Throat General Chief Complaint: Upper Respiratory Infection Stated Complaint: URI Time Seen by Provider: 01/20/25 08:40 Source: patient and RN notes reviewed Mode of arrival: ambulatory Limitations: no limitations History of Present Illness HPI Narrative: 24-year-old male presents Express Care complaining of upper respiratory symptoms for 1 week. Patient complaining of sore throat, cough, congestion, sinus pressure, runny nose. Patient denies any fevers, body aches, chills, nausea vomiting, diarrhea, chest pain, difficulty breathing, wheezing, or any other symptoms. Patient denies any significant past medical history. Patient has not done anything [id number] to help with symptoms. Patient says today woke up in the symptoms are significantly worse. Related Data Allergies Allergy/AdvReac Type Severity Reaction Status Date / Time No Known Allergies Allergy Verified 01/20/25 08:25 Review of Systems Review of Systems: CONSTITUTIONAL: Denies fever, chills, body aches, or sweats. EYES: Denies visual changes, redness, or discharge. ENT: Positive for rhinorrhea, sinus pressure, congestion, sore throat. Negative for otalgia. CARDIOVASCULAR: Denies chest pain, palpitations, or edema. RESPIRATORY: Positive for cough. Negative for dyspnea or wheezing. GASTROINTESTINAL: Denies abdominal pain, nausea, vomiting, or diarrhea. GENITOURINARY: Denies dysuria or hematuria. SKIN: Denies rash or itching. MUSCULOSKELETAL: Denies back pain, joint pain, or myalgia. NEUROLOGIC: Denies headache, numbness, or weakness. PSYCHIATRIC: Denies anxiety or depression. All other systems reviewed are negative, except as documented in HPI. [facility] Past Medical History Medical History Epididymal cyst Recurrent major depression resistant to treatment Headache GERD (gastroesophageal reflux disease) History of anxiety Family History Family History Mother Depression Heart problem Colon cancer Asthma Father Hypertension Depression Anxiety Sibling Depression Anxiety Grandparent , 67yo Depression Anxiety Liver cancer Lung cancer Hypertension Grandparent History of thyroid surgery Social History Social History Smoking status: Current every day smoker Tobacco type: cigarettes Substance use type: does not use Other substance usage details: Caffeine (multiple energy drinks daily, occasional coffee) Do You Feel Safe in your Home?: Yes Lack of Transportation: No Lack of Food: Never True Current Housing: I Have Housing Concerned About Future Housing: No Difficulty Paying Gas/Electric Bills: No Difficulty Paying for Meds: No Currently Unemployed: No Education: High School Diploma/GED Difficulty w/ Childcare or Family Care: No Living arrangements: with family Additional living arrangements comments: , [place] Occupation/Education: occupation Gender identity (if verbalized by the patient): Male Comments At the time of my signature, I reviewed and agree with the nursing past medical, surgical, social, and family history. There is no relevant family history pertinent to the patient complaint. Exam Narrative: GENERAL: This is a well-nourished, well-developed adult, in no apparent distress. They are non ill-appearing, nontoxic appearing. HEAD: normocephalic, atraumatic. EYES: Sclera clear/white. Vision is grossly intact. Conjunctiva normal bilaterally. Extraocular movements intact. EARS: External ears normal, auditory canals clear and without drainage, TMs without erythema or perforation. Hearing grossly intact. NOSE: External nose normal with no obvious nasal discharge, nasal turbinates erythematous with exudate present, no rhinorrhea. Maxillary sinus tenderness to palpation. THROAT: Mucous membranes moist, posterior pharynx erythematous without exudate. Uvula is midline. Postnasal drip present. NECK: Neck supple, non-tender without lymphadenopathy, masses or thyromegaly. CARDIOVASCULAR: Regular rate and rhythm without murmurs, gallops, or rubs. RESPIRATORY: Clear to auscultation. Breath sounds equal bilaterally. No wheezes, rales, or rhonchi. SKIN: warm, Dry, intact with no suspicious lesions or rash, good texture and turgor. NEURO: awake, alert, and oriented to person, place and time. There were no obvious focal neurologic abnormalities. EXTREMITIES: No joint tenderness, effusion, or edema noted. BACK: Nontender without deformity. Course Course Emergency Course: Portions of this record may have been created with voice recognition software Level of Care: Express Care Visit Vital Signs Vital signs: Vital Signs Temperature 98.5 F 01/20/25 08:22 Pulse Rate 95 01/20/25 08:22 Respiratory Rate 18 01/20/25 08:22 Blood Pressure 136/74 01/20/25 08:22 Pulse Oximetry 99 01/20/25 08:22 Oxygen Delivery Room Air 01/20/25 08:22 Temperature 98.5 F 01/20/25 08:22 Pulse Rate 95 01/20/25 08:22 Respiratory Rate 18 01/20/25 08:22 Blood Pressure 136/74 01/20/25 08:22 Pulse Oximetry 99 01/20/25 08:22 Oxygen Delivery Room Air 01/20/25 08:22 MDM - URI/Sore Throat MDM Narrative Medical decision making narrative: Rapid strep negative. A throat culture pending. Given patient's length of symptoms and worsening symptoms likely has a bacterial sinusitis. Will go ahead and treat with Augmentin. Discussed physical exam findings. Advised supportive measures and signs/symptoms to go to the ER. Pt is appropriate for outpt treatment and f/u. Differential Diagnosis Differential diagnosis: Likely upper respiratory infection, sinusitis, viral infection and pharyngitis Lab Data Attestation: I reviewed the patient's lab results. Labs: Lab Results 01/20/25 Range/Units 08:51 POC Grp A Strep Screen Negative (Negative) Discharge Plan Discharge Clinical Impression: Sinusitis Qualifiers: Sinusitis location: unspecified location Chronicity: acute Recurrence: non- recurrent Qualified Code(s): J01.90 - Acute sinusitis, unspecified Patient Disposition: Home Condition: Stable Instructions: Antibiotic Form, Sinusitis (ED) Additional Instructions: Your Rapid strep is negative today. A throat culture be sent off and if it is positive for strep you will be contacted. Take the antibiotics as directed and complete the course even if you start to feel better. You may use a Neti pot saline rinse 3 times a day with lukewarm distilled water May take Tylenol or ibuprofen as needed for pain or fevers. You may take ibuprofen 600 mg to 800 mg every 6-8 hours. Do not exceed more than 800 mg of ibuprofen per dose. Do not exceed more than 3200 mg ibuprofen in a day. You may take up to 1000 mg Tylenol every 6-8 hours. Do not exceed 1000 mg per dose, do exceed more than 4000 mg of Tylenol in a day. Use a humidifier or vaporizer at night. Drink plenty of water. 8-10 glasses per day. Use flonase 2 times per day for 5 days then as needed Take mucinex 2 times per day and be sure to take with 8oz of water. Follow up with Primary provider in 3-5 days Please go to the ER if he develops any difficulty breathing, worsening symptoms, or any other concerns Patient Language: Turkish Prescriptions: New amoxicillin-pot clavulanate 875-125 mg tablet 1 tablet PO Q12H 7 Days Qty: 14 0RF No Action hydroxyzine HCl 25 mg tablet 25 mg PO TID PRN (Reason: Anxiety) Qty: 60 0RF lisinopril 2.5 mg tablet 2.5 mg PO DAILY Qty: 30 1RF Follow-up/Referrals: Bebeto Yusuf DO [Primary Care Provider, Family Practice] Stand Alone Forms: Work/School Release IP Time of Disposition: 08:51
== END 2025-01-20 08:57 | disposition home or self-care (01) ==
PROVIDERS: PCP Family Medicine
DX: J01.90 Acute sinusitis, unspecified (principal); F17.210 Nicotine dependence, cigarettes, uncomplicated; K21.9 Gastro-esophageal reflux disease without esophagitis; F41.9 Anxiety disorder, unspecified
CPT/HCPCS: 87081; 87880; 99213; G0463

== ENCOUNTER 2025-04-18 10:52 | Emergency (ER) | payer OTHER, SELFPAY ==
--- NOTE | ~2025-04-18 | XR_ITS ---
Examination: XR chest 1V portable Clinical History: SOB Comparison: 12/24/2024 Technique: Portable AP Findings: Heart size normal. Lungs clear. No acute bony abnormality. IMPRESSION: 1. No acute cardiopulmonary findings given portable technique. Reviewed, dictated and finalized at location R. [facility] ASSISTANT
--- OUTSIDE RECORDS SUMMARY | 2025-04-18 10:55 | XMS_ITS | Patient Health Record ---
Author Organization [facility] [employer] Address [address] [facility] [address] [place] [address] Care Team Providers Care Reinforcing Iron Worker Helper Name Role Phone Bebeto Yusuf DO Primary Care Provider Aminata Sanchez Unavailable [phone] Allergies No Known Allergies Results Component Value Reference Range Notes UDT Reviewed date:06/15/2024 10:16:49 AM Interpretation: Performing Lab: Notes/Report: Amphetamine (AMP) NEG 0 - 1000 ng/ml Buprenorphine (BUP) NEG 0 - 10 ng/ml Oxazepam (BZO) NEG 0 - 300 ng/ml Cocaine (YOLA) NEG 0 - 300 ng/ml Methamphetamine (mAMP) NEG 0 - 300 ng/ml Methylenedioxymethamphetamine (MDMA) NEG 0 - 500 ng/ml Morphine (MOP) NEG 0 - 25 ng/ml Methadone (MTD) NEG 0 - 300 ng/ml Oxycodone (OXY) NEG 0 - 300 ng/ml THC NEG 0 - 50 ng/ml x NEG 0 - 1000 ng/ml x NEG 0 - 1000 ng/ml x NEG 0 - 300 ng/ml x NEG 0 - 300 ng/ml x NEG [...] son Level of education: not finished college [employer] [facility] Marital status of the child's parents: With [...] W/U Status Risk Notes Problem Tobacco use (855162807) Tobacco use (Z72.0) Active confirmed Problem Generalized anxiety disorder (89977718) LATESHA (generalized anxiety disorder) (F41.1) Active confirmed Problem Moderate recurrent major depression (93409559) MDD (major depressive disorder), recurrent episode, moderate (F33.1) Active confirmed Problem Panic disorder (751528902) Panic disorder (F41.0) Active confirmed Vital Signs Heart Rate 75 /min 06/15/2024 Respiratory Rate 17 /min 06/15/2024 Height-cm 187.96 cm 06/15/2024 Blood pressure diastolic 82 mm Hg 06/15/2024 Weight-kg 104.6 kg 06/15/2024 Height 74 in 06/15/2024 Blood pressure systolic 118 mm Hg 06/15/2024 Weight 230.6 lbs 06/15/2024 BMI 29.6 kg/m2 06/15/2024 Encounters Encounter Location Date Provider Diagnosis [email or web address] [address] [facility] [address] [place] [address] 06/15/2024 Aminata Cespedes MDD (major depressive disorder), recurrent episode, moderate F33.1 ; LATESHA (generalized anxiety disorder) F41.1 ; Panic disorder F41.0 and Tobacco use Z72.0 [facility] [email or web address] [address] [facility] [place] [address] 07/06/2024 Aminata Thery Assessments Encounter Date Diagnosis (ICD Code) Assessment [...] nicotine products and stop smoking hotline given 439-Quit - Yes [place] Tobacco Quitline Call a Smoking Quitline [facility] [place] Smoking Quitline, (4-239-40F-QUIT) Smokefree.gov, which connects you with your State's Quitline, (7-980-HSQQYFU) [facility] Smoking Quitline, (6-043-EKODYMV) appointment's, continue therapy discussion with patient about [...] nicotine products and stop smoking hotline given 835-Quit - Yes [place] Tobacco Quitline Call a Smoking Quitline [facility] [place] Smoking Quitline, (1-944-21G-QUIT) Smokefree.gov, which connects you with your State's Quitline, (0-629-MCGIDKM) [facility] Smoking Quitline, (3-928-UNHMAYK) appointment's, continue therapy discussion with patient about [...] nicotine products and stop smoking hotline given 444-Quit - Yes [place] Tobacco Quitline Call a Smoking Quitline [facility] [place] Smoking Quitline, (1-117-16C-QUIT) Smokefree.gov, which connects you with your State's Quitline, (8-428-YZYYRHE) [facility] Smoking Quitline, (2-591-BBIQAXA) appointment's, continue therapy discussion with patient about [...] nicotine products and stop smoking hotline given 41-Quit - Yes [place] Tobacco Quitline Call a Smoking Quitline [facility] [place] Smoking Quitline, (5-021-66J-QUIT) Smokefree.gov, which connects you with your State's Quitline, (8-780-XNBTLKL) [facility] Smoking Quitline, (2-835-MOVJITI) appointment's, continue therapy discussion with patient about [...] Call a Smoking Quitline [facility] [place] Smoking Quitline, (9-450-22T-QUIT) Smokefree.gov, which connects you with your State's Quitline, (9-171-AWAMRMG) [facility] Smoking Quitline, (8-729-NYHCFXS) appointment's, continue therapy discussion with patient about [...] Insured Coverage Start Date Coverage End Date [facility] [address] [place] [address] [id number] Oliverio Castaneda Self - patient is the insured Medical (General) History Hospitalization History Reason Date(Month/Year) Panic Attacks hospitalized states 50 - 6 0 in the past year alone
--- OUTSIDE RECORDS SUMMARY | 2025-04-18 10:55 | XMS_ITS | Data Portability ---
Author Organization [facility] [employer], Main Office Address [address] [place] [address] Assessment No assessment recorded. Plan of Treatment Reminders Order Date Submit Date Provider Last Modified By Organization Details Last Modified Time Details Appointments None recorded. Lab CBC w/ auto diff 2023 024 [email or web address] 4 [facility], [address] [place], [address], 09:59:22 CMP, serum or plasma 2023 024 4 [facility], [address] [place], [address], 09:59:41 lipid panel, serum 2023 024 4 [facility] (Lab), [address] [place], [address], 09:59:03 TSH + free T4, serum 2023 024 [email or web address] 4 [facility], [address] [place], [address], 10:00:00 HbA1c (hemoglobin A1c), blood 2023 024 [email or web address] 4 [facility], [address] [place], [address], 09:58:39 hepatitis C virus Ab, serum 2023 024 4 [facility] ([facility]), [address] [place], [address], 09:58:02 Referral None recorded. Procedures None recorded. Surgeries None recorded. Imaging None recorded. Medication Orders sertraline 50 mg tablet [address] [id number], [address] [facility], [place], [place], [id number], 5 09:37:10 propranolol 10 mg tablet [address] [facility]37022, [address] [facility], [place], [place], [id number], 5 09:37:29 hydroxyzine HCl 25 mg tablet 2023 024 [facility] #97669, [address] [facility], [place], [place], [id number], 4 11:11:04 hydroxyzine HCl 25 mg tablet 2023 024 [facility] #31885, [address] [facility], [place], [place], [id number], 4 11:11:04 lisinopril 40 mg tablet 2023 024 [email or web address] [facility] #46969, [address] [facility], [place], [place], [id number], 4 17:57:59 Patient TargetsNo targets recorded. Patient Instructions Encounter Date Encounter Id Patient Instructions Last Modified By Organization Details Last Modified Time 03/04/2024 [id number] Follow up in 3 month and as needed Prescriptions sent to pharmacy Obtain labs Tests: Referral: Recommend: pham Not available 03/04/2024 09:35:20 Reason for Referral None Reported. Results Created Date Observation Date Name Description Value Unit Range Abnormal Flag Note LastModifiedBy Organization Detail LastModifiedTime 08/08/19 24 07/29/2023 dragan r monit or No observ ation record ed. [email or web address] [facility] ([facility]) [address] [place], [place] [address]e [facility], [place], [address], 08/16/2023 10:07:04 12/24/19 24 12/21/2023 XR, chest , 1 view No observ ation record ed. [address] [address], [place], [address], 01/02/2024 10:43:12 03/23/20 24 03/22/2024 XR, chest , 2 view No observ ation record ed. [email or web address] [address] [address], [place], [address], 03/23/2024 10:03:20 04/02/20 24 04/01/2024 XR, chest , 2 view No observ ation record ed. [email or web address] [address] [address], [place], [address], 04/02/2024 10:01:37 Result Notes None recorded. Problems Name Problem SNOMED Code Status Onset Date Resolution Date Notes Provider Name and Address Organization Details Recorded Time Rib pain 744585566 Active Not Available [facility] 3 09:19:17 Fracture of clavicle 13914983 Active Not Available [facility] 3 09:19:17 Tachycardi a 6374687 Active Sandi Atwood APRN [address], [facility] [address], [place], [address] , [employer] 5 09:34:03 Weight gain 7337097 Active 2022 LUIS Franklin [address], [place], [address] , [employer] [facility] [employer] 3 09:16:13 Nicotine dependence 09234452 Active 2022 Sandi Atwood APRN [address], [address] [address], [place], [address] , [employer] 4 10:33:42 Cobalamin deficiency 572746338 Active 2022 Sandi Atwood APRN [address], [address] [address], [place], [address] , [employer] 4 10:33:31 Vitamin D deficiency 03370044 Active 2022 Sandi Atwood APRN [address], [address] [address], [place], [address] , [employer] 4 10:33:51 Essential hypertensi on 90392582 Completed 202303/04/2024 Sandi Atwood APRN [address], [address] [address], [place], [address] , [employer] 4 09:20:19 Intermitte nt palpitatio ns 321112093 Active 2023 Sandi Atwood APRN [address], [address] [address], [place], [address] , [employer] 4 10:33:40 Anxiety 42689084 Active 2023 Sandi Atwood APRN [address], [address] [address], [place], [address] , [employer] 4 10:33:29 Panic attack 086601114 Active 2023 Sandi Atwood APRN [address], [address] [address], [place], [address] , [employer] 4 10:33:45 Gastroesop hageal reflux disease 071408329 Active 2023 Sandi Atwood APRN [address], [address] [address], [place], [address] , [employer] 4 09:23:45 Problem Notes None recorded. Procedures Surgical History Date Name Laterality Status Provider Name and Address Organization Details Recorded Time Tonsillectomy completed Yamilet Hoover MA [employer] 03/04/2024 09:14:50 Imaging Results None recorded. Procedure Notes None recorded. Medical Equipment None Reported. Allergies Allergen ID Allergen Name Allergen Category Reaction Reaction Severity Criticality Documentation Date Start Date Code Code System Note Provider Name and Address Organization Details Recorded Time 75462 No known allergy (situatio n) Not available Not available Not available Not available 04/30/2024 54476 6003 SNOMED Sandisana Atwood, [employer] [address] [facility], [facility] [address], [place], [address] [facility] [employer] 09:34:09 No known drug allergies Medications Name [...] injection solution 10 mg by injection route. 04/01 completed Not Available Not Available Not Available [...] Not Available Not Available Vitals Date Recorded Systolic And Diastolic Provider Name and Address Organization Details Last Updated DateTime 07/30/2023 150/96 mm[Hg] Emily Ureña RN [facility] [employer] 07/30/2023 10:17:57 Date Recorded Systolic And Diastolic Provider Name and Address Organization Details Last Updated DateTime 08/13/2023 146/80 mm[Hg] Emily Ureña RN [facility] [employer] 08/13/2023 10:17:44 Date Recorded Body weight Body mass index (BMI) Body height Body temperature Heart rate Oxygen saturation Systolic And Diastolic Provider Name and Address Organization Details Last Updated DateTime 4 52515.8 1 g 26.8 kg/m2 187.96 cm 99.9 [degF] 69 /min 99 % 162/90 mm[Hg] Kenia Miller RN [facility] [employer] [facility] 4 10:01:50 Date Recorded Body height Body mass index (BMI) Body weight Body temperature Heart rate Oxygen saturation Systolic And Diastolic Provider Name and Address Organization Details Last Updated DateTime 4 187.96 cm 27.5 kg/m2 56263.7 7 g 98.7 [degF] 96 /min 97 % 146/88 mm[Hg] Kenia Miller RN [facility] [employer] [facility] 4 10:05:41 Date Recorded Body height Body mass index (BMI) Body weight Body temperature Heart rate Oxygen saturation Pain severity - 0-10 verbal numeric rating [Score] - Reported Systolic And Diastolic Provider Name and Address Organization Details Last Updated DateTime 4 187.96 cm 27.5 kg/m2 06895.7 7 g 99.2 [degF] 106 /min 98 % 0 140/70 mm[Hg] Yamilet Hoover MA [facility] [employer] [facility] 4 09:08:51 Social History Question Answer Notes LastModified by Organizat ion Details LastModified Time Tobacco Smoking Status Former Smoker Not Available [facility] 06/20/2022 09:13:38 What Is Your Level Of Caffeine Consumption? Heavy MIGRATION.[id number] 026 Information not available 06/20/2022 In The 14 Days Before Symptom Onset, Have You Had Close Contact With A Laboratory-confirm ed COVID-19 While That Case Was Ill? No MIGRATION.[id number] 026 Information not available 06/20/2022 In The 14 Days Before Symptom Onset, Have You Had Close Contact With A Person Who Is Under Investigation For COVID-19 While That Person Was Ill? No MIGRATION.3327910 026 Information not available 06/20/2022 What Type Of Diet Are You Following? REGULAR MIGRATION.7911690 026 Information not available 06/20/2022 Have There Been Any Changes To Your Family Or Social Situation? No Information no t available 03/04/2024 When Did You Quit Smoking? 1-5yearssinc elastcigaret te Information not available 03/04/2024 Do You Use Insect Repellent Routinely? No Information not available 03/04/2024 Where Do You Live? Condo Inform ation not available 03/04/2024 What Was The Date Of Your Most Recent Tobacco Screening? 03/04/2024 Information not available 03/04/2024 How Many Children Do You Have? 1 Information not available 03/04/2024 Have You Ever Been Counseled For Unhealthy Alcohol Use? No MIGRATION.6911660 026 Information not available 06/20/2022 Do You Have [...] Smoke? No Information no t available 03/04/2024 Are There Any Smokers In Your House? No Information not available 03/04/2024 How Much Tobacco Do You Smoke? 0.5 PPD Information not available 03/04/2024 Do You Use Sunscreen Routinely? No Information not available 03/04/2024 Has Tobacco Cessation Counseling Been Provided? No MIGRATION.[id number] 026 Information not available 06/20/2022 Have You Recently Traveled Abroad? No MIGRATION.9557020 026 Information not available 06/20/2022 Do You Have Any Dietary Restrictions? No MIGRATION.7964330 026 Information not available 06/20/2022 How Many Years Have You Used E-cigarettes Or Vape? 3 Information not available 03/04/2024 Sex: Male Functional Status Question Answer Note LastModified by Organizat ion Details LastModified Time Do you use any illicit or recreational drugs? No MIGRATION.370129 9640 Information not available 06/20/2022 Do you or have you ever used any other forms of tobacco or nicotine? Yes vape MIGRATION.637149 5553 Information not available 06/20/2022 What is your level of alcohol consumption? Occasional MIGRATION.670904 4513 Information not available 06/20/2022 Do you or have you ever used smokeless tobacco? Former smokeless tobacco user Information not available 03/04/2024 Are you currently employed? Yes Information not available 03/04/2024 What is your occupation? [employer] Information not available 03/04/2024 Do you or have you ever used e-cigarettes or vape? Current user of electronic cigarettes Information not available 03/04/2024 What is your exercise level? Heavy MIGRATION.849787 7557 Information not available 06/20/2022 Mental Status Question Answer Note LastModified by Organization D etails LastModified Time Do you feel stressed (tense, restless, nervous, or anxious, or unable to sleep at night)? [id number] Information not available 03/04/2024 Family History Nothing Reported Notes:unknown cancer on meredith rnal side heart disease paternal side Medical History No medical history recorded. Immunizations Vaccine Type Date Status Note Provider Nam e and Address Organization Details Recorded Time Hib, unspecified formulation 1 completed Sandi Atwood APRN [address], [place], [address], [employer] 02/29/2024 10:27:40 Hib, unspecified formulation 1 completed Sandi Atwood APRN [address], [address], [place], [address], [employer] 02/29/2024 10:27:40 Hib, unspecified formulation 2 completed Sandi Atwood APRN [address], [address], [place], [address], [employer] [facility] [employer] 02/29/2024 10:27:40 Hib-Hep B 2 completed Sandi Atwood APRN [address], [address], [place], [address], [facility] 02/29/2024 10:27:40 Hib-Hep B 1 completed Sandi Atwood APRN [address], [place], [address], [facility] 02/29/2024 10:27:40 IPV 1 completed Sandi Atwood APRN [address], [place], [address], [facility] 02/29/2024 10:27:40 IPV 1 completed Sandi Atwood APRN [address], [place], [address], [facility] 02/29/2024 10:27:40 IPV 2 completed Sandi Atwood APRN [address], [place], [address], [facility] 02/29/2024 10:27:40 IPV 1 completed Sandi Atwood APRN [address], [place], [address], [facility] 02/29/2024 10:27:40 IPV 6 completed Sandi Atwood APRN [address], [address], [place], [address], [facility] - [facility] 02/29/2024 10:27:40 MMR 2 completed Sandi Atwood APRN [address], [place], [address], [facility] 02/29/2024 10:27:40 MMR 6 completed Sandi Atwood APRN [address], [address], [place], [address], [facility] 02/29/2024 10:27:40 pneumococcal conjugate PCV 7 1 completed Sandi Atwood APRN [address], [place], [address], [facility] 02/29/2024 10:27:40 pneumococcal conjugate PCV 7 1 completed Sandi Atwood APRN [address], [place], [address], [facility] 02/29/2024 10:27:40 pneumococcal conjugate PCV 7 1 completed Sandi Atwood APRN [address], [place], [address], [facility] 02/29/2024 10:27:40 influenza, unspecified formulation 2 completed Sandi Atwood APRN [address], [place], [address], [facility] 02/29/2024 10:27:40 Tdap [address], [place], [address], [facility] 02/29/2024 10:27:40 Tdap 2 completed Sandi Atwood APRN [address], [place], [address], [employer] [facility] 02/29/2024 10:27:40 Tdap 3 completed Sandi Atwood APRN [address], [place], [address], [employer] [facility] 02/29/2024 10:27:40 varicella 1 completed CANDY O[address], [place], [address], [facility] 02/29/2024 10:27:40 influenza, split (incl. purified surface antigen) 0 completed Sandi Atwood APRN [address], [place], [address], [facility] 02/29/2024 10:27:40 Hep B, adolescent or pediatric 1 completed Sandi Atwood APRN [address], [place], [address], [facility] 02/29/2024 10:27:41 Hep B, adolescent or pediatric 1 completed Sandi Atwood APRN [address], [place], [address], [facility] 02/29/2024 10:27:41 Hep B, adolescent or pediatric 0 completed Sandi Atwood APRN [address], [place], [address], [facility] 02/29/2024 10:27:41 meningococcal MCV4P 8 completed Sandi Atwood APRN [address], [place], [address], [facility] 02/29/2024 10:27:41 meningococcal MCV4P 9 completed Sandi Atwood APRN [address], [place], [address], [facility] 02/29/2024 10:27:41 DTaP 1 completed Sandi Atwood APRN [address], [place], [address], [facility] 02/29/2024 10:27:41 DTaP 1 completed Sandi Atwood APRN [address], [place], [address], [facility] 02/29/2024 10:27:41 DTaP 2 completed Sandi Atwood APRN [address], [place], [address], [facility] 02/29/2024 10:27:41 DTaP 1 completed Sandi Atwood APRN [address], [place], [address], [facility] 02/29/2024 10:27:41 Influenza, split virus, quadrivalent, PF 2 completed Sandi Atwood APRN [address], [place], [address], [facility] [employer] [facility] 02/29/2024 10:27:41 Influenza, split virus, quadrivalent, PF 2 completed Sandi Atwood APRN [address], [place], [address], [facility] [employer] [facility] 02/29/2024 10:27:41 Influenza, MDCK, quadrivalent, PF 2 completed Sandi Atwood APRN [address], [place], [address], [facility] [employer] [facility] 02/29/2024 10:27:40 COVID-19, mRNA, LNP-S, PF, 30 mcg/0.3 mL dose 2 completed Sandi Atwood APRN [address], [place], [address], [facility] [employer] [facility] 02/29/2024 10:27:40 COVID-19, mRNA, LNP-S, PF, 30 mcg/0.3 mL dose 1 completed Sandi Atwood APRN [address], [place], [address], [facility] [employer] [facility] 02/29/2024 10:27:40 Influenza, split virus, quadrivalent, preservative 6 completed Not Available [facility] 06/20/2022 09:25:24 varicella 5 completed Not Available [facility] 06/20/2022 09:25:24 meningococcal MCV4P 5 completed Not Available [facility] 06/20/2022 09:25:24 HPV, quadrivalent 6 completed Sandi Atwood APRN [address], [place], [address], [facility] [employer] [facility] 02/29/2024 10:27:40 HPV, quadrivalent 5 completed Sandi Atwood, [employer] [address], [place], [address], [employer] 02/29/2024 10:27:41 HPV, quadrivalent 5 completed Sandi Atwood, [employer] [address], [place], [address], [employer] 02/29/2024 10:27:41 Influenza, live, quadrivalent, intranasal 3 completed Not Available [facility] 06/20/2022 09:25:25 Past Encounters Encounter ID Performer Location Encounter Start Date Encounter Closed Date Diagnosis/Indication Diagnosis SNOMED-CT Code Diagnosis ICD10 Code Diagnosis IMO Codes Diagnosis Note [id number] ESTELA Sr [facility] Primary Care [facility] [address] [place] [address] 11/17/2021 00:00:00 11/17/2021 09:22:46 [id number] Triny Randhawa MD [facility] Primary Care [facility] [address] [place] [address] 01/18/2023 09:00:53 01/18/2023 14:28:02 Weight gain 4619577 R63.5 weight 175 last year aroundt his timegained 50lbs then lost 28lbs all within a little over a years timehas been watching what he was eating now and has been working out consistent ly Adult heal th examination 613774855 Z00.00 Encouraged fresh fruits and veggies-re ports good intakeIncr ease daily water intake-gal rickey/dayEnc ourage 30 mins of daily exercisede clined flu shot Nicotine dependence 5629 4008 F17.200 vapes nicotine currentlyd iscussed use of nicotine patches-pt agreeswill trial nicotine 14mg patch Cobalamin deficiency 190 989447 E53.8 Vitamin D deficiency 347 67998 E55.9 [id number] Triny Randhawa MD [facility] Primary Care [facility] [address] [employer] [facility] [address] [place] [address] 07/10/2023 09:57:12 07/10/2023 10:38:12 Essential hypertension 32737252 I10 -new diagnosis, untreated- was recently seen [...] in his next leave Intermitte nt palpitations 905340489 R00.2 -occ notes palpitatio ns when his anxiety is elevated-h as noted some numbness/t ingling to left hand-dragan r monitor ordered Anxiety 94258972 F41.9 -new issue-pt c/o anxiety/pa estefany attacks, has led to the point of ER visit-he would like a daily med rather than prn-trial escitalopr am 10mg-f/u in 1 month [id number] Triny Randhawa MD [facility] Primary Care [facility] [address] [facility] [address] [place] [address] 07/16/2023 09:31:31 07/17/2023 04:12:38 [id number] Triny Randhawa MD [facility] Primary Care [facility] [address] [facility] [address] [place] [address] 07/23/2023 09:58:00 07/23/2023 10:29:23 [id number] Triny Randhawa MD [facility] Primary Care [facility] [address] [facility] [address] [place] [address] 07/30/2023 10:04:44 08/10/2023 04:02:30 [id number] Triny Randhawa MD [facility] Primary Care [facility] [address] [employer] [facility] [address] [place] [address] 08/13/2023 09:50:51 08/13/2023 14:57:57 [id number] Triny Randhawa MD [facility] Primary Care [facility] [address] [facility] [address] [place] [address] 08/16/2023 09:51:09 08/16/2023 10:20:15 Essential hypertension 49840708 I10 -ch ronic, stable with meds-curre ntly [...] of of bp/holter monitor-pt is in the [employer] and questions whether he can still participat e-leaves july 27. encouraged to f/u for bp on 07/15 (if still high, will start bp med and f/u with this office during the first week of july for a bp). If still high after starting med, will have him hold off on participat ing in his next leave Panic attack 577595055 F 41.0 -not able to tolerate maintenanc e medication -he would like an as needed-tri al hydroxyzin e given [id number] LUIS Franklin [facility] Primary Care [facility] [address] [facility] [address] [place] [address] 08/30/2023 10:00:08 08/30/2023 10:20:45 Essential hypertension 19839811 I10 08-30-23-bp 146/88, no solano/cp/sob- has been taking 30mg lisinopril -has been checking bp at home with electric cuff-refil l already sent -ch ericka, stable with meds-curre mariselaabe taking 20mg of lisinopril -bp 162/90 no [...] of of bp/holter monitor-pt is in the [employer] and questions whether he can still participat e-leaves july 27. encouraged to f/u for bp on 07/15 (if still high, will start bp med and f/u with this office during the first week of july for a bp). If still high after starting med, will have him hold off on participat ing in his next leave Panic attack 257325528 F 41.0 08-30-23- es hydroxyzin e 3 times/day- declines med changes-re fill given 08-16-23-no t able to tolerate maintenanc e medication -he would like an as needed-tri al hydroxyzin e given [id number] Hardik aguirre MD [facility] [address] [place] [address] 03/04/2024 09:00:42 03/04/2024 09:45:42 Anxiety 73702075 F41.9 Hepatitis C screening 41 2245336 Z11.59 Panic attack 106786814 F 41.0 Diabetes m ellitus screening 636786264 Z13.1 Hyperlipid emia screening 309418197 Z13.220 Screening for disorder 381070669 Z13.9 Thyroid di sorder screening [id number] Z13.29 [id number] Yissel Martins NP [facility] [address] [address] 03/30/2024 11:03:42 03/30/2024 15:47:25 Health Concerns Section Related Observation LastModified by Organization Detai ls LastModified Time None Recorded Concern Status LastModified by Organization Details LastModified Time None Recorded Advance Directives Directive None Recorded Payers Insurance Date Sequence Insurance Name Policy Number Policy Dewitt Covered Member ID Dewitt Member ID Guarantor Name 03/30/2024 2 [place]ID-[place]: [facility] Chance White [id number] Chance X White 07/14/2024 1 [facility] () Chance White [id number] Chance X White 03/30/2024 2 [facility] (MEDICAID HMO) [id number] Chance White [id number] Chance X White Notes Date Note Type Note Provider Name and Address Organization Details Recorded Time 08/16/2023 text/html pt is here for bp f/u MAUREEN FranklinP-C [address], [place], [address], [employer] 08/16/2023 10:21:00 08/30/2023 text/html pt is here for f/u for elevated bp MAUREEN FranklinP-C [address], [place], [address], [employer] 08/30/2023 10:19:04 03/04/2024 text/html Oliverio presents today [...] Atwood APRN [address], [address], [place], [address], [employer] 03/04/2024 09:35:31
--- OUTSIDE RECORDS SUMMARY | 2025-04-18 10:55 | XMS_ITS | Data Portability ---
Author Organization [place] - [facility] OFFICE Address [address] [place] [address] Care Team Providers Care Production Line Assembler Name Role Phone Mary Ellen Pritchett Primary Care Provider Assessment Encounter Date Assessment Date Assessment LastModified by Organization Details LastModified Time 09/17/2023 09/17/2023 Patient Examined by NÉSTOR [place], Also Documentation reviewed and approved by supervising physician leticia Not available 09/17/2023 10:01:40 Plan of Treatment Reminders Order Date Submit Date Provider Name Organization Details Last Modified By Last Modified Time Details Appointments None recorde d. Lab None recorde d. Referral None recorde d. Procedures None recorde d. Surgeries None recorde d. Imaging electro cardiog idania 2023 16:06: 47 024 Prosper Fernandez i, MD Not available Gerry Oates 09:26:53 MedicationOrders None recorde d. VaccineOrders None recorde d. Patient TargetsNo targets recorded. Patient Instructions Encounter Date Encounter Id Patient Instructions Last Modified By Organization Details Last Modified Time 09/17/2023 [id number] Low cholesterol diet advised Low sodium diet advised. [email or web address] Not available 09/17/2023 10:03:29 Reason for Referral None Reported. Results Created Date Observation Date Name Description Value Unit Range Abnormal Flag Specimen Type Note LastModifiedBy Organization Detail LastModifiedTime 08/06/2023 08/06/2023 electrocardiogram No observation recorded. Iman Rios Not Available 08/07/2023 13:55:18 09/10/2023 09/10/2023 exercise stress echocardiogram No observation recorded. Iman Rios Not Available 09/25/2023 12:52:33 02/18/2024 02/18/2024 electrocardiogram No observation recorded. Iman Gabriel Not Available 02/22/2024 09:25:46 02/20/2024 02/20/2024 electrocardiogram No observation recorded. Iman Gabriel Not Available 02/22/2024 09:28:04 03/22/2024 03/22/2024 electrocardiogram No observation recorded. Iman Gabriel Not Available 04/02/2024 13:09:18 03/22/2024 03/22/2024 electrocardiogram No observation recorded. Iman Gabriel Not Available 04/02/2024 13:11:44 03/22/2024 03/22/2024 electrocardiogram No observation recorded. Iman Gabriel Not Available 04/02/2024 13:16:11 03/22/2024 03/22/2024 electrocardiogram No observation recorded. Iman Gabriel Not Available 04/02/2024 13:16:43 03/22/2024 03/22/2024 XR, chest, 1 view No observation recorded. Iman Gabriel Not Available 04/02/2024 13:19:42 03/23/2024 03/23/2024 electrocardiogram No observation recorded. Iman Gabriel Not Available 04/02/2024 13:22:51 04/02/2024 04/02/2024 electrocardiogram No observation recorded. Say Doan Not Available 02/16/2025 17:11:07 04/13/2024 04/13/2024 event monitor No observation recorded. Say Doan Not Available 02/16/2025 17:10:26 05/18/2024 05/18/2024 electrocardiogram No observation recorded. Say Doan Not Available 02/16/2025 17:10:17 Result Notes Documentation Provider Name and Address Organization Details Recorded Time Lipid Panel, Blood : 08/13/23:Na 139,K 4.2,CL 103,CO2 30,GLU 95,BUN 15,Cr 0.70. 08/13/23:TC 155,TG 44,HDL 53,LDL 93. Say Doan [facility], [place] - [facility] 09/27/2023 06:44:53 Problems Name Problem SNOMED Code Status Onset Date Resolution Date Notes Provider Name and Address Organization Details Recorded Time Essential hypertension 45357570 Active 2023 Deal Mesto null, [place] - [facility] 4 17:11:50 Palpitations 54651876 Active 2023 Deal [place] - [facility] 4 17:12:03 Atypical chest pain 291411642 Active 2023 Say Wesleyto [place], [place] - [facility] 4 17:12:12 Mitral valve prolapse 421545109 Active 2023 Say Wesley[place] - [facility] 4 17:12:22 Dyslipidemia 233119240 Active 2023 Deal M[place] - [facility] 4 17:12:32 Problem Notes None recorded. Procedures Surgical History Date Name Laterality Status Provider Name and Address Organization Details Recorded Time 04/23/19 13 tonsillectomy and adenoidectomy completed Melyssa Burrows [facility] 08/06/2023 15:50:53 Imaging Results Imaging Date Name Status LastModifiedBy Organization Detail LastModifiedTime 4 electrocardiogram completed Iman Gabriel Not Available 13:55:18 4 exercise stress echocardiogram completed Iman Gabriel Not Available 09/25/2023 12:52:33 4 electrocardiogram completed Iman Gabriel Not Available 09:25:46 4 electrocardiogram completed Iman Gabriel Not Available 09:28:04 4 electrocardiogram completed Iman Gabriel Not Available 13:09:18 4 electrocardiogram completed Iman Gabriel Not Available 13:11:44 4 electrocardiogram completed Iman Gabriel Not Available 13:16:11 4 electrocardiogram completed Iman Gabriel Not Available 13:16:43 4 XR, chest, 1 view completed Iman Gabriel Not Available 13:19:42 4 electrocardiogram completed Iman Gabriel Not Available 13:22:51 4 electrocardiogram completed Deal Mesto Not Available 5 17:11:07 4 event monitor completed Deal Mesto Not Available 02/16/2025 17:10:26 5 electrocardiogram completed Deal Mesto Not Available 5 17:10:17 Procedure Notes None recorded. Medical Equipment None Reported. Allergies No known drug allergies Medications Name Authored On Sig Start Date Stop Date Status Note Indication Fill Status Repeat Number Dispense Quantity LastModified by Organization Details LastModified Time nicot ine 14 mg/24 hr daily trans derma l patch 4 14:55:35 08/05 aborted Not Available Not availab le 0 Not Available Melyssa Stormy [place] - [facility] 08/06/2023 15:46:28 escit alopr am 10 mg table t 4 14:55:35 TAKE 1 TABL ET BY HUMBERTO Pinzon DAY 02/19 aborted Not Available Not availab le 0 Not Available Laurajen Dillon [facility] 02/20/2024 19:49:59 bupro pion HCl SR 150 mg table t,12 hr susta ined- relea se 4 08:41:36 TAKE 1 TABL ET BY HUMBERTO Pinzon DIRE CTED active Not Available Not availab le 0 Not Available Not Available [facility] 04/02/2024 08:41:36 aripi prazo le 2 mg table t 5 18:38:27 TAKE 1 TABL ET BY HUMBERTO Pinzon active Not Available Not availab le 0 Not Available Not Available jennifer - External Data [employer] - prod 02/15/2025 18:38:27 buspi rosalinda 5 mg table t 5 18:38:27 TAKE 1 TABL ET BY HUMBERTO Pinzon active Not Available Not availab le 0 Not Available Not Available jennifer - External Data [employer] - prod 02/15/2025 18:38:27 fluox etine 40 mg capsu le 5 18:38:27 TAKE 1 CAPS ULE BY HUMBERTO Pinzon active Not Available Not availab le 0 Not Available Not Available jennifer - External Data Service - prod 02/15/2025 18:38:27 hydro xyzin e HCl 25 mg table t 5 18:38:27 TAKE 1 TABL ET BY MOUT H THRE E TIME S CADY Y NEED ED FOR ANXI ETY active Not Available Not availab le 0 Not Available Not Available jennifer - External Data [employer] - prod 02/15/2025 18:38:27 ibupr ofen 600 mg table t 5 18:38:27 TAKE 1 TABL ET BY MOUT H THRE E TIME S CADY Y NEED ED FOR PAIN active Not Available Not availab le 0 Not Available Not Available jennifer - External Data Service - prod 02/15/2025 18:38:27 mecli zine 12.5 mg table t 5 18:38:27 TAKE 1 TABL ET BY MOUT H THRE E TIME S CADY Y NEED ED FOR DIZZ VIK S active Not Available Not availab le 0 Not Available Not Available jennifer - External Data [employer] - prod 02/15/2025 18:38:27 propr anolo l 10 mg table t 5 18:38:27 TAKE 1 TABL ET BY MOUT H EVER Y 12 HOUR S ON AN EMPT Y STOM ACH active Not Available Not availab le 0 Not Available Not Available jennifer - External Data Service - prod 02/15/2025 18:38:27 sertr hernan 50 mg table t 5 18:38:27 TAKE 1 TABL ET BY MOUT H CADY Y active Not Available Not availab le 0 Not Available Not Available jennifer - External Data Service - prod 02/15/2025 18:38:27 lisin opril 10 mg table t 4 08:41:59 TAKE 3 TABL ETS BY MOUT H EVER Y DAY 02/17 aborted Not Available Not availab le 0 Not Available Say Doan [place] - [facility] 02/16/2025 17:08:36 lisin opril 2.5 mg table t 5 06:42:03 TAKE 1 TABL ET BY MOUT H CADY Y active Not Available Not availab le 0 Not Available Not Available jennifer - External Data Service - prod 02/18/2025 06:42:03 fluox etine 20 mg capsu le 4 08:41:36 TAKE 1 CAPS ULE BY MOUT H EVER Y DAY DIRE CTED 02/18 aborted Not Available Not availab le 0 Not Available [facility] 02/18/2025 14:49:46 amoxi cilli n 875 mg-po tassi um clavu lanat e 125 mg table t 4 04:58:35 TAKE 1 TABL ET BY MOUT H EVER Y 12 HOUR S FOR 7 DAYS 02/18 aborted Not Available Not availab le 0 Not Available [facility] 02/18/2025 14:49:51 hydro xyzin e pamoa te 50 mg capsu le 4 08:41:36 TAKE 1 CAPS ULE BY MOUT H THRE E TIME S CADY Y NEED ED 02/18 aborted Not Available Not availab le 0 Not Available [facility] 02/18/2025 15:00:18 Vitals Date Recorded Body height Body mass index (BMI) Body weight Heart rate Oxygen saturation Systolic And Diastolic Provider Name and Address Organization Details Last Updated DateTime 4 187.96 cm 26.7 kg/m2 61205.2 1 g 85 /min 98 % 132/72 mm[Hg] [facility] 4 15:57:06 Date Recorded Body height Body mass index (BMI) Body weight Heart rate Oxygen saturation Systolic And Diastolic Provider Name and Address Organization Details Last Updated DateTime 4 187.96 cm 28 kg/m2 92791.4 2 g 99 /min 100 % 112/72 mm[Hg] Melyssa Burrows [facility] 4 09:48:00 Date Recorded Body height Body mass index (BMI) Body weight Heart rate Oxygen saturation Systolic And Diastolic Provider Name and Address Organization Details Last Updated DateTime 4 187.96 cm 28 kg/m2 14312.1 4 g 111 /min 98 % 152/80 mm[Hg] Laura Dillon [facility] 4 19:50:24 Date Recorded Body height Body mass index (BMI) Body weight Heart rate Respiratory rate Oxygen saturation Systolic And Diastolic Provider Name and Address Organization Details Last Updated DateTime 4 187.96 cm 27.1 kg/m2 26243.9 9 g 90 /min 18 /min 99 % 124/82 mm[Hg] Iman Rios [facility] 4 19:51:49 Social History Question Answer Notes LastModified by Organizat ion Details LastModified Time What Is Your Level Of Alcohol Consumption? Occasional Melyssa Burrows [facility] 08/06/2023 15:49:26 What is your level of caffeine consumption? None Melyssa Burrows [facility] 08/06/2023 15:49:26 How many children do you have? 1 Melyssa Burrows [facility] 08/06/2023 15:52:48 What is your relationship status? Melyssa Burrows [facility] 08/06/2023 15:52:48 Social History Observation Description Date Observed Sex Unknown 02/15/2025 Legal Sex Male Status Not (finding) 04/18/20 25 No social history survey screeners recorded No social history SDOH screeners recorded Functional Status Question Answer Note LastModified by Organizat ion Details LastModified Time What is your level of alcohol consumption? Occasional Melyssa Burrows [facility] 08/06/2023 15:49:26 No Functional Screening assessment recorded No Functional SDOH screeners recorded Mental Status None recorded. No Mental Screening assessment recorded No Mental SDOH screeners recorded Family History Relationship Description Onset Age of this Age Resolved Age Notes LastModified by Organization Details LastModified Time Father Hypertensive disorder Not available 2023 15:48:02 Medical History Condition Response Hypertension Y Past Encounters Encounter ID Performer Location Encounter Start Date Encounter Closed Date Diagnosis/Indication Diagnosis SNOMED-CT Code Diagnosis ICD10 Code Diagnosis IMO Codes Diagnosis Note [id number] Prosper Keane MD [place] OFF[facility] [place] [address] 08/06/2023 15:30:06 08/06/2023 16:16:57 Essential hypertension 75905922 I10 Palpitations 55732905 R0 0.2 with tachycardi a, may need Beta jaxon Atypical chest pain 1025 12816 R07.89 Will get exercise stress echo, to look for any structural heart disease, and to look for any ischemia Mitral valve prolapse 40 6124108 I34.1 Dyslipidemia 199724519 E 78.5 Needs to keep LDL less than 70, and HDL more than 40Will get fasting lipids for follow up [id number] Prosper Keane MD [place] OFFICE [address] [place] [id number] 09/17/2023 09:32:22 09/17/2023 10:04:50 Essential hypertension 22775349 I10 well controlled today Palpitations 81851581 R0 0.2 with tachycardi a, may need Beta jaxon Atypical chest pain 1025 67225 R07.89 negative stress test 2023 Mitral valve prolapse 40 1469170 I34.1 stable Dyslipidemia 034137266 E 78.5 Needs to keep LDL less than 70, and HDL more than 40Will get fasting lipids for follow upLast LDL was 93 done 07/2023 and he is not taking any medication [id number] Prosper Keane MD [place] OFFICE [address] [place] [phone] 02/20/2024 19:47:19 02/20/2024 20:08:52 Essential hypertension 38896395 I10 Blood pressure is elevated today, but this is only one reading, will keep close follow up, and consider medication change if blood pressure is still elevated next visit. Palpitations 81962198 R0 0.2 with tachycardi a, may need Beta jaxon Atypical chest pain 1025 07147 R07.89 negative stress test 2023 Mitral valve prolapse 40 7843735 I34.1 stable Dyslipidemia 380060096 E 78.5 Needs to keep LDL less than 70, and HDL more than 40Will get fasting lipids for follow upLast LDL was 93 done 07/2023 and he is not taking any medication [id number] Prosper Keane MD [place] OFFICE [address] [place] [phone] 04/02/2024 19:09:15 04/02/2024 20:46:11 Essential hypertension 55929983 I10 Blood pressure is elevated today, but this is only one reading, will keep close follow up, and consider medication change if blood pressure is still elevated next visit. Palpitations 84518798 R0 0.2 with tachycardi a, may need Beta blocker7 days event monitor Atypical chest pain 1025 61316 R07.89 negative stress test 2023 Mitral valve prolapse 40 0885469 I34.1 stable Dyslipidemia 269707836 E 78.5 Needs to keep LDL less than 70, and HDL more than 40Will get fasting lipids for follow upLast LDL was 93 done 07/2023 and he is not taking any medication Health Concerns Section Related Observation LastModified by Organization Detai ls LastModified Time None Recorded Concern Status LastModified by Organization Details LastModified Time None Recorded SDOH Concern Status LastModified by Organization Detai ls LastModified Time None Recorded Advance Directives Directive None Recorded Payers Insurance Date Sequence Insurance Name Policy Number Policy Dewitt Covered Member ID Dewitt Member ID Guarantor Name 02/15/2025 1 [employer] () Oliverio Wood [id number] Oliverio Wood 10/14/2024 1 [employer] ( - PPO) Oliverio Wood [id number] Oliverio Wood Notes Date Note Type Note Provider Name and Address Organization Details Recorded Time 08/06/2023 text/html 08/06/23CC: chest painChamaryjane WOOD is a 23 years-old Male with [...] done on .Pt takes. Prosper Keane MD [address] [facility], [place], [address], [facility] - [facility] 08/06/2023 16:06:50 09/17/2023 text/html 09/17/23CC : Cardiac follow up chest pain.Oliverio WOOD is a [...] 15,Cr 0.70.08/13/23:TC 155,TG 44,HDL 53,LDL 93. BYRON FAY [facility] [place] - [facility] 09/17/2023 10:03:33 02/20/2024 text/html 09/17/23CC : Cardiac follow up.Oliverio WHITE is a 23 years-old Male with h/o [...] 44,HDL 53,LDL 93. Prosper Keane MD [address] [place], [address], [facility] 02/20/2024 20:03:37 04/02/2024 text/html *fasting xwptyk39/12/24CC : Hospital follow up.Oliverio WHITE is a 24 years-old Male with h/o Hypertension , Hyperlipidemia and anxiety is here for hospital follow up. He was last seen in the clinic on 02/20/24, since then he was in the [facility] because of palpitation and Tachycardia. Denies [...] 44,HDL 53,LDL 93. Prosper Keane MD [address] [place], [address], [place] [facility] 04/02/2024 20:41:30 Care Team Name Role Member ID Specialty Address Phone MARY ELLEN REDDYP-C Primary Care Provider [id number], [place], [place]
--- OUTSIDE RECORDS SUMMARY | 2025-04-18 10:55 | XMS_ITS | Clinical Summary ---
Author Organization [facility] [employer] Address [address] [place] [address] Care Team Providers Care Club Licensee Name Role Phone Triny Randhawa MD Primary Care Provider [phone] Source Comments [facility] [employer],non-owned Affiliates and Associated Physician Practices is amultiple site organization consisting of ambulatory clinics and hospital sitesin [place], [place], [place] and [place]. This disclosure is being madepursuant to the Care Everywhere program and may not contain all information available regarding this patient. 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 [phone] PCP - General Family Medicine 10/26/13
[2025-04-18 11:06] VITALS: BP 153/86; PULSE 128; RESP 20; TEMP 36.8; O2SAT 100
[2025-04-18 11:14] VITALS: O2SAT 100
--- OUTSIDE RECORDS SUMMARY | 2025-04-18 11:20 | XMS_ITS | Clinical Summary ---
Author Organization [facility] [employer] Address [address] [facility] [place] [address] Care Team Providers Care Energy Specialist Name Role Phone Triny Randhawa MD Primary Care Provider [phone] Source Comments [facility] [employer],non-owned Affiliates and Associated Physician Practices is amultiple site organization consisting of ambulatory clinics and hospital sitesin [place], [place], [place] and [place]. This disclosure is being madepursuant to the Care Everywhere program and may not contain all information available regarding this patient. 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 [phone] PCP - General Family Medicine 10/26/13
--- NOTE | 2025-04-18 11:43 | ED.GENADULT ---
HPI - General Adult General Chief complaint: Upper Respiratory Infection Stated complaint: cough blood, sick for week Time Seen by Provider: 04/18/25 11:13 History of Present Illness HPI narrative: 25-year-old male presents emergency department for evaluation for cough congestion this been ongoing for the last week. Patient did have some hemoptysis this morning. Patient describes some blood-tinged mucus but denies any gross hemoptysis Related Data Allergies Allergy/AdvReac Type Severity Reaction Status Date / Time No Known Allergies Allergy Verified 02/01/25 13:37 Review of Systems Review of Systems: All systems reviewed & are unremarkable except as noted in HPI and below PMFSH Past Medical History Medical History Epididymal cyst Recurrent major depression resistant to treatment Headache GERD (gastroesophageal reflux disease) History of anxiety Family History Family History Mother Depression Heart problem Colon cancer Asthma Father Hypertension Depression Anxiety Sibling Depression Anxiety Grandparent , 67yo Depression Anxiety Liver cancer Lung cancer Hypertension Grandparent History of thyroid surgery Social History Social History (Updated 02/01/25 @ 13:59 by Bebeto Yusuf DO) Smoking status: Current every day smoker Tobacco type: e-cigarettes/vaping Substance use type: does not use Other substance usage details: Caffeine (multiple energy drinks daily, occasional coffee) Lack of Transportation: No Lack of Food: Never True Current Housing: I Have Housing Concerned About Future Housing: No Difficulty Paying Gas/Electric Bills: No Difficulty Paying for Meds: No Currently Unemployed: No Education: High School Diploma/GED Difficulty w/ Childcare or Family Care: No Living arrangements: with family Additional living arrangements comments: , [place] Occupation/Education: occupation Gender identity (if verbalized by the patient): Male Exam Narrative: APPEARANCE: Well appearing, no pain, no distress, well-nourished. HEAD: normocephalic, atraumatic. EYES: PERRLA/EOMI, conjunctivae clear. NOSE: Normal no drainage EARS:TMS clear with good light reflex. THROAT: Pharynx clear, no exudate. NECK: Supple. No adenopathy, no masses. RESPIRATORY: Airway patent, respirations nonlabored. Clear to auscultation bilaterally, no rales, rhonchi, wheezing. CARDIOVASCULAR: Regular rate and rhythm without murmurs rubs or gallops. ABDOMINAL: Soft, nontender, nondistended, normal bowel sounds MUSCULOSKELETAL: Moves all extremities. Strength/ROM intact, No edema, No calf tenderness. NEURO: Alert. Cranial nerves II through XII intact. Good gait. Good coordination SKIN: Warm, dry. Normal Color PSYCHIATRIC: Normal affect/mood. Course Vital Signs Vital signs: Vital Signs Temperature 98.2 F 04/18/25 11:06 Pulse Rate 128 H 04/18/25 11:06 Respiratory Rate 20 04/18/25 11:06 Blood Pressure 153/86 H 04/18/25 11:06 Pulse Oximetry 100 04/18/25 11:06 Oxygen Delivery Room Air 04/18/25 11:06 Temperature 98.2 F 04/18/25 11:06 Pulse Rate 89 04/18/25 12:34 Respiratory Rate 17 04/18/25 12:34 Blood Pressure 116/75 04/18/25 12:34 Pulse Oximetry 98 04/18/25 12:34 Oxygen Delivery Room Air 04/18/25 11:14 MDM MDM Narrative Medical decision making narrative: 25-year-old male presents emergency department for evaluation for hemoptysis secondary to cough and congestion and cold. Patient states this morning he had intense coughing fit and did have a large glob of mucus that did have some red streaking. Patient denies any other hemoptysis since. Patient is resting comfortably at time of evaluation. Patient has been having cough and congestion for approximately 1 week. Patient will be started on Augmentin and azithromycin for possible atypical pneumonia due to the length of the Differential Diagnosis Differential Diagnosis: Bronchitis, pneumonia, hemoptysis, hematemesis, epistaxis Lab Data Labs: Lab Results 04/18/25 Range/Units 11:26 Influenza A (RT-PCR) Negative (Negative) Influenza B (RT-PCR) Negative (Negative) RSV (RT-PCR) Negative (Negative) SARS-CoV-2 RNA (RT-PCR) Negative (Negative) Imaging Data Radiologist's impression: ITS Impressions Chest X-Ray 04/18/25 12:16 IMPRESSION: 1. No acute cardiopulmonary findings given portable technique. Discharge Plan Discharge Clinical Impression: Hemoptysis, Pneumonia Patient Disposition: Home Condition: Stable Instructions: Antibiotic Form, Acute Bronchitis (ED), Coughing Up Blood (Hemoptysis) (ED) Additional Instructions: Antibiotic as directed until completed. Rochelle Dillon for cough and congestion. Have close follow-up with your primary care physician. If you have any worsening symptoms then please call or return to the emergency department. Patient Language: Lithuanian Prescriptions: New cyclobenzaprine 10 mg tablet 10 mg PO BID PRN (Reason: muscle spasm) Qty: 14 0RF azithromycin 250 mg tablet See Rx Instructions .ROUTE .COMPLEX Qty: 6 0RF Rx Instructions: For 250 mg dose pack: take 500 mg today (day 1), then 250 mg for 4 days (days 2-5) albuterol sulfate 90 mcg/actuation HFA aerosol inhaler 1 puff inhalation QID Qty: 6.7 0RF amoxicillin-pot clavulanate 875-125 mg tablet 1 tablet PO Q12H 7 Days Qty: 14 0RF No Action hydroxyzine HCl 25 mg tablet 25 mg PO TID PRN (Reason: Anxiety) Qty: 60 0RF lisinopril 2.5 mg tablet See Rx Instructions .ROUTE .COMPLEX Qty: 90 1RF Dose Instruction: TAKE 1 TABLET BY MOUTH DAILY Rx Instructions: TAKE 1 TABLET BY MOUTH DAILY Follow-up/Referrals: Bebeto Yusuf DO [Primary Care Provider, Family Practice]
[2025-04-18 12:06] LABS: Influenza A QL RT-PCR Negative (Negative); Influenza B QL RT-PCR Negative (Negative); RSV RNA, RT-PCR Negative (Negative); SARS-CoV-2 RNA PCR Negative (Negative)
[2025-04-18 12:34] VITALS: BP 116/75; PULSE 89; RESP 17; O2SAT 98
== END 2025-04-18 12:53 | disposition home or self-care (01) ==
PROVIDERS: Emergency Provider Emergency Medicine; PCP Family Medicine
DX: J18.9 Pneumonia, unspecified organism (principal); R04.2 Hemoptysis; F17.290 Nicotine dependence, other tobacco product, uncomplicated; Z20.822 Contact with and (suspected) exposure to COVID-19
CPT/HCPCS: 71045; 87637; 99283